=== PATIENT | male | born 1955 | race Caucasian/White ===

== ENCOUNTER 2017-12-04 19:18 | Inpatient (IN) | payer MEDICAID, SELFPAY ==
[2017-12-04 19:24] VITALS: BP 96/63; PULSE 114; RESP 16; TEMP 36.7; O2SAT 100; BMI 27.8
--- NOTE | 2017-12-04 20:03 | DI.RAD.S_ITS ---
PROCEDURE: XR CHEST 1V INDICATIONS: chest pain TECHNIQUE: One view of the chest was acquired. COMPARISON: [facility], , CHEST 2 VIEW, 04/27/2017, 15:45. FINDINGS: Surgical changes and devices: Sternal wires consistent with previous bypass procedure. Lungs and pleura: There is an overall appearance of increased pulmonary vascularity. Mediastinum: Mediastinal contours appear normal. Heart size is borderline prominent. Bones and chest wall: No suspicious bony lesions. Overlying soft tissues appear unremarkable. IMPRESSION: Increased vascularity suggestive of edema. Dictated by: Yudy Crow M.D. on 12/04/2017 at 19:58 Approved by: Yudy Crow M.D. on 12/04/2017 at 19:59
--- NOTE | 2017-12-04 20:11 | ED.ARRPALP ---
HPI - Arrhythmia/Palpitations General Chief Complaint: Arrhythmia/Palpitations Stated Complaint: STATED HIGH HEART RATE Time Seen by Provider: 12/04/17 20:00 Source: patient Mode of arrival: ambulatory Limitations: no limitations History of Present Illness HPI narrative: 62-year-old male with history of hepatitis C, cirrhosis, former alcohol abuser presents with very minimal complaints. He states that he was at the pharmacy picking up a prescription and he took his blood pressure at a machine and noted a high heart rate and low blood pressure. He states he feels a bit tired but has no specific complaints. He is not dizzy nor weak or lightheaded. He denies any nausea, vomiting or diarrhea. He denies any fever or chills. He denies chest pain or shortness of breath. He recently started therapy for hepatitis C. He states that the swelling which has become chronic in his legs is greatly improved. Eventually the patient mentions that he thinks he had recently been at another hospital but has very little specifics about his hospitalization. In the end we obtained records from [facility] which demonstrate a recent diagnosis for septic shock and acute respiratory failure with intubation and acute kidney injury. Patient was discharged on October 25 from [facility] complaint: rapid heart beat Onset (ago): unknown Duration: constant Severity: moderate Related Data Home Medications Medication Instructions Recorded Confirmed lisinopril 10 mg PO QDAY #0 12/03/16 12/04/17 magnesium oxide 400 mg PO QDAY #0 12/03/16 12/04/17 potassium chloride 20 meq PO BIDCC #0 12/03/16 12/04/17 furosemide 40 mg PO BID 12/04/17 12/04/17 sofosbuvir-velpatasvir [Epclusa] 1 tab PO DAILY 12/04/17 12/04/17 spironolactone 25 mg PO DAILY 12/04/17 12/04/17 Previous Rx's Medication Instructions Recorded ondansetron 4 mg SUBLINGUAL Q6HP PRN #14 odt 03/15/17 lactulose 30 ml PO TID #90 dose 04/30/17 Allergies Allergy/AdvReac Type Severity Reaction Status Date / Time No Known Allergies Allergy Uncoded 07/03/17 12:03 Review of Systems Review of Systems All systems reviewed & are unremarkable except as noted in HPI and below Constitutional Denies chills, Denies fever(s), Denies lethargy, Reports poor appetite and Denies weakness Eyes Denies change in vision, Denies eye discharge, Denies irritation and Denies loss of vision ENT Ears, Nose, Mouth, and Throat: Denies change in voice, Denies neck pain and Denies sore throat Cardiovascular Denies chest pain, Reports rapid heart rate, Denies irregular heart rhythm, Denies lightheadedness, Denies palpitations, Denies dyspnea, Denies dyspnea on exertion and Denies orthopnea Respiratory Denies cough, Denies dyspnea, Denies dyspnea on exertion and Denies wheezing Gastrointestinal Gastrointestinal: Denies abdominal pain, Denies change in bowel habits, Denies diarrhea, Denies nausea and Denies vomiting Genitourinary Denies hematuria, Denies flank pain, Denies urinary incontinence and Denies urinary urgency Musculoskeletal Denies neck pain Integumentary/Breasts Denies pruritus, Denies erythema, Denies rash and Denies wounds Neurologic Denies confusion, Denies loss of vision and Denies weakness Psychiatric Denies anxiety, Denies confusion, Denies depression, Denies homicidal ideation and Denies suicidal ideation Endocrine Denies palpitations Hematologic/Lymphatic Denies easy bruising Allergic/Immunologic Denies wheezing [facility] History Mitral valve replaced (Acute) Social History Smoking Status: Former smoker Exam Narrative Exam Narrative: 62-year-old male is alert and oriented, very stoic and not complaining of much Initial Vital Signs Initial Vital Signs: Vital Signs Temperature 98.1 F 12/04/17 19:24 Pulse Rate 114 H 12/04/17 19:24 Respiratory Rate 16 12/04/17 19:24 Blood Pressure 96/63 12/04/17 19:24 Pulse Oximetry 100 12/04/17 19:24 Const General: cooperative, disheveled, frail appearing and ill appearing Nutritional Appearance: well nourished Orientation: alert, awake, oriented x3 and not confused [facility] Head: normocephalic and atraumatic Ears: external ears normal and TM's normal bilaterally Nose: external nose normal and No nasal discharge Face and sinus: sinuses nontender, face symmetric, no sinus tenderness and No dry mucous membranes Mouth: oral mucosae normal and moist mucous membranes Teeth and gingiva: dentition normal Throat: tonsils normal and uvula midline Eyes General: appearance normal, both eyes and all related structures Eyelids: eyelids normal Conjunctivae: conjunctivae normal Sclera: sclerae normal Pupils: PERRL EOM: EOM intact bilaterally Neck Neck: normal visual inspection, trachea midline, No lymphadenopathy, No midline deformity and No JVD Lymphatic: No lymphedema Chest Chest: normal inspection of the chest Resp Effort & Inspection: normal respiratory effort, able to speak in complete sentences, no respiratory distress and no use of accessory muscles Auscultation: clear to auscultation bilaterally, no rales, no rhonchi and no wheezes Cardio Rate: tachycardic Rhythm: regular rhythm Heart Sounds: no click, no gallops, no murmurs and no rubs Pulses: normal peripheral pulses GI Inspection: normal to inspection Palpation: soft Auscultation: normal bowel sounds Back/Spine/Pelvis Back: No CVA tenderness Cervical Spine: cervical ROM normal and No pain with cervical ROM Thoracic/Lumbar Spine: thoracic and lumbar spine normal to inspection Skin Other: Jaundice Neuro General: alert, awake and oriented x3 Extrem General: normal to inspection Right upper extremity: normal to inspection Left upper extremity: normal to inspection Right lower extremity: normal to inspection Left lower extremity: normal to inspection Course Decision to Admit Date: 12/05/17 Decision to Admit time: 00:02 Orders Ordered: ED Orders 12/04/17 23:25 Lactate (Lactic Acid) Stat Troponin I Stat 12/05/17 CT angio chest PE protocol Stat EKG-12 Lead Stat 12/05/17 02:22 US abdomen complete Stat 12/05/17 02:35 Procalcitonin Stat 12/05/17 02:43 Ammonia (NH3) Stat Discontinued Medications Diltiazem HCl (Cardizem) 10 mg IV NOW ONE Stop: 12/05/17 03:30 Last Admin: 12/05/17 03:36 Dose: 10 mg Diphenhydramine HCl (Benadryl) 25 mg IV NOW ONE Stop: 12/05/17 00:05 Last Admin: 12/05/17 00:19 Dose: 25 mg Sodium Chloride (Normal Saline 0.9%) 1,000 mls @ 1,000 mls/hr IV BOLUS ONE Stop: 12/05/17 03:34 Last Infusion: 12/05/17 04:18 Dose: 1,000 mls/hr Admin: 12/05/17 03:04 Dose: 1,000 mls/hr Methylprednisolone (Solu-Medrol 125 Mg Vial) 125 mg IV NOW ONE Stop: 12/05/17 00:05 Last Admin: 12/05/17 00:19 Dose: 125 mg Metoprolol Tartrate (Lopressor) 50 mg PO NOW ONE Stop: 12/05/17 05:17 Last Admin: 12/05/17 05:22 Dose: 50 mg Reevaluation(s) Reevaluation #1: Patient's girlfriend finally arise and is at the bedside and is able to shed some light. She states that he has had a poor appetite for the past few days and has had less than normal oral intake. Reevaluation #2: Patient had little change after a L and half of fluid regarding tachycardia and hypotension. There was some question as to whether the sinus tachycardia was in fact a 1-1 Atrial flutter, as the result patient was given Cardizem 10mg IVP and EKGs note a decrease in HR to the low 100s and patient alternating between slow AFib and AFlutter. BP remains 100. Patient has no change in symptoms. Reevaluation #3: Patient heart rate beginning to creep back up into the 140s. Cardizem drip ordered Additional Reevaluation(s): Given lack of available beds at various other facilities I had a lengthy discussion with our hospitalist, Dr. Grimaldo whom feels comfortable keeping patient here to control rapid atrial tachycardia and monitor other labs. Her recommendation is, rather than an initiate Cardizem drip, to start metoprolol 50 mg p.o. and look for response. After 1 hr patient heart rate remained in the 70s with a systolic blood pressure 105, both improvement. Given this the patient will be admitted to general medical floor with telemetry and will receive metoprolol 50 mg Q [address] Grimaldo Consultations Consultation #1: Call to Dr. Michelle to discuss lab findings in the setting of the ultrasound noting gallstones. He sure the opinion that is unlikely to be surgical but that in the event of surgery his complicated medical history makes him much too complicated for this hospital. Called place to [facility], where there are no available beds as well as [facility] where there are no available beds. No beds at [facility]. Consultation #2: Call to Hepatology to discuss these symptoms after starting a new Hep C medication. He recommends stopping Epclusa, treating the atrial tachycardia and following labs. They will stay in close contact regarding patient's progress Call back to [facility], no beds still Vital Signs - 8 hr 12/04/17 22:44 12/04/17 23:09 12/05/17 00:15 Pulse Rate 149 H 150 H 136 H Respiratory Rate Blood Pressure [Left Arm] 98/66 98/62 102/65 Pulse Oximetry 98 99 98 12/05/17 01:01 12/05/17 02:05 12/05/17 03:18 Pulse Rate 136 H 138 H 136 H Respiratory Rate 16 18 20 Blood Pressure [Left Arm] 107/71 105/69 102/64 Pulse Oximetry 99 100 98 12/05/17 03:44 12/05/17 03:55 12/05/17 05:04 Pulse Rate 108 H 99 H 144 H Respiratory Rate Blood Pressure [Left Arm] 96/59 L 100/58 L 99/64 Pulse Oximetry 98 12/05/17 05:50 12/05/17 06:28 Pulse Rate 100 H 76 Respiratory Rate 18 Blood Pressure [Left Arm] 90/51 L 101/63 Pulse Oximetry 98 MDM - Arrhythmia/Palpitations Lab Data Result diagrams: 12/04/17 20:00 12/04/17 20:00 Lab Results 12/04/17 12/04/17 12/04/17 Range/Units 20:00 20:00 20:00 WBC 4.6 (4.5-11.0) X10^3/uL RBC 3.79 L (4.5-5.9) X10^6/uL Hgb 13.9 (13.5-17.5) g/dL Hct 39.0 L (41-53) % MCV 102.8 H (80-100) fL MCH 36.7 H (26-34) PG MCHC 35.7 (30-36) % RDW 15.8 H (11.6-14.8) % Plt Count 107 L (150-400) X10^3/uL Neut % (Auto) 68.4 (50-75) % Lymph % (Auto) 15.5 L (25-40) % [place] % (Auto) 11.2 (3-14) % Eos % (Auto) 3.7 (2-4) % Baso % (Auto) 1.2 (0-2) % Neut # (Auto) 3100 (0566-3789) /uL PT 15.7 H (10.1-12.7) SECONDS INR 1.4 H (0.9-1.3) APTT 35 (26.4-36.2) SECONDS Sodium 139 (137-145) mmol/L Potassium 4.6 (3.4-5.1) mmol/L Chloride 105 (98-107) mmol/L Carbon Dioxide 27 (22-32) mmol/L BUN 16 (9-20) mg/dL Creatinine 0.80 (0.66-1.25) mg/dL Estimated GFR > 60.0 (>60) mL/min BUN/Creatinine Ratio 20.0 (6-22) Glucose 100 (80-110) mg/dL Lactate (0.7-2.1) mmol/L Calcium 8.8 (8.4-10.2) mg/dL Total Bilirubin 8.0 H (0.2-1.3) mg/dL AST 135 H (17-59) IU/L ALT 84 H (21-72) IU/L Alkaline Phosphatase 125 (38-126) U/L Ammonia (9-30) umol/L Total Creatine Kinase 24 L (55-170) U/L Troponin I < 0.012 (0.01-0.034) ng/mL Total Protein 7.9 (6.3-8.2) g/dL Albumin 3.2 L (3.5-5.0) g/dL Globulin 4.7 H (1.7-4.1) g/dL Albumin/Globulin Ratio 0.7 L (1.0-2.8) Lipase 604 H (23-300) U/L Procalcitonin (<0.5) ng/mL 12/04/17 12/04/17 12/04/17 Range/Units 23:25 23:25 23:25 WBC (4.5-11.0) X10^3/uL RBC (4.5-5.9) X10^6/uL Hgb (13.5-17.5) g/dL Hct (41-53) % MCV (80-100) fL MCH (26-34) PG MCHC (30-36) % RDW (11.6-14.8) % Plt Count (150-400) X10^3/uL Neut % (Auto) (50-75) % Lymph % (Auto) (25-40) % [place] % (Auto) (3-14) % Eos % (Auto) (2-4) % Baso % (Auto) (0-2) % Neut # (Auto) (6638-7827) /uL PT (10.1-12.7) SECONDS INR (0.9-1.3) APTT (26.4-36.2) SECONDS Sodium (137-145) mmol/L Potassium (3.4-5.1) mmol/L Chloride (98-107) mmol/L Carbon Dioxide (22-32) mmol/L BUN (9-20) mg/dL Creatinine (0.66-1.25) mg/dL Estimated GFR (>60) mL/min BUN/Creatinine Ratio (6-22) Glucose (80-110) mg/dL Lactate 0.9 (0.7-2.1) mmol/L Calcium (8.4-10.2) mg/dL Total Bilirubin (0.2-1.3) mg/dL AST (17-59) IU/L ALT (21-72) IU/L Alkaline Phosphatase (38-126) U/L Ammonia (9-30) umol/L Total Creatine Kinase (55-170) U/L Troponin I < 0.012 (0.01-0.034) ng/mL Total Protein (6.3-8.2) g/dL Albumin (3.5-5.0) g/dL Globulin (1.7-4.1) g/dL Albumin/Globulin Ratio (1.0-2.8) Lipase (23-300) U/L Procalcitonin 0.07 (<0.5) ng/mL 12/05/17 Range/Units 02:43 WBC (4.5-11.0) X10^3/uL RBC (4.5-5.9) X10^6/uL Hgb (13.5-17.5) g/dL Hct (41-53) % MCV (80-100) fL MCH (26-34) PG MCHC (30-36) % RDW (11.6-14.8) % Plt Count (150-400) X10^3/uL Neut % (Auto) (50-75) % Lymph % (Auto) (25-40) % [place] % (Auto) (3-14) % Eos % (Auto) (2-4) % Baso % (Auto) (0-2) % Neut # (Auto) (4900-6825) /uL PT (10.1-12.7) SECONDS INR (0.9-1.3) APTT (26.4-36.2) SECONDS Sodium (137-145) mmol/L Potassium (3.4-5.1) mmol/L Chloride (98-107) mmol/L Carbon Dioxide (22-32) mmol/L BUN (9-20) mg/dL Creatinine (0.66-1.25) mg/dL Estimated GFR (>60) mL/min BUN/Creatinine Ratio (6-22) Glucose (80-110) mg/dL Lactate (0.7-2.1) mmol/L Calcium (8.4-10.2) mg/dL Total Bilirubin (0.2-1.3) mg/dL AST (17-59) IU/L ALT (21-72) IU/L Alkaline Phosphatase (38-126) U/L Ammonia 39.0 H (9-30) umol/L Total Creatine Kinase (55-170) U/L Troponin I (0.01-0.034) ng/mL Total Protein (6.3-8.2) g/dL Albumin (3.5-5.0) g/dL Globulin (1.7-4.1) g/dL Albumin/Globulin Ratio (1.0-2.8) Lipase (23-300) U/L Procalcitonin (<0.5) ng/mL Imaging Data CT scan - chest: Radiologist's impression: No CT evidence of pulmonary embolism. No acute intrathoracic pathology. Cholelithiasis without CT evidence of cholecystitis. Tiny amount of fluid adjacent to the spleen or tiny subcapsular fluid collection which may be result of an old subcapsular hematoma US - abdomen: Radiologist's impression: Multiple gallstones and minimally thickened gallbladder wall at 4 mm but otherwise normal ECG Data Attestation: I personally reviewed and interpreted this ECG as follows: Prior ECG tracings: not available for review Interpretation: Sinus tachycardia in the 150s without signs of ischemia or ectopy. EKG after Cardizem notes atrial flutter at 107 without signs of ischemia Discharge Plan Departure Patient Disposition: Admitted As Inpatient Clinical Impression: Atrial flutter with rapid ventricular response Admit Date/Time: 12/05/17 06:31 Admit Provider: Samantha Grimaldo
[2017-12-04 20:15] LABS: INR 1.4 (0.9-1.3); Prothrombin Time 15.7 SECONDS (10.1-12.7)
[2017-12-04 20:18] LABS: PTT Partial Thromboplastin Tim 35 SECONDS (26.4-36.2)
[2017-12-04 20:21] LABS: Add Manual Diff / Slide Review NO; Basophils Percent Auto 1.2 % (0-2); Eosinophils Percent Auto 3.7 % (2-4); Hemoglobin 13.9 g/dL (13.5-17.5); Lymphocytes Percent Auto 15.5 % (25-40); Mean Corpuscular HGB Conc 35.7 % (30-36); Mean Corpuscular Hemoglobin 36.7 PG (26-34); Mean Corpuscular Volume 102.8 fL (80-100); Monocytes Percent Auto 11.2 % (3-14); Neutrophils Absolute Auto 3100 /uL (3000-5900); Neutrophils Percent Auto 68.4 % (50-75); Platelet Count 107 X10^3/uL (150-400); Red Blood Cell Count 3.79 X10^6/uL (4.5-5.9); Red Cell Distribution Width 15.8 % (11.6-14.8); White Blood Cell Count 4.6 X10^3/uL (4.5-11.0)
[2017-12-04 20:23] LABS: Alanine Aminotransferase 84 IU/L (21-72); Albumin 3.2 g/dL (3.5-5.0); Albumin Globulin Ratio 0.7 (1.0-2.8); Alkaline Phosphatase 125 U/L (38-126); Aspartate Aminotransferase 135 IU/L (17-59); Blood Urea Nitrogen 16 mg/dL (9-20); Calcium 8.8 mg/dL (8.4-10.2); Carbon Dioxide 27 mmol/L (22-32); Chloride 105 mmol/L (98-107); Creatine Kinase 24 U/L (55-170); Estimated Glomerular Filt Rate > 60.0 mL/min (>60); Globulin 4.7 g/dL (1.7-4.1); Glucose 100 mg/dL (80-110); HEMOLYSIS < 15 (0-50); Lipase 604 U/L (23-300); Potassium 4.6 mmol/L (3.4-5.1); Sodium 139 mmol/L (137-145); Total Protein 7.9 g/dL (6.3-8.2)
[2017-12-04 20:38] LABS: Troponin I < 0.012 ng/mL (0.01-0.034)
[2017-12-04 20:54] VITALS: BP 106/52; PULSE 124; RESP 16; O2SAT 99
[2017-12-04 21:50] VITALS: BP 103/50; PULSE 119; RESP 16; O2SAT 99
[2017-12-04 22:44] VITALS: BP 98/66; PULSE 149; O2SAT 98
[2017-12-04 23:09] VITALS: BP 98/62; PULSE 150; O2SAT 99
[2017-12-04 23:44] LABS: Lactate (Lactic Acid) 0.9 mmol/L (0.7-2.1)
[2017-12-04 23:57] LABS: Troponin I < 0.012 ng/mL (0.01-0.034)
[2017-12-05] VITALS (17 sets, daily range): BP systolic 89–107; BP diastolic 46–71; PULSE 70–144; RESP 14–20; TEMP 36.3–36.7; O2SAT 95–100; BMI 27.8
--- NOTE | 2017-12-05 | DI.ECHO.S_ITS ---
[facility]---------+ [facility] +---------+ : : [address] [place] [place] : : : : [id number] : : : : Phone: [phone] Echocardiogram Report + + :Name: UTE PENDLETON Study Date: 12/05/2017 Height: 70 in : :[facility] Exam Location: [facility] Weight: 194 lb: : Gender: Male BSA: 2.1 m2 : :: 1955 Age: 62 yrs BP: 97/55 mmHg: :Reason For Study: Atrial flutter : : Performed By: Lacy Page : :Referring: FLAKO SORENSON : + + Interpretation Summary 1. Normal left ventricular size, wall thickiness and systolic function with an estimated EF of 65 to 70% 2. Mild to moderately dilated right ventricle with normal systolic function. The estimated RVSP is 33 mm Hg. 3. The prosthetic mitral valve is well seated. The mean gradient across the valve is 9.5 mm Hg (suggesting possible stenosis) - no old study with gradients across the valve is available. There is no old study available for comparison Procedure: A two-dimensional transthoracic echocardiogram with color flow and Doppler was performed. The study quality was technically adequate. Comparison is made with the echocardiogram of 02/19/2011. The patient was in atrial flutter with heart rates between 71-76 bpm during the exam. Left Ventricle: The left ventricle is normal in size. There is normal left ventricular wall thickness. The ejection fraction is estimated to be 65-70%. The left ventricle is mildly hyperdynamic. Septal motion is consistent with post-operative state. No obvious focal wall motion abnormalities appreciated. Diastolic function could not be accurately assessed due to confounding valvular disease. Right Ventricle: The right ventricle is mild to moderately dilated. The right ventricular systolic function is normal. Atria: Both atria are severely dilated. There is no Doppler evidence for an atrial septal defect. Mitral Valve: There is a bioprosthetic mitral valve. The prosthetic mitral valve is well-seated. Bioprosthesis leaflets are not well visualized. The mitral valve mean gradient is 9.5 mmHg. Aortic Valve: The aortic valve is trileaflet. The aortic valve opens well. There is trace aortic regurgitation. Tricuspid Valve: The tricuspid valve leaflets are thin and pliable. There is mild tricuspid regurgitation. The right ventricular systolic pressure is estimated at 33 mmHg assuming a right atrial pressure of 8 mm Hg. Pulmonic Valve: The pulmonic valve is not well seen, but is grossly normal. There is mild pulmonic regurgitation. Great Vessels: The aortic root is normal size. The ascending aorta is mildly enlarged. The IVC is dilated (diameter is greater than 2.1 cm) yet it collapses greater than 50% with a sniff. This suggests a right atrial pressure of 8 mm Hg. Pericardium/ Pleura There is no pericardial effusion. There is no pleural effusion. MMode/2D Measurements & Calculations LVIDd: 5.0 cm LVOT diam: 2.6 cm LVIDs: 3.3 cm Ao root diam: 4.2 cm FS: 34.4 % asc Aorta Diam: 3.6 cm IVSd: 0.94 cm LVPWd: 0.99 cm LV francisco. diameter/BSA (cm/m^2): 2.4 LV sys. diameter/BSA (cm/m^2): 1.6 LA A2 area: 38.6 cm2 RA long axis: 5.3 cm LA A4 area: 40.3 cm2 RA area: 25.9 cm2 LA length (vol): 7.1 cm RA vol: 107.4 ml LA vol: 186.0 ml RA : 52.1 ml/m2 LA vol index: 90.3 ml/m2 IVC diam: 2.9 cm RVD1 (basal): 6.3 cm Doppler Measurements & Calculations Ao V2 max: 123.8 cm/sec LVOT Max George: 82.7 cm/sec Ao V2 mean: 84.3 cm/sec LV V1 max P.7 mmHg Ao max P.1 mmHg LV V1 VTI: 17.5 cm Ao mean P.2 mmHg ANSELMO(I,D): 4.2 cm2 Ao V2 VTI: 22.0 cm ANSELMO(V,D): 3.6 cm2 sev ratio: 0.80 ANSELMO indexed to BSA (cm^2/m^2): 2.1 Med Peak E' George: 6.6 cm/sec TR max george: 251.3 cm/sec Lat Peak E' George: 11.6 cm/sec TR max P.3 mmHg MVA(VTI): 1.3 cm2 PA V2 max: 75.0 cm/sec PA V2 mean: 54.6 cm/sec PA mean P.3 mmHg PA Accel Time: 0.12 sec MV V2 mean: 140.1 cm/sec MV mean P.5 mmHg MV V2 VTI: 73.1 cm Reading Physician:MANNY
--- NOTE | 2017-12-05 | DI.CT.S_ITS ---
PROCEDURE: CT ANGIO CHEST PE PROTOCOL INDICATIONS: TACHYCARDIA, CHEST PAIN, PALPITATIONS TECHNIQUE: After the administration of intravenous contrast, 2 mm thick sections acquired from the pulmonary apices to the posterior costophrenic angles. 3-dimensional maximum intensity projection (MIP) coronal and sagittal reformats were then acquired through the thorax. For radiation dose reduction, the following was used: automated exposure control, adjustment of mA and/or kV according to patient size. COMPARISON: [facility], CT, THORAX WITHOUT CONTRAST, 02/18/2011, 19:17. FINDINGS: Image quality: Excellent. Pulmonary arteries: Pulmonary arteries are normal in size, and demonstrate no intraluminal filling defects to suggest central pulmonary embolism. Lungs and pleura: Lungs are clear. No pleural effusions or pneumothorax. Central and peripheral airways are patent. Mediastinum: Heart size is normal, without pericardial effusion. Patient is status post tricuspid valve replacement. No mediastinal or hilar adenopathy. Thoracic aorta is normal in caliber and enhancement. Esophagus is normal in caliber, without hiatal hernia. Bones and chest wall: Patient is status post median sternotomy. No suspicious bony lesions. Ribs and thoracic spine appear intact throughout. A lobulated partially calcified mass is present within the left thyroid lobe. This is increased in size when compared with the prior CT dated 02/18/11. The right thyroid lobe is unremarkable. No enlarged axillary or supraclavicular lymph nodes; however there are greater than expected subcentimeter left supraclavicular lymph nodes present. Abdomen: Multiple subcentimeter calcified stones are present within the gallbladder fundus. There is a small low density subcapsular splenic fluid collection which is partially visualized. The spleen is enlarged and only partially characterized. Visualized upper abdominal solid organs appear normal in the early arterial phase of enhancement. IMPRESSION: 1. No acute pulmonary embolus. 2. Cholelithiasis. 3. Splenomegaly and trace subcapsular splenic fluid collection. This may represent an old splenic hematoma. This is incompletely characterized on this limited view. Consider abdominal ultrasound if further characterization is warranted. Note: The preliminary [facility] interpretation and the final report are concordant. 4. Partially calcified hyperdense left thyroid mass. If further characterization is warranted, thyroid ultrasound is recommended. 5. Greater than expected number of shotty, subcentimeter left super clavicular lymph nodes. These findings were discussed with Dr. Navarrete at 9:06 AM on 12/05/17. Dictated by: Nicolasa Lucio M.D. on 12/05/2017 at 8:55 Approved by: Nicolasa Lucio M.D. on 12/05/2017 at 9:05
[2017-12-05] MEDS: methylPREDNISolone 125 MG/2 ML VIAL IV (00:19)
[2017-12-05] MEDS: diphenhydrAMINE 50 MG/ML VIAL 25 MG IV (00:19)
--- NOTE | 2017-12-05 02:22 | DI.US.S_ITS ---
PROCEDURE: US ABDOMEN COMPLETE INDICATIONS: abdominal pain, bilirubin 8, elevated LFTs TECHNIQUE: Real-time scanning was performed of the abdominal and retroperitoneal organs, with image documentation. COMPARISON: [facility] [place], HEPATOBILIARY IMAGING, 02/19/2011, 8:26. [facility], CT, CT-IVP, 06/25/2011, 12:59. [facility], CT, CT ANGIO CHEST PE PROTOCOL, 12/05/2017, 0:25. FINDINGS: Liver: Liver is normal in size and demonstrates nodular contour and heterogeneously increased echotexture. There is a 2.1 cm hypoechoic nodule in the right hepatic lobe. Recannulized umbilical vein is noted. Gallbladder: The gallbladder contains gallstones and sludge. There is mild gallbladder wall thickening measuring 4 mm. No pericholecystic fluid collection or sonographic Sarkar's sign. Biliary ducts: Intrahepatic bile ducts are non-dilated. Extrahepatic bile duct caliber measures 5 mm. Normal is 6-7 mm or less in diameter, or 10 mm or less post-cholecystectomy. Pancreas: There is a heterogeneous, slightly hypoechoic area in the pancreatic head measuring 3.9 cm in AP dimension. Spleen: Spleen is enlarged measuring 17 cm. Kidneys: Kidneys are normal in size and echotexture. Right kidney measures 13.1 cm long; left kidney measures 12.3 cm long. There is a 1.9 x 2.0 cm simple appearing cyst in the mid right kidney. No hydronephrosis or nephrolithiasis. No solid masses. Aorta: Visualized aorta is normal in caliber at less than 3 cm. Iliacs: Proximal common iliac arteries are obscured by overlying bowel gas. IVC: Intrahepatic inferior vena cava is patent. Miscellaneous: No free abdominal fluid. IMPRESSION: 1. Liver has a nodular contour and heterogeneous echotexture of liver consistent with cirrhosis. A 2.1 cm hypoechoic nodule is noted in the liver. In this patient with chronic liver disease, HCC is a concern. Liver protocol CT or MRI is recommended for followup. 2. Cholelithiasis. There is mild gallbladder wall thickening which may be secondary to chronic liver disease or early acute cholecystitis. No pericholecystic fluid collection or sonographic Sarkar sign. 3. Splenomegaly and recannulization of umbilical vein consistent with portal hypertension. 4. Enlarged pancreatic head with heterogeneous, slightly hypoechoic appearance measuring 3.9 cm in AP dimension, A pancreatic mass cannot be excluded. Pancreatic protocol CT is recommended for further evaluation. 5. Simple appearing right renal cyst. No significant discrepancy with the security shift supervisor radiology preliminary report. Dictated by: Aleisha Addison M.D. on 12/05/2017 at 10:22 Approved by: Aleisha Addison M.D. on 12/05/2017 at 10:35
--- NOTE | 2017-12-05 02:35 | ED_ITS ---
HPI - Arrhythmia/Palpitations General Chief Complaint: Arrhythmia/Palpitations Stated Complaint: STATED HIGH HEART RATE Time Seen by Provider: 12/04/17 20:00 Source: patient Mode of arrival: ambulatory Limitations: no limitations History of Present Illness HPI narrative: 62-year-old male with history of hepatitis C, cirrhosis, former alcohol abuser presents with very minimal complaints. He states that he was at the pharmacy picking up a prescription and he took his blood pressure at a machine and noted a high heart rate and low blood pressure. He states he feels a bit tired but has no specific complaints. He is not dizzy nor weak or lightheaded. He denies any nausea, vomiting or diarrhea. He denies any fever or chills. He denies chest pain or shortness of breath. He recently started therapy for hepatitis C. He states that the swelling which has become chronic in his legs is greatly improved. Eventually the patient mentions that he thinks he had recently been at another hospital but has very little specifics about his hospitalization. In the end we obtained records from [place] [facility] which demonstrate a recent diagnosis for septic shock and acute respiratory failure with intubation and acute kidney injury. Patient was discharged on October 25 from [facility] complaint: rapid heart beat Onset (ago): unknown Duration: constant Severity: moderate Related Data Home Medications Medication Instructions Recorded Confirmed lisinopril 10 mg PO QDAY #0 12/03/16 12/04/17 magnesium oxide 400 mg PO QDAY #0 12/03/16 12/04/17 potassium chloride 20 meq PO BIDCC #0 12/03/16 12/04/17 furosemide 40 mg PO BID 12/04/17 12/04/17 sofosbuvir-velpatasvir [Epclusa] 1 tab PO DAILY 12/04/17 12/04/17 spironolactone 25 mg PO DAILY 12/04/17 12/04/17 Previous Rx's Medication Instructions Recorded ondansetron 4 mg SUBLINGUAL Q6HP PRN #14 odt 03/15/17 lactulose 30 ml PO TID #90 dose 04/30/17 Allergies Allergy/AdvReac Type Severity Reaction Status Date / Time No Known Allergies Allergy Uncoded 07/03/17 12:03 Review of Systems Review of Systems All systems reviewed & are unremarkable except as noted in HPI and below Constitutional Denies chills, Denies fever(s), Denies lethargy, Reports poor appetite and Denies weakness Eyes Denies change in vision, Denies eye discharge, Denies irritation and Denies loss of vision ENT Ears, Nose, Mouth, and Throat: Denies change in voice, Denies neck pain and Denies sore throat Cardiovascular Denies chest pain, Reports rapid heart rate, Denies irregular heart rhythm, Denies lightheadedness, Denies palpitations, Denies dyspnea, Denies dyspnea on exertion and Denies orthopnea Respiratory Denies cough, Denies dyspnea, Denies dyspnea on exertion and Denies wheezing Gastrointestinal Gastrointestinal: Denies abdominal pain, Denies change in bowel habits, Denies diarrhea, Denies nausea and Denies vomiting Genitourinary Denies hematuria, Denies flank pain, Denies urinary incontinence and Denies urinary urgency Musculoskeletal Denies neck pain Integumentary/Breasts Denies pruritus, Denies erythema, Denies rash and Denies wounds Neurologic Denies confusion, Denies loss of vision and Denies weakness Psychiatric Denies anxiety, Denies confusion, Denies depression, Denies homicidal ideation and Denies suicidal ideation Endocrine Denies palpitations Hematologic/Lymphatic Denies easy bruising Allergic/Immunologic Denies wheezing [facility] Surgical History Mitral valve replaced (Acute) Social History Smoking Status: Former smoker Exam Narrative Exam Narrative: 62-year-old male is alert and oriented, very stoic and not complaining of much Initial Vital Signs Initial Vital Signs: Vital Signs Temperature 98.1 F 12/04/17 19:24 Pulse Rate 114 H 12/04/17 19:24 Respiratory Rate 16 12/04/17 19:24 Blood Pressure 96/63 12/04/17 19:24 Pulse Oximetry 100 12/04/17 19:24 Const General: cooperative, disheveled, frail appearing and ill appearing Nutritional Appearance: well nourished Orientation: alert, awake, oriented x3 and not confused [facility] Head: normocephalic and atraumatic Ears: external ears normal and TM's normal bilaterally Nose: external nose normal and No nasal discharge Face and sinus: sinuses nontender, face symmetric, no sinus tenderness and No dry mucous membranes Mouth: oral mucosae normal and moist mucous membranes Teeth and gingiva: dentition normal Throat: tonsils normal and uvula midline Eyes General: appearance normal, both eyes and all related structures Eyelids: eyelids normal Conjunctivae: conjunctivae normal Sclera: sclerae normal Pupils: PERRL EOM: EOM intact bilaterally Neck Neck: normal visual inspection, trachea midline, No lymphadenopathy, No midline deformity and No JVD Lymphatic: No lymphedema Chest Chest: normal inspection of the chest Resp Effort & Inspection: normal respiratory effort, able to speak in complete sentences, no respiratory distress and no use of accessory muscles Auscultation: clear to auscultation bilaterally, no rales, no rhonchi and no wheezes Cardio Rate: tachycardic Rhythm: regular rhythm Heart Sounds: no click, no gallops, no murmurs and no rubs Pulses: normal peripheral pulses GI Inspection: normal to inspection Palpation: soft Auscultation: normal bowel sounds Back/Spine/Pelvis Back: No CVA tenderness Cervical Spine: cervical ROM normal and No pain with cervical ROM Thoracic/Lumbar Spine: thoracic and lumbar spine normal to inspection Skin Other: Jaundice Neuro General: alert, awake and oriented x3 Extrem General: normal to inspection Right upper extremity: normal to inspection Left upper extremity: normal to inspection Right lower extremity: normal to inspection Left lower extremity: normal to inspection Course Decision to Admit Date: 12/05/17 Decision to Admit time: 00:02 Orders Ordered: ED Orders 12/04/17 23:25 Lactate (Lactic Acid) Stat Troponin I Stat 12/05/17 CT angio chest PE protocol Stat EKG-12 Lead Stat 12/05/17 02:22 US abdomen complete Stat 12/05/17 02:35 Procalcitonin Stat 12/05/17 02:43 Ammonia (NH3) Stat Discontinued Medications Diltiazem HCl (Cardizem) 10 mg IV NOW ONE Stop: 12/05/17 03:30 Last Admin: 12/05/17 03:36 Dose: 10 mg Diphenhydramine HCl (Benadryl) 25 mg IV NOW ONE Stop: 12/05/17 00:05 Last Admin: 12/05/17 00:19 Dose: 25 mg Sodium Chloride (Normal Saline 0.9%) 1,000 mls @ 1,000 mls/hr IV BOLUS ONE Stop: 12/05/17 03:34 Last Infusion: 12/05/17 04:18 Dose: 1,000 mls/hr Admin: 12/05/17 03:04 Dose: 1,000 mls/hr Methylprednisolone (Solu-Medrol 125 Mg Vial) 125 mg IV NOW ONE Stop: 12/05/17 00:05 Last Admin: 12/05/17 00:19 Dose: 125 mg Metoprolol Tartrate (Lopressor) 50 mg PO NOW ONE Stop: 12/05/17 05:17 Last Admin: 12/05/17 05:22 Dose: 50 mg Reevaluation(s) Reevaluation #1: Patient's girlfriend finally arise and is at the bedside and is able to shed some light. She states that he has had a poor appetite for the past few days and has had less than normal oral intake. Reevaluation #2: Patient had little change after a L and half of fluid regarding tachycardia and hypotension. There was some question as to whether the sinus tachycardia was in fact a 1-1 Atrial flutter, as the result patient was given Cardizem 10mg IVP and EKGs note a decrease in HR to the low 100s and patient alternating between slow AFib and AFlutter. BP remains 100. Patient has no change in symptoms. Reevaluation #3: Patient heart rate beginning to creep back up into the 140s. Cardizem drip ordered Additional Reevaluation(s): Given lack of available beds at various other facilities I had a lengthy discussion with our hospitalist, Dr. Grimaldo whom feels comfortable keeping patient here to control rapid atrial tachycardia and monitor other labs. Her recommendation is, rather than an initiate Cardizem drip, to start metoprolol 50 mg p.o. and look for response. After 1 hr patient heart rate remained in the 70s with a systolic blood pressure 105, both improvement. Given this the patient will be admitted to general medical floor with telemetry and will receive metoprolol 50 mg Q [address] Grimaldo Consultations Consultation #1: Call to Dr. Michelle to discuss lab findings in the setting of the ultrasound noting gallstones. He sure the opinion that is unlikely to be surgical but that in the event of surgery his complicated medical history makes him much too complicated for this hospital. Called place to [place], where there are no available beds as well as [facility] where there are no available beds. No beds at [facility]. Consultation #2: Call to Hepatology to discuss these symptoms after starting a new Hep C medication. He recommends stopping Epclusa, treating the atrial tachycardia and following labs. They will stay in close contact regarding patient's progress Call back to [place], no beds still Vital Signs - 8 hr 12/04/17 22:44 12/04/17 23:09 12/05/17 00:15 Pulse Rate 149 H 150 H 136 H Respiratory Rate Blood Pressure [Left Arm] 98/66 98/62 102/65 Pulse Oximetry 98 99 98 12/05/17 01:01 12/05/17 02:05 12/05/17 03:18 Pulse Rate 136 H 138 H 136 H Respiratory Rate 16 18 20 Blood Pressure [Left Arm] 107/71 105/69 102/64 Pulse Oximetry 99 100 98 12/05/17 03:44 12/05/17 03:55 12/05/17 05:04 Pulse Rate 108 H 99 H 144 H Respiratory Rate Blood Pressure [Left Arm] 96/59 L 100/58 L 99/64 Pulse Oximetry 98 12/05/17 05:50 12/05/17 06:28 Pulse Rate 100 H 76 Respiratory Rate 18 Blood Pressure [Left Arm] 90/51 L 101/63 Pulse Oximetry 98 MDM - Arrhythmia/Palpitations Lab Data Result diagrams: 12/04/17 20:00 12/04/17 20:00 Lab Results 12/04/17 12/04/17 12/04/17 Range/Units 20:00 20:00 20:00 WBC 4.6 (4.5-11.0) X10^3/uL RBC 3.79 L (4.5-5.9) X10^6/uL Hgb 13.9 (13.5-17.5) g/dL Hct 39.0 L (41-53) % MCV 102.8 H (80-100) fL MCH 36.7 H (26-34) PG MCHC 35.7 (30-36) % RDW 15.8 H (11.6-14.8) % Plt Count 107 L (150-400) X10^3/uL Neut % (Auto) 68.4 (50-75) % Lymph % (Auto) 15.5 L (25-40) % [place] % (Auto) 11.2 (3-14) % Eos % (Auto) 3.7 (2-4) % Baso % (Auto) 1.2 (0-2) % Neut # (Auto) 3100 (3670-6474) /uL PT 15.7 H (10.1-12.7) SECONDS INR 1.4 H (0.9-1.3) APTT 35 (26.4-36.2) SECONDS Sodium 139 (137-145) mmol/L Potassium 4.6 (3.4-5.1) mmol/L Chloride 105 (98-107) mmol/L Carbon Dioxide 27 (22-32) mmol/L BUN 16 (9-20) mg/dL Creatinine 0.80 (0.66-1.25) mg/dL Estimated GFR > 60.0 (>60) mL/min BUN/Creatinine Ratio 20.0 (6-22) Glucose 100 (80-110) mg/dL Lactate (0.7-2.1) mmol/L Calcium 8.8 (8.4-10.2) mg/dL Total Bilirubin 8.0 H (0.2-1.3) mg/dL AST 135 H (17-59) IU/L ALT 84 H (21-72) IU/L Alkaline Phosphatase 125 (38-126) U/L Ammonia (9-30) umol/L Total Creatine Kinase 24 L (55-170) U/L Troponin I < 0.012 (0.01-0.034) ng/mL Total Protein 7.9 (6.3-8.2) g/dL Albumin 3.2 L (3.5-5.0) g/dL Globulin 4.7 H (1.7-4.1) g/dL Albumin/Globulin Ratio 0.7 L (1.0-2.8) Lipase 604 H (23-300) U/L Procalcitonin (<0.5) ng/mL 12/04/17 12/04/17 12/04/17 Range/Units 23:25 23:25 23:25 WBC (4.5-11.0) X10^3/uL RBC (4.5-5.9) X10^6/uL Hgb (13.5-17.5) g/dL Hct (41-53) % MCV (80-100) fL MCH (26-34) PG MCHC (30-36) % RDW (11.6-14.8) % Plt Count (150-400) X10^3/uL Neut % (Auto) (50-75) % Lymph % (Auto) (25-40) % [place] % (Auto) (3-14) % Eos % (Auto) (2-4) % Baso % (Auto) (0-2) % Neut # (Auto) (0482-3094) /uL PT (10.1-12.7) SECONDS INR (0.9-1.3) APTT (26.4-36.2) SECONDS Sodium (137-145) mmol/L Potassium (3.4-5.1) mmol/L Chloride (98-107) mmol/L Carbon Dioxide (22-32) mmol/L BUN (9-20) mg/dL Creatinine (0.66-1.25) mg/dL Estimated GFR (>60) mL/min BUN/Creatinine Ratio (6-22) Glucose (80-110) mg/dL Lactate 0.9 (0.7-2.1) mmol/L Calcium (8.4-10.2) mg/dL Total Bilirubin (0.2-1.3) mg/dL AST (17-59) IU/L ALT (21-72) IU/L Alkaline Phosphatase (38-126) U/L Ammonia (9-30) umol/L Total Creatine Kinase (55-170) U/L Troponin I < 0.012 (0.01-0.034) ng/mL Total Protein (6.3-8.2) g/dL Albumin (3.5-5.0) g/dL Globulin (1.7-4.1) g/dL Albumin/Globulin Ratio (1.0-2.8) Lipase (23-300) U/L Procalcitonin 0.07 (<0.5) ng/mL 12/05/17 Range/Units 02:43 WBC (4.5-11.0) X10^3/uL RBC (4.5-5.9) X10^6/uL Hgb (13.5-17.5) g/dL Hct (41-53) % MCV (80-100) fL MCH (26-34) PG MCHC (30-36) % RDW (11.6-14.8) % Plt Count (150-400) X10^3/uL Neut % (Auto) (50-75) % Lymph % (Auto) (25-40) % [place] % (Auto) (3-14) % Eos % (Auto) (2-4) % Baso % (Auto) (0-2) % Neut # (Auto) (1917-8704) /uL PT (10.1-12.7) SECONDS INR (0.9-1.3) APTT (26.4-36.2) SECONDS Sodium (137-145) mmol/L Potassium (3.4-5.1) mmol/L Chloride (98-107) mmol/L Carbon Dioxide (22-32) mmol/L BUN (9-20) mg/dL Creatinine (0.66-1.25) mg/dL Estimated GFR (>60) mL/min BUN/Creatinine Ratio (6-22) Glucose (80-110) mg/dL Lactate (0.7-2.1) mmol/L Calcium (8.4-10.2) mg/dL Total Bilirubin (0.2-1.3) mg/dL AST (17-59) IU/L ALT (21-72) IU/L Alkaline Phosphatase (38-126) U/L Ammonia 39.0 H (9-30) umol/L Total Creatine Kinase (55-170) U/L Troponin I (0.01-0.034) ng/mL Total Protein (6.3-8.2) g/dL Albumin (3.5-5.0) g/dL Globulin (1.7-4.1) g/dL Albumin/Globulin Ratio (1.0-2.8) Lipase (23-300) U/L Procalcitonin (<0.5) ng/mL Imaging Data CT scan - chest: Radiologist's impression: No CT evidence of pulmonary embolism. No acute intrathoracic pathology. Cholelithiasis without CT evidence of cholecystitis. Tiny amount of fluid adjacent to the spleen or tiny subcapsular fluid collection which may be result of an old subcapsular hematoma US - abdomen: Radiologist's impression: Multiple gallstones and minimally thickened gallbladder wall at 4 mm but otherwise normal ECG Data Attestation: I personally reviewed and interpreted this ECG as follows: Prior ECG tracings: not available for review Interpretation: Sinus tachycardia in the 150s without signs of ischemia or ectopy. EKG after Cardizem notes atrial flutter at 107 without signs of ischemia Discharge Plan Departure Patient Disposition: Admitted As Inpatient Clinical Impression: Atrial flutter with rapid ventricular response Admit Date/Time: 12/05/17 06:31 Admit Provider: Samantha Grimaldo
[2017-12-05] MEDS: SODIUM CHLORIDE 0.9% 1,000 ML 1000 ML IV (03:04)
[2017-12-05 03:21] LABS: Procalcitonin 0.07 ng/mL (<0.5)
[2017-12-05] MEDS: dilTIAZem 5 MG/ML SDV 10 MG IV (03:36)
--- NOTE | 2017-12-05 03:45 | PC.NURSE ---
in room when cardizem 10 mg iv given,12 lead done after.
[2017-12-05] MEDS: METOPROLOL 50 MG TABLET PO (05:22)
[2017-12-05] MEDS: SODIUM CHLORIDE 0.9% 1,000 ML 125 ML IV (08:21)
--- NOTE | 2017-12-05 08:54 | PC.NURSE ---
Pt A/o x3, forgetful at times. Lorena Moran is at bedside this AM and able to assist with admission assessment. IVF running, tele in place, Lungs are CTA.
--- NOTE | 2017-12-05 10:33 | PM.HP.1 ---
History of Present Illness Date Patient Seen: 12/05/17 Time Patient Seen: 10:33 Chief complaint: STATED HIGH HEART RATE Narrative: Patient is a 62y/o male with a history of hepatitis C who started Epclusa for Hep C on Saturday. The patient states for the last week he has felt tired, short of breath, and lack of energy. He noted an elevated heart rate yesterday. He reported some dizziness as well. The patient was seen at the pharmacist where his heart rate was markedly elevated. He presented to the ED for evaluation. Patient has a history of Mitral Valve Replacement. He has no history of rapid heart rate. Patient underwent CT Angio in the ED which was negative for PE/ Pneumonia/ . There was some concern regarding cholelithiasis and Ultrasound confirmed this as well. The patient received IV hydration as he was noted to by hypotensive. His heart rate did not respond to one dose of cardizem ( 10 mg) and was then started on Metoprolol with good response. Patient spontaneously converted to sinus rhythm and currently has no complaints. He is admitted to observation for further evaluation. Patient History Medical History Cirrhosis of liver (Acute) Hepatitis C (Acute) Surgical History Mitral valve replaced (Acute) Family & Social History Family History: Reviewed 12/05/17 by Bentley Munoz DO Safety & Behavioral: Feels Safe in Current Yes Environment Been Physically Hurt or No Threatened By a Person Tobacco & Substance use: Smoking Status Former smoker Substance Use Type does not use Meds Home Medications Medication Instructions Recorded Confirmed Type lisinopril 10 mg PO QDAY #0 12/03/16 12/04/17 History magnesium oxide 400 mg PO QDAY #0 12/03/16 12/04/17 History potassium chloride 20 meq PO BIDCC #0 12/03/16 12/04/17 History ondansetron 4 mg SUBLINGUAL Q6HP PRN #14 odt 03/15/17 12/04/17 Rx lactulose 30 ml PO TID #90 dose 04/30/17 12/04/17 Rx furosemide 40 mg PO BID 12/04/17 12/04/17 History sofosbuvir-velpatasvir [Epclusa] 1 tab PO DAILY 12/04/17 12/04/17 History spironolactone 25 mg PO DAILY 12/04/17 12/04/17 History Allergies Allergy/AdvReac Type Severity Reaction Status Date / Time No Known Allergies Allergy Uncoded 07/03/17 12:03 Review of Systems Review of Systems All systems reviewed & are unremarkable except as noted in HPI and below Exam Vital Signs (past 8 hours): - 12/05/17 03:18 12/05/17 03:44 12/05/17 03:55 Temperature Pulse Rate 136 H 108 H 99 H Respiratory Rate 20 Blood Pressure Blood Pressure [Left Arm] 102/64 96/59 L 100/58 L Pulse Oximetry 98 98 12/05/17 05:04 12/05/17 05:50 12/05/17 06:28 Temperature Pulse Rate 144 H 100 H 76 Respiratory Rate 18 Blood Pressure Blood Pressure [Left Arm] 99/64 90/51 L 101/63 Pulse Oximetry 98 12/05/17 07:12 Temperature 97.5 F L Pulse Rate 71 Respiratory Rate 14 Blood Pressure 97/61 Blood Pressure [Left Arm] Pulse Oximetry 98 Oxygen Delivery Method Room Air Oxygen Flow Rate 0 Narrative Exam Narrative: [facility] Head: normal to inspection Ears: hearing grossly normal bilaterally and external ears normal Nose: external nose normal and nares normal Face and sinus: normal facial exam Mouth: oral mucosae normal Teeth and gingiva: dentition normal Throat: posterior oropharynx normal Eyes EOM: EOM intact bilaterally Neck Neck: normal visual inspection and JVD (no) Thyroid: thyroid normal Chest Chest: normal inspection of the chest Resp Effort & Inspection: normal respiratory effort and able to speak in complete sentences Auscultation: clear to auscultation bilaterally Cardio Palpation: normal PMI Rate: regular rate Rhythm: regular rhythm Heart Sounds: S1 normal, S2 normal and murmur (2/6) systolic Pulses: dorsalis pedis present GI Inspection: normal to inspection Palpation: no hepatosplenomegaly Auscultation: normal bowel sounds Skin Hair: normal Nails: normal Neuro Sensory Exam: no sensory deficits noted DTR's: Rt Triceps: 2+, Lt Triceps: 2+, Rt Biceps: 2+, Lt Biceps: 2+, Rt Brachioradialis: 2+, Lt Brachioradialis: 2+ and Rt Patellar: 2+ Objective Labs Result Diagrams: 12/04/17 20:00 12/04/17 20:00 Labs: Laboratory Results - last 24 hr 12/04/17 12/04/17 12/04/17 20:00 20:00 20:00 WBC 4.6 RBC 3.79 L Hgb 13.9 Hct 39.0 L MCV 102.8 H MCH 36.7 H MCHC 35.7 RDW 15.8 H Plt Count 107 L Neut % (Auto) 68.4 Lymph % (Auto) 15.5 L [place] % (Auto) 11.2 Eos % (Auto) 3.7 Baso % (Auto) 1.2 Neut # (Auto) 3100 PT 15.7 H INR 1.4 H APTT 35 Sodium 139 Potassium 4.6 Chloride 105 Carbon Dioxide 27 BUN 16 Creatinine 0.80 Estimated GFR > 60.0 BUN/Creatinine Ratio 20.0 Glucose 100 Lactate Calcium 8.8 Total Bilirubin 8.0 H AST 135 H ALT 84 H Alkaline Phosphatase 125 Ammonia Total Creatine Kinase 24 L Troponin I < 0.012 Total Protein 7.9 Albumin 3.2 L Globulin 4.7 H Albumin/Globulin Ratio 0.7 L Lipase 604 H Procalcitonin 12/04/17 12/04/17 12/04/17 23:25 23:25 23:25 WBC RBC Hgb Hct MCV MCH MCHC RDW Plt Count Neut % (Auto) Lymph % (Auto) [place] % (Auto) Eos % (Auto) Baso % (Auto) Neut # (Auto) PT INR APTT Sodium Potassium Chloride Carbon Dioxide BUN Creatinine Estimated GFR BUN/Creatinine Ratio Glucose Lactate 0.9 Calcium Total Bilirubin AST ALT Alkaline Phosphatase Ammonia Total Creatine Kinase Troponin I < 0.012 Total Protein Albumin Globulin Albumin/Globulin Ratio Lipase Procalcitonin 0.07 12/05/17 02:43 WBC RBC Hgb Hct MCV MCH MCHC RDW Plt Count Neut % (Auto) Lymph % (Auto) [place] % (Auto) Eos % (Auto) Baso % (Auto) Neut # (Auto) PT INR APTT Sodium Potassium Chloride Carbon Dioxide BUN Creatinine Estimated GFR BUN/Creatinine Ratio Glucose Lactate Calcium Total Bilirubin AST ALT Alkaline Phosphatase Ammonia 39.0 H Total Creatine Kinase Troponin I Total Protein Albumin Globulin Albumin/Globulin Ratio Lipase Procalcitonin Assessment & Plan (1) Cirrhosis of liver: Problem details: Will continue lactulose. Current visit: Yes Status: Acute (2) Hepatitis C: Problem details: discontinue epclusa Current visit: Yes Status: Acute (3) Mitral valve replaced: Problem details: continue Lisinopril, spironolactone Current visit: Yes Status: Acute (4) Atrial flutter: Problem details: Will continue metoprolol, Will check Echo today Lasix on hold Current visit: Yes Status: Acute
--- NOTE | 2017-12-05 11:35 | PC.NURSE ---
Addendum entered by Zarina Haider R.N. 12/05/17 14:11: Taking meals without difficulty. A/o x3, fiance at bedside. HR has remained SR rate 80s. @ 1405 reported R sided CP that was new, rating 8/10, radiates to back. This happens at home sometime, usually just takes a minute to go on Denies use of nitro ect at home. Spo2 98% and EKG ordered stat. CP resolved asEKG completed. Original Note: Pt a/o x2, forgetful at times. Vauge symptoms for presenting to ER, I haven't felt well Not sick, per se, just not well Denies nausea and requesting breakfast tray multiple times during assessment
[2017-12-05] MEDS: ENOXAPARIN 40 MG/0.4 ML SYRINGE SUBCUT (12:36)
[2017-12-05] MEDS: LACTULOSE 20 GM/30 ML SOLUTION PO ×3 (12:36→20:44)
[2017-12-05] MEDS: METOPROLOL 25 MG TABLET PO (12:36)
[2017-12-05] MEDS: SPIRONOLACTONE 25 MG TABLET PO (12:36)
[2017-12-05] MEDS: LISINOPRIL 10 MG TABLET PO (12:37)
[2017-12-05] MEDS: DEXTROSE 5%-0.45% NS 1,000 ML 100 ML IV ×2 (12:44→20:44)
--- NOTE | 2017-12-05 15:31 | CM.IDA ---
Addendum entered by MAY Bowen 12/06/17 14:00: Met w/pt today, SO Tory having a smoke outside. Pt explains he is eager to go home and spent some time reviewing the amount of time he has spent in hospitals this summer. Pt feeling somewhat overwhelmed by the amount of physical work he has not been capable of doing ie yard work, work on his cars and on the property he rents on. Pt expects no barriers to safe DC home today or tomorrow w/ SO to assist. He has gotten up to the BR several times and is steady on his feet. He appreciated the visit and said he would have his fiance Tory call if she had questions re: the DCP. IVY Original Note: DCP Assessment Note: Pt is a 62 yo male, resident of [place]. Pt under obs for Atrial flutter after recently starting epclusa for pt's Hep C. Pt's PCP is Moose Huff; Insurance is [employer]. Attempted to meet w/pt but pt not feeling well this morning and SO not at bedside. Will attempt tomorrow. MAY Bowen Discharge Planning/Care Management CM Discharge Assessment Start: 12/05/17 15:28 Freq: Status: Active Protocol: Document 12/05/17 15:28 IVY (Rec: 12/05/17 15:31 IVY [id number]) Discharge Planning Assessment Assigned Mold Chipper MAY Joaquin DPOA/Assigned Designee Name Jaida Mcgarry, SO Contact Information [phone] Advance Directives? No History Provided By Significant Other Medical Record Household Members significant other Independent with ADL's Yes Is patient alert and oriented? No: Waxing and waning recently , lactulose dependent Barriers to Discharge No Comment Hopefully pt will be cleared medically to DC home w/SO w/in 24 hours. Pt will be encouraged to remain compliant w/close outpt f/u and Rx adherance. Discharge Plan Home Transportation Arrangement SO/family Referrals Initiated None needed Additional Comment Likely none needed. Obs status . Following closely. Whiteboard Updated in Patient Room with Yes name and ext. # of Mold Chipper Review Status In Process
--- NOTE | 2017-12-05 17:52 | PC.NURSE ---
Addendum entered by Pretty Ba R.N. 12/05/17 23:26: 2130 - Pt continues to deny pain, denies lightheadedness. IV infusing. Hypotension continues. Reinforced safety and call light use. Call light in reach. Original Note: Pt resting in bed following meal. Denies chest pain, denies lightheadedness. BP 89/47 Hr SR with rate 74. Metoprolol held. Monitor. SBA to bathroom.
[2017-12-06] VITALS (10 sets, daily range): BP systolic 92–104; BP diastolic 40–61; PULSE 76–100; RESP 14–18; TEMP 36.8–37.2; O2SAT 93–100; BMI 27.8
--- NOTE | 2017-12-06 | DI.CT.S_ITS ---
PROCEDURE: CT ABDOMEN WO/W CON INDICATIONS: pancreatic mass TECHNIQUE: Noncontrast 3 mm thick sections acquired through the pancreas. After the administration of intravenous contrast, 3 mm thick pancreatic-phase images acquired from the diaphragm to the iliac crests. 3 mm thick coronal and sagittal reformats were performed. For radiation dose reduction, the following was used: automated exposure control, adjustment of mA and/or kV according to patient size. COMPARISON: None. FINDINGS: Image quality: Excellent. Lung bases: Atelectasis in posterior aspect of bilateral lung bases are seen. Cardiac size is enlarged, no pericardial effusion. Pancreas: Pancreas is normal in size. No peripancreatic fat stranding or fluid collection is seen. There is 8mm oval hypodense area involving anterior aspect of splenic body with no gross contrast enhancement and suggestive of a tiny pancreatic cyst. No definite discrete enhancing pancreatic mass is identified. Other solid organs: Nodular liver contour is seen. No discrete enhancing hepatic lesion is noted. Gallbladder contains numerous calcified stones there is no intrahepatic biliary ductal dilatation. There is suggestion of a 1 cm stone in distal common bile duct with mild proximal common bile duct dilatation measures up to 1 cm in diameter. Spleen is enlarged. Small amount of subcapsular fluid adjacent to lesser lateral aspect of spleen is seen and measures up to 1.3 cm in thickness. No adrenal nodules. Kidneys are normal in size and enhancement, without hydronephrosis. Peritoneum and bowel: There is small hiatal hernia. No evidence of bowel obstruction. No abnormal bowel wall thickening or mesenteric fat stranding. No free fluid or free air. Nodes and vessels: No retroperitoneal or mesenteric adenopathy by size criteria. Aorta and inferior vena cava are normal in size. Prominent varices adjacent to distal esophagus and gastroesophageal junction is seen. There is also patent and prominent umbilical vein. Collateral vessels also seen adjacent to splenic hilum. Bones: No suspicious bony lesions. No vertebral body compression fractures. Miscellaneous: No ventral hernias. IMPRESSION: 1. No definite enhancing pancreatic lesion is seen. No peripancreatic inflammatory changes. No pancreatic ductal dilatation. Possible tiny 8 mm cyst in body of pancreas. 2. Cholelithiasis with suggestion of a 1 cm distal common bile ducts stone and mild common bile duct dilatation up to 1 cm in diameter. 3. Finding is suggestive of cirrhosis and portal venous hypertension. No gross discrete enhancing hepatic lesion is seen. 4. Splenomegaly with small subcapsular fluid along aspect of spleen measures up to 1.3 cm in thickness. No discrete enhancing splenic lesion. 5. No free fluid or free air. No bowel obstruction. Dictated by: Dago Herzog M.D. on 12/06/2017 at 10:30 Approved by: Dago Herzog M.D. on 12/06/2017 at 11:15
[2017-12-06 05:46] LABS: Alanine Aminotransferase 64 IU/L (21-72); Albumin 2.6 g/dL (3.5-5.0); Albumin Globulin Ratio 0.7 (1.0-2.8); Alkaline Phosphatase 98 U/L (38-126); Aspartate Aminotransferase 79 IU/L (17-59); BUN Creatinine Ratio 33.3 (6-22); Bilirubin Total 4.2 mg/dL (0.2-1.3); Blood Urea Nitrogen 20 mg/dL (9-20); Calcium 8.1 mg/dL (8.4-10.2); Carbon Dioxide 25 mmol/L (22-32); Chloride 106 mmol/L (98-107); Estimated Glomerular Filt Rate > 60.0 mL/min (>60); Glucose 123 mg/dL (80-110); HEMOLYSIS < 15 (0-50); Potassium 4.7 mmol/L (3.4-5.1); Sodium 133 mmol/L (137-145); Total Protein 6.6 g/dL (6.3-8.2)
[2017-12-06] MEDS: DEXTROSE 5%-0.45% NS 1,000 ML 100 ML IV ×2 (07:20→17:16)
[2017-12-06] MEDS: LACTULOSE 20 GM/30 ML SOLUTION PO (08:44)
[2017-12-06] MEDS: SPIRONOLACTONE 25 MG TABLET PO (08:45)
[2017-12-06] MEDS: AMIODARONE 150 MG/100 ML PIGGYBACK 600 MG IV (10:28)
[2017-12-06] MEDS: AMIODARONE 360 MG/200 ML PIGGYBACK 33.3 MG IV (10:44)
--- NOTE | 2017-12-06 11:01 | PC.NURSE ---
HR increases to 130-150's afib, RVR. Dr. Grimaldo notified and Amiodarone gtt initiated. pt tolerated bolus dose. Education done on anticoagulant and amiodarone gtt; pt verbalized good understanding and has good questions. abd CT done.
--- NOTE | 2017-12-06 15:07 | PM.PN.1 ---
Subjective Date Patient Seen: 12/06/17 Interval history: Patient initially wanted to go home. After explaining the plan of care, patient is agreeable to staying in the hospital Exam Vital Signs (past 8 hours): - 12/06/17 08:06 12/06/17 08:44 12/06/17 09:07 Temperature 98.5 F Pulse Rate 90 Respiratory Rate 16 Blood Pressure 92/52 L 92/40 L Pulse Oximetry 97 95 12/06/17 12:00 12/06/17 13:01 Temperature 98.5 F Pulse Rate 76 Respiratory Rate 14 Blood Pressure 104/61 Pulse Oximetry 98 100 Oxygen Delivery Method Room Air Oxygen Flow Rate 0 Narrative Exam Narrative: Lungs: clear to auscultation CV: RRR nl Sl S2 2/6 MOO Abd: soft/ non tender/ non distended Ext: no edema Objective Labs Result Diagrams: 12/04/17 20:00 12/06/17 04:42 Labs: Laboratory Results - last 24 hr 12/06/17 04:42 Sodium 133 L Potassium 4.7 Chloride 106 Carbon Dioxide 25 BUN 20 Creatinine 0.60 L Estimated GFR > 60.0 BUN/Creatinine Ratio 33.3 H Glucose 123 H Calcium 8.1 L Total Bilirubin 4.2 H AST 79 H ALT 64 Alkaline Phosphatase 98 Total Protein 6.6 Albumin 2.6 L Globulin 4.0 Albumin/Globulin Ratio 0.7 L Assessment & Plan (1) Atrial flutter: Problem details: Patient converted to sinus rhythm. We initially tried Amiodarone, but given liver disease elected not to continue. Patient has been non compliant with Coumadin in the past and therefore will not start anticoagulant therapy. Lisinopril and spironolactone discontinued. Will try low dose metoprolol if he can tolerate this. Echo revealed recurring mitral stenosis. EF ok Current visit: Yes Status: Acute (2) Dehydration: Problem details: Improved with IV hydration Current visit: No Status: Acute (3) Gastroenteritis: Problem details: resolved Current visit: No Status: Acute Plan: Assessment/Plan Narrative: Patient is currently in sinus rhythm. If he can tolerate a low dose betablocker will discharge home on that. IF not, patient to be discharged on no cardiac medications and will need to follow up with his military pay clerk. Patient had what appeared to be a pancreatic mass on ultrasound, CT did not reveal a pancreatic mass but showed cholelithaisis with a1 cm CBD stone. Patient is asymptomatic and will follow up with his mold design engineer as an outpatient. Calcifications noted on CHEST CT of thyroid. Will check thyroid studies and ultrasound thyroid gland. Proable discharge home tomorrow if he tolerates BBlocker in terms of heart rate and blood pressure
--- NOTE | 2017-12-06 15:15 | P.PN_ITS ---
Subjective Date Patient Seen: 12/06/17 Interval history: Patient initially wanted to go home. After explaining the plan of care, patient is agreeable to staying in the hospital Exam Vital Signs (past 8 hours): - 12/06/17 08:06 12/06/17 08:44 12/06/17 09:07 Temperature 98.5 F Pulse Rate 90 Respiratory Rate 16 Blood Pressure 92/52 L 92/40 L Pulse Oximetry 97 95 12/06/17 12:00 12/06/17 13:01 Temperature 98.5 F Pulse Rate 76 Respiratory Rate 14 Blood Pressure 104/61 Pulse Oximetry 98 100 Oxygen Delivery Method Room Air Oxygen Flow Rate 0 Narrative Exam Narrative: Lungs: clear to auscultation CV: RRR nl Sl S2 2/6 MOO Abd: soft/ non tender/ non distended Ext: no edema Objective Labs Result Diagrams: 12/04/17 20:00 12/06/17 04:42 Labs: Laboratory Results - last 24 hr 12/06/17 04:42 Sodium 133 L Potassium 4.7 Chloride 106 Carbon Dioxide 25 BUN 20 Creatinine 0.60 L Estimated GFR > 60.0 BUN/Creatinine Ratio 33.3 H Glucose 123 H Calcium 8.1 L Total Bilirubin 4.2 H AST 79 H ALT 64 Alkaline Phosphatase 98 Total Protein 6.6 Albumin 2.6 L Globulin 4.0 Albumin/Globulin Ratio 0.7 L Assessment & Plan (1) Atrial flutter: Problem details: Patient converted to sinus rhythm. We initially tried Amiodarone, but given liver disease elected not to continue. Patient has been non compliant with Coumadin in the past and therefore will not start anticoagulant therapy. Lisinopril and spironolactone discontinued. Will try low dose metoprolol if he can tolerate this. Echo revealed recurring mitral stenosis. EF ok Current visit: Yes Status: Acute (2) Dehydration: Problem details: Improved with IV hydration Current visit: No Status: Acute (3) Gastroenteritis: Problem details: resolved Current visit: No Status: Acute Plan: Assessment/Plan Narrative: Patient is currently in sinus rhythm. If he can tolerate a low dose betablocker will discharge home on that. IF not, patient to be discharged on no cardiac medications and will need to follow up with his artificial breeding technician. Patient had what appeared to be a pancreatic mass on ultrasound, CT did not reveal a pancreatic mass but showed cholelithaisis with a1 cm CBD stone. Patient is asymptomatic and will follow up with his distribution transformer assembler as an outpatient. Calcifications noted on CHEST CT of thyroid. Will check thyroid studies and ultrasound thyroid gland. Proable discharge home tomorrow if he tolerates BBlocker in terms of heart rate and blood pressure
--- NOTE | 2017-12-06 15:46 | PC.NURSE ---
Addendum entered by Pretty Ba R.N. 12/06/17 22:51: 2100 - Pt awake, accidentally dislodged S.L. IV. 2nd IV remains patent. IVF infusing. SBP 103, HR in the low 100's. Metoprolol given. Monitor. Pt calm and cooperative. Call light in reach. Original Note: Addendum entered by Pretty Ba R.N. 12/06/17 19:09: 1900 - Pt with self-limiting SVT into the 140's. Pt check, resting soundly in bed. No s/s of distress. Monitor. Original Note: Pt agitated and expressing frustration with length of stay and medication changes. Pt using profanity and raising voice. Discussed treatment plan and plan of care. Pt S.O. attempting to reassure patient. Pt denies pain, denies lightheadedness. Void per urinal. Reinforced safety and call light use.
[2017-12-06 17:00] LABS: Free T3, Triiodothyronine Free 2.45 pg/mL (2.77-5.27); Free T4, Direct Thyroxine 0.95 ng/dL (0.78-2.19)
[2017-12-06 17:13] LABS: Thyroid Stimulating Hormone 1.29 uIU/mL (0.47-4.68)
--- NOTE | 2017-12-06 17:15 | P.CONS_ITS ---
History of Present Illness Date Patient Seen: 12/06/17 Chief complaint: STATED HIGH HEART RATE Reason for consult: hospitalist team asked me to see this patient regarding A. 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 Mcclure for his cardiology care, chronic hepatitis C, cirrhosis liver, substance abuse in the remote past, history of alcohol abuse in the remote past , who started Epclusa for Hep C recently came to the hospital at he was feeling weak, lack of energy and also found to have increased heart rate.He reported some dizziness as well. The patient was seen at the pharmacist where his heart rate was markedly elevated. He presented to the ED for evaluation. Patient underwent CT Angio in the ED which was negative for PE/ Pneumonia/ . There was some concern regarding cholelithiasis and Ultrasound confirmed this as well. The patient received IV hydration as he was noted to by hypotensive. His heart rate did not respond to one dose of cardizem ( 10 mg) and was then started on Metoprolol which was discontinued because of low blood pressure. Had 2-D echo in December 05, 2017 which revealed normal-size left ventricle with LV ejection fraction 65-70%, mild to moderately dilated right ventricle but normal right ventricular function, severe by atrium enlargement, bioprosthetic mitral valve with mean gradient across mitral valve about 9.5 mmHg without any significant mitral regurgitation, mild TR, pulmonary artery systolic pressure about 33 mmHg and right atrial pressure about 8 mmHg. Patient had ZEHRA at [facility] on October 18, 2017 and according to the report mean gradient across bioprosthetic mitral valve about an millimeters mercury with moderate mitral stenosis. That time LV ejection fraction 60-65%. Today cardiology consult was sought as patient has increased heart rate but low normal blood pressure 2 adjustment medications. For short-term he was given IV amiodarone today. At present he is in sinus rhythm. He feels good. He is not having any active chest pain or worsening shortness of breath or PND orthopnea or palpitation. Denies any active bleeding. He has hepatitis C and cirrhosis but denies any esophageal varices. Abdomen is not distended. [facility] Medical History Cirrhosis of liver (Acute) Hepatitis C (Acute) Surgical History Mitral valve replaced (Acute) Family History Father Stroke Myocardial infarction Social History household members: significant other Smoking Status: Former smoker Meds Home Medications Medication Instructions Recorded Confirmed Type lisinopril 10 mg PO QDAY #0 12/03/16 12/04/17 History magnesium oxide 400 mg PO QDAY #0 12/03/16 12/04/17 History potassium chloride 20 meq PO BIDCC #0 12/03/16 12/04/17 History ondansetron 4 mg SUBLINGUAL Q6HP PRN #14 odt 03/15/17 12/04/17 Rx lactulose 30 ml PO TID #90 dose 04/30/17 12/04/17 Rx furosemide 40 mg PO BID 12/04/17 12/04/17 History sofosbuvir-velpatasvir [Epclusa] 1 tab PO DAILY 12/04/17 12/04/17 History spironolactone 25 mg PO DAILY 12/04/17 12/04/17 History Allergies Allergy/AdvReac Type Severity Reaction Status Date / Time No Known Drug Allergies Allergy Verified 12/06/17 12:58 Review of Systems Review of Systems All systems reviewed & are unremarkable except as noted in HPI and below Exam Vital Signs (past 8 hours): - 12/06/17 12:00 12/06/17 13:01 12/06/17 16:00 Temperature 98.5 F 98.7 F Pulse Rate 76 81 Respiratory Rate 14 17 Blood Pressure 104/61 99/53 L Pulse Oximetry 98 100 98 12/06/17 16:55 Temperature Pulse Rate Respiratory Rate Blood Pressure Pulse Oximetry 97 Oxygen Delivery Method Room Air Oxygen Flow Rate 0 Const Other: not in any distress. HENMT Face and sinus: sinus tenderness Eyes Other: Jaundice present Neck Other: no JVD Chest Other: no chest wall tenderness. Resp Other: No obvious crepitation or rhonchi. Cardio Other: S1-S2 appears normal, no S3 no S4, with a soft ejection systolic murmur at left parasternal area GI Other: nontender, no obvious pulsatile mass, not distended Neuro Other: no obvious motor sensory loss Extrem Other: bilateral erythematous changes without any significant pedal edema Psych Other: alert oriented to time place and person, no obvious motor deficit Objective Labs Result Diagrams: 12/04/17 20:00 12/06/17 04:42 Labs: Laboratory Results - last 24 hr 12/06/17 12/06/17 04:42 Unknown Sodium 133 L Potassium 4.7 Chloride 106 Carbon Dioxide 25 BUN 20 Creatinine 0.60 L Estimated GFR > 60.0 BUN/Creatinine Ratio 33.3 H Glucose 123 H Calcium 8.1 L Total Bilirubin 4.2 H AST 79 H ALT 64 Alkaline Phosphatase 98 Total Protein 6.6 Albumin 2.6 L Globulin 4.0 Albumin/Globulin Ratio 0.7 L Free T4 0.95 Free T3 2.45 L Assessment & Plan (1) Atrial flutter with rapid ventricular response: Current visit: Yes Status: Acute (2) H/O mitral valve replacement: Current visit: Yes Status: Acute (3) Liver cirrhosis: Current visit: Yes Status: Acute (4) Thrombocytopenia: Current visit: Yes Status: Acute Plan: Assessment/Plan Narrative: Patient is in sinus rhythm. EKG on December 04, 2017 revealed likely atypical atrial flutter with ventricular rate about [address]-T changes. QTC 519 ms do not appears to be right. Clinically appears compensated. On recent echocardiogram which I reviewed by myself LV ejection fraction 65-70%. The mean gradient across bioprosthetic mitral valve appears to be 9.5 mmHg. He had recent ZEHRA at [facility] in September 2017 that time mean gradient was about 10 mmHg. There was about moderate mitral stenosis. Patient has history of atrial flutter in the past as well. Likely left-sided atrial flutter in view of mitral valve pathology and severe left atrium enlargement. In view of mitral valve disease, ideally he should be on anticoagulation however as per Dr. Mcclure note, he was noncompliant with his medications and not willing to be on anticoagulation. He has cirrhosis liver. He has chronic thrombocytopenia. In August 2011 his platelets were in the range of 48-75,000. Now it's better. Clinically his abdomen is not distended. No significant ascites. Patient denies any esophageal varices. His bilirubin is elevated. He has jaundice. At home patient was on Lasix, spironolactone as well as KAY inhibitor. His LV function has improved. He will need beta holly. At this point of time recommend discontinuation of Lasix, decreasing the dose of spironolactone as well as lisinopril so that he can tolerate beta holly. Decision regarding anticoagulation will leave up to his outpatient party supply specialist. Patient to see Dr. Mcclure once he gets discharged from the hospital. Discussed with the patient as well as hospitalist team Dr. Grimaldo. At this point of time cardio the service will sign off. Total time spent today for this consultation at least 70 minutes with more than 50% time [id number] counseling and coordination of care.
[2017-12-06] MEDS: METOPROLOL 12.5 MG TABLET PO (20:42)
[2017-12-07 01:00] VITALS: BP 101/55; PULSE 77; RESP 15; TEMP 36.6; O2SAT 96
[2017-12-07 01:52] VITALS: O2SAT 96
[2017-12-07] MEDS: DEXTROSE 5%-0.45% NS 1,000 ML 100 ML IV (03:15)
[2017-12-07 04:24] VITALS: BP 102/54; PULSE 84; RESP 22; TEMP 36.1; O2SAT 94
[2017-12-07 05:26] LABS: Add Manual Diff / Slide Review NO; Basophils Percent Auto 0.7 % (0-2); Eosinophils Percent Auto 3.5 % (2-4); Hemoglobin 12.4 g/dL (13.5-17.5); INR 1.4 (0.9-1.3); Lymphocytes Percent Auto 15.1 % (25-40); Mean Corpuscular HGB Conc 35.5 % (30-36); Mean Corpuscular Volume 104.1 fL (80-100); Monocytes Percent Auto 12.9 % (3-14); Neutrophils Absolute Auto 2700 /uL (3000-5900); Neutrophils Percent Auto 67.8 % (50-75); Platelet Count 76 X10^3/uL (150-400); Prothrombin Time 15.6 SECONDS (10.1-12.7); Red Blood Cell Count 3.36 X10^6/uL (4.5-5.9); Red Cell Distribution Width 16.1 % (11.6-14.8)
[2017-12-07 05:32] LABS: BUN Creatinine Ratio 22.9 (6-22); Blood Urea Nitrogen 16 mg/dL (9-20); Carbon Dioxide 27 mmol/L (22-32); Chloride 106 mmol/L (98-107); Estimated Glomerular Filt Rate > 60.0 mL/min (>60); Glucose 99 mg/dL (80-110); HEMOLYSIS < 15 (0-50); Potassium 4.1 mmol/L (3.4-5.1); Sodium 138 mmol/L (137-145)
[2017-12-07 07:56] VITALS: BP 93/57; PULSE 82; RESP 16; TEMP 36.7
[2017-12-07 08:00] VITALS: O2SAT 95
--- NOTE | 2017-12-07 08:09 | PM.DS.1 ---
History of Present Illness Chief complaint: STATED HIGH HEART RATE Narrative: Patient is a 62y/o male with a history of hepatitis C who started Epclusa for Hep C on Saturday. The patient states for the last week he has felt tired, short of breath, and lack of energy. He noted an elevated heart rate yesterday. He reported some dizziness as well. The patient was seen at the pharmacist where his heart rate was markedly elevated. He presented to the ED for evaluation. Patient has a history of Mitral Valve Replacement. He has no history of rapid heart rate. Patient underwent CT Angio in the ED which was negative for PE/ Pneumonia/ . There was some concern regarding cholelithiasis and Ultrasound confirmed this as well. The patient received IV hydration as he was noted to by hypotensive. His heart rate did not respond to one dose of cardizem ( 10 mg) and was then started on Metoprolol with good response. Patient spontaneously converted to sinus rhythm and currently has no complaints. He is admitted to observation for further evaluation. Discharge Providers Date of admission: 12/05/17 06:31 Primary care physician: Moose Huff MD Consults: 12/05/17 11:46 Consult to Dietitian, Adult Routine Comment: Reason For Exam: At risk on assessment score Discharge provider: Juan Herrmann MD Discharge Date: 12/07/17 Summary Discharge Diagnosis: 1. Paroxysmal atrial flutter with RVR 2. Congestive heart failure, systolic and diastolic 3. Cirrhosis of liver 4. Chronic hepatitis-C 5. 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 Calcified thyroid nodule 7. Cholelithiasis 8. Sub cm pancreatic cyst Hospital Course: Patient was admitted primarily with diagnosis of atrial flutter with RVR. As noted he converted with metoprolol. He had problems with low blood pressures in the 80s to 90s systolic which is probably typical for him. He was not in any acute heart failure. Dr. Solares was consulted for Cardiology and recommended to continue low-dose metoprolol at a dose of 12.5 mg twice daily. Also we did cut back on his lisinopril from 10 mg daily down to 5 mg daily to avoid excessive hypotension. He has remained in sinus rhythm with ventricular rate in the 90s at rest. He was advised of stroke risk with atrial flutter and declined oral anticoagulation as consistent with his previous wishes. On discharge day he is not having any dyspnea, palpitations or dizziness. His renal function and electrolytes were normal. He had multiple imaging studies as below. We did note incidental findings of a calcium thyroid nodule on chest CT. His TSH and free T4 were normal with a slightly low free T3, not likely significant. Also incidental calcified gallstones and a tiny subcentimeter pancreatic cyst also likely not significant. Patient does have chronic hepatitis C cirrhosis and currently getting curative oral therapy through [facility]. Transthoracic echo:Interpretation Summary 1. Normal left ventricular size, wall thickiness and systolic function with an estimated EF of 65 to 70% 2. Mild to moderately dilated right ventricle with normal systolic function. The estimated RVSP is 33 mm Hg. 3. The prosthetic mitral valve is well seated. The mean gradient across the valve is 9.5 mm Hg (suggesting possible stenosis) - no old study with gradients across the valve is available. There is no old study available for comparison Abdominal ultrasound:1. Liver has a nodular contour and heterogeneous echotexture of liver consistent with cirrhosis. A 2.1 cm hypoechoic nodule is noted in the liver. In this patient with chronic liver disease, HCC is a concern. Liver protocol CT or MRI is recommended for followup. 2. Cholelithiasis. There is mild gallbladder wall thickening which may be secondary to chronic liver disease or early acute cholecystitis. No pericholecystic fluid collection or sonographic Sarkar sign. 3. Splenomegaly and recannulization of umbilical vein consistent with portal hypertension. 4. Enlarged pancreatic head with heterogeneous, slightly hypoechoic appearance measuring 3.9 cm in AP dimension, A pancreatic mass cannot be excluded. Pancreatic protocol CT is recommended for further evaluation. 5. Simple appearing right renal cyst. No significant discrepancy with the restaurant shift leader radiology preliminary report. Abdomen CT:1. No definite enhancing pancreatic lesion is seen. No peripancreatic inflammatory changes. No pancreatic ductal dilatation. Possible tiny 8 mm cyst in body of pancreas. 2. Cholelithiasis with suggestion of a 1 cm distal common bile ducts stone and mild common bile duct dilatation up to 1 cm in diameter. 3. Finding is suggestive of cirrhosis and portal venous hypertension. No gross discrete enhancing hepatic lesion is seen. 4. Splenomegaly with small subcapsular fluid along aspect of spleen measures up to 1.3 cm in thickness. No discrete enhancing splenic lesion. 5. No free fluid or free air. No bowel obstruction. Chest CTA:1. No acute pulmonary embolus. 2. Cholelithiasis. 3. Splenomegaly and trace subcapsular splenic fluid collection. This may represent an old splenic hematoma. This is incompletely characterized on this limited view. Consider abdominal ultrasound if further characterization is warranted. Note: The preliminary [facility] interpretation and the final report are concordant. 4. Partially calcified hyperdense left thyroid mass. If further characterization is warranted, thyroid ultrasound is recommended. 5. Greater than expected number of shotty, subcentimeter left super clavicular lymph nodes. These findings were discussed with Dr. Navarrete at 9:06 AM on 12/05/17. Status at Discharge Functional status at discharge: independent ambulation Overall status at discharge: patient is back to baseline Time Spent with Patient Greater than 30 minutes Exam Vital Signs (past 8 hours): - 12/07/17 01:00 12/07/17 01:52 12/07/17 04:24 Temperature 97.8 F 97.0 F L Pulse Rate 77 84 Respiratory Rate 15 22 Blood Pressure 101/55 L 102/54 L Pulse Oximetry 96 96 94 12/07/17 07:56 Temperature 98.0 F Pulse Rate 82 Respiratory Rate 16 Blood Pressure 93/57 L Pulse Oximetry Oxygen Delivery Method Room Air Oxygen Flow Rate 0 Narrative Exam Narrative: General: Alert and pleasant, in no acute distress Lungs: Clear to auscultation Heart: Regular rhythm with premature atrial contractions Abdomen: Soft and nontender Extremities: Trace bilateral pretibial edema Skin: Jaundiced Objective Labs Result Diagrams: 12/07/17 04:45 12/07/17 04:45 Labs: Laboratory Results - last 24 hr 12/06/17 12/07/17 12/07/17 Unknown 04:45 04:45 WBC 4.0 L RBC 3.36 L Hgb 12.4 L Hct 35.0 L MCV 104.1 H MCH 37.0 H MCHC 35.5 RDW 16.1 H Plt Count 76 L Neut % (Auto) 67.8 Lymph % (Auto) 15.1 L [place] % (Auto) 12.9 Eos % (Auto) 3.5 Baso % (Auto) 0.7 Neut # (Auto) 2700 L PT 15.6 H INR 1.4 H Sodium Potassium Chloride Carbon Dioxide BUN Creatinine Estimated GFR BUN/Creatinine Ratio Glucose Calcium TSH 1.29 Free T4 0.95 Free T3 2.45 L 12/07/17 04:45 WBC RBC Hgb Hct MCV MCH MCHC RDW Plt Count Neut % (Auto) Lymph % (Auto) [place] % (Auto) Eos % (Auto) Baso % (Auto) Neut # (Auto) PT INR Sodium 138 Potassium 4.1 Chloride 106 Carbon Dioxide 27 BUN 16 Creatinine 0.70 Estimated GFR > 60.0 BUN/Creatinine Ratio 22.9 H Glucose 99 Calcium 8.0 L TSH Free T4 Free T3 Discharge Plan Discharge Plan Patient Disposition: Home Discharge Med Rec/Prescriptions Prescriptions: New lisinopril 5 mg tablet 5 mg PO DAILY Qty: 30 RF: 0 metoprolol tartrate 25 mg tablet 12.5 mg PO BID Qty: 30 RF: 0 Continue potassium chloride 20 MEQ tablet,ER particles/crystals 20 meq PO BIDCC Qty: 0 RF: 0 magnesium oxide 400 MG tablet 400 mg PO QDAY Qty: 0 RF: 0 ondansetron 4 MG tablet,disintegrating 4 mg Sublingual Q6HP PRNQty: 14 RF: 0 lactulose 20 GM/30 ML solution 30 ml PO TID Qty: 90 RF: 0 furosemide 40 mg tablet 40 mg PO BID RF: 0 spironolactone 25 mg Tablet 25 mg PO DAILY RF: 0 sofosbuvir-velpatasvir [Epclusa] 400-100 mg Tablet 1 tab PO DAILY RF: 0 Discontinued lisinopril 20 MG tablet 10 mg PO QDAY Qty: 0 RF: 0 Follow up/Referrals: Moose Huff MD [Primary Care Provider] - 1 Week Lorne Mcclure MD [Non-Staff] - 1 Week Provider Discharge Instructions Diet: Regular Discharge Data Primary Care Provider: Moose Huff Attending Provider: Samantha Grimaldo Admit Date/Time: 12/05/17 06:31
[2017-12-07] MEDS: PANTOPRAZOLE 40 MG TABLET PO (08:15)
[2017-12-07] MEDS: LACTULOSE 20 GM/30 ML SOLUTION PO (08:15)
[2017-12-07] MEDS: METOPROLOL 12.5 MG TABLET PO (08:16)
--- NOTE | 2017-12-07 10:09 | CM.DPC ---
DC NOte: DC order home today; pt gone from room at 1000. RN and MD agree- no needs from this [employer]. JW
[2017-12-10 15:44] LABS: Anti Thyroglobulin Antibody < 1 IU/mL (< 2); Thyroid Peroxidase Antibodies 6 IU/mL (< 9)
[2017-12-10 15:56] LABS: Triiodothyronine T3 Total 73 ng/dL (76-181)
== END 2017-12-07 09:30 | disposition home or self-care (01) | DRG 309 ==
LOC: ED 12-05 06:24 → ICU 12-05 07:42 → AC 12-06 13:11
PROVIDERS: Admitting Provider Internal Medicine; Emergency Provider Emergency Medicine; Family Provider Family Medicine; PCP Family Medicine; Visit Provider Internal Medicine
DX: I48.92 Unspecified atrial flutter (principal); I50.40 Unspecified combined systolic (congestive) and diastolic (congestive) heart failure; R17 Unspecified jaundice; B19.20 Unspecified viral hepatitis C without hepatic coma; K74.60 Unspecified cirrhosis of liver; B18.2 Chronic viral hepatitis C; D69.6 Thrombocytopenia, unspecified; Z95.2 Presence of prosthetic heart valve; Z87.891 Personal history of nicotine dependence; E86.0 Dehydration
CPT/HCPCS: 36415; 36591; 71045; 71275; 74170; 76700; 80048; 80053; 82140; 82550; 82553; 83605; 83690; 84145; 84439; 84443; 84480; 84481; 84484; 85025; 85610; 85730; 86376; 86800; 93005; 93306; 96361; 96374; 96375; 99285; J0282; J1200; J1650; J2930; Q9967

== ENCOUNTER 2018-04-10 16:46 | Emergency (ER) | payer OTHER, MEDICAID, SELFPAY ==
[2017-12-05 11:45] VITALS: BMI 27.8
[2018-04-10 16:49] VITALS: BP 111/62; PULSE 85; RESP 14; TEMP 36.4; O2SAT 98; BMI 32.8
--- NOTE | 2018-04-10 17:18 | DI.RAD.S_ITS ---
PROCEDURE: XR CHEST 1V INDICATIONS: chest pain TECHNIQUE: One view of the chest was acquired. COMPARISON: [facility], CR, XR CHEST 1V, 12/04/2017, 20:10. [facility], CT, CT ABDOMEN WO/W CON, 12/06/2017, 9:46. FINDINGS: Surgical changes and devices: Sternotomy wires Lungs and pleura: No pneumothorax. Retrocardiac consolidation is present, new since prior study. Possible small bilateral pleural effusions. There are widespread hazy opacities and suggestion of Otilia B-lines Mediastinum: Mediastinal contours appear normal. Heart size is mildly enlarged. Bones and chest wall: No suspicious bony lesions. Overlying soft tissues appear unremarkable. IMPRESSION: Findings suggest developing pulmonary edema with small bilateral pleural effusions. Please correlate clinically. Retrocardiac consolidation could reflect atelectasis/aspiration however cannot exclude pneumonia therefore please correlate clinically. Dictated by: Prasanth Lange M.D. on 04/10/2018 at 18:27 Approved by: Prasanth Lange M.D. on 04/10/2018 at 18:30
--- NOTE | 2018-04-10 17:36 | ED.ARRPALP ---
HPI - Arrhythmia/Palpitations General Chief Complaint: Arrhythmia/Palpitations Stated Complaint: AFIB Time Seen by Provider: 04/10/18 17:18 Source: patient and family Mode of arrival: ambulatory Limitations: no limitations History of Present Illness HPI narrative: 62-year-old male, former smoker presents with family in the chief complaint of episodes of palpitations and elevated heart rate. The patient has known atrial fibrillation and has had rates as high as the 150s. He is mildly short of breath but otherwise pretty much at his baseline. He has had no runny nose, sore throat or cough. He denies chest pain. He denies shortness of breath with exertion or lying flat. He denies any significant weight gain. He has had no abdominal pain or nausea, vomiting or diarrhea. He denies any dietary indiscretions and states he has been taking his medications as directed. MD complaint: rapid heart beat and heart racing Onset (ago): day(s) Duration: intermittent and now resolved Severity: moderate Context: occurred during rest Arrhythmia history: atrial fibrillation Associated symptoms: shortness of breath Related Data Home Medications Medication Instructions Recorded Confirmed potassium chloride 20 meq PO DAILY #0 12/03/16 04/10/18 furosemide 40 mg PO BID 12/04/17 04/10/18 lactulose [Constulose] 30 ml PO BID 04/10/18 04/10/18 magnesium oxide 500 mg PO DAILY 04/10/18 04/10/18 Previous Rx's Medication Instructions Recorded lisinopril 5 mg PO DAILY #30 tab 12/07/17 metoprolol tartrate 12.5 mg PO BID #30 tab 12/07/17 Allergies Allergy/AdvReac Type Severity Reaction Status Date / Time No Known Drug Allergies Allergy Verified 04/10/18 16:49 Review of Systems Constitutional Denies chills, Denies fever(s), Denies lethargy and Denies weakness Eyes Denies change in vision, Denies eye discharge, Denies irritation and Denies loss of vision ENT Ears, Nose, Mouth, and Throat: Denies change in voice, Denies neck pain and Denies sore throat Cardiovascular Denies chest pain, Denies irregular heart rhythm, Denies lightheadedness, Reports palpitations, Reports dyspnea, Denies dyspnea on exertion and Denies orthopnea Respiratory Denies cough, Reports dyspnea, Denies dyspnea on exertion and Denies wheezing Gastrointestinal Gastrointestinal: Denies abdominal pain, Denies change in bowel habits, Denies diarrhea, Denies nausea and Denies vomiting Genitourinary Denies hematuria, Denies flank pain, Denies urinary incontinence and Denies urinary urgency Musculoskeletal Denies neck pain Integumentary/Breasts Denies pruritus, Denies erythema, Denies rash and Denies wounds Neurologic Denies confusion, Denies loss of vision and Denies weakness Psychiatric Denies anxiety, Denies confusion, Denies depression, Denies homicidal ideation and Denies suicidal ideation Endocrine Reports palpitations Hematologic/Lymphatic Denies easy bruising Allergic/Immunologic Denies wheezing [facility] Medical History Cirrhosis of liver (Acute) Hepatitis C (Acute) Surgical History Mitral valve replaced (Acute) Family History Father Stroke Myocardial infarction Social History household members: significant other Smoking Status: Former smoker Exam Narrative Exam Narrative: GENERAL: 62-year-old male, chronically ill, in no obvious, significant distress. He is resting comfortably with very little complaints. HEAD: Atraumatic. Normocephalic. No temporal or scalp tenderness. EYES: Pupils equal round and reactive. Extraocular motions intact. No scleral icterus. No injection or drainage. ENT: Nose without bleeding, purulent drainage or septal hematoma. Throat without erythema, tonsillar hypertrophy or exudate. Uvula midline. Airway patent. NECK: Trachea midline. No JVD or lymphadenopathy. Supple, nontender, no meningeal signs. CARDIOVASCULAR: Normal rate, irregular rhythm rhythm without murmurs, gallops, or rubs. RESPIRATORY: Clear to auscultation. Breath sounds equal bilaterally. No wheezes, rales, or rhonchi. GASTROINTESTINAL: Abdomen soft, non-tender, protuberant but soft abdomen. No hepato-splenomegaly, or palpable masses. No guarding. EXTREMITIES: 1+ pitting edema bilateral lower extremities. No joint tenderness, effusion BACK: Nontender without deformity or crepitance. No flank tenderness. NEURO: AOx3. SKIN: No rash or erythema. Initial Vital Signs Initial Vital Signs: Vital Signs Temperature 97.6 F 04/10/18 16:49 Pulse Rate 85 04/10/18 16:49 Respiratory Rate 14 04/10/18 16:49 Blood Pressure 111/62 04/10/18 16:49 Pulse Oximetry 98 04/10/18 16:49 Scores CHADS-VASc Congestive heart failure: yes Hypertension: no Age 75 years or older: no Diabetes mellitus: no Stroke, TIA, or TE: no Vascular disease: no Age 65 to 74 years: no Sex category (female): Male CHADS-VASc Score: 1 Course Orders Ordered: ED Orders 04/10/18 16:53 EKG-12 Lead Stat 04/10/18 17:18 XR chest 1V Stat EKG-12 Lead Stat 04/10/18 17:55 Ammonia (NH3) Stat B Type Natriuretic Peptide Stat Basic Metabolic Panel Stat Complete Blood Count AUTO DIFF Stat Magnesium Stat Thyroid Stimulating Hormone Stat Troponin & CK Cardiac Panel Stat Discontinued Medications Furosemide (Lasix) 40 mg IV NOW ONE Stop: 04/10/18 18:32 Last Admin: 04/10/18 19:07 Dose: 40 mg Sodium Chloride (Normal Saline 0.9%) 1,000 mls @ 150 mls/hr IV CONT GEO Last Admin: 04/10/18 18:30 Dose: Vital Signs - 8 hr 04/10/18 16:49 04/10/18 17:48 04/10/18 18:00 Temperature 97.6 F Pulse Rate 85 100 H 100 H Respiratory Rate 14 14 17 Blood Pressure 111/62 Blood Pressure [Left Arm] 109/55 L 110/54 L Pulse Oximetry 98 96 97 04/10/18 18:30 04/10/18 19:00 Temperature Pulse Rate 91 H 108 H Respiratory Rate 13 16 Blood Pressure Blood Pressure [Left Arm] 114/65 113/59 L Pulse Oximetry 97 98 MDM - Arrhythmia/Palpitations Differential Diagnosis Differential diagnosis: Likely palpitations, artial fibrillation and artial flutter Medical Records Attestation: I reviewed the patient's medical records. Lab Data Attestation: I reviewed the patient's lab results. Result diagrams: 04/10/18 17:55 04/10/18 17:55 Lab Results 04/10/18 04/10/18 04/10/18 Range/Units 17:55 17:55 17:55 WBC 4.1 L (4.5-11.0) X10^3/uL RBC 3.51 L (4.5-5.9) X10^6/uL Hgb 12.8 L (13.5-17.5) g/dL Hct 36.5 L (41-53) % MCV 103.9 H (80-100) fL MCH 36.6 H (26-34) PG MCHC 35.2 (30-36) % RDW 16.9 H (11.6-14.8) % Plt Count 87 L (150-400) X10^3/uL Neut % (Auto) 58.4 (50-75) % Lymph % (Auto) 18.8 L (25-40) % [place] % (Auto) 17.2 H (3-14) % Eos % (Auto) 4.4 H (2-4) % Baso % (Auto) 1.2 (0-2) % Neut # (Auto) 2400 (4952-9515) /uL Lymph # (Auto) 800 L (5359-9281) /uL [place] # (Auto) 700 (0-900) /uL Eos # (Auto) 200 (0-450) /uL Baso # (Auto) 0 (0-100) /uL Sodium 137 (137-145) mmol/L Potassium 3.9 (3.4-5.1) mmol/L Chloride 105 (98-107) mmol/L Carbon Dioxide 29 (22-32) mmol/L BUN 10 (9-20) mg/dL Creatinine 0.70 (0.66-1.25) mg/dL Estimated GFR > 60.0 (>60) mL/min BUN/Creatinine Ratio 14.3 (6-22) Glucose 94 (80-110) mg/dL Calcium 7.8 L (8.4-10.2) mg/dL Magnesium 1.8 (1.6-2.3) mg/dL Ammonia (9-30) umol/L Total Creatine Kinase 36 L (55-170) U/L CK-MB (CK-2) TNP CK-MB (CK-2) Rel Index TNP Troponin I < 0.012 (0.01-0.034) ng/mL B-Natriuretic Peptide (<100) TSH 2.69 (0.47-4.68) uIU/mL 04/10/18 04/10/18 Range/Units 17:55 17:55 WBC (4.5-11.0) X10^3/uL RBC (4.5-5.9) X10^6/uL Hgb (13.5-17.5) g/dL Hct (41-53) % MCV (80-100) fL MCH (26-34) PG MCHC (30-36) % RDW (11.6-14.8) % Plt Count (150-400) X10^3/uL Neut % (Auto) (50-75) % Lymph % (Auto) (25-40) % [place] % (Auto) (3-14) % Eos % (Auto) (2-4) % Baso % (Auto) (0-2) % Neut # (Auto) (1290-5068) /uL Lymph # (Auto) (5278-5428) /uL [place] # (Auto) (0-900) /uL Eos # (Auto) (0-450) /uL Baso # (Auto) (0-100) /uL Sodium (137-145) mmol/L Potassium (3.4-5.1) mmol/L Chloride (98-107) mmol/L Carbon Dioxide (22-32) mmol/L BUN (9-20) mg/dL Creatinine (0.66-1.25) mg/dL Estimated GFR (>60) mL/min BUN/Creatinine Ratio (6-22) Glucose (80-110) mg/dL Calcium (8.4-10.2) mg/dL Magnesium (1.6-2.3) mg/dL Ammonia 33.0 H (9-30) umol/L Total Creatine Kinase (55-170) U/L CK-MB (CK-2) CK-MB (CK-2) Rel Index Troponin I (0.01-0.034) ng/mL B-Natriuretic Peptide 173 H (<100) TSH (0.47-4.68) uIU/mL Imaging Data Chest x-ray: Radiologist's impression: atient: Alex Kim MR#: [id number] : 1955 Acct:[id number] Age/Sex: 62 / M Date of Service: 04/10/18 Loc: ED Accession Number: [id number] Procedure: XR chest 1V Ordering Provider: Bentley Munoz D.O. PROCEDURE: XR CHEST 1V INDICATIONS: chest pain TECHNIQUE: One view of the chest was acquired. COMPARISON: [facility], CR, XR CHEST 1V, 12/04/2017, 20:10. [facility], CT, CT ABDOMEN WO/W CON, 12/06/2017, 9:46. FINDINGS: Surgical changes and devices: Sternotomy wires Lungs and pleura: No pneumothorax. Retrocardiac consolidation is present, new since prior study. Possible small bilateral pleural effusions. There are widespread hazy opacities and suggestion of Otilia B-lines Mediastinum: Mediastinal contours appear normal. Heart size is mildly enlarged. Bones and chest wall: No suspicious bony lesions. Overlying soft tissues appear unremarkable. IMPRESSION: Findings suggest developing pulmonary edema with small bilateral pleural effusions. Please correlate clinically. Retrocardiac consolidation could reflect atelectasis/aspiration however cannot exclude pneumonia therefore please correlate clinically. Dictated by: Prasanth Lange M.D. on 04/10/2018 at 18:27 Approved by: Prasanth Lange M.D. on 04/10/2018 at 18:30 ECG Data Attestation: I personally reviewed and interpreted this ECG as follows: Prior ECG tracings: available for review Interpretation: atrial fib in the 90s. No ischemic findings MDM Narrative Medical decision making narrative: Multiple etiologies for patient's symptoms considered including: [Rapid AFib but thought less likely given EKG. Acute exacerbation of CHF, definitely part of the clinical picture given some lower extremity edema, and chest x-ray findings. Pneumonia considered, but thought less likely given lack of cough, fever or exam findings. The chest x-ray interpretation is noted but clinically he does not have pneumonia. Patient takes aspirin daily, his chads Vasc score is 1 and currently he does not need anticoagulation] Patient's symptoms improved or duration of stay with above-stated therapies. Findings and discharge diagnosis discussed with patient/family followed by verbalization of understanding Return precautions discussed with patient/family whom verbalize understanding. Discharge Plan Departure Patient Disposition: Home Clinical Impression: Atrial fibrillation, Acute exacerbation of CHF (congestive heart failure) Discharge Date/Time: 04/10/18 19:15 Interventions: ED Discharge Assessment Last Done: 04/10/18 19:14 Instructions: DI for Atrial Fibrillation Activity Restrictions/Additional Instructions: *You have been diagnosed with [ atrial fibrillation, acute CHF ] *What to do: *Take medications as directed. Please take an extra Lasix midday for the next 3 days. *Follow up with your primary care provider in 2-3 days, call for an appointment. Let them know you were seen in the Emergency Department and that we ask that you be seen in follow up *Return to ER if you should have any new, worsening or concerning symptoms Prescriptions: No Action potassium chloride 20 MEQ tablet,ER particles/crystals 20 meq PO DAILY Qty: 0 RF: 0 lactulose [Constulose] 10 gram/15 mL solution 30 ml PO BID RF: 0 magnesium oxide 500 mg Tablet 500 mg PO DAILY RF: 0 furosemide 40 mg tablet 40 mg PO BID RF: 0 lisinopril 5 mg tablet 5 mg PO DAILY Qty: 30 RF: 0 metoprolol tartrate 25 mg tablet 12.5 mg PO BID Qty: 30 RF: 0 Referrals: Moose Huff MD [Primary Care Provider] -
[2018-04-10 17:48] VITALS: BP 109/55; PULSE 100; RESP 14; O2SAT 96
--- NOTE | 2018-04-10 17:57 | PC.NURSE ---
spouse reports, pt with hx of afib, acting funny, sleeping alot, shortness of breath, pt reports, dyspneic on exertion. hx of mitral valve replacement.cirrhosis with edema. pt waiting for hep c treatment.
[2018-04-10 18:00] VITALS: BP 110/54; PULSE 100; RESP 17; O2SAT 97
[2018-04-10 18:03] LABS: Add Manual Diff / Slide Review NO; Basophils Absolute Auto 0 /uL (0-100); Basophils Percent Auto 1.2 % (0-2); Eosinophils Absolute Auto 200 /uL (0-450); Eosinophils Percent Auto 4.4 % (2-4); Hematocrit 36.5 % (41-53); Hemoglobin 12.8 g/dL (13.5-17.5); Lymphocytes Absolute Auto 800 /uL (1100-4500); Lymphocytes Percent Auto 18.8 % (25-40); Mean Corpuscular HGB Conc 35.2 % (30-36); Mean Corpuscular Hemoglobin 36.6 PG (26-34); Mean Corpuscular Volume 103.9 fL (80-100); Monocytes Absolute Auto 700 /uL (0-900); Monocytes Percent Auto 17.2 % (3-14); Neutrophils Absolute Auto 2400 /uL (1500-7000); Neutrophils Percent Auto 58.4 % (50-75); Platelet Count 87 X10^3/uL (150-400); Red Blood Cell Count 3.51 X10^6/uL (4.5-5.9); Red Cell Distribution Width 16.9 % (11.6-14.8); White Blood Cell Count 4.1 X10^3/uL (4.5-11.0)
[2018-04-10 18:17] LABS: B Type Natriuretic Peptide 173 (<100); BUN Creatinine Ratio 14.3 (6-22); Blood Urea Nitrogen 10 mg/dL (9-20); Calcium 7.8 mg/dL (8.4-10.2); Carbon Dioxide 29 mmol/L (22-32); Chloride 105 mmol/L (98-107); Creatine Kinase 36 U/L (55-170); Estimated Glomerular Filt Rate > 60.0 mL/min (>60); Glucose 94 mg/dL (80-110); HEMOLYSIS < 15 (0-50); Magnesium 1.8 mg/dL (1.6-2.3); Potassium 3.9 mmol/L (3.4-5.1); Sodium 137 mmol/L (137-145)
[2018-04-10 18:29] LABS: Troponin I < 0.012 ng/mL (0.01-0.034)
[2018-04-10 18:30] VITALS: BP 114/65; PULSE 91; RESP 13; O2SAT 97
[2018-04-10 18:48] LABS: Thyroid Stimulating Hormone 2.69 uIU/mL (0.47-4.68)
--- NOTE | 2018-04-10 18:54 | ED_ITS ---
HPI - Arrhythmia/Palpitations General Chief Complaint: Arrhythmia/Palpitations Stated Complaint: AFIB Time Seen by Provider: 04/10/18 17:18 Source: patient and family Mode of arrival: ambulatory Limitations: no limitations History of Present Illness HPI narrative: 62-year-old male, former smoker presents with family in the chief complaint of episodes of palpitations and elevated heart rate. The patient has known atrial fibrillation and has had rates as high as the 150s. He is mildly short of breath but otherwise pretty much at his baseline. He has had no runny nose, sore throat or cough. He denies chest pain. He denies shortness of breath with exertion or lying flat. He denies any significant weight gain. He has had no abdominal pain or nausea, vomiting or diarrhea. He denies any dietary indiscretions and states he has been taking his medications as directed. MD complaint: rapid heart beat and heart racing Onset (ago): day(s) Duration: intermittent and now resolved Severity: moderate Context: occurred during rest Arrhythmia history: atrial fibrillation Associated symptoms: shortness of breath Related Data Home Medications Medication Instructions Recorded Confirmed potassium chloride 20 meq PO DAILY #0 12/03/16 04/10/18 furosemide 40 mg PO BID 12/04/17 04/10/18 lactulose [Constulose] 30 ml PO BID 04/10/18 04/10/18 magnesium oxide 500 mg PO DAILY 04/10/18 04/10/18 Previous Rx's Medication Instructions Recorded lisinopril 5 mg PO DAILY #30 tab 12/07/17 metoprolol tartrate 12.5 mg PO BID #30 tab 12/07/17 Allergies Allergy/AdvReac Type Severity Reaction Status Date / Time No Known Drug Allergies Allergy Verified 04/10/18 16:49 Review of Systems Constitutional Denies chills, Denies fever(s), Denies lethargy and Denies weakness Eyes Denies change in vision, Denies eye discharge, Denies irritation and Denies loss of vision ENT Ears, Nose, Mouth, and Throat: Denies change in voice, Denies neck pain and Denies sore throat Cardiovascular Denies chest pain, Denies irregular heart rhythm, Denies lightheadedness, Reports palpitations, Reports dyspnea, Denies dyspnea on exertion and Denies orthopnea Respiratory Denies cough, Reports dyspnea, Denies dyspnea on exertion and Denies wheezing Gastrointestinal Gastrointestinal: Denies abdominal pain, Denies change in bowel habits, Denies diarrhea, Denies nausea and Denies vomiting Genitourinary Denies hematuria, Denies flank pain, Denies urinary incontinence and Denies urinary urgency Musculoskeletal Denies neck pain Integumentary/Breasts Denies pruritus, Denies erythema, Denies rash and Denies wounds Neurologic Denies confusion, Denies loss of vision and Denies weakness Psychiatric Denies anxiety, Denies confusion, Denies depression, Denies homicidal ideation and Denies suicidal ideation Endocrine Reports palpitations Hematologic/Lymphatic Denies easy bruising Allergic/Immunologic Denies wheezing [facility] Medical History Cirrhosis of liver (Acute) Hepatitis C (Acute) Surgical History Mitral valve replaced (Acute) Family History Father Stroke Myocardial infarction Social History household members: significant other Smoking Status: Former smoker Exam Narrative Exam Narrative: GENERAL: 62-year-old male, chronically ill, in no obvious, significant distress. He is resting comfortably with very little complaints. HEAD: Atraumatic. Normocephalic. No temporal or scalp tenderness. EYES: Pupils equal round and reactive. Extraocular motions intact. No scleral icterus. No injection or drainage. ENT: Nose without bleeding, purulent drainage or septal hematoma. Throat without erythema, tonsillar hypertrophy or exudate. Uvula midline. Airway patent. NECK: Trachea midline. No JVD or lymphadenopathy. Supple, nontender, no meningeal signs. CARDIOVASCULAR: Normal rate, irregular rhythm rhythm without murmurs, gallops, or rubs. RESPIRATORY: Clear to auscultation. Breath sounds equal bilaterally. No wheezes , rales, or rhonchi. GASTROINTESTINAL: Abdomen soft, non-tender, protuberant but soft abdomen. No hepato-splenomegaly, or palpable masses. No guarding. EXTREMITIES: 1+ pitting edema bilateral lower extremities. No joint tenderness , effusion BACK: Nontender without deformity or crepitance. No flank tenderness. NEURO: AOx3. SKIN: No rash or erythema. Initial Vital Signs Initial Vital Signs: Vital Signs Temperature 97.6 F 04/10/18 16:49 Pulse Rate 85 04/10/18 16:49 Respiratory Rate 14 04/10/18 16:49 Blood Pressure 111/62 04/10/18 16:49 Pulse Oximetry 98 04/10/18 16:49 Scores CHADS-VASc Congestive heart failure: yes Hypertension: no Age 75 years or older: no Diabetes mellitus: no Stroke, TIA, or TE: no Vascular disease: no Age 65 to 74 years: no Sex category (female): Male CHADS-VASc Score: 1 Course Orders Ordered: ED Orders 04/10/18 16:53 EKG-12 Lead Stat 04/10/18 17:18 XR chest 1V Stat EKG-12 Lead Stat 04/10/18 17:55 Ammonia (NH3) Stat B Type Natriuretic Peptide Stat Basic Metabolic Panel Stat Complete Blood Count AUTO DIFF Stat Magnesium Stat Thyroid Stimulating Hormone Stat Troponin & CK Cardiac Panel Stat Discontinued Medications Furosemide (Lasix) 40 mg IV NOW ONE Stop: 04/10/18 18:32 Last Admin: 04/10/18 19:07 Dose: 40 mg Sodium Chloride (Normal Saline 0.9%) 1,000 mls @ 150 mls/hr IV CONT GEO Last Admin: 04/10/18 18:30 Dose: Vital Signs - 8 hr 04/10/18 16:49 04/10/18 17:48 04/10/18 18:00 Temperature 97.6 F Pulse Rate 85 100 H 100 H Respiratory Rate 14 14 17 Blood Pressure 111/62 Blood Pressure [Left Arm] 109/55 L 110/54 L Pulse Oximetry 98 96 97 04/10/18 18:30 04/10/18 19:00 Temperature Pulse Rate 91 H 108 H Respiratory Rate 13 16 Blood Pressure Blood Pressure [Left Arm] 114/65 113/59 L Pulse Oximetry 97 98 MDM - Arrhythmia/Palpitations Differential Diagnosis Differential diagnosis: Likely palpitations, artial fibrillation and artial flutter Medical Records Attestation: I reviewed the patient's medical records. Lab Data Attestation: I reviewed the patient's lab results. Result diagrams: 04/10/18 17:55 04/10/18 17:55 Lab Results 04/10/18 04/10/18 04/10/18 Range/Units 17:55 17:55 17:55 WBC 4.1 L (4.5-11.0) X10^3/uL RBC 3.51 L (4.5-5.9) X10^6/uL Hgb 12.8 L (13.5-17.5) g/dL Hct 36.5 L (41-53) % MCV 103.9 H (80-100) fL MCH 36.6 H (26-34) PG MCHC 35.2 (30-36) % RDW 16.9 H (11.6-14.8) % Plt Count 87 L (150-400) X10^3/uL Neut % (Auto) 58.4 (50-75) % Lymph % (Auto) 18.8 L (25-40) % Nuckolls % (Auto) 17.2 H (3-14) % Eos % (Auto) 4.4 H (2-4) % Baso % (Auto) 1.2 (0-2) % Neut # (Auto) 2400 (8458-7454) /uL Lymph # (Auto) 800 L (2050-1356) /uL Nuckolls # (Auto) 700 (0-900) /uL Eos # (Auto) 200 (0-450) /uL Baso # (Auto) 0 (0-100) /uL Sodium 137 (137-145) mmol/L Potassium 3.9 (3.4-5.1) mmol/L Chloride 105 (98-107) mmol/L Carbon Dioxide 29 (22-32) mmol/L BUN 10 (9-20) mg/dL Creatinine 0.70 (0.66-1.25) mg/dL Estimated GFR > 60.0 (>60) mL/min BUN/Creatinine Ratio 14.3 (6-22) Glucose 94 (80-110) mg/dL Calcium 7.8 L (8.4-10.2) mg/dL Magnesium 1.8 (1.6-2.3) mg/dL Ammonia (9-30) umol/L Total Creatine Kinase 36 L (55-170) U/L CK-MB (CK-2) TNP CK-MB (CK-2) Rel Index TNP Troponin I < 0.012 (0.01-0.034) ng/mL B-Natriuretic Peptide (<100) TSH 2.69 (0.47-4.68) uIU/mL 04/10/18 04/10/18 Range/Units 17:55 17:55 WBC (4.5-11.0) X10^3/uL RBC (4.5-5.9) X10^6/uL Hgb (13.5-17.5) g/dL Hct (41-53) % MCV (80-100) fL MCH (26-34) PG MCHC (30-36) % RDW (11.6-14.8) % Plt Count (150-400) X10^3/uL Neut % (Auto) (50-75) % Lymph % (Auto) (25-40) % Nuckolls % (Auto) (3-14) % Eos % (Auto) (2-4) % Baso % (Auto) (0-2) % Neut # (Auto) (8697-0659) /uL Lymph # (Auto) (8954-8586) /uL Nuckolls # (Auto) (0-900) /uL Eos # (Auto) (0-450) /uL Baso # (Auto) (0-100) /uL Sodium (137-145) mmol/L Potassium (3.4-5.1) mmol/L Chloride (98-107) mmol/L Carbon Dioxide (22-32) mmol/L BUN (9-20) mg/dL Creatinine (0.66-1.25) mg/dL Estimated GFR (>60) mL/min BUN/Creatinine Ratio (6-22) Glucose (80-110) mg/dL Calcium (8.4-10.2) mg/dL Magnesium (1.6-2.3) mg/dL Ammonia 33.0 H (9-30) umol/L Total Creatine Kinase (55-170) U/L CK-MB (CK-2) CK-MB (CK-2) Rel Index Troponin I (0.01-0.034) ng/mL B-Natriuretic Peptide 173 H (<100) TSH (0.47-4.68) uIU/mL Imaging Data Chest x-ray: Radiologist's impression: atient: Alex Kim MR#: [id number] : 1955 Acct:[id number] Age/Sex: 62 / M Date of Service: 04/10/18 Loc: ED Accession Number: [id number] Procedure: XR chest 1V Ordering Provider: Bentley Munoz D.O. PROCEDURE: XR CHEST 1V INDICATIONS: chest pain TECHNIQUE: One view of the chest was acquired. COMPARISON: [facility], CR, XR CHEST 1V, 12/04/2017, 20:10. [facility], CT, CT ABDOMEN WO/W CON, 12/06/2017, 9:46. FINDINGS: Surgical changes and devices: Sternotomy wires Lungs and pleura: No pneumothorax. Retrocardiac consolidation is present, new since prior study. Possible small bilateral pleural effusions. There are widespread hazy opacities and suggestion of Otilia B-lines Mediastinum: Mediastinal contours appear normal. Heart size is mildly enlarged. Bones and chest wall: No suspicious bony lesions. Overlying soft tissues appear unremarkable. IMPRESSION: Findings suggest developing pulmonary edema with small bilateral pleural effusions. Please correlate clinically. Retrocardiac consolidation could reflect atelectasis/aspiration however cannot exclude pneumonia therefore please correlate clinically. Dictated by: Prasanth Lange M.D. on 04/10/2018 at 18:27 Approved by: Prasanth Lange M.D. on 04/10/2018 at 18:30 ECG Data Attestation: I personally reviewed and interpreted this ECG as follows: Prior ECG tracings: available for review Interpretation: atrial fib in the 90s. No ischemic findings MDM Narrative Medical decision making narrative: Multiple etiologies for patient's symptoms considered including: [Rapid AFib but thought less likely given EKG. Acute exacerbation of CHF, definitely part of the clinical picture given some lower extremity edema, and chest x-ray findings. Pneumonia considered, but thought less likely given lack of cough, fever or exam findings. The chest x-ray interpretation is noted but clinically he does not have pneumonia. Patient takes aspirin daily, his chads Vasc score is 1 and currently he does not need anticoagulation] Patient's symptoms improved or duration of stay with above-stated therapies. Findings and discharge diagnosis discussed with patient/family followed by verbalization of understanding Return precautions discussed with patient/family whom verbalize understanding. Discharge Plan Departure Patient Disposition: Home Clinical Impression: Atrial fibrillation, Acute exacerbation of CHF (congestive heart failure) Discharge Date/Time: 04/10/18 19:15 Interventions: ED Discharge Assessment Last Done: 04/10/18 19:14 Instructions: DI for Atrial Fibrillation Activity Restrictions/Additional Instructions: *You have been diagnosed with [ atrial fibrillation, acute CHF ] *What to do: *Take medications as directed. Please take an extra Lasix midday for the next 3 days. *Follow up with your primary care provider in 2-3 days, call for an appointment. Let them know you were seen in the Emergency Department and that we ask that you be seen in follow up *Return to ER if you should have any new, worsening or concerning symptoms Prescriptions: No Action potassium chloride 20 MEQ tablet,ER particles/crystals 20 meq PO DAILY Qty: 0 RF: 0 lactulose [Constulose] 10 gram/15 mL solution 30 ml PO BID RF: 0 magnesium oxide 500 mg Tablet 500 mg PO DAILY RF: 0 furosemide 40 mg tablet 40 mg PO BID RF: 0 lisinopril 5 mg tablet 5 mg PO DAILY Qty: 30 RF: 0 metoprolol tartrate 25 mg tablet 12.5 mg PO BID Qty: 30 RF: 0 Referrals: Moose Huff MD [Primary Care Provider] -
[2018-04-10 19:00] VITALS: BP 113/59; PULSE 108; RESP 16; O2SAT 98
[2018-04-10] MEDS: FUROSEMIDE 40 MG/4 ML VIAL IV (19:07)
== END 2018-04-10 19:15 | disposition home or self-care (01) ==
PROVIDERS: Emergency Provider Emergency Medicine; Family Provider Family Medicine; PCP Family Medicine
DX: I48.91 Unspecified atrial fibrillation (principal); I50.9 Heart failure, unspecified
CPT/HCPCS: 71045; 80048; 82140; 82550; 83735; 83880; 84443; 84484; 85025; 93005; 93010; 96374; 99283; 99285; J1940

== ENCOUNTER 2018-07-12 15:19 | Inpatient (IN) | payer MEDICAID, SELFPAY ==
[2017-12-05 11:45] VITALS: BMI 27.8
[2018-07-12] VITALS (9 sets, daily range): BP systolic 86–106; BP diastolic 43–53; PULSE 72–86; RESP 16–20; TEMP 36.8–38.8; O2SAT 90–98; BMI 32.5
--- NOTE | 2018-07-12 16:21 | DI.RAD.S_ITS ---
PROCEDURE: XR CHEST 1V INDICATIONS: suspected sepsis TECHNIQUE: One view of the chest was acquired. COMPARISON: None. FINDINGS: Surgical changes and devices: Stable surgical changes in the chest. Lungs and pleura: Diffuse interstitial prominence with mild loss of vascular distinctness. Small bilateral pleural effusions. Streaky bibasilar opacities.. Mediastinum: Stable cardiomediastinal contours with mild prominence of the cardiac silhouette. Bones and chest wall: No suspicious bony lesions. Overlying soft tissues appear unremarkable. IMPRESSION: Diffuse interstitial prominence, bilateral pleural effusions, prominent cardiac silhouette, and mild loss of vascular distinctness are suggestive of pulmonary edema. Infectious process not excluded if clinically appropriate given reported history of possible sepsis. Dictated by: Danny Pack M.D. on 07/12/2018 at 17:58 Approved by: Danny Pack M.D. on 07/12/2018 at 18:00
--- NOTE | 2018-07-12 16:27 | ED.WEAKNESS ---
HPI - Weakness General Chief complaint: Weakness Stated complaint: Thinks he is septic Time Seen by Provider: 07/12/18 16:26 Source: patient and family Mode of arrival: wheelchair Limitations: no limitations History of Present Illness HPI Narrative: 62-year-old male comes in with complaint of fevers, chills and rigors. Patient states started in the last day. Patient states that he got septic once before, he states he got some per [facility] for about 8 days but they never found a source. He is denying any headaches, he denies any neck pain, he denies any chest pain, shortness of breath, he denies any cough cold or congestion or upper respiratory symptoms. patient denies abdominal pain. No nausea or vomiting. he has not had any major GI symptoms, no urinary symptoms. no rashes or skin changes, no recent wounds or injuries. No sick contacts that he is aware of. He did receive appetite is B immunization in the last several days. Has known hepatitis-C, he is currently on oral treatment for it. 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 Patient does take lactulose, he takes medication for blood pressure as well as a water pill. Him and his significant other state he has not had any ascites and are unfamiliar with what this is. Related Data Home Medications Medication Instructions Recorded Confirmed potassium chloride 20 meq PO DAILY #0 12/03/16 04/10/18 furosemide 40 mg PO BID 12/04/17 04/10/18 lactulose [Constulose] 30 ml PO BID 04/10/18 04/10/18 magnesium oxide 500 mg PO DAILY 04/10/18 04/10/18 Previous Rx's Medication Instructions Recorded lisinopril 5 mg PO DAILY #30 tab 12/07/17 metoprolol tartrate 12.5 mg PO BID #30 tab 12/07/17 Allergies Allergy/AdvReac Type Severity Reaction Status Date / Time No Known Drug Allergies Allergy Verified 07/12/18 15:44 Review of Systems Review of Systems ROS Unobtainable: All systems reviewed & are unremarkable except as noted in HPI and below Constitutional Reports chills, Reports fever(s), Denies headache(s), Denies lethargy and Reports weakness Eyes Denies change in vision ENT Ears, Nose, Mouth, and Throat: Denies headache(s) and Denies neck pain Cardiovascular Denies chest pain, Denies syncope, Denies edema, Denies irregular heart rhythm, Denies lightheadedness, Denies palpitations, Denies dyspnea, Denies dyspnea on exertion and Denies orthopnea Respiratory Denies change in phlegm color, Denies chest congestion, Denies cough, Denies excessive phlegm production, Denies dyspnea and Denies dyspnea on exertion Gastrointestinal Gastrointestinal: Denies abdominal pain, Denies change in bowel habits, Denies diarrhea, Denies nausea and Denies vomiting Genitourinary Denies hematuria, Denies dysuria, Denies flank pain, Denies urinary frequency, Denies urinary hesitancy and Denies urinary urgency Musculoskeletal Denies back pain, Denies arthralgias, Denies joint swelling, Denies limited range of motion, Denies neck pain and Denies numbness Integumentary/Breasts Denies erythema, Denies rash, Denies wounds and Denies jaundice Neurologic Denies syncope, Denies headache(s), Denies focal weakness, Denies numbness and Reports weakness Endocrine Denies palpitations FOR[facility]LY [facility] Medical History Cirrhosis of liver (Acute) Hepatitis C (Acute) Surgical History Mitral valve replaced (Acute) Family History Father Stroke Myocardial infarction Social History household members: significant other Smoking Status: Former smoker Social History household members: significant other Smoking Status: Former smoker Exam Narrative Exam Narrative: GEN: Well-nourished male, alert and oriented x 3, patient appears to be in mild distress. patient does warm to the touch. HEENT: Atraumatic, pupils are equal round reactive to light, extraocular movements are intact, nares are clear, TMs have slight opacity with no fluid, erythema, no bulge. There is no conjunctival pallor. Throat is clear without any exudates, erythema, tonsillar enlargement or uvular deviation, Chelsie for meningeal signs, patient has full range of motion with flexion extension and movement. Negative Kernig's Brudzinski's. Mild cervical lymphadenopathy appreciated bilaterally. HEART: Regular rate and rhythm without murmur, clicks, rubs. Pulses are equal in upper and lower extremities. patient does have swelling bilateral lower extremities with trace edema bilaterally. There is no redness. There appears to be some healed areas on the anterior shins but they appear healed with no open wounds, erythema drainage or other signs of infection. LUNGS:Lungs clear to auscultation, no wheezes, rales, crackles, chest moves symmetrically, no tachypnea or accessory muscle use. ABD:Bowel sounds decreased but present, soft, slightly distended, non-tender, no guarding, rebound, rigidity, no masses noted, no hepatosplenomegaly :No CVA tenderness MSCL: Non-tender, no muscle atrophy, muscles strength 5/5 upper and lower extremities, full range of motion NEURO:CN 2-12 intact, sensation normal. SKIN: Patient's back, just extremities do not show any signs of wound, erythema, rashes, petechia. l Initial Vital Signs Initial Vital Signs: Vital Signs Temperature 101.9 F H 07/12/18 15:44 Pulse Rate 82 07/12/18 15:44 Respiratory Rate 16 07/12/18 15:44 Blood Pressure 91/51 L 07/12/18 15:44 Pulse Oximetry 93 07/12/18 15:44 Scores qSOFA Altered Mental Status (GCS <15): No Respiratory rate greater than/equal to 22: No Systolic blood pressure less than or equal to 100: Yes qSOFA Total: 1 0-1 Not High Risk 1-3 High risk Course Orders Ordered: ED Orders 07/12/18 16:21 XR chest 1V Stat 07/12/18 16:40 Ammonia (NH3) Stat Complete Blood Count AUTO DIFF Stat Comprehensive Metabolic Panel Stat Influenza A and B by PCR Rapid Stat Lactate (Lactic Acid) Stat Lipase Stat Partial Thromboplastin Time Stat Procalcitonin Stat Prothrombin Time INR Stat 07/12/18 16:43 Urinalysis and Microscopic Stat 07/12/18 16:51 Blood Culture Stat 07/12/18 17:22 US abdomen complete Stat Sodium Chloride (Normal Saline 0.9%) 1,000 mls @ 1,000 mls/hr IV BOLUS ONE Stop: 07/12/18 19:50 Last Admin: 07/12/18 18:45 Dose: 1,000 mls/hr Discontinued Medications Sodium Chloride (Normal Saline 0.9%) 1,000 mls @ 1,000 mls/hr IV BOLUS ONE Stop: 07/12/18 17:20 Last Infusion: 07/12/18 18:45 Dose: 0 mls/hr Admin: 07/12/18 16:55 Dose: 1,000 mls/hr Piperacillin/Tazobactam/Dextrose (Zosyn) 3.375 gm in 50 mls @ 100 mls/hr IV NOW ONE Stop: 07/12/18 17:51 Last Infusion: 07/12/18 18:30 Dose: 0 mls/hr Admin: 07/12/18 17:48 Dose: 100 mls/hr Ibuprofen (Advil) 800 mg PO NOW ONE Stop: 07/12/18 17:48 Last Admin: 07/12/18 19:16 Dose: 800 mg Lactulose (Enulose) 20 gm PO NOW ONE Stop: 07/12/18 18:48 Last Admin: 07/12/18 19:16 Dose: 20 gm Vital Signs - 8 hr 07/12/18 15:44 07/12/18 17:03 07/12/18 18:51 Temperature 101.9 F H Pulse Rate 82 82 86 Respiratory Rate 16 18 18 Blood Pressure 91/51 L Blood Pressure [Right Arm] 104/53 L 86/46 L Pulse Oximetry 93 96 94 MDM - Weakness Lab Data Attestation: I reviewed the patient's lab results. Result diagrams: 07/12/18 16:40 07/12/18 16:40 Lab Results 07/12/18 07/12/18 07/12/18 Range/Units 16:40 16:40 16:40 WBC 8.4 (4.5-11.0) X10^3/uL RBC 3.03 L (4.5-5.9) X10^6/uL Hgb 11.4 L (13.5-17.5) g/dL Hct 32.5 L (41-53) % MCV 107.4 H (80-100) fL MCH 37.7 H (26-34) PG MCHC 35.1 (30-36) % RDW 16.3 H (11.6-14.8) % Plt Count 88 L (150-400) X10^3/uL Neut % (Auto) 88.6 H (50-75) % Lymph % (Auto) 2.1 L (25-40) % Perkins % (Auto) 8.6 (3-14) % Eos % (Auto) 0.4 L (2-4) % Baso % (Auto) 0.3 (0-2) % Neut # (Auto) 7400 H (6649-9452) /uL Lymph # (Auto) 200 L (6351-4017) /uL Perkins # (Auto) 700 (0-900) /uL Eos # (Auto) 0 (0-450) /uL Baso # (Auto) 0 (0-100) /uL PT 28.2 H (10.1-12.7) SECONDS INR 2.4 H (0.9-1.3) APTT 42 H D (26.4-36.2) SECONDS Sodium (137-145) mmol/L Potassium (3.4-5.1) mmol/L Chloride (98-107) mmol/L Carbon Dioxide (22-32) mmol/L BUN (9-20) mg/dL Creatinine (0.66-1.25) mg/dL Estimated GFR (>60) mL/min BUN/Creatinine Ratio (6-22) Glucose (80-110) mg/dL Lactate (0.7-2.1) mmol/L Calcium (8.4-10.2) mg/dL Total Bilirubin (0.2-1.3) mg/dL AST (17-59) IU/L ALT (21-72) IU/L Alkaline Phosphatase (38-126) U/L Ammonia (9-30) umol/L Total Protein (6.3-8.2) g/dL Albumin (3.5-5.0) g/dL Globulin (1.7-4.1) g/dL Albumin/Globulin Ratio (1.0-2.8) Lipase (23-300) U/L Procalcitonin 3.07 H (<0.5) ng/mL Influenza A & B (PCR) (Negative) 07/12/18 07/12/18 07/12/18 Range/Units 16:40 16:40 16:40 WBC (4.5-11.0) X10^3/uL RBC (4.5-5.9) X10^6/uL Hgb (13.5-17.5) g/dL Hct (41-53) % MCV (80-100) fL MCH (26-34) PG MCHC (30-36) % RDW (11.6-14.8) % Plt Count (150-400) X10^3/uL Neut % (Auto) (50-75) % Lymph % (Auto) (25-40) % Perkins % (Auto) (3-14) % Eos % (Auto) (2-4) % Baso % (Auto) (0-2) % Neut # (Auto) (2227-4182) /uL Lymph # (Auto) (0408-5558) /uL Perkins # (Auto) (0-900) /uL Eos # (Auto) (0-450) /uL Baso # (Auto) (0-100) /uL PT (10.1-12.7) SECONDS INR (0.9-1.3) APTT (26.4-36.2) SECONDS Sodium 138 (137-145) mmol/L Potassium 3.5 (3.4-5.1) mmol/L Chloride 102 (98-107) mmol/L Carbon Dioxide 29 (22-32) mmol/L BUN 14 (9-20) mg/dL Creatinine 0.90 (0.66-1.25) mg/dL Estimated GFR > 60.0 (>60) mL/min BUN/Creatinine Ratio 15.6 (6-22) Glucose 136 H (80-110) mg/dL Lactate 1.7 (0.7-2.1) mmol/L Calcium 8.3 L (8.4-10.2) mg/dL Total Bilirubin 3.8 H (0.2-1.3) mg/dL AST 44 (17-59) IU/L ALT 22 (21-72) IU/L Alkaline Phosphatase 85 (38-126) U/L Ammonia 73.0 H (9-30) umol/L Total Protein 7.0 (6.3-8.2) g/dL Albumin 3.0 L (3.5-5.0) g/dL Globulin 4.0 (1.7-4.1) g/dL Albumin/Globulin Ratio 0.8 L (1.0-2.8) Lipase 426 H (23-300) U/L Procalcitonin (<0.5) ng/mL Influenza A & B (PCR) (Negative) 07/12/18 Range/Units 16:40 WBC (4.5-11.0) X10^3/uL RBC (4.5-5.9) X10^6/uL Hgb (13.5-17.5) g/dL Hct (41-53) % MCV (80-100) fL MCH (26-34) PG MCHC (30-36) % RDW (11.6-14.8) % Plt Count (150-400) X10^3/uL Neut % (Auto) (50-75) % Lymph % (Auto) (25-40) % Perkins % (Auto) (3-14) % Eos % (Auto) (2-4) % Baso % (Auto) (0-2) % Neut # (Auto) (7367-1241) /uL Lymph # (Auto) (3225-6096) /uL Perkins # (Auto) (0-900) /uL Eos # (Auto) (0-450) /uL Baso # (Auto) (0-100) /uL PT (10.1-12.7) SECONDS INR (0.9-1.3) APTT (26.4-36.2) SECONDS Sodium (137-145) mmol/L Potassium (3.4-5.1) mmol/L Chloride (98-107) mmol/L Carbon Dioxide (22-32) mmol/L BUN (9-20) mg/dL Creatinine (0.66-1.25) mg/dL Estimated GFR (>60) mL/min BUN/Creatinine Ratio (6-22) Glucose (80-110) mg/dL Lactate (0.7-2.1) mmol/L Calcium (8.4-10.2) mg/dL Total Bilirubin (0.2-1.3) mg/dL AST (17-59) IU/L ALT (21-72) IU/L Alkaline Phosphatase (38-126) U/L Ammonia (9-30) umol/L Total Protein (6.3-8.2) g/dL Albumin (3.5-5.0) g/dL Globulin (1.7-4.1) g/dL Albumin/Globulin Ratio (1.0-2.8) Lipase (23-300) U/L Procalcitonin (<0.5) ng/mL Influenza A & B (PCR) Negative (Negative) Imaging Data Chest x-ray: Radiologist's impression: Alex Kim [address] [address] XRay Report Signed Patient: Mary Kim#: [id number] : 8Acct:[id number] Age/Sex: 62 / MDate of Service: 07/12/18 Loc: ED Accession Number: [id number] Procedure: XR chest 1V Ordering Provider: Johnna Palafox D.O. PROCEDURE: XR CHEST 1V INDICATIONS: suspected sepsis TECHNIQUE: One view of the chest was acquired. COMPARISON: None. FINDINGS: Surgical changes and devices: Stable surgical changes in the chest. Lungs and pleura: Diffuse interstitial prominence with mild loss of vascular distinctness. Small bilateral pleural effusions. Streaky bibasilar opacities.. Mediastinum: Stable cardiomediastinal contours with mild prominence of the cardiac silhouette. Bones and chest wall: No suspicious bony lesions. Overlying soft tissues appear unremarkable. IMPRESSION: Diffuse interstitial prominence, bilateral pleural effusions, prominent cardiac silhouette, and mild loss of vascular distinctness are suggestive of pulmonary edema. Infectious process not excluded if clinically appropriate given reported history of possible sepsis. Dictated by: Danny Pack M.D. on 07/12/2018 at 17:58 Approved by: Danny Pack M.D. on 07/12/2018 at 18:00 US - abdomen: My impression: prelim read is cholelithiasis, no thickening of wall, no Sarkar's, tumor in liver, cirrhosis, accessory spleen, no ascites. no other acute changes. Radiologist's impression: Alex Kim [address] [address] Ultrasound Report Signed Patient: Mary Kim#: [id number] : 8Acct:[id number] Age/Sex: 62 / MDate of Service: 07/12/18 Loc: ED Accession Number: [id number] Procedure: US abdomen complete Ordering Provider: Johnna Palafox D.O. PROCEDURE: US ABDOMEN COMPLETE INDICATIONS: fevers, cirrhosis, liver mass, lab abnormalities TECHNIQUE: Real-time scanning was performed of the abdominal and retroperitoneal organs, with image documentation. COMPARISON: 06/05/18. FINDINGS: Liver: Liver echotexture is coarse and heterogeneous compatible with known history of cirrhosis. Persistent lobulated liver contour. There is a stable 2.6 x 2.4 x 2.4 cm heterogeneously hyperechoic right hepatic lobe mass. Redemonstration of recanalized umbilical vein. Gallbladder: Gallbladder is contracted and contains numerous gallstones and debris as before. Mild thickening of the gallbladder wall likely related to cirrhosis. No sonographic evidence for acute cholecystitis. Biliary ducts: Intrahepatic bile ducts are non-dilated. Extrahepatic bile duct caliber measures 4 mm. Normal is 6-7 mm or less in diameter, or 10 mm or less post-cholecystectomy. Pancreas: Visualized portions of the pancreas are sonographically normal. Spleen: Redemonstration of splenomegaly. 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 Solid avascular structure adjacent to the splenic hilum measuring 3.3 cm. Kidneys: Kidneys are normal in size and echotexture. Right kidney measures 11.2 cm long; left kidney measures 14.4 cm long. No hydronephrosis or nephrolithiasis. No solid masses. Right renal cyst is again noted measuring 2.4 cm today versus 1.9 cm previously. Aorta: Visualized aorta is normal in caliber at less than 3 cm. The iliac arteries and IVC are not well visualized do to overlying bowel gas. Miscellaneous: No free abdominal fluid. IMPRESSION: 1. Stable sonographic evaluation of the abdomen without acute sonographic abnormalities. 2. Multiple stigmata of cirrhosis and portal hypertension remain stable and detailed above. 3. Stable 2.6 cm heterogeneously hyperechoic mass in the right hepatic lobe. 4. Cholelithiasis without sonographic evidence of acute cholecystitis. Dictated by: Danny Pack M.D. on 07/12/2018 at 18:43 Approved by: Danny Pack M.D. on 07/12/2018 at 18:53 MDM Narrative Medical decision making narrative: The patient had recent sepsis and was hospitalized at [place]. He appears he had a ZEHRA evaluation for endocarditis amongst other causes and no specific cause was found. He was noted to have sepsis with unspecified organism, acute respiratory failure with hypoxia. Acute kidney failure, diastolic congestive heart failure amongst other diagnoses. Patient has fever here, does not have elevated white count but does have anemia 11.4 which appears fairly close to prior baseline. He has a macrocytosis and platelets are 88 which also appears within his normal parameters. Collection show INR of 2.4, electrolytes are normal except for a slightly elevated glucose of 136, patient's bilirubin is 3.8 although this is improved from his prior in November, LFTs are otherwise normal, ammonia is 73, lipase is slightly elevated at 426 and a procalcitonin is positive at 3.07. Chest x-ray shows possible pneumonia. Ultrasound shows many gallstones but patient is nontender with no other clear findings of infection on prelim. Patient was started on Zofran. I did not start a 30 cc/kilos bolus with the patient's history some and needing occasional Lasix. Patient received a L he had some improvement in his blood pressure and a 2nd was started. Spoke with Dr. Medina, patient does appear to have some pneumonia on his chest x-ray. Which I viewed and per report possible. Based on patient's symptoms with fever started Zosyn and he accepts. We did discuss findings including preliminary ultrasound finding., [facility] records which did arrive and her with the patient's chart. Discharge Plan Departure Patient Disposition: Admitted as Observation Clinical Impression: Pneumonia Sepsis Qualifiers: Sepsis type: sepsis due to unspecified organism Qualified Code(s): A41.9 - Sepsis, unspecified organism Admit Date/Time: 07/12/18 19:21 Admit Provider: Regina Medina
[2018-07-12] MEDS: SODIUM CHLORIDE 0.9% 1,000 ML 1000 ML IV ×2 (16:55→18:45)
[2018-07-12 17:02] LABS: Add Manual Diff / Slide Review NO; Basophils Absolute Auto 0 /uL (0-100); Basophils Percent Auto 0.3 % (0-2); Eosinophils Absolute Auto 0 /uL (0-450); Eosinophils Percent Auto 0.4 % (2-4); Hematocrit 32.5 % (41-53); Hemoglobin 11.4 g/dL (13.5-17.5); Lymphocytes Absolute Auto 200 /uL (1100-4500); Lymphocytes Percent Auto 2.1 % (25-40); Mean Corpuscular HGB Conc 35.1 % (30-36); Mean Corpuscular Hemoglobin 37.7 PG (26-34); Mean Corpuscular Volume 107.4 fL (80-100); Monocytes Absolute Auto 700 /uL (0-900); Monocytes Percent Auto 8.6 % (3-14); Neutrophils Absolute Auto 7400 /uL (1500-7000); Neutrophils Percent Auto 88.6 % (50-75); Platelet Count 88 X10^3/uL (150-400); Red Blood Cell Count 3.03 X10^6/uL (4.5-5.9); Red Cell Distribution Width 16.3 % (11.6-14.8); White Blood Cell Count 8.4 X10^3/uL (4.5-11.0)
[2018-07-12 17:11] LABS: Lactate (Lactic Acid) 1.7 mmol/L (0.7-2.1)
[2018-07-12 17:12] LABS: Alanine Aminotransferase 22 IU/L (21-72); Albumin Globulin Ratio 0.8 (1.0-2.8); Alkaline Phosphatase 85 U/L (38-126); Aspartate Aminotransferase 44 IU/L (17-59); BUN Creatinine Ratio 15.6 (6-22); Bilirubin Total 3.8 mg/dL (0.2-1.3); Blood Urea Nitrogen 14 mg/dL (9-20); Calcium 8.3 mg/dL (8.4-10.2); Carbon Dioxide 29 mmol/L (22-32); Chloride 102 mmol/L (98-107); Estimated Glomerular Filt Rate > 60.0 mL/min (>60); Glucose 136 mg/dL (80-110); HEMOLYSIS < 15 (0-50); Lipase 426 U/L (23-300); Potassium 3.5 mmol/L (3.4-5.1); Sodium 138 mmol/L (137-145)
[2018-07-12 17:14] LABS: Influenza A and B by PCR Rapid Negative (Negative)
[2018-07-12 17:20] LABS: INR 2.4 (0.9-1.3); Prothrombin Time 28.2 SECONDS (10.1-12.7)
--- NOTE | 2018-07-12 17:22 | DI.US.S_ITS ---
PROCEDURE: US ABDOMEN COMPLETE INDICATIONS: fevers, cirrhosis, liver mass, lab abnormalities TECHNIQUE: Real-time scanning was performed of the abdominal and retroperitoneal organs, with image documentation. COMPARISON: 06/05/18. FINDINGS: Liver: Liver echotexture is coarse and heterogeneous compatible with known history of cirrhosis. Persistent lobulated liver contour. There is a stable 2.6 x 2.4 x 2.4 cm heterogeneously hyperechoic right hepatic lobe mass. Redemonstration of recanalized umbilical vein. Gallbladder: Gallbladder is contracted and contains numerous gallstones and debris as before. Mild thickening of the gallbladder wall likely related to cirrhosis. No sonographic evidence for acute cholecystitis. Biliary ducts: Intrahepatic bile ducts are non-dilated. Extrahepatic bile duct caliber measures 4 mm. Normal is 6-7 mm or less in diameter, or 10 mm or less post-cholecystectomy. Pancreas: Visualized portions of the pancreas are sonographically normal. Spleen: Redemonstration of splenomegaly. 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 Solid avascular structure adjacent to the splenic hilum measuring 3.3 cm. Kidneys: Kidneys are normal in size and echotexture. Right kidney measures 11.2 cm long; left kidney measures 14.4 cm long. No hydronephrosis or nephrolithiasis. No solid masses. Right renal cyst is again noted measuring 2.4 cm today versus 1.9 cm previously. Aorta: Visualized aorta is normal in caliber at less than 3 cm. The iliac arteries and IVC are not well visualized do to overlying bowel gas. Miscellaneous: No free abdominal fluid. IMPRESSION: 1. Stable sonographic evaluation of the abdomen without acute sonographic abnormalities. 2. Multiple stigmata of cirrhosis and portal hypertension remain stable and detailed above. 3. Stable 2.6 cm heterogeneously hyperechoic mass in the right hepatic lobe. 4. Cholelithiasis without sonographic evidence of acute cholecystitis. Dictated by: Danny Pack M.D. on 07/12/2018 at 18:43 Approved by: Danny Pack M.D. on 07/12/2018 at 18:53
[2018-07-12 17:23] LABS: PTT Partial Thromboplastin Tim 42 SECONDS (26.4-36.2)
[2018-07-12 17:30] LABS: Procalcitonin 3.07 ng/mL (<0.5)
--- NOTE | 2018-07-12 17:38 | PC.NURSE ---
Waiting for IV anbx medication Zosyn and two sets of blood cultures have been completed.
[2018-07-12] MEDS: PIPERACILLIN-TAZO 3.375 GM/50 ML FROZ.PIGGY IV (17:48)
[2018-07-12] MEDS: LACTULOSE 20 GM/30 ML SOLUTION PO (19:16)
[2018-07-12] MEDS: IBUPROFEN 400 MG TABLET 800 MG PO (19:16)
--- NOTE | 2018-07-12 19:39 | PC.NURSE ---
Phone report provided to DORY Batista for continuation of care and all questions answered at this time.
--- NOTE | 2018-07-12 20:08 | PC.NURSE ---
Late entry at 1945 Pt being evaluated by hospitalist provider at the bedside. Pt will be transfer to [facility] when he'd done.
--- NOTE | 2018-07-12 20:59 | PM.HP.1 ---
History of Present Illness Date Patient Seen: 07/12/18 Time Patient Seen: 19:34 Chief complaint: Thinks he is septic Narrative: Alex Kim is a 62-year-old male with a medical history significant for liver cirrhosis, right lobe liver mass, hepatitis C mitral valve replacement post endocarditis and gallstones who presents to the emergency department with fevers chills and rigors. The patient is drowsy and additional information is obtained from his significant other Maryse who is at bedside and been with the patient for 15 years. The patient apparently did not sleep last night and had no prodromal symptoms, travel or ill contacts. He does endorse a history of prior sepsis treated at [facility] for 8 days approximately 10 months ago. He did receive a hepatitis-B vaccination within the last several days, and is currently on sofosuvir-velpastasivr for his hepatitis-C. He also had cellulitis the right leg 3 weeks ago treated with clindamycin. Patient denies complaints of headaches or dizziness reports no nasal congestion or sore throat. He denies chest pain or palpitations, reports no cough however Maryse states he was wheezing this morning and at baseline has dyspnea on exertion. He reports no abdominal pain, nausea vomiting. He feels his abdomen is somewhat more distended than usual. He has diarrhea related to daily lactulose. He has bilateral edema that is reported as the right usually greater than the left. His prior cellulitis is healed well with outpatient treatment with no other rashes, redness or lesions. The patient is to have a consult at [facility] [place], [place] in in regard to his right lobe liver mass which on ultrasound is defined as stable measuring 2.6 x 2.4 by 2.4. Ultrasound also identifies nonocclusive cholelithiasis without biliary dilatation. On laboratory studies he has a normal white count 8.4, hemoglobin of 11.4 and hematocrit of 32.5 and platelets 88. He has had no complaints of untoward bleeding or bruising. He is currently on warfarin and has an INR of 2.4. On chemistries he has a borderline potassium of 3.5 with good renal function with a BUN of 14 and creatinine is 0.9. Does have mildly elevated lipase. His ammonia level is 73. On 12 lead EKG he has atrial flutter 2-1 with ventricular rate of 100 and left bundle branch block. On chest x-ray he was found to have bilateral pulmonary effusions, prominent cardiac silhouette and diffuse interstitial prominence. In the ER the patient received an initial dose of Zosyn an extra dose of 20 g of lactulose and 1 L bolus of normal saline. The patient admitted to the hospital for further evaluation and treatment. Patient History Medical History Arrhythmia, atrial (Acute) Cholelithiasis (Acute) Liver mass, right lobe (Acute) Cirrhosis of liver (Acute) Hepatitis C (Acute) Surgical History Mitral valve replaced (Acute) Family History Father Stroke Myocardial infarction Mother Amyotrophic lateral sclerosis (ALS) Social History household members: significant other Smoking Status: Former smoker alcohol intake: former Family & Social History Family History Father Stroke Myocardial infarction Mother Amyotrophic lateral sclerosis (ALS) Social History: household members significant other Prior Living Arrangements Mobile home Safety & Behavioral: Feels Safe in Current Yes Environment Been Physically Hurt or No Threatened By a Person Tobacco & Substance use: Smoking Status Former smoker alcohol intake former alcohol intake frequency 0-2 drinks per day Substance Use Type does not use Comment: The patient is currently living with his significant other, Maryse, in a single family home. The patient has been living with her for 6 months and typically lives in his RV during the summer. His parents have both his father from a stroke and has mother from ALS. He has a sister who has hepatitis C but he has not had contact with her for over 10 years and has no further knowledge of her health history. He has no children. Smoking: Patient smoked 1 pack per day for 5 years and quit over 20 years ago Alcohol: Patient was previously heavy drinker and quit 2-3 years ago Substance use: Patient smokes occasional cannabis and has used cannabis at doubles 3 times in last 6 months Advanced directives: The patient has no advanced directive but wishes to be FULL CODE. He designates his significant other Maryse to be his surrogate decision maker. Meds Home Medications Medication Instructions Recorded Confirmed Type potassium chloride 20 meq PO DAILY #0 12/03/16 07/12/18 History furosemide 40 mg PO BID 12/04/17 07/12/18 History lactulose [Constulose] 30 ml PO BID 04/10/18 07/12/18 History magnesium oxide 500 mg PO DAILY 04/10/18 07/12/18 History metoprolol tartrate 75 mg PO BID 07/12/18 07/12/18 History sofosbuvir-velpatasvir 400 mg PO DAILY 07/12/18 07/12/18 History warfarin 2.5 mg PO Q OTHER DAY 07/12/18 07/12/18 History Allergies Allergy/AdvReac Type Severity Reaction Status Date / Time No Known Drug Allergies Allergy Verified 07/12/18 15:44 Review of Systems Review of Systems All systems reviewed & are unremarkable except as noted in HPI and below Exam Vital Signs (past 8 hours): - 07/12/18 15:44 07/12/18 17:03 07/12/18 18:51 Temperature 101.9 F H Pulse Rate 82 82 86 Respiratory Rate 16 18 18 Blood Pressure 91/51 L Blood Pressure [Right Arm] 104/53 L 86/46 L Pulse Oximetry 93 96 94 07/12/18 19:30 07/12/18 19:43 07/12/18 20:25 Temperature 99.1 F 101.1 F H Pulse Rate 83 80 Respiratory Rate 18 16 16 Blood Pressure 87/47 L Blood Pressure [Right Arm] 106/50 L Pulse Oximetry 90 L 97 95 Oxygen Delivery Method Room Air Oxygen Flow Rate 0 Narrative Exam Narrative: GENERAL APPEARANCE: well developed, overweight unkempt male is drowsy and in no acute distress. HEAD: Normocephalic, atraumatic, no scalp lesions. EYES: pupils equal, round, reactive to light and accommodation, sclera non-icteric, extraocular movement intact without nystagmus . EARS: normal external structures, no ear pain NOSE: sinuses non tender to percussion, no rhinorrhea ORAL CAVITY: mucosa moist without lesions or exudate, palate normal, tongue in midline. THROAT: normal, no erythema, no exudate, pharynx normal, uvula midline. NECK/THYROID: neck supple, no jugular venous distention, no carotid bruit, no thyromegaly, trachea midline. LYMPH NODES: no cervical or supraclavicular lymphadenopathy. SKIN: warm and dry, healing cellulitic scarring right anterior tibia without redness warmth or pain, no rashes. HEART: regular rate and rhythm, S1-S2, 1/6 systolic murmur, no rubs or gallops, 4+ bilateral pedal edema to the knee, brisk capillary refill LUNGS: Scattered crackles bilaterally, diminished bilateral bases, no coarseness or wheezing, no cough CHEST: Well-healed median sternotomy surgical scar, symmetrical movement, no accessory muscle use, no pain to AP and lateral compression. ABDOMEN: Firm, round, no fluid wave, no epigastric or abdominal tenderness on palpation, no guarding or peritoneal signs, no organomegaly, no flank or suprapubic tenderness BACK: Normal curvature, nontender to palpation, no CVA tenderness on percussion EXTREMITIES: moves all extremities, strength is 5/5 and symmetrical NEUROLOGIC: Somnolent, responsive to verbal stimulus, AAO to person place and time, no focal neurologic deficits, motor strength normal upper and lower extremities, sensory exam intact to light touch PSYCH: Somnolent, cognitive function intact, poor eye contact, stable mood with congruent affect Objective Labs Result Diagrams: 07/12/18 16:40 07/12/18 16:40 Labs: Laboratory Results - last 24 hr 07/12/18 07/12/18 07/12/18 16:40 16:40 16:40 WBC 8.4 RBC 3.03 L Hgb 11.4 L Hct 32.5 L MCV 107.4 H MCH 37.7 H MCHC 35.1 RDW 16.3 H Plt Count 88 L Neut % (Auto) 88.6 H Lymph % (Auto) 2.1 L [place] % (Auto) 8.6 Eos % (Auto) 0.4 L Baso % (Auto) 0.3 Neut # (Auto) 7400 H Lymph # (Auto) 200 L [place] # (Auto) 700 Eos # (Auto) 0 Baso # (Auto) 0 PT 28.2 H INR 2.4 H APTT 42 H D Sodium Potassium Chloride Carbon Dioxide BUN Creatinine Estimated GFR BUN/Creatinine Ratio Glucose Lactate Calcium Total Bilirubin AST ALT Alkaline Phosphatase Ammonia Total Protein Albumin Globulin Albumin/Globulin Ratio Lipase Procalcitonin 3.07 H Influenza A & B (PCR) 07/12/18 07/12/18 07/12/18 16:40 16:40 16:40 WBC RBC Hgb Hct MCV MCH MCHC RDW Plt Count Neut % (Auto) Lymph % (Auto) [place] % (Auto) Eos % (Auto) Baso % (Auto) Neut # (Auto) Lymph # (Auto) [place] # (Auto) Eos # (Auto) Baso # (Auto) PT INR APTT Sodium 138 Potassium 3.5 Chloride 102 Carbon Dioxide 29 BUN 14 Creatinine 0.90 Estimated GFR > 60.0 BUN/Creatinine Ratio 15.6 Glucose 136 H Lactate 1.7 Calcium 8.3 L Total Bilirubin 3.8 H AST 44 ALT 22 Alkaline Phosphatase 85 Ammonia 73.0 H Total Protein 7.0 Albumin 3.0 L Globulin 4.0 Albumin/Globulin Ratio 0.8 L Lipase 426 H Procalcitonin Influenza A & B (PCR) 07/12/18 16:40 WBC RBC Hgb Hct MCV MCH MCHC RDW Plt Count Neut % (Auto) Lymph % (Auto) [place] % (Auto) Eos % (Auto) Baso % (Auto) Neut # (Auto) Lymph # (Auto) [place] # (Auto) Eos # (Auto) Baso # (Auto) PT INR APTT Sodium Potassium Chloride Carbon Dioxide BUN Creatinine Estimated GFR BUN/Creatinine Ratio Glucose Lactate Calcium Total Bilirubin AST ALT Alkaline Phosphatase Ammonia Total Protein Albumin Globulin Albumin/Globulin Ratio Lipase Procalcitonin Influenza A & B (PCR) Negative Assessment & Plan Assessment & Plan narrative: Mr. Kim is a 62-year-old male who is admitted with symptoms consistent with sepsis including fevers chills rigors and history prior sepsis of unknown origin. 1. Sepsis, present on admission, acute -symptoms for approximately 24 hours with fevers chills and rigors. Temperature admitted to the ER was 101.9. -positive procalcitonin at 3.07, lactate 1.7, normal white count 8.4. -SOFA score is 7 based on an imputed PaO2/FiO2 based on SpO2/FiO2, scoring is also qualified by cirrhosis and an elevated total bili of 3.8. -differential diagnosis: Pneumonia, chest x-ray without obvious infiltrates, pulmonary vascular congestion and prominent cardiac silhouette, no cough, SpO2 93-96% Bacteremia, history of prior endocarditis resulting in mitral valve replacement, blood cultures are pending. Colitis, recent course of treatment with clindamycin, at risk for C difficile no mucoid stools possibly masked by lactulose use Spontaneous bacterial peritonitis, history of hepatitis C with liver cirrhosis and increased abdominal distention without tenderness Urinary tract infection, UA ordered but not yet collected. -will continue Zosyn 3.375 g IV every 6 hours started in the ER. -will obtain GI and respiratory PCR panels -will send urine for Legionella antigen 2. Pneumonia, present on admission, acute -report of wheezing by patient's significant other, not present at time examination -scattered crackles with breath sounds diminished in the bases right greater than left, no cough -will add azithromycin 500 mg daily for 3 days for atypical coverage -will obtain respiratory PCR panel. 3. Liver cirrhosis, present on admission, chronic -patient without complaints of abdominal pain on palpation, unable to palpate liver margin, no fluid wave, no nausea or vomiting -total bilirubin is 3.8, AST is 44, ALT 22 and alkaline phosphatase 85. Albumin is low at 3.0 and platelets are 88 -abdominal ultrasound reading identify stable cirrhosis without acute changes or biliary dilatation, presence of nonobstructing gallstones. -patient taking lactulose twice daily with associated loose stool, ammonia on admission is 73 patient received an extra dose lactulose in the ER will continue routine dosing. -will continue Zosyn as in #1 above. 4. Atrial flutter, present on admission, chronic -EKG obtained in the ER demonstrates atrial flutter 2-1 conduction with a ventricular rate of 100. -Patient is typically on metoprolol 75 mg twice daily, patient's blood pressure has been borderline, will hold metoprolol tonight. -echocardiogram completed 12/05/2017 demonstrates an EF 65-70% with well-seated mitral valve. Also acknowledges right-sided filling pressures upper and normal. -will correct electrolyte deficiencies, potassium is 3.5 and will receive potassium chloride 40 mEq IV. Will continue potassium supplementation but increase dosing to 20 mEq twice daily and re-evaluate -magnesium is 1.7, will order Mag sulfate 2 g IV x1 5. Peripheral edema, present on admission, chronic -patient with 4+ bilateral pedal edema consistent with fluid overload currently on Lasix 40 mg twice daily with potassium supplementation 20 mEq once daily -per patient's significant other patient lost 20 lb on a prior admission following diuresis -chest x-ray shows prominent cardiac silhouette pulmonary congestion -Lasix 40 mg IV x1 now -bilateral lower extremity compression hose or if unable to appropriately size bilateral lower extremity Mir wraps 6. Long-term anticoagulation, present on admission, chronic -patient is taking warfarin 2.5 mg every other day for his atrial arrhythmias -will continue current dosing and monitor INR. The patient is admitted to the hospital due to severity symptoms and high risk for complications. The patient is admitted as an inpatient with expected length of stay to be greater than 2 midnights. Time Spent With Patient Time with patient: Greater than 35 minutes Scores GCS [place] coma scale eye opening: To sound Sarah coma scale verbal response: Orientated Sarah coma scale motor response: Obey commands [place] coma scale total score: 14 SOFA PaO2/FIO2: < 400 mmHg (Imputed PaO2/ FiO2 based on SpO2/FiO2) Platelets: < 100 Bilirubin: 2.0-5.9 mg/dL Hypotension: MAP < 70 mmHg [place] Coma Scale: 13-14 Renal: < 1.2 mg/dL SOFA Score: 7
[2018-07-12 21:10] LABS: Magnesium 1.7 mg/dL (1.6-2.3)
--- NOTE | 2018-07-12 22:20 | PC.NURSE ---
2219- Patient arrived to floor at 2019. Patient wakes but is delayed and sleepy. Ammonia level is high, lactulose given in Emergency. Patient is febrile. Room air saturation is 93%. Patient is on telemetry NSR per ICU reading. is at bedside. Patient has profound edema generalized. Will monitor
[2018-07-13] VITALS (15 sets, daily range): BP systolic 87–129; BP diastolic 44–69; PULSE 70–74; RESP 18–84; TEMP 36.6–38.8; O2SAT 93–99
[2018-07-13] MEDS: AZITHROMYCIN 500 MG in DEXTROSE 5% IN WATER 250 ML IV (00:41)
[2018-07-13] MEDS: MAGNESIUM SULFATE 2 GM/50 ML PIGGYBACK IV (00:42)
[2018-07-13] MEDS: POTASSIUM CHLORIDE 40 MEQ in SODIUM CHLORIDE 0.9% 500 ML 130 ML IV (00:42)
[2018-07-13] MEDS: LACTULOSE 20 GM/30 ML SOLUTION PO ×3 (00:43→20:30)
[2018-07-13] MEDS: WARFARIN 2.5 MG TABLET PO (00:43)
[2018-07-13] MEDS: METOPROLOL IR 25 MG TABLET 12.5 MG PO ×3 (00:43→20:30)
[2018-07-13] MEDS: FUROSEMIDE 40 MG TABLET PO ×3 (00:44→20:30)
[2018-07-13] MEDS: POTASSIUM CHLORIDE 20 MEQ/15 ML UDC PO ×2 (00:56→09:44)
[2018-07-13] MEDS: PIPERACILLIN-TAZO 3.375 GM/50 ML FROZ.PIGGY IV (04:34)
[2018-07-13 04:48] LABS: Adenovirus Not Detected (Not Detect); Bordetella pertussis Not Detected (Not Detect); Chlamydophila pneumoniae Not Detected (Not Detect); Coronavirus 229E Not Detected (Not Detect); Coronavirus HKU1 Not Detected (Not Detect); Coronavirus NL 63 Not Detected (Not Detect); Coronavirus OC43 Not Detected (Not Detect); Human Metapneumovirus Not Detected (Not Detect); Human Rhinovirus/Enterovirus Not Detected (Not Detect); Influenza A Not Detected (Not Detect); Influenza B Not Detected (Not Detect); Mycoplasma pneumoniae Not Detected (Not Detect); Parainfluenza Virus 1 Not Detected (Not Detect); Parainfluenza Virus 2 Not Detected (Not Detect); Parainfluenza Virus 3 Not Detected (Not Detect); Parainfluenza Virus 4 Not Detected (Not Detect); Respiratory Syncytial Virus Not Detected (Not Detect)
[2018-07-13 05:54] LABS: Add Manual Diff / Slide Review NO; Basophils Absolute Auto 0 /uL (0-100); Basophils Percent Auto 0.2 % (0-2); Eosinophils Absolute Auto 0 /uL (0-450); Eosinophils Percent Auto 0.6 % (2-4); Hematocrit 29.7 % (41-53); Hemoglobin 10.5 g/dL (13.5-17.5); Lymphocytes Absolute Auto 200 /uL (1100-4500); Mean Corpuscular HGB Conc 35.2 % (30-36); Mean Corpuscular Hemoglobin 38.5 PG (26-34); Mean Corpuscular Volume 109.3 fL (80-100); Monocytes Absolute Auto 200 /uL (0-900); Neutrophils Absolute Auto 5600 /uL (1500-7000); Neutrophils Percent Auto 91.2 % (50-75); Platelet Count 70 X10^3/uL (150-400); Red Blood Cell Count 2.72 X10^6/uL (4.5-5.9); Red Cell Distribution Width 16.2 % (11.6-14.8); White Blood Cell Count 6.1 X10^3/uL (4.5-11.0)
[2018-07-13 05:57] LABS: INR 2.5 (0.9-1.3); Prothrombin Time 29.8 SECONDS (10.1-12.7)
[2018-07-13 05:59] LABS: Lactate (Lactic Acid) 2.1 mmol/L (0.7-2.1)
[2018-07-13 06:01] LABS: Lipase 467 U/L (23-300)
[2018-07-13 06:02] LABS: BUN Creatinine Ratio 17.5 (6-22); Blood Urea Nitrogen 21 mg/dL (9-20); Calcium 7.9 mg/dL (8.4-10.2); Carbon Dioxide 29 mmol/L (22-32); Chloride 106 mmol/L (98-107); Estimated Glomerular Filt Rate > 60.0 mL/min (>60); Glucose 113 mg/dL (80-110); HEMOLYSIS < 15 (0-50); Potassium 3.9 mmol/L (3.4-5.1); Sodium 140 mmol/L (137-145)
[2018-07-13 06:12] LABS: Troponin I < 0.012 ng/mL (0.01-0.034)
[2018-07-13 06:18] LABS: Procalcitonin 20.88 ng/mL (<0.5)
--- NOTE | 2018-07-13 06:46 | PC.NURSE ---
Pt is AxOx3, fatigued, answers appropriately. Vitals stable. SBP in the 90s, FISH BAIT PICKER Jose Luis aware. 3 loose stools from Lactulose. Stool sample sent. Urine legionella sent. Resp panel sent. No complaints of pain. +4 edema, b/l lower ext. Compression stockings placed. Able to ambulate with 1person SBA to bathroom. Tele is 1st AVB, BBB, NSR. Jaundiced.
[2018-07-13] MEDS: CEFTRIAXONE 2 GM/50 ML FROZ.PIGGY IV (09:31)
[2018-07-13] MEDS: SODIUM CHLORIDE 0.9% FLUSH 10 ML IV ×3 (09:32→20:30)
[2018-07-13 10:07] LABS: RBC Urine None Seen (0-5/HPF)
[2018-07-13 10:11] LABS: Appearance Urine UA CLEAR; Bilirubin Urine UA NEGATIVE (NEGATIVE); Color Urine UA YELLOW; Glucose Urine UA NEGATIVE (Negative); Ketones Urine UA NEGATIVE (NEGATIVE); Leukocyte Esterase Urine UA NEGATIVE (NEGATIVE); Nitrite Urine UA NEGATIVE (Negative); Occult Blood Urine UA NEGATIVE (Negative); Protein Urine UA NEGATIVE (Negative); Urobilinogen Urine UA 0.2 E.U./dL (0.2)
[2018-07-13 10:41] LABS: Bacteria Urine Occasional (0-1); Culture Indicated Urine Specimen Cultured; WBC Urine 0-1/HPF (0-5/HPF)
--- NOTE | 2018-07-13 11:00 | CM.DANOTE ---
Addendum entered by MAY Justice 07/13/18 14:14: ADD: Per Initial PT eval, recommending safe d/c home with life partner assist when medically stable per mobility standpoint. Pt has DME needed already and Independent with most ADL's and does not drive due to suspended license and therefore LP drives when needed. BF Original Note: Patient is a 62 year old male who was admitted on 07/12/18 for Sepsis. Pt has [facility] and [facility] for insurance and his PCP is Dr. Moose Huff. EMR was reviewed. Per MD, pt with hx of liver cirrhosis, liver mass consult at , Septic, and Pneumonia. Not stable for d/c yet today. SW met bedside with pt and explained role and updated white board and pt confirms that he still lives in [place] mostly with his long time life Partner Maryse (Jaida) although pt states he still has a couple RV's that he will spend time in during the summer months but he spends a majority of his time at Maryse's home. Pt is mostly independent with ADL's at baseline although he is slow to complete tasks. Pt states that he has a hx of HH but when they opened him to service it was hard to qualify him as homebound and pt is mostly Independent with ADL's. Pt states he thinks he has completed DPOA pwk but cannot remember and states if he did then he would have assigned his life Partner Maryse as his DPOA. Pt states he does not have any other local family and he is estranged from his sister. Pt has supportive friend/neighbor across the street from Maryse's house who can assist if needed. Pt is hopeful for d/c home with LP Maryse and states Maryse is mostly healthy and able although in final stages of recovery from G.I. surgery a few weeks ago. PT has been ordered but pending. Plan: SW to follow closely after PT eval and recommendations to determine if pt will be safe for d/c home with life partner when stable or if further needs identified. MAY Justice Discharge Planning/Care Management Advanced directive, confirm from FAMILY Start: 07/12/18 20:29 Freq: Q24H Status: Active Protocol: Document 07/12/18 20:29 EM (Rec: 07/12/18 20:30 EM [id number]) Advance Directive, confirm on record Time 20:29 Person contacted Luisa Orozco Copy received No CM Discharge Assessment Start: 07/13/18 10:56 Freq: Status: Active Protocol: Document 07/13/18 10:56 BF (Rec: 07/13/18 11:00 BF [id number]) Discharge Planning Assessment Assigned [employer] MAY Stark DPOA/Assigned Designee Name informally Life Partner Maryse Contact Information [phone] Advance Directives? No History Provided By Patient Medical Record Has Patient been admitted in last 30 No days? Prior Living Arrangements Mobile home Household Members significant other Type of transporation used prior to Relies on Others admit Comment Patient mostly resides with his life partner Maryse but has a couple RV's that he will sometimes reside in during the summer months but his time at [facility] has increased over the years. Independent with ADL's Yes Is patient alert and oriented? Yes Needs Assistance With Home Chores / Shopping Caregiver for Another No Comment Waiting for PT eval and recommendations Barriers to Discharge No Discharge Plan Home Transportation Arrangement SO/family Additional Comment Waiting for PT eval and recommendations to determine if safe for home with partner. Whiteboard Updated in Patient Room with Yes name and ext. # of [employer] Review Status In Process Please Provide Date Initial DC 07/13/18 Assessment Was Performed Next Review Type Continued Stay Review
--- NOTE | 2018-07-13 12:01 | PC.NURSE ---
Addendum entered by Jen Alfred R.N. 07/13/18 14:20: Lab called to report that stool tested positive for Campylobacter. This senior grant writer let Dr Herrmann know and he is in talking with patient and sig other Tory at this time. Original Note: Guaiac: Stool was guaiac negative. Sample sent to lab to fulfill order for stool panel. Lab confirmed that they did get the urine sent earlier, so both urine tests are in progress per orders.
--- NOTE | 2018-07-13 12:05 | PT.IIE ---
Surgical History (Last Reviewed 07/12/18 @ 21:05 by MJ Hill) Mitral valve replaced (Acute) Medical History (Last Reviewed 07/12/18 @ 21:05 by MJ Hill) Arrhythmia, atrial (Acute) Cholelithiasis (Acute) Liver mass, right lobe (Acute) Cirrhosis of liver (Acute) Hepatitis C (Acute) Physical Therapy Inpatient Evaluation/Re-Eval M1 PT/OT-IP Prior Functional Status Start: 07/13/18 11:38 Freq: NEEDED Status: Active Protocol: Document 07/13/18 11:38 NFW (Rec: 07/13/18 12:05 [facility] [id number]) Medical Review Prior Functional Status Medical History Reviewed Yes Mobility and Gait Patient uses a cane in his right hand when he goes outside of the home. Activities of Daily Living and IADL's Patient states independence with dressing but has difficulty with putting shoes and socks on when he has notable swelling in his LEs. State independence with bathing and all hygiene. Prior Functional Level (Other details) Patient reports that he is able to do light housekeeping and is able to cook for himself. He is able to drive but had his carry all driver's license suspended due to DUI's. Girlfriend does all the driving. Social History Household Members significant other Living Arrangements Mobile home Number of Floors (Floors) One Floor Number of Stairs To Enter/Railing? 3-4 steps into mobile home, has one vertical grab bar. Home Environment Standard Height Toilet Tub/Shower Doors Home Equipment Straight Cane Grab Bars Near Toilet Grab Bars In Shower Additional Social History Comment Patient living with significant other in mobile home and also has an RV where he has a cat and a dog. M2 PT-IP Current Condition Start: 07/13/18 11:38 Freq: NEEDED Status: Active Protocol: Document 07/13/18 11:38 NFW (Rec: 07/13/18 12:05 [facility] [id number]) Physical Therapy Current Condition Current Condition Evaluation Date 07/13/18 Treatment Diagnosis Sepsis with significant edema BLE R>L Weight Bearing Status Weight Bearing Status Full Weight Bearing M3 PT-IP Subjective Start: 07/13/18 11:38 Freq: NEEDED Status: Active Protocol: Document 07/13/18 11:38 NFW (Rec: 07/13/18 12:05 [facility] [id number]) Subjective Physical Therapy Visit Type Type Initial Evaluation Visit Start Time 11:06 Visit Stop Time 11:39 Total Visit Minutes 33 Number of OVERLAY PLASTICIAN Visits 0 Physical Therapy Visit Comments Patient Comments Patient not complaining about pain but concerns of the LE swelling. Patient Goals Return to his home with significant other. Therapy Pain Assessment Pain When Pain Assessed At Rest Pain Present Pain Present Denied Pain M4 PT-IP Mobility and Gait Start: 07/13/18 11:38 Freq: NEEDED Status: Active Protocol: Document 07/13/18 11:38 NFW (Rec: 07/13/18 12:05 [facility] [id number]) PT-Bed Mobility Assessment Rolling Level of Assist Independent Supine to Sit Supine to Sit Independent Sit to Supine Sit to Supine Independent Scooting Scooting to Edge of Bed Independent Scooting Up and Down in Bed Independent PT-Transfer Assessment Sit to and From Stand Sit to and from Stand Independent Equipment Transfer Assistive Device Gait Belt Orthotic/Prosthetic Devices or Brace: No Transfers Transfer Destination Bed Chair Toilet Transfer Ability Level of Assist Standby Assistance Comments Mobility Comments Patient independent with bed mobilities. SBA recommended for safety. Gait Assessment Gait Gait Assistance Required: Standby Assistance Distance (Feet) 200 Able to Maintain Weight Bearing Status Yes During Gait Assistive Devices Assistive Device Gait Belt Orthotic/Prosthetic Devices or Brace: No Gait Deviations General Gait Pattern Flexed Trunk Wide Based Gait Factors Limiting Gait Function Factors Limiting Gait Function Abnormal Tonal Influences Decreased Activity Tolerance Comments Gait Comments Patient able to ambulate safely around nurses station. He appears to habitually walk with a wide base and with right LE in ER during stance. PT-Balance Assessment Sitting Balance and Reactions Static Sitting Balance Ability Normal Dynamic Sitting Balance Ability Normal Standing Balance and Reactions Static Standing Balance Ability Normal Dynamic Standing Balance Ability Good Device Used none Balance Tests Single Limb Standing 2 seconds on right/4 seconds on left Comments Other Balance Tests/Deviations/Treatment Forward, sideways and : backwards walking - maintained balance throughout. Standing and completing full nez perce each direction with good balance. Difficulty with toe walking possible from noted edema. M5 PT-IP Objective Assessments Start: 07/13/18 11:38 Freq: NEEDED Status: Active Protocol: Document 07/13/18 11:38 NFW (Rec: 07/13/18 12:05 [facility] [id number]) Orientation Orientation/Cognition Level of Alertness Alert Orientation Name Month Date Year Place Language Function Ability No Deficits Noted Safety Awareness Understands Safety Issues Memory Description No Deficits Noted Comments Pleasant, answered all questions appropriately. Gross Range of Motion Upper Extremity ROM Assessment Within Functional Limits Lower Extremity ROM Assessment Within Functional Limits Strength Upper Extremity Strength Assessment Within Functional Limits Lower Extremity Strength Assessment Within Functional Limits Muscle Tone Muscle Tone WNL Yes M6 PT-IP Treatment Start: 07/13/18 11:38 Freq: NEEDED Status: Active Protocol: Document 07/13/18 11:38 NFW (Rec: 07/13/18 12:05 [facility] [id number]) Physical Therapy Treatment Exercises Exercises Ankle Pumps Other Treatments Other Treatment Performed Patient instructed to elevate LE above heart level and to perform 20 ankle pumps every hour. M7 PT-IP Assessment and Plan Start: 07/13/18 11:38 Freq: NEEDED Status: Active Protocol: Document 07/13/18 11:38 NFW (Rec: 07/13/18 12:05 [facility] [id number]) PT Summary Assessment and Plan Potential Rehabilitation Potential Excellent Status of Condition at Evaluation Evolving Summary Progress Towards Goals Safe For Discharge Assessment Summary Patient admitted due to sepsis and multiple medical conditions. Functionally he is independent and is safe physically to be discharged home. Further PT treatment not necessary. Frequency of Treatment Frequency Of Treatment Discharge Recommendations To Nursing Amount of Assist Needed Standby Assistance Discharge Recommendations PT Discharge Recommendations Home with Assistance
--- NOTE | 2018-07-13 12:45 | PC.NURSE ---
Home med: Home med Ebclusa (for treatment of Hep C) was brought in from home and sent to pharmacy for ID and dispensation. Please make sure he gets at time of discharge.
[2018-07-13] MEDS: SOFOSBUVIR VELPATASVIR PO (13:04)
[2018-07-13 14:08] LABS: Adenovirus F 40/41 Not Detected (Not Detect); Astrovirus Not Detected (Not Detect); Clostridium difficile toxin AB Not Detected (Not Detect); Cryptosporidium Not Detected (Not Detect); Cyclospora cayetanensis Not Detected (Not Detect); Entamoeba histolytica Not Detected (Not Detect); Enteroaggregative E.coli Not Detected (Not Detect); Enteropathogenic E.coli Not Detected (Not Detect); Enterotoxigenic E.coli It/st Not Detected (Not Detect); Giardia lamblia Not Detected (Not Detect); Norovirus GI/GII Not Detected (Not Detect); Plesiomonsa shigelloides Not Detected (Not Detect); Rotavirus A Not Detected (Not Detect); Salmonella Not Detected (Not Detect); Sapovirus Not Detected (Not Detect); Shiga-like toxin-prod E.coli Not Detected (Not Detect); Shigella/Enteroinvasive E.coli Not Detected (Not Detect); Vibrio Not Detected (Not Detect); Vibrio cholerae Not Detected (Not Detect); Yersinia enterocolitica Not Detected (Not Detect)
--- NOTE | 2018-07-13 14:33 | PM.PN.1 ---
Subjective Date Patient Seen: 07/13/18 Interval history: Patient is 62-year-old male with liver cirrhosis, right lobe liver mass, hepatitis-C, mitral valve replacement post endocarditis presented with fevers and rigors. His fever appears to be resolved and patient is feeling better. Stool PCR came back positive for Campylobacter. Blood and urine cultures negative to date. Exam Vital Signs (past 8 hours): - 07/13/18 07:50 07/13/18 08:18 07/13/18 09:40 Temperature 98.0 F Pulse Rate 73 74 Respiratory Rate 18 Blood Pressure 98/55 L 94/45 L Pulse Oximetry 99 97 07/13/18 10:07 07/13/18 11:45 Temperature 98.0 F Pulse Rate 70 Respiratory Rate 18 Blood Pressure 92/47 L Pulse Oximetry 96 95 Oxygen Delivery Method Room Air Oxygen Flow Rate 0 Narrative Exam Narrative: GENERAL: Patient is in no acute distress HEENT: Head normocephalic, atraumatic. Mucous membranes moist. CHEST: Clear to auscultation bilaterally. CARDIAC: Regular rate and rhythm. ABDOMEN: Nondistended, soft, nontender EXTREMITIES: Chronic bilateral pretibial edema NEUROLOGICAL: Alert, pleasant, no focal findings SKIN: Warm, dry, no petechiae, no rash Objective Labs Result Diagrams: 07/13/18 05:36 07/13/18 05:36 Labs: Laboratory Results - last 24 hr 07/12/18 07/12/18 07/12/18 16:40 16:40 16:40 WBC 8.4 RBC 3.03 L Hgb 11.4 L Hct 32.5 L MCV 107.4 H MCH 37.7 H MCHC 35.1 RDW 16.3 H Plt Count 88 L Neut % (Auto) 88.6 H Lymph % (Auto) 2.1 L Roberts % (Auto) 8.6 Eos % (Auto) 0.4 L Baso % (Auto) 0.3 Neut # (Auto) 7400 H Lymph # (Auto) 200 L Roberts # (Auto) 700 Eos # (Auto) 0 Baso # (Auto) 0 PT 28.2 H INR 2.4 H APTT 42 H D Sodium Potassium Chloride Carbon Dioxide BUN Creatinine Estimated GFR BUN/Creatinine Ratio Glucose Lactate Calcium Magnesium Total Bilirubin AST ALT Alkaline Phosphatase Ammonia Troponin I Total Protein Albumin Globulin Albumin/Globulin Ratio Lipase Procalcitonin 3.07 H Urine Color Urine Appearance Urine pH Ur Specific Hudson Urine Protein Urine Glucose (UA) Urine Ketones Urine Occult Blood Urine Nitrate Urine Bilirubin Urine Urobilinogen Ur Leukocyte Esterase Urine RBC Urine WBC Urine Bacteria Ur Culture Indicated? Stl C. cayetanensis PCR Stool Rotavirus (PCR) Stool Adenovirus (PCR) Stool Astrovirus (PCR) Stool Cryptosporidium PCR Stl E.coli Shiga Tox PCR St Sh/Enteroin Ecoli PCR Stool E coli O157 PCR Stl Enterotoxigenic E PCR Stool EPEC (PCR) Stl E. histolytica PCR Stool Giardia Lamblia PCR Stool Sapovirus (PCR) Stl P. shigelloides PCR St Y.enterocolitica PCR Stool Vibrio (PCR) Stl Vibrio cholerae PCR Stl Enteroaggr Ecoli PCR Stl Norovirus GI/GII PCR Chlamy pneumoniae PCR Adenovirus (PCR) B.parapertussis DNA PCR Campylobacter (PCR) C. difficile Tox (PCR) Coronavirus OC43 (PCR) Coronavirus HKU1 (PCR) Coronavirus 229E (PCR) Coronavirus NL63 (PCR) Human Metapneumovir PCR Influenza Type A (PCR) Influenza Type B (PCR) Influenza A & B (PCR) M. pneumoniae (PCR) Parainfluenza 1 (PCR) Parainfluenza 2 (PCR) Parainfluenza 3 (PCR) Parainfluenza 4 (PCR) RSV (PCR) Entero/Rhino (PCR) Salmonella (PCR) 07/12/18 07/12/18 07/12/18 16:40 16:40 16:40 WBC RBC Hgb Hct MCV MCH MCHC RDW Plt Count Neut % (Auto) Lymph % (Auto) Roberts % (Auto) Eos % (Auto) Baso % (Auto) Neut # (Auto) Lymph # (Auto) Roberts # (Auto) Eos # (Auto) Baso # (Auto) PT INR APTT Sodium 138 Potassium 3.5 Chloride 102 Carbon Dioxide 29 BUN 14 Creatinine 0.90 Estimated GFR > 60.0 BUN/Creatinine Ratio 15.6 Glucose 136 H Lactate 1.7 Calcium 8.3 L Magnesium Total Bilirubin 3.8 H AST 44 ALT 22 Alkaline Phosphatase 85 Ammonia 73.0 H Troponin I Total Protein 7.0 Albumin 3.0 L Globulin 4.0 Albumin/Globulin Ratio 0.8 L Lipase 426 H Procalcitonin Urine Color Urine Appearance Urine pH Ur Specific Hudson Urine Protein Urine Glucose (UA) Urine Ketones Urine Occult Blood Urine Nitrate Urine Bilirubin Urine Urobilinogen Ur Leukocyte Esterase Urine RBC Urine WBC Urine Bacteria Ur Culture Indicated? Stl C. cayetanensis PCR Stool Rotavirus (PCR) Stool Adenovirus (PCR) Stool Astrovirus (PCR) Stool Cryptosporidium PCR Stl E.coli Shiga Tox PCR St Sh/Enteroin Ecoli PCR Stool E coli O157 PCR Stl Enterotoxigenic E PCR Stool EPEC (PCR) Stl E. histolytica PCR Stool Giardia Lamblia PCR Stool Sapovirus (PCR) Stl P. shigelloides PCR St Y.enterocolitica PCR Stool Vibrio (PCR) Stl Vibrio cholerae PCR Stl Enteroaggr Ecoli PCR Stl Norovirus GI/GII PCR Chlamy pneumoniae PCR Adenovirus (PCR) B.parapertussis DNA PCR Campylobacter (PCR) C. difficile Tox (PCR) Coronavirus OC43 (PCR) Coronavirus HKU1 (PCR) Coronavirus 229E (PCR) Coronavirus NL63 (PCR) Human Metapneumovir PCR Influenza Type A (PCR) Influenza Type B (PCR) Influenza A & B (PCR) M. pneumoniae (PCR) Parainfluenza 1 (PCR) Parainfluenza 2 (PCR) Parainfluenza 3 (PCR) Parainfluenza 4 (PCR) RSV (PCR) Entero/Rhino (PCR) Salmonella (PCR) 07/12/18 07/12/18 07/13/18 16:40 16:40 02:40 WBC RBC Hgb Hct MCV MCH MCHC RDW Plt Count Neut % (Auto) Lymph % (Auto) Roberts % (Auto) Eos % (Auto) Baso % (Auto) Neut # (Auto) Lymph # (Auto) Roberts # (Auto) Eos # (Auto) Baso # (Auto) PT INR APTT Sodium Potassium Chloride Carbon Dioxide BUN Creatinine Estimated GFR BUN/Creatinine Ratio Glucose Lactate Calcium Magnesium 1.7 Total Bilirubin AST ALT Alkaline Phosphatase Ammonia Troponin I Total Protein Albumin Globulin Albumin/Globulin Ratio Lipase Procalcitonin Urine Color Urine Appearance Urine pH Ur Specific Hudson Urine Protein Urine Glucose (UA) Urine Ketones Urine Occult Blood Urine Nitrate Urine Bilirubin Urine Urobilinogen Ur Leukocyte Esterase Urine RBC Urine WBC Urine Bacteria Ur Culture Indicated? Stl C. cayetanensis PCR Stool Rotavirus (PCR) Stool Adenovirus (PCR) Stool Astrovirus (PCR) Stool Cryptosporidium PCR Stl E.coli Shiga Tox PCR St Sh/Enteroin Ecoli PCR Stool E coli O157 PCR Stl Enterotoxigenic E PCR Stool EPEC (PCR) Stl E. histolytica PCR Stool Giardia Lamblia PCR Stool Sapovirus (PCR) Stl P. shigelloides PCR St Y.enterocolitica PCR Stool Vibrio (PCR) Stl Vibrio cholerae PCR Stl Enteroaggr Ecoli PCR Stl Norovirus GI/GII PCR Chlamy pneumoniae PCR Not detected Adenovirus (PCR) Not detected B.parapertussis DNA PCR Not detected Campylobacter (PCR) C. difficile Tox (PCR) Coronavirus OC43 (PCR) Not detected Coronavirus HKU1 (PCR) Not detected Coronavirus 229E (PCR) Not detected Coronavirus NL63 (PCR) Not detected Human Metapneumovir PCR Not detected Influenza Type A (PCR) Not detected Influenza Type B (PCR) Not detected Influenza A & B (PCR) Negative M. pneumoniae (PCR) Not detected Parainfluenza 1 (PCR) Not detected Parainfluenza 2 (PCR) Not detected Parainfluenza 3 (PCR) Not detected Parainfluenza 4 (PCR) Not detected RSV (PCR) Not detected Entero/Rhino (PCR) Not detected Salmonella (PCR) 07/13/18 07/13/18 07/13/18 05:36 05:36 05:36 WBC 6.1 RBC 2.72 L Hgb 10.5 L Hct 29.7 L MCV 109.3 H MCH 38.5 H MCHC 35.2 RDW 16.2 H Plt Count 70 L Neut % (Auto) 91.2 H Lymph % (Auto) 4.0 L Roberts % (Auto) 4.0 Eos % (Auto) 0.6 L Baso % (Auto) 0.2 Neut # (Auto) 5600 Lymph # (Auto) 200 L Roberts # (Auto) 200 Eos # (Auto) 0 Baso # (Auto) 0 PT INR APTT Sodium 140 Potassium 3.9 Chloride 106 Carbon Dioxide 29 BUN 21 H Creatinine 1.20 Estimated GFR > 60.0 BUN/Creatinine Ratio 17.5 Glucose 113 H Lactate Calcium 7.9 L Magnesium Total Bilirubin AST ALT Alkaline Phosphatase Ammonia Troponin I < 0.012 Total Protein Albumin Globulin Albumin/Globulin Ratio Lipase Procalcitonin Urine Color Urine Appearance Urine pH Ur Specific Hudson Urine Protein Urine Glucose (UA) Urine Ketones Urine Occult Blood Urine Nitrate Urine Bilirubin Urine Urobilinogen Ur Leukocyte Esterase Urine RBC Urine WBC Urine Bacteria Ur Culture Indicated? Stl C. cayetanensis PCR Stool Rotavirus (PCR) Stool Adenovirus (PCR) Stool Astrovirus (PCR) Stool Cryptosporidium PCR Stl E.coli Shiga Tox PCR St Sh/Enteroin Ecoli PCR Stool E coli O157 PCR Stl Enterotoxigenic E PCR Stool EPEC (PCR) Stl E. histolytica PCR Stool Giardia Lamblia PCR Stool Sapovirus (PCR) Stl P. shigelloides PCR St Y.enterocolitica PCR Stool Vibrio (PCR) Stl Vibrio cholerae PCR Stl Enteroaggr Ecoli PCR Stl Norovirus GI/GII PCR Chlamy pneumoniae PCR Adenovirus (PCR) B.parapertussis DNA PCR Campylobacter (PCR) C. difficile Tox (PCR) Coronavirus OC43 (PCR) Coronavirus HKU1 (PCR) Coronavirus 229E (PCR) Coronavirus NL63 (PCR) Human Metapneumovir PCR Influenza Type A (PCR) Influenza Type B (PCR) Influenza A & B (PCR) M. pneumoniae (PCR) Parainfluenza 1 (PCR) Parainfluenza 2 (PCR) Parainfluenza 3 (PCR) Parainfluenza 4 (PCR) RSV (PCR) Entero/Rhino (PCR) Salmonella (PCR) 07/13/18 07/13/18 07/13/18 05:36 05:36 05:36 WBC RBC Hgb Hct MCV MCH MCHC RDW Plt Count Neut % (Auto) Lymph % (Auto) Roberts % (Auto) Eos % (Auto) Baso % (Auto) Neut # (Auto) Lymph # (Auto) Roberts # (Auto) Eos # (Auto) Baso # (Auto) PT INR APTT Sodium Potassium Chloride Carbon Dioxide BUN Creatinine Estimated GFR BUN/Creatinine Ratio Glucose Lactate Calcium Magnesium Total Bilirubin AST ALT Alkaline Phosphatase Ammonia 27.0 Troponin I Total Protein Albumin Globulin Albumin/Globulin Ratio Lipase 467 H Procalcitonin 20.88 H Urine Color Urine Appearance Urine pH Ur Specific [place] Urine Protein Urine Glucose (UA) Urine Ketones Urine Occult Blood Urine Nitrate Urine Bilirubin Urine Urobilinogen Ur Leukocyte Esterase Urine RBC Urine WBC Urine Bacteria Ur Culture Indicated? Stl C. cayetanensis PCR Stool Rotavirus (PCR) Stool Adenovirus (PCR) Stool Astrovirus (PCR) Stool Cryptosporidium PCR Stl E.coli Shiga Tox PCR St Sh/Enteroin Ecoli PCR Stool E coli O157 PCR Stl Enterotoxigenic E PCR Stool EPEC (PCR) Stl E. histolytica PCR Stool Giardia Lamblia PCR Stool Sapovirus (PCR) Stl P. shigelloides PCR St Y.enterocolitica PCR Stool Vibrio (PCR) Stl Vibrio cholerae PCR Stl Enteroaggr Ecoli PCR Stl Norovirus GI/GII PCR Chlamy pneumoniae PCR Adenovirus (PCR) B.parapertussis DNA PCR Campylobacter (PCR) C. difficile Tox (PCR) Coronavirus OC43 (PCR) Coronavirus HKU1 (PCR) Coronavirus 229E (PCR) Coronavirus NL63 (PCR) Human Metapneumovir PCR Influenza Type A (PCR) Influenza Type B (PCR) Influenza A & B (PCR) M. pneumoniae (PCR) Parainfluenza 1 (PCR) Parainfluenza 2 (PCR) Parainfluenza 3 (PCR) Parainfluenza 4 (PCR) RSV (PCR) Entero/Rhino (PCR) Salmonella (PCR) 07/13/18 07/13/18 07/13/18 05:36 05:36 09:55 WBC RBC Hgb Hct MCV MCH MCHC RDW Plt Count Neut % (Auto) Lymph % (Auto) Roberts % (Auto) Eos % (Auto) Baso % (Auto) Neut # (Auto) Lymph # (Auto) Roberts # (Auto) Eos # (Auto) Baso # (Auto) PT 29.8 H INR 2.5 H APTT Sodium Potassium Chloride Carbon Dioxide BUN Creatinine Estimated GFR BUN/Creatinine Ratio Glucose Lactate 2.1 Calcium Magnesium Total Bilirubin AST ALT Alkaline Phosphatase Ammonia Troponin I Total Protein Albumin Globulin Albumin/Globulin Ratio Lipase Procalcitonin Urine Color Yellow Urine Appearance Clear Urine pH 5.0 Ur Specific Hudson 1.020 Urine Protein Negative Urine Glucose (UA) Negative Urine Ketones Negative Urine Occult Blood Negative Urine Nitrate Negative Urine Bilirubin Negative Urine Urobilinogen 0.2 Ur Leukocyte Esterase Negative Urine RBC None seen Urine WBC 0-1/hpf Urine Bacteria Occasional (0-1) Ur Culture Indicated? Specimen cultured Stl C. cayetanensis PCR Stool Rotavirus (PCR) Stool Adenovirus (PCR) Stool Astrovirus (PCR) Stool Cryptosporidium PCR Stl E.coli Shiga Tox PCR St Sh/Enteroin Ecoli PCR Stool E coli O157 PCR Stl Enterotoxigenic E PCR Stool EPEC (PCR) Stl E. histolytica PCR Stool Giardia Lamblia PCR Stool Sapovirus (PCR) Stl P. shigelloides PCR St Y.enterocolitica PCR Stool Vibrio (PCR) Stl Vibrio cholerae PCR Stl Enteroaggr Ecoli PCR Stl Norovirus GI/GII PCR Chlamy pneumoniae PCR Adenovirus (PCR) B.parapertussis DNA PCR Campylobacter (PCR) C. difficile Tox (PCR) Coronavirus OC43 (PCR) Coronavirus HKU1 (PCR) Coronavirus 229E (PCR) Coronavirus NL63 (PCR) Human Metapneumovir PCR Influenza Type A (PCR) Influenza Type B (PCR) Influenza A & B (PCR) M. pneumoniae (PCR) Parainfluenza 1 (PCR) Parainfluenza 2 (PCR) Parainfluenza 3 (PCR) Parainfluenza 4 (PCR) RSV (PCR) Entero/Rhino (PCR) Salmonella (PCR) 07/13/18 12:00 WBC RBC Hgb Hct MCV MCH MCHC RDW Plt Count Neut % (Auto) Lymph % (Auto) Roberts % (Auto) Eos % (Auto) Baso % (Auto) Neut # (Auto) Lymph # (Auto) Roberts # (Auto) Eos # (Auto) Baso # (Auto) PT INR APTT Sodium Potassium Chloride Carbon Dioxide BUN Creatinine Estimated GFR BUN/Creatinine Ratio Glucose Lactate Calcium Magnesium Total Bilirubin AST ALT Alkaline Phosphatase Ammonia Troponin I Total Protein Albumin Globulin Albumin/Globulin Ratio Lipase Procalcitonin Urine Color Urine Appearance Urine pH Ur Specific [place] Urine Protein Urine Glucose (UA) Urine Ketones Urine Occult Blood Urine Nitrate Urine Bilirubin Urine Urobilinogen Ur Leukocyte Esterase Urine RBC Urine WBC Urine Bacteria Ur Culture Indicated? Stl C. cayetanensis PCR Not detected Stool Rotavirus (PCR) Not detected Stool Adenovirus (PCR) Not detected Stool Astrovirus (PCR) Not detected Stool Cryptosporidium PCR Not detected Stl E.coli Shiga Tox PCR Not detected St Sh/Enteroin Ecoli PCR Not detected Stool E coli O157 PCR Not detected Stl Enterotoxigenic E PCR Not detected Stool EPEC (PCR) Not detected Stl E. histolytica PCR Not detected Stool Giardia Lamblia PCR Not detected Stool Sapovirus (PCR) Not detected Stl P. shigelloides PCR Not detected St Y.enterocolitica PCR Not detected Stool Vibrio (PCR) Not detected Stl Vibrio cholerae PCR Not detected Stl Enteroaggr Ecoli PCR Not detected Stl Norovirus GI/GII PCR Not detected Chlamy pneumoniae PCR Adenovirus (PCR) B.parapertussis DNA PCR Campylobacter (PCR) Detected H C. difficile Tox (PCR) Not detected Coronavirus OC43 (PCR) Coronavirus HKU1 (PCR) Coronavirus 229E (PCR) Coronavirus NL63 (PCR) Human Metapneumovir PCR Influenza Type A (PCR) Influenza Type B (PCR) Influenza A & B (PCR) M. pneumoniae (PCR) Parainfluenza 1 (PCR) Parainfluenza 2 (PCR) Parainfluenza 3 (PCR) Parainfluenza 4 (PCR) RSV (PCR) Entero/Rhino (PCR) Salmonella (PCR) Not detected Assessment & Plan Assessment & Plan narrative: Patient is 62-year-old male with liver cirrhosis, right lobe liver mass, hepatitis-C, mitral valve replacement post endocarditis presented with fevers and rigors. Stool PCR came back positive for Campylobacter. Blood and urine cultures negative to date. 1. Sepsis, present on admission -likely source is Campylobacter gastroenteritis with positive testing on stool PCR -improving on antibiotics with resolution of fever, diarrhea also improving -continue on azithromycin 500 mg daily x3 days, last dose on a.m. of 07/14/2018 -respiratory PCR negative -blood, urine culture and urine Legionella antigen pending -pneumonia ruled out based on lack of symptoms and chest x-ray more consistent with interstitial edema with his cirrhosis 2. Liver cirrhosis, present on admission, chronic -stable liver mass suspicious for HCC, workup pending at -patient without abdominal complaints -total bilirubin is 3.8, AST is 44, ALT 22 and alkaline phosphatase 85. Albumin is low at 3.0 and platelets are 88 -abdominal ultrasound reading identify stable liver mass, cirrhosis without acute changes or biliary dilatation, presence of nonobstructing gallstones. -patient taking lactulose twice daily with associated loose stool, ammonia on admission is 73 patient received an extra dose lactulose in the ER will continue routine dosing. 3. Atrial flutter, present on admission, chronic -EKG obtained in the ER demonstrates atrial flutter 2-1 conduction with a ventricular rate of 100. -Patient is typically on metoprolol 75 mg twice daily, continued for rate control -echocardiogram completed 12/05/2017 demonstrates an EF 65-70% with well-seated mitral valve. Also acknowledges right-sided filling pressures upper and normal. -received dose of IV magnesium and IV potassium for low normal values 4. Peripheral edema, present on admission, chronic -patient with 4+ bilateral pedal edema consistent with fluid overload currently on Lasix 40 mg twice daily with potassium supplementation 20 mEq once daily -per patient's significant other patient lost 20 lb on a prior admission following diuresis -chest x-ray shows prominent cardiac silhouette pulmonary congestion -Lasix 40 mg IV x1 given on admission -bilateral lower extremity compression hose 6. Long-term anticoagulation, present on admission, chronic -patient is taking warfarin 2.5 mg every other day for his atrial arrhythmias -therapeutic INR -will continue current dosing and monitor INR. 7. Chronic low blood pressure - patient typically run systolic blood pressures in the 80s to 90s at baseline, likely due to cirrhosis, and can be continued on current dose of metoprolol and furosemide Patient with improving hospital course and likely can discharge tomorrow, Saturday if no recurrent fever
[2018-07-13] MEDS: POTASSIUM CHLORIDE 20 MEQ TAB PO (17:42)
[2018-07-13] MEDS: ACETAMINOPHEN 325 MG TABLET 650 MG PO (19:12)
[2018-07-13] MEDS: IBUPROFEN 400 MG TABLET PO (22:12)
[2018-07-14] VITALS (9 sets, daily range): BP systolic 98–118; BP diastolic 47–60; PULSE 75–89; RESP 16–24; TEMP 36.3–37; O2SAT 94–98
[2018-07-14] MEDS: POTASSIUM CHLORIDE 20 MEQ TAB PO ×2 (08:55→18:04)
[2018-07-14] MEDS: LACTULOSE 20 GM/30 ML SOLUTION PO ×2 (08:56→21:17)
[2018-07-14] MEDS: AZITHROMYCIN 250 MG TABLET 500 MG PO (08:56)
[2018-07-14] MEDS: FUROSEMIDE 40 MG TABLET PO ×2 (08:56→21:17)
[2018-07-14] MEDS: METOPROLOL IR 25 MG TABLET 12.5 MG PO ×2 (08:57→21:17)
[2018-07-14] MEDS: SODIUM CHLORIDE 0.9% FLUSH 10 ML IV ×2 (09:00→21:18)
[2018-07-14] MEDS: SOFOSBUVIR VELPATASVIR PO (10:39)
--- NOTE | 2018-07-14 12:57 | PC.NURSE ---
Addendum entered by Zarina Haider R.N. 07/14/18 14:44: Pharmacy clarified Warfarin order needs to be clarified. Original Note: Am shift Pt is a/o x4, drowsy at times, nodding off during assessment this AM. S.O at bedside and monitoring meds. Concerned about missed warfarin from 07/13. Updated on POC and lab results.
[2018-07-14 14:25] LABS: Campylobacter Detected (Not Detect)
--- NOTE | 2018-07-14 17:29 | P.PN_ITS ---
Subjective Date Patient Seen: 07/14/18 Interval history: The patient is a 62-year-old male with end-stage liver dis ease, Campylobacter diarrhea, hep C who reports his diarrhea has improved significantly. He did have fevers overnight. He is not short of breath and has no pain today. Exam Vital Signs (past 8 hours): - 07/14/18 12:00 07/14/18 15:55 Temperature 98.6 F 97.6 F Pulse Rate 80 79 Respiratory Rate 20 18 Blood Pressure 118/60 106/47 L Pulse Oximetry 97 96 Oxygen Delivery Method Room Air Oxygen Flow Rate 0 Narrative Exam Narrative: Ill appearing male Lungs: Clear to auscultation Cardiac exam: Regular rate and rhythm normal S1 and S2 with a 2/6 systolic ejection murmur Abdomen: Soft mildly distended nontender Extremities: 2+ edema Objective Labs Result Diagrams: 07/13/18 05:36 07/13/18 05:36 Labs: Laboratory Results - last 24 hr 07/13/18 07/14/18 12:00 05:14 Procalcitonin 13.10 H Campylobacter (PCR) Detected H Assessment & Plan (1) Diarrhea: Problem details: Patient presented with sepsis secondary to Campylobacter diarrhea. He is on a 3 day course of azithromycin. This will complete today. His diarrhea has resolved. Current visit: Yes Status: Acute (2) Sepsis: Problem details: Sepsis, present on admission secondary to Campylobacter diarrhea. Improved Qualifiers: Sepsis type: sepsis due to unspecified organism Qualified Code(s): A41.9 - Sepsis, unspecified organism Current visit: Yes Status: Acute (3) Liver cirrhosis: Problem details: Liver cirrhosis, chronic Current visit: No Status: Acute (4) Dehydration: Problem details: Improved with IV hydration Current visit: No Status: Acute (5) Atrial flutter: Problem details: Patient converted to sinus rhythm. We initially tried Amiodarone, but given liver disease elected not to continue. Patient has been non compliant with Coumadin in the past and therefore will not start anticoagulant therapy. Lisinopril and spironolactone discontinued. Will try low dose metoprolol if he can tolerate this. Echo revealed recurring mitral stenosis. EF ok Current visit: No Status: Acute (6) Hypotension: Problem details: Improved, chronic Current visit: Yes Status: Acute Assessment & Plan narrative: Anticipate discharge home tomorrow if no longer febrile.
[2018-07-14] MEDS: WARFARIN 2.5 MG TABLET PO (18:37)
--- NOTE | 2018-07-14 23:08 | PC.NURSE ---
Pt's friend, Luisa, brought in medications list, Dr made changes to eMAR, Warfarin is now current. a/O x3, 96%RA, LS clear, denies SOB. BT+ denies nausea, dABD distended, takes lactulose HS. Denies pain. tele in place with NSR 1 degree ABD and NSR BBB PVC's. R andL wrist both SL. SBA FWW to BRP. drowsy most of shift. Call light in reach and bed alarm on for safety.
[2018-07-15 00:26] VITALS: BP 125/61; PULSE 82; RESP 18; TEMP 37.3; O2SAT 98
[2018-07-15 00:40] VITALS: O2SAT 98
[2018-07-15 05:07] VITALS: BP 128/65; PULSE 89; RESP 18; TEMP 37.2; O2SAT 96
[2018-07-15 05:33] LABS: INR 2.6 (0.9-1.3); Prothrombin Time 30.7 SECONDS (10.1-12.7)
[2018-07-15 05:38] LABS: Blood Urea Nitrogen 14 mg/dL (9-20); Calcium 7.6 mg/dL (8.4-10.2); Carbon Dioxide 29 mmol/L (22-32); Chloride 104 mmol/L (98-107); Estimated Glomerular Filt Rate > 60.0 mL/min (>60); Glucose 108 mg/dL (80-110); HEMOLYSIS < 15 (0-50); Potassium 3.7 mmol/L (3.4-5.1); Sodium 137 mmol/L (137-145)
--- NOTE | 2018-07-15 07:48 | PM.DS.1 ---
History of Present Illness Date Patient Seen: 07/15/18 Chief complaint: Thinks he is septic Narrative: Alex Kim is a 62-year-old male with a medical history significant for liver cirrhosis, right lobe liver mass, hepatitis C mitral valve replacement post endocarditis and gallstones who presents to the emergency department with fevers chills and rigors. The patient is drowsy and additional information is obtained from his significant other Maryse who is at bedside and been with the patient for 15 years. The patient apparently did not sleep last night and had no prodromal symptoms, travel or ill contacts. He does endorse a history of prior sepsis treated at [facility] for 8 days approximately 10 months ago. He did receive a hepatitis-B vaccination within the last several days, and is currently on sofosuvir-velpastasivr for his hepatitis-C. He also had cellulitis the right leg 3 weeks ago treated with clindamycin. Patient denies complaints of headaches or dizziness reports no nasal congestion or sore throat. He denies chest pain or palpitations, reports no cough however Maryse states he was wheezing this morning and at baseline has dyspnea on exertion. He reports no abdominal pain, nausea vomiting. He feels his abdomen is somewhat more distended than usual. He has diarrhea related to daily lactulose. He has bilateral edema that is reported as the right usually greater than the left. His prior cellulitis is healed well with outpatient treatment with no other rashes, redness or lesions. The patient is to have a consult at [facility] in in regard to his right lobe liver mass which on ultrasound is defined as stable measuring 2.6 x 2.4 by 2.4. Ultrasound also identifies nonocclusive cholelithiasis without biliary dilatation. On laboratory studies he has a normal white count 8.4, hemoglobin of 11.4 and hematocrit of 32.5 and platelets 88. He has had no complaints of untoward bleeding or bruising. He is currently on warfarin and has an INR of 2.4. On chemistries he has a borderline potassium of 3.5 with good renal function with a BUN of 14 and creatinine is 0.9. Does have mildly elevated lipase. His ammonia level is 73. On 12 lead EKG he has atrial flutter 2-1 with ventricular rate of 100 and left bundle branch block. On chest x-ray he was found to have bilateral pulmonary effusions, prominent cardiac silhouette and diffuse interstitial prominence. In the ER the patient received an initial dose of Zosyn an extra dose of 20 g of lactulose and 1 L bolus of normal saline. The patient admitted to the hospital for further evaluation and treatment. Discharge Providers Date of admission: 07/12/18 19:21 Discharge Date: 07/15/18 Primary care physician: Moose Huff MD Consults: 07/12/18 20:54 Consult to Dietitian, Adult Routine Comment: Reason For Exam: Edema, cirrhosis Consult to Discharge Planning Routine Comment: Consult to Physical Therapy Evaluate & Treat Comment: weakness, 4+ pedal edema Physician Instructions: Evaluate and Treat Discharge provider: Samantha Grimaldo MD Summary Discharge Diagnosis: 1. Sepsis secondary to Campylobacter diarrhea, present on admission 2. Campylobacter diarrhea, present on admission 3. Hepatitis-C 4. End-stage liver disease, complicated by recurrent ascites, and portosystemic encephalopathy 5. Peripheral edema 6. Liver mass right lobe of the liver, undergoing workup to rule out hepatoma 7. Mitral valve replacement, on anticoagulation, secondary to endocarditis, previously 8. Anemia of chronic disease 6. Hospital Course: The patient is a 62-year-old male with a history of a mitral valve repair, on chronic anticoagulation, end-stage liver disease complicated by cirrhosis, recurrent ascites, portosystemic encephalopathy who presented with fever and rigors. The patient had a workup which was negative except for PCR positive for Campylobacter diarrhea. The patient was treated with 3 days of azithromycin. His diarrhea resolved. His fever improved. He had no further evidence to suggest encephalopathy. He does have lower extremity edema which is chronic. Patient denied any shortness of breath or chest pain. he has improved significantly and feels ready for discharge home. The patient has a follow-up appointment July 23 at the [facility] for evaluation of his hepatoma. He will follow up with his PCP as well. Exam Vital Signs (past 8 hours): - 07/15/18 00:26 07/15/18 00:40 07/15/18 05:07 Temperature 99.2 F 98.9 F Pulse Rate 82 89 Respiratory Rate 18 18 Blood Pressure 125/61 128/65 Pulse Oximetry 98 98 96 Oxygen Delivery Method Room Air Oxygen Flow Rate 0 Narrative Exam Narrative: Pleasant male in no obvious distress sleeping but arousable Lungs: Clear to auscultation Cardiac exam: Regular rate and rhythm normal S1 and S2 with a 2/6 systolic ejection murmur Abdomen: Soft nontender nondistended, no board-like rigidity Extremities: 2+ edema bilaterally Objective Labs Result Diagrams: 07/13/18 05:36 07/15/18 05:00 Labs: Laboratory Results - last 24 hr 07/13/18 07/15/18 07/15/18 12:00 05:00 05:00 PT 30.7 H INR 2.6 H Sodium 137 Potassium 3.7 Chloride 104 Carbon Dioxide 29 BUN 14 Creatinine 0.70 Estimated GFR > 60.0 BUN/Creatinine Ratio 20.0 Glucose 108 Calcium 7.6 L Campylobacter (PCR) Detected H Discharge Plan Discharge Plan Discharge Problem: Sepsis, Pneumonia Patient Disposition: Home Discharge comment: F/U with hepatology clinic as scheduled July 23, 2018 Discharge Med Rec/Prescriptions Prescriptions: Continued potassium chloride 20 MEQ tablet,ER particles/crystals 20 meq PO DAILY Qty: 0 RF: 0 lactulose [Constulose] 10 gram/15 mL solution 30 ml PO BID RF: 0 magnesium oxide 500 mg Tablet 500 mg PO DAILY RF: 0 warfarin 2.5 mg Tablet 2.5 mg PO Q OTHER DAY RF: 0 metoprolol tartrate 75 mg Tablet 75 mg PO BID RF: 0 sofosbuvir-velpatasvir 400-100 mg Tablet 400 mg PO DAILY RF: 0 furosemide 40 mg tablet 40 mg PO BID RF: 0 Follow up/Referrals: Moose Huff MD [Primary Care Provider] - Provider Discharge Instructions Diet: Low-sodium and Low-cholesterol Discharge Data Primary Care Provider: Moose Huff Attending Provider: Regina Medina Admit Date/Time: 07/12/18 19:21
[2018-07-15 08:00] VITALS: BP 112/63; PULSE 87; RESP 18; TEMP 37.7; O2SAT 94
[2018-07-15] MEDS: SOFOSBUVIR VELPATASVIR PO (09:49)
[2018-07-15] MEDS: METOPROLOL IR 25 MG TABLET 12.5 MG PO (09:49)
[2018-07-15] MEDS: POTASSIUM CHLORIDE 20 MEQ TAB PO (09:49)
--- NOTE | 2018-07-15 10:23 | PC.NURSE ---
DISCHARGE: MD NOTIFIED PATIENT HAD LOW GRADE TEMP 100.0; OKAY TO DISCHARGE PATIENT ORDERED. PATIENT'S OWN MED RETURNED TO HIM. REVIEWED [facility] AND [facility] WARRANTING CALL TO MD OR 911 FOR EMERGENCY. SIGNIFICANT OTHER PRESENT FOR ALL DC TEACHING. THEY WILL KEEP THEIR APPT SCHEDULED. SCRIPTS WERE ELECTRONICALLY SENT. THEY WERE NOTIFIED TO PICK THEM UP ON THE WAY HOME. PATIENT DECLINED DIURETICS AND LASIX, STATES WILL TAKE SOON HE GETS HOME.
== END 2018-07-15 10:26 | disposition home or self-care (01) | DRG 872 ==
LOC: ED 18:55 → AC 07-13 08:21
PROVIDERS: Internal Medicine; Nurse Practitioner Adult Health; Admitting Provider Family Medicine; Emergency Provider Emergency Medicine; Family Provider Family Medicine; PCP Family Medicine; Visit Provider Family Medicine
DX: A41.9 Sepsis, unspecified organism (principal); I48.92 Unspecified atrial flutter; A04.5 Campylobacter enteritis; K74.60 Unspecified cirrhosis of liver; B19.20 Unspecified viral hepatitis C without hepatic coma; R65.20 Severe sepsis without septic shock; I95.9 Hypotension, unspecified; Z79.01 Long term (current) use of anticoagulants; R60.0 Localized edema; Z87.891 Personal history of nicotine dependence; R16.0 Hepatomegaly, not elsewhere classified; Z95.1 Presence of aortocoronary bypass graft; D63.8 Anemia in other chronic diseases classified elsewhere; K72.90 Hepatic failure, unspecified without coma
CPT/HCPCS: 36415; 36591; 71045; 76700; 80048; 80053; 81001; 82140; 83605; 83690; 83735; 84145; 84484; 85025; 85610; 85730; 87040; 87077; 87086; 87147; 87400; 87449; 87507; 87633; 94762; 96361; 96365; 97162; 97530; 99283; 99284; J0696; J2543; J3480

== ENCOUNTER 2019-07-01 19:04 | Inpatient (IN) | payer OTHER, SELFPAY ==
[2018-07-12 20:24] VITALS: BMI 32.5
[2019-07-01 19:10] VITALS: BP 127/61; PULSE 125; RESP 16; TEMP 39.5; O2SAT 95
--- NOTE | 2019-07-01 19:15 | DI.RAD.S_ITS ---
PROCEDURE: XR CHEST 1V INDICATIONS: suspected sepsis TECHNIQUE: One view of the chest was acquired. COMPARISON: [facility], CR, XR CHEST 1V, 07/12/2018, 17:03. FINDINGS: Surgical changes and devices: None. Lungs and pleura: Moderate diffuse bilateral pulmonary opacification. Moderate airspace opacity within the right lung base. No pleural effusions or pneumothorax. Mediastinum: Mediastinal contours appear normal. Heart size is normal. Bones and chest wall: No suspicious bony lesions. Overlying soft tissues appear unremarkable. IMPRESSION: Moderate bilateral pneumonia. Dictated by: Fernandez Choi M.D. on 07/01/2019 at 20:16 Approved by: Fernandez Choi M.D. on 07/01/2019 at 20:16
[2019-07-01] MEDS: SODIUM CHLORIDE 0.9% 1,000 ML 1000 ML IV ×2 (19:24→22:00)
--- NOTE | 2019-07-01 19:47 | ED_ITS ---
HPI - Fever General Chief Complaint: Fever Stated Complaint: Back & Hip Pain. Time Seen by Provider: 07/01/19 19:08 Source: EMS and other (His girlfriend at home) Mode of arrival: EMS Limitations: no limitations History of Present Illness HPI Narrative: The patient has hepatitis C and liver failure. February 2019 he underwent mitral valve replacement. He also has chronic back and hip and is due for hip surgery. Hip surgery has been postponed due to COVID-19 crisis. The patient was out walking around yesterday, and developed back and hip pain. He complained to his girlfriend about back and hip pain yesterday. Later yesterday evening he started acting odd. She questioned him about taking his lactulose because he has not taken the medication previously because of not liking the medication. He has a clinical issue suggesting hepatic encephalopathy in the clinical situation. She called ambulance today because he is having back and hip pain, still ongoing. She had he been isolated at home. He arrives with fever. He has significant altered mental status. She was speaking earlier, he is not speaking to me now. He has had no trauma. He has a prior history of sepsis. He is seen here previously with pneumonia and sepsis. Related Data Home Medications Medication Instructions Recorded Confirmed potassium chloride 20 meq PO DAILY #0 12/03/16 07/12/18 furosemide 40 mg PO BID 12/04/17 07/12/18 lactulose 30 ml PO BID 04/10/18 07/12/18 magnesium oxide 500 mg PO DAILY 04/10/18 07/12/18 sofosbuvir-velpatasvir 400 mg PO DAILY 07/12/18 07/12/18 warfarin 2.5 mg PO Q OTHER DAY 07/12/18 07/12/18 Previous Rx's Medication Instructions Recorded metoprolol tartrate 12.5 mg PO BID #60 tab 07/15/18 spironolactone 25 mg PO DAILY #30 tab 07/15/18 Allergies Allergy/AdvReac Type Severity Reaction Status Date / Time No Known Drug Allergies Allergy Verified 07/01/19 19:16 Review of Systems Review of Systems ROS Unobtainable: Unobtainable due to medical condition 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) Surgical History Mitral valve replaced (Acute) Family History Father Stroke Myocardial infarction Mother Amyotrophic lateral sclerosis (ALS) Social History household members: significant other Smoking Status: Former smoker alcohol intake: former Smoking Status: Former smoker alcohol intake frequency: 0-2 drinks per day Substance Use Type: does not use Exam Initial Vital Signs Initial Vital Signs: Vital Signs Temperature 103.1 F H 07/01/19 19:10 Pulse Rate 125 H 07/01/19 19:10 Respiratory Rate 16 07/01/19 19:10 Blood Pressure 127/61 07/01/19 19:10 Pulse Oximetry 95 07/01/19 19:10 Const General: acute distress Other: Minimal verbal responsiveness. HENMT Head: normal to inspection, normocephalic and atraumatic Mouth: other (Dry oral mucosa) Eyes General: appearance normal, both eyes and all related structures Eyelids: eyelids normal Conjunctivae: conjunctivae normal Sclera: sclerae normal Pupils: PERRL EOM: EOM intact bilaterally Neck Neck: JVD Resp Effort & Inspection: normal respiratory effort and able to speak in complete sentences Auscultation: clear to auscultation bilaterally, no rales, no rhonchi and no whe ezes Cardio Rate: regular rate Rhythm: regular rhythm Heart Sounds: S1 normal, S2 normal, no click, no gallops, no murmurs and no rubs Pulses: normal peripheral pulses GI Inspection: non-distended Palpation: soft, no hepatosplenomegaly, No guarding, No pulsatile mass and tender (Generalized) Auscultation: normal bowel sounds Back/Spine/Pelvis Back: normal to inspection Skin General: jaundice Neuro Other: Motor tone is intact. Extrem Other: 4+ lower extremity edema bilaterally. Course Course Course Narrative: The patient has acute mental status changes, with hepatic encephalopathy being a prime concern. However he is also septic. Sepsis may be the source of his encephalopathy. Liver cancer was discovered on scans tonight, no brain Mets were identified. There are no acute findings on the head CT. Sepsis was managed by normal saline bolus and IV Zosyn. Bilateral pneumonia is found during workup. He is found to have an elevated bilirubin, but reviewing records his bilirubin levels have been variable. The bilirubin level has been elevated to the current level previously. Transaminases were normal. Ammonia level was normal. He has clinical CHF, his BNP is also elevated. There is no evidence of GA. A Dimas was placed to monitor fluids. With the care given his lactic acid level was improved. His vitals are stable, there is no hypotension. CT shows a new hepatic lesion, with adenopathy noted. A known gallstone is present, the ducts are not obviously dilated. There is calcification in his hepatic ducts previously noted. I discussed the situation with Gastroenterology, Dr. Burger, at [facility]. Priority is to manage the sepsis, and cephalopathy. Despite a normal ammonia level, lactulose was given. He is not a candidate for immediate ERCP. An MRI can be obtained in the morning. Additional decisions could be made based upon the findings on the MRI. An alpha fetoprotein would also be useful in further analysis of the hepatic lesion. The situation was discussed with the hospitalist, MJ Amaya. The patient will be admitted for ongoing care for sepsis, pneumonia, CHF and cephalopathy. We discussed the need for an MRCP. The patient continues to have no verbal responses at the time of admission. Orders Ordered: ED Orders 07/01/19 19:12 Complete Blood Count AUTO DIFF Stat Comprehensive Metabolic Panel Stat Hepatic (Liver) Panel Stat Lactate (Lactic Acid) Stat Lipase Stat NT-proBNP (BNP-Adult 18+) Stat Partial Thromboplastin Time Stat Procalcitonin Stat Prothrombin Time INR Stat Troponin & CK Cardiac Panel Stat 07/01/19 19:15 XR chest 1V Stat EKG-12 Lead Stat RT Consult Eval and Treat Now 07/01/19 19:49 Ammonia (NH3) Stat Blood Culture Stat 07/01/19 20:03 Influenza A & B (PCR) Stat 07/01/19 20:04 CT chest abd pel w con Stat 07/01/19 21:34 CT head/brain wo con Stat 07/01/19 22:27 UA Complete [Urinalysis and Microscopic] Stat Albuterol (Ventolin Hfa) 2 puff INH RTQ4HR PRN PRN Reason: Shortness Of Breath Enoxaparin Sodium (Lovenox) 40 mg SUBCUT DAILY [facility] Furosemide (Lasix) 20 mg IV NOW ONE Stop: 07/02/19 00:32 Furosemide (Lasix) 40 mg IV BID GEO Hydromorphone HCl (Dilaudid) 0.5 mg IV Q6HR PRN PRN Reason: Pain, Moderate (4-6) Hydromorphone HCl (Dilaudid) 1 mg IV Q6HR PRN PRN Reason: Pain, Severe (7-10) Sodium Chloride (Normal Saline 0.9%) 1,000 mls @ 1,000 mls/hr IV BOLUS ONE Stop: 07/02/19 01:13 Sodium Chloride (Normal Saline 0.9%) 1,000 mls @ 75 mls/hr IV CONT GEO Azithromycin 500 mg/ Dextrose 250 mls @ 250 mls/hr IV Q24H GEO Stop: 07/05/19 00:44 Piperacillin/Tazobactam/Dextrose (Zosyn) 4.5 gm in 100 mls @ 200 mls/hr IV Q6H GEO Lactulose (Enulose) 30 gm PO BID GEO Metoprolol Tartrate (Lopressor) 25 mg PO BID GEO Naloxone HCl (Narcan) 0.2 mg IV Q2MIN PRN PRN Reason: Opiate Reversal Ondansetron HCl (Zofran) 4 mg IV Q8HR PRN PRN Reason: Nausea And Vomiting Warfarin Sodium (Coumadin) 2.5 mg PO 1700 GEO Discontinued Medications Furosemide (Lasix) 40 mg IV NOW ONE Stop: 07/01/19 20:28 Last Admin: 07/01/19 21:00 Dose: 40 mg Documented by: NILESH Hydromorphone HCl (Dilaudid) 1 mg IV NOW ONE Stop: 07/01/19 20:50 Last Admin: 07/01/19 21:00 Dose: 1 mg Documented by: NILESH Sodium Chloride (Normal Saline 0.9%) 1,000 mls @ 1,000 mls/hr IV BOLUS ONE Stop: 07/01/19 20:14 Last Infusion: 07/01/19 21:21 Dose: 0 mls/hr Documented by: Admin: 07/01/19 19:24 Dose: 1,000 mls/hr Documented by: VINH Sodium Chloride (Normal Saline 0.9%) 1,000 mls @ 1,000 mls/hr IV BOLUS ONE Stop: 07/01/19 21:10 Last Infusion: 07/01/19 23:27 Dose: 0 mls/hr Documented by: Admin: 07/01/19 22:00 Dose: 1,000 mls/hr Documented by: NILESH Piperacillin/Tazobactam/Dextrose (Zosyn) 4.5 gm in 100 mls @ 200 mls/hr IV NOW ONE Stop: 07/01/19 20:41 Last Infusion: 07/01/19 21:39 Dose: 0 mls/hr Documented by: Admin: 07/01/19 20:35 Dose: 200 mls/hr Documented by: NILESH Lactulose (Enulose) 20 gm PO NOW ONE Stop: 07/01/19 23:50 Lidocaine HCl (Urojet) 5 ml TOP NOW ONE Stop: 07/01/19 21:17 Last Admin: 07/01/19 21:20 Dose: 5 ml Documented by: NILESH Vital Signs Vital signs: Vital Signs - 8 hr 07/01/19 19:10 07/01/19 20:48 07/01/19 22:26 Temperature 103.1 F H Pulse Rate 125 H 120 H 117 H Respiratory Rate 16 21 17 Blood Pressure 127/61 Blood Pressure [Left Arm] 135/63 118/58 L Pulse Oximetry 95 93 95 07/01/19 23:27 Temperature 98.8 F Pulse Rate 115 H Respiratory Rate 21 Blood Pressure Blood Pressure [Left Arm] 116/54 L Pulse Oximetry 95 MDM - Fever Medical Records Attestation: I reviewed the patient's medical records. Lab Data Attestation: I reviewed the patient's lab results. Result diagrams: 07/01/19 19:12 07/01/19 19:12 Labs: Lab Results 07/01/19 07/01/19 07/01/19 Range/Units 19:12 19:12 19:12 WBC 11.6 H (4.5-11.0) X10^3/uL RBC 3.30 L (4.5-5.9) X10^6/uL Hgb 12.1 L (13.5-17.5) g/dL Hct 34.8 L (41-53) % MCV 103.8 H (80-100) fL MCH 36.2 H (26-34) PG MCHC 34.9 (30-36) % RDW 18.0 H (11.6-14.8) % Plt Count 64 L (150-400) X10^3/uL Neut % (Auto) Not Reportable Lymph % (Auto) Not Reportable [place] % (Auto) Not Reportable Eos % (Auto) Not Reportable Baso % (Auto) Not Reportable Lymph # (Auto) Not Reportable [place] # (Auto) Not Reportable Baso # (Auto) Not Reportable Total Counted 100 Seg Neutrophils % 49.0 (38-70) % Band Neutrophils % 41.0 H (3-7) % Lymphocytes % (Manual) 4.0 L (25-45) % Monocytes % (Manual) 5.0 (2-11) % Metamyelocytes % 1.0 H (-0) % Neutrophils # (Manual) 87368 H (7673-8646) /uL RBC Morphology See below Anisocytosis 2+ H PT 20.1 H (10.1-12.7) SECONDS INR 1.7 H (0.9-1.3) APTT 33 D (26.4-36.2) SECONDS Sodium (137-145) mmol/L Potassium (3.4-5.1) mmol/L Chloride (98-107) mmol/L Carbon Dioxide (22-32) mmol/L BUN (9-20) mg/dL Creatinine (0.66-1.25) mg/dL Estimated GFR (>60) mL/min BUN/Creatinine Ratio (6-22) Glucose (80-110) mg/dL Lactate (0.7-2.1) mmol/L Calcium (8.4-10.2) mg/dL Magnesium (1.6-2.3) mg/dL Total Bilirubin (0.2-1.3) mg/dL Conjugated Bilirubin (0.0-0.3) md/dL Unconjugated Bilirubin (0.0-1.1) mg/dL AST (17-59) IU/L ALT (<50) IU/L Alkaline Phosphatase (38-126) U/L Ammonia (9-30) umol/L Total Creatine Kinase (55-170) U/L CK-MB (CK-2) CK-MB (CK-2) Rel Index Troponin I (0.01-0.034) ng/mL NT-Pro-B Natriuret Pep (<125) pg/mL Total Protein (6.3-8.2) g/dL Albumin (3.5-5.0) g/dL Globulin (1.7-4.1) g/dL Albumin/Globulin Ratio (1.0-2.8) Lipase (23-300) U/L Procalcitonin 1.74 H (<0.5) ng/mL Urine Color Urine Appearance Urine pH (4.5-8.0) Ur Specific [place] (1.000-1.035) Urine Protein (Negative) Urine Glucose (UA) (Negative) g/dL Urine Ketones (NEGATIVE) Urine Occult Blood (Negative) Urine Nitrate (Negative) Urine Bilirubin (NEGATIVE) Urine Urobilinogen (0.2) E.U./dL Ur Leukocyte Esterase (NEGATIVE) Urine RBC (0-5/HPF) Urine WBC (0-5/HPF) Urine Bacteria (None) Ur Culture Indicated? Influenza A (RT-PCR) (NEGATIVE) Influenza B (RT-PCR) (NEGATIVE) 07/01/19 07/01/19 07/01/19 Range/Units 19:12 19:12 19:12 WBC (4.5-11.0) X10^3/uL RBC (4.5-5.9) X10^6/uL Hgb (13.5-17.5) g/dL Hct (41-53) % MCV (80-100) fL MCH (26-34) PG MCHC (30-36) % RDW (11.6-14.8) % Plt Count (150-400) X10^3/uL Neut % (Auto) Lymph % (Auto) [place] % (Auto) Eos % (Auto) Baso % (Auto) Lymph # (Auto) [place] # (Auto) Baso # (Auto) Total Counted Seg Neutrophils % (38-70) % Band Neutrophils % (3-7) % Lymphocytes % (Manual) (25-45) % Monocytes % (Manual) (2-11) % Metamyelocytes % (-0) % Neutrophils # (Manual) (5328-9009) /uL RBC Morphology Anisocytosis PT (10.1-12.7) SECONDS INR (0.9-1.3) APTT (26.4-36.2) SECONDS Sodium 139 (137-145) mmol/L Potassium 3.6 (3.4-5.1) mmol/L Chloride 103 (98-107) mmol/L Carbon Dioxide 26 (22-32) mmol/L BUN 20 (9-20) mg/dL Creatinine 1.22 (0.66-1.25) mg/dL Estimated GFR > 60.0 (>60) mL/min BUN/Creatinine Ratio 16.4 (6-22) Glucose 137 H (80-110) mg/dL Lactate 5.2 H* (0.7-2.1) mmol/L Calcium 9.2 (8.4-10.2) mg/dL Magnesium (1.6-2.3) mg/dL Total Bilirubin 7.2 H (0.2-1.3) mg/dL Conjugated Bilirubin (0.0-0.3) md/dL Unconjugated Bilirubin (0.0-1.1) mg/dL AST 48 (17-59) IU/L ALT 22 (<50) IU/L Alkaline Phosphatase 82 (38-126) U/L Ammonia (9-30) umol/L Total Creatine Kinase 91 (55-170) U/L CK-MB (CK-2) TNP CK-MB (CK-2) Rel Index TNP Troponin I 0.021 (0.01-0.034) ng/mL NT-Pro-B Natriuret Pep 3140 H (<125) pg/mL Total Protein 7.8 (6.3-8.2) g/dL Albumin 3.6 (3.5-5.0) g/dL Globulin 4.2 H (1.7-4.1) g/dL Albumin/Globulin Ratio 0.9 L (1.0-2.8) Lipase 209 (23-300) U/L Procalcitonin (<0.5) ng/mL Urine Color Urine Appearance Urine pH (4.5-8.0) Ur Specific [place] (1.000-1.035) Urine Protein (Negative) Urine Glucose (UA) (Negative) g/dL Urine Ketones (NEGATIVE) Urine Occult Blood (Negative) Urine Nitrate (Negative) Urine Bilirubin (NEGATIVE) Urine Urobilinogen (0.2) E.U./dL Ur Leukocyte Esterase (NEGATIVE) Urine RBC (0-5/HPF) Urine WBC (0-5/HPF) Urine Bacteria (None) Ur Culture Indicated? Influenza A (RT-PCR) (NEGATIVE) Influenza B (RT-PCR) (NEGATIVE) 07/01/19 07/01/19 07/01/19 Range/Units 19:12 19:49 20:03 WBC (4.5-11.0) X10^3/uL RBC (4.5-5.9) X10^6/uL Hgb (13.5-17.5) g/dL Hct (41-53) % MCV (80-100) fL MCH (26-34) PG MCHC (30-36) % RDW (11.6-14.8) % Plt Count (150-400) X10^3/uL Neut % (Auto) Lymph % (Auto) [place] % (Auto) Eos % (Auto) Baso % (Auto) Lymph # (Auto) [place] # (Auto) Baso # (Auto) Total Counted Seg Neutrophils % (38-70) % Band Neutrophils % (3-7) % Lymphocytes % (Manual) (25-45) % Monocytes % (Manual) (2-11) % Metamyelocytes % (-0) % Neutrophils # (Manual) (4273-5486) /uL RBC Morphology Anisocytosis PT (10.1-12.7) SECONDS INR (0.9-1.3) APTT (26.4-36.2) SECONDS Sodium (137-145) mmol/L Potassium (3.4-5.1) mmol/L Chloride (98-107) mmol/L Carbon Dioxide (22-32) mmol/L BUN (9-20) mg/dL Creatinine (0.66-1.25) mg/dL Estimated GFR (>60) mL/min BUN/Creatinine Ratio (6-22) Glucose (80-110) mg/dL Lactate (0.7-2.1) mmol/L Calcium (8.4-10.2) mg/dL Magnesium (1.6-2.3) mg/dL Total Bilirubin 7.0 H (0.2-1.3) mg/dL Conjugated Bilirubin 0.3 (0.0-0.3) md/dL Unconjugated Bilirubin 5.6 H (0.0-1.1) mg/dL AST 48 (17-59) IU/L ALT 22 (<50) IU/L Alkaline Phosphatase 82 (38-126) U/L Ammonia < 9 L (9-30) umol/L Total Creatine Kinase (55-170) U/L CK-MB (CK-2) CK-MB (CK-2) Rel Index Troponin I (0.01-0.034) ng/mL NT-Pro-B Natriuret Pep (<125) pg/mL Total Protein 7.8 (6.3-8.2) g/dL Albumin 3.5 (3.5-5.0) g/dL Globulin 4.3 H (1.7-4.1) g/dL Albumin/Globulin Ratio 0.8 L (1.0-2.8) Lipase (23-300) U/L Procalcitonin (<0.5) ng/mL Urine Color Urine Appearance Urine pH (4.5-8.0) Ur Specific [place] (1.000-1.035) Urine Protein (Negative) Urine Glucose (UA) (Negative) g/dL Urine Ketones (NEGATIVE) Urine Occult Blood (Negative) Urine Nitrate (Negative) Urine Bilirubin (NEGATIVE) Urine Urobilinogen (0.2) E.U./dL Ur Leukocyte Esterase (NEGATIVE) Urine RBC (0-5/HPF) Urine WBC (0-5/HPF) Urine Bacteria (None) Ur Culture Indicated? Influenza A (RT-PCR) Flu a negative (NEGATIVE) Influenza B (RT-PCR) Flu b negative (NEGATIVE) 07/01/19 07/01/19 07/01/19 Range/Units 21:59 21:59 22:27 WBC (4.5-11.0) X10^3/uL RBC (4.5-5.9) X10^6/uL Hgb (13.5-17.5) g/dL Hct (41-53) % MCV (80-100) fL MCH (26-34) PG MCHC (30-36) % RDW (11.6-14.8) % Plt Count (150-400) X10^3/uL Neut % (Auto) Lymph % (Auto) [place] % (Auto) Eos % (Auto) Baso % (Auto) Lymph # (Auto) [place] # (Auto) Baso # (Auto) Total Counted Seg Neutrophils % (38-70) % Band Neutrophils % (3-7) % Lymphocytes % (Manual) (25-45) % Monocytes % (Manual) (2-11) % Metamyelocytes % (-0) % Neutrophils # (Manual) (6519-8148) /uL RBC Morphology Anisocytosis PT (10.1-12.7) SECONDS INR (0.9-1.3) APTT (26.4-36.2) SECONDS Sodium (137-145) mmol/L Potassium (3.4-5.1) mmol/L Chloride (98-107) mmol/L Carbon Dioxide (22-32) mmol/L BUN (9-20) mg/dL Creatinine (0.66-1.25) mg/dL Estimated GFR (>60) mL/min BUN/Creatinine Ratio (6-22) Glucose (80-110) mg/dL Lactate 2.8 H (0.7-2.1) mmol/L Calcium (8.4-10.2) mg/dL Magnesium 1.6 (1.6-2.3) mg/dL Total Bilirubin (0.2-1.3) mg/dL Conjugated Bilirubin (0.0-0.3) md/dL Unconjugated Bilirubin (0.0-1.1) mg/dL AST (17-59) IU/L ALT (<50) IU/L Alkaline Phosphatase (38-126) U/L Ammonia (9-30) umol/L Total Creatine Kinase (55-170) U/L CK-MB (CK-2) CK-MB (CK-2) Rel Index Troponin I (0.01-0.034) ng/mL NT-Pro-B Natriuret Pep (<125) pg/mL Total Protein (6.3-8.2) g/dL Albumin (3.5-5.0) g/dL Globulin (1.7-4.1) g/dL Albumin/Globulin Ratio (1.0-2.8) Lipase (23-300) U/L Procalcitonin (<0.5) ng/mL Urine Color Yellow Urine Appearance Clear Urine pH 6.5 (4.5-8.0) Ur Specific [place] 1.010 (1.000-1.035) Urine Protein Negative (Negative) Urine Glucose (UA) Negative (Negative) g/dL Urine Ketones Negative (NEGATIVE) Urine Occult Blood 3+ H (Negative) Urine Nitrate Negative (Negative) Urine Bilirubin Negative (NEGATIVE) Urine Urobilinogen 0.2 (0.2) E.U./dL Ur Leukocyte Esterase Negative (NEGATIVE) Urine RBC 1-5/hpf (0-5/HPF) Urine WBC None seen (0-5/HPF) Urine Bacteria Occasional (0-1) (None) Ur Culture Indicated? Cult not indicated Influenza A (RT-PCR) (NEGATIVE) Influenza B (RT-PCR) (NEGATIVE) Imaging Data Chest/abdomen/pelvis CT:: Radiologist's Impression: 48 Harshil Ortega MD Find Patient Imaging - Alex Kim 63 M 1955 ACTIVITY DATE EXAM STATUS AUTHOR 07/01/19 21:34 Signed Fernandez Choi 07/01/19 20:04 Signed Alcides Choieetashia 07/01/19 19:15 Signed Fernandez Choi ORDER STATUS ORDER START ORDER DETAIL CT abdomen pelvis w con Cancelled 07/01/19 20:01 [place] [address] CT Scan Report Signed Patient: Alex KimMR#: [id number] : 8Acct:[id number] Age/Sex: 63 / MDate of Service: 07/01/19 Loc: ED Accession Number: [id number] Procedure: CT chest abd pel w con Ordering Provider: Harshil Ortega MD PROCEDURE: CT CHEST ABD PEL W CON INDICATIONS: Suspect COVID-19. Abdominal pain. Fever. TECHNIQUE: After the administration of oral and intravenous contrast, 5 mm thick sections acquired from the lung apices to the symphysis. 5 mm coronal and sagittal reformats were performed, with additional 7 mm coronal MIP reformats through the lungs. For radiation dose reduction, the following was used: automated exposure control, adjustment of mA and/or kV according to patient size. COMPARISON: [facility], CT, CT-IVP, 06/25/2011, 12:59. [facility], CT, CT ANGIO CHEST PE PROTOCOL, 12/05/2017, 0:25. [facility], CT, CT ABDOMEN WO/W CON, 12/06/2017, 9:46. FINDINGS: Image quality: Degraded by motion artifact. CHEST: Lungs and pleura: Small right greater than left pleural effusions are present. There is moderate right and mild left bibasilar atelectasis versus pneumonia. Central and peripheral airways appear patent and normal in caliber. Mediastinum: Heart size is enlarged. There is calcification of the coronary vasculature. No pericardial effusion. 24 prevascular adenopathy is present, as before. pretracheal adenopathy is present, as before. Thoracic aorta and central pulmonary arteries are normal in size. Esophagus is normal in caliber. No hiatal hernia. Chest wall: There are multiple enlarged supraclavicular lymph nodes. Thyroid gland demonstrates a calcified mass within the left lobe measuring 20 mm.. ABDOMEN: Solid organs: Liver is shrunken and demonstrates a nodular contour. There is a new low-density mass within the right hepatic lobe posteriorly measuring 28 mm. Gallbladder demonstrates multiple calculi within its lumen. Biliary system is mildly distended. Multiple calculi within the common bile duct are present, as before. Pancreas enhances normally. Spleen is enlarged. No adrenal nodules. Kidneys demonstrate normal size and enhancement, without hydronephrosis. Peritoneum and bowel: Bowel loops demonstrate normal wall thickness and caliber. No free fluid or air. Nodes and vessels: Multiple enlarged retroperitoneal lymph nodes are present, as before, largest of which is in the aortocaval location measuring 18 mm short axis, which is increased.. Aorta and inferior vena cava are normal in size. Recanalized umbilical vein. Portosystemic collaterals. Miscellaneous: No ventral hernias. PELVIS: Genitourinary: Bladder wall thickness is normal. Miscellaneous: 15 mm short axis right inguinal adenopathy is present, new since the prior examination. Bones: No suspicious bony lesions. No vertebral body compression fractures. IMPRESSION: 1. No change in mediastinal adenopathy. Increased retroperitoneal adenopathy. New right inguinal adenopathy. Differential considerations include reactive lymphadenopathy versus lymphoma versus metastatic disease. 2. Cholelithiasis and choledocholithiasis, as before. Mild associated biliary ductal dilatation. 3. New right hepatic lobe mass, possibly indicating hepatoma. 4. Cirrhosis and portal hypertension. Splenomegaly. 5. Small right greater than left pleural effusions. 6. Cardiomegaly. Coronary artery disease. 7. Left thyroid mass, which could be further assessed with nonemergent outpatient followup ultrasound, if clinically indicated. Dictated by: Fernandez Choi M.D. on 07/01/2019 at 20:49 Approved by: Fernandez Choi M.D. on 07/01/2019 at 20:57 Chest x-ray: Radiologist's Impression: [address] [address] XRay Report Signed Patient: Alex Kim#: [id number] : 1955cct:[id number] Age/Sex: 63 / MDate of Service: 07/01/19 Loc: ED Accession Number: [id number] Procedure: XR chest 1V Ordering Provider: Esthela Gaffney PROCEDURE: XR CHEST 1V INDICATIONS: suspected sepsis TECHNIQUE: One view of the chest was acquired. COMPARISON: [facility] , XR CHEST 1V, 07/12/2018, 17:03. FINDINGS: Surgical changes and devices: None. Lungs and pleura: Moderate diffuse bilateral pulmonary opacification. Moderate airspace opacity within the right lung base. No pleural effusions or pneumothorax. Mediastinum: Mediastinal contours appear normal. Heart size is normal. Bones and chest wall: No suspicious bony lesions. Overlying soft tissues appear unremarkable. IMPRESSION: Moderate bilateral pneumonia. Dictated by: Fernandez Choi M.D. on 07/01/2019 at 20:16 Approved by: Fernandez Choi M.D. on 07/01/2019 at 20:16 CT scan - head: Radiologist's Impression: [address] [address] [address] Scan Report Signed Patient: Mary Kim#: [id number] : 8Acct:[id number] Age/Sex: 63 / MDate of Service: 07/01/19 Loc: ED Accession Number: [id number] Procedure: CT head/brain wo con Ordering Provider: Harshil Ortega MD PROCEDURE: CT HEAD/BRAIN WO CON INDICATIONS: CONFUSION. SEPSIS. TECHNIQUE: Noncontrast 4.5 mm thick angled axial sections acquired from the foramen magnum to the vertex, with coronal and sagittal reformats. For radiation dose reduction, the following was used: automated exposure control, adjustment of mA and/or kV according to patient size. COMPARISON: None. FINDINGS: Image quality: Excellent. CSF spaces: Basal cisterns are patent. No extra-axial fluid collections. The ventricles are symmetric in size and shape. Brain: No intracranial bleeds or masses. There is cerebral volume loss for age, with resultant ventricular and sulcal prominence. There are periventricular and deep white matter chronic small vessel ischemic changes. There is intracranial internal carotid artery atherosclerosis. Skull and face: Calvarium and visualized facial bones appear intact, without suspicious lesions. Sinuses: Visualized sinuses and mastoids are clear. IMPRESSION: No acute intracranial abnormality. Dictated by: Fernandez Choi M.D. on 07/01/2019 at 21:55 Approved by: Fernandez Choi M.D. on 07/01/2019 at 21:55 ECG Data Attestation: I personally reviewed and interpreted this ECG as follows: (Sinus tachycardia rate 122 beats per minute. PVCs. RVH. Non sick ST T wave changes. No acute ST elevation.) Critical Care Time Critical Care Time Critical Care Time: Yes Total Critical Care Time: 70 Attestation: Care included initial assessment patient, a call to his girlfriend for additional information about his status prior to arrival here, evaluation of EKG, radiology and lab data and multiple clinical decisions. Evaluation also included consultation with Gastroenterology, and 2 separate conversations with the admitting hospitalist, MJ Amaya. Discharge Plan Departure Patient Disposition: Admitted As Inpatient Clinical Impression: Sepsis, Congestive heart failure, Cirrhosis, Pneumonia, Encephalopathy, Hepatic cancer, Anticoagulation adequate, Hepatitis C, Cholelithiasis, Elevated bilirubin Referrals: Moose Huff MD [Primary Care Provider] - Admit Date/Time: 07/02/19 00:15 Admit Provider: Nathaniel Amaya
[2019-07-01 20:01] LABS: Hematocrit 34.8 % (41-53); Hemoglobin 12.1 g/dL (13.5-17.5); INR 1.7 (0.9-1.3); Mean Corpuscular HGB Conc 34.9 % (30-36); Mean Corpuscular Hemoglobin 36.2 PG (26-34); Mean Corpuscular Volume 103.8 fL (80-100); PTT Partial Thromboplastin Tim 33 SECONDS (26.4-36.2); Platelet Count 64 X10^3/uL (150-400); Prothrombin Time 20.1 SECONDS (10.1-12.7); White Blood Cell Count 11.6 X10^3/uL (4.5-11.0)
[2019-07-01 20:02] LABS: Add Manual Diff / Slide Review YES
--- NOTE | 2019-07-01 20:04 | DI.CT.S_ITS ---
PROCEDURE: CT CHEST ABD PEL W CON INDICATIONS: Suspect COVID-19. Abdominal pain. Fever. TECHNIQUE: After the administration of oral and intravenous contrast, 5 mm thick sections acquired from the lung apices to the symphysis. 5 mm coronal and sagittal reformats were performed, with additional 7 mm coronal MIP reformats through the lungs. For radiation dose reduction, the following was used: automated exposure control, adjustment of mA and/or kV according to patient size. COMPARISON: [facility], CT, CT-IVP, 06/25/2011, 12:59. [facility], CT, CT ANGIO CHEST PE PROTOCOL, 12/05/2017, 0:25. [facility], CT, CT ABDOMEN WO/W CON, 12/06/2017, 9:46. FINDINGS: Image quality: Degraded by motion artifact. CHEST: Lungs and pleura: Small right greater than left pleural effusions are present. There is moderate right and mild left bibasilar atelectasis versus pneumonia. Central and peripheral airways appear patent and normal in caliber. Mediastinum: Heart size is enlarged. There is calcification of the coronary vasculature. No pericardial effusion. 24 prevascular adenopathy is present, as before. pretracheal adenopathy is present, as before. Thoracic aorta and central pulmonary arteries are normal in size. Esophagus is normal in caliber. No hiatal hernia. Chest wall: There are multiple enlarged supraclavicular lymph nodes. Thyroid gland demonstrates a calcified mass within the left lobe measuring 20 mm.. ABDOMEN: Solid organs: Liver is shrunken and demonstrates a nodular contour. There is a new low-density mass within the right hepatic lobe posteriorly measuring 28 mm. Gallbladder demonstrates multiple calculi within its lumen. Biliary system is mildly distended. Multiple calculi within the common bile duct are present, as before. Pancreas enhances normally. Spleen is enlarged. No adrenal nodules. Kidneys demonstrate normal size and enhancement, without hydronephrosis. Peritoneum and bowel: Bowel loops demonstrate normal wall thickness and caliber. No free fluid or air. Nodes and vessels: Multiple enlarged retroperitoneal lymph nodes are present, as before, largest of which is in the aortocaval location measuring 18 mm short axis, which is increased.. Aorta and inferior vena cava are normal in size. Recanalized umbilical vein. Portosystemic collaterals. Miscellaneous: No ventral hernias. PELVIS: Genitourinary: Bladder wall thickness is normal. Miscellaneous: 15 mm short axis right inguinal adenopathy is present, new since the prior examination. Bones: No suspicious bony lesions. No vertebral body compression fractures. IMPRESSION: 1. No change in mediastinal adenopathy. Increased retroperitoneal adenopathy. New right inguinal adenopathy. Differential considerations include reactive lymphadenopathy versus lymphoma versus metastatic disease. 2. Cholelithiasis and choledocholithiasis, as before. Mild associated biliary ductal dilatation. 3. New right hepatic lobe mass, possibly indicating hepatoma. 4. Cirrhosis and portal hypertension. Splenomegaly. 5. Small right greater than left pleural effusions. 6. Cardiomegaly. Coronary artery disease. 7. Left thyroid mass, which could be further assessed with nonemergent outpatient followup ultrasound, if clinically indicated. Dictated by: Fernandez Choi M.D. on 07/01/2019 at 20:49 Approved by: Fernandez Choi M.D. on 07/01/2019 at 20:57
[2019-07-01 20:10] LABS: Alanine Aminotransferase 22 IU/L (<50); Albumin 3.6 g/dL (3.5-5.0); Albumin Globulin Ratio 0.9 (1.0-2.8); Alkaline Phosphatase 82 U/L (38-126); Aspartate Aminotransferase 48 IU/L (17-59); BUN Creatinine Ratio 16.4 (6-22); Bilirubin Total 7.2 mg/dL (0.2-1.3); Blood Urea Nitrogen 20 mg/dL (9-20); Calcium 9.2 mg/dL (8.4-10.2); Carbon Dioxide 26 mmol/L (22-32); Chloride 103 mmol/L (98-107); Creatine Kinase 91 U/L (55-170); Estimated Glomerular Filt Rate > 60.0 mL/min (>60); Globulin 4.2 g/dL (1.7-4.1); Glucose 137 mg/dL (80-110); HEMOLYSIS < 15 (0-50); Lipase 209 U/L (23-300); NT-proBNP (BNP-Adult 18+) 3140 pg/mL (<125); Potassium 3.6 mmol/L (3.4-5.1); Sodium 139 mmol/L (137-145); Total Protein 7.8 g/dL (6.3-8.2); Troponin I 0.021 ng/mL (0.01-0.034)
[2019-07-01 20:12] LABS: Procalcitonin 1.74 ng/mL (<0.5)
[2019-07-01 20:12] LABS: Ammonia (NH3) < 9 umol/L (9-30)
[2019-07-01 20:23] LABS: Neutrophils Absolute Manual 10440 /uL (3000-5900); Total Cells Counted 100
[2019-07-01 20:24] LABS: Anisocytosis 2+
[2019-07-01 20:27] LABS: Lactate (Lactic Acid) 5.2 mmol/L (0.7-2.1)
[2019-07-01] MEDS: PIPERACILLIN-TAZO 4.5 GM/100 ML FROZ.PIGGY IV (20:35)
[2019-07-01 20:48] VITALS: BP 135/63; PULSE 120; RESP 21; O2SAT 93
[2019-07-01 20:48] LABS: Influenza A - CEPHEID Flu A NEGATIVE (NEGATIVE); Influenza B - CEPHEID Flu B NEGATIVE (NEGATIVE)
[2019-07-01] MEDS: HYDROMORPHONE 1 MG INJ IV (21:00)
[2019-07-01] MEDS: FUROSEMIDE 40 MG/4 ML VIAL IV (21:00)
[2019-07-01] MEDS: LIDOCAINE 2% (UROJET) 5 ML GEL TOP (21:20)
--- NOTE | 2019-07-01 21:33 | PC.NURSE ---
2044 Patient moaning and thrashing around, tachypnic.. Does not answer questions. Pt swears at me whenever I touch him or ask him questions. Pt says yes when asked if he is in pain. Dilaudid order received and medicated pt. Pt calmed down and began normal respirations. Pt right legs with 4+ pitting edema. Left 3+ edema. Attempt to place urinary catheter. Pt is so swollen and this RN unable to place. Obtaining assistance from another RN.
[2019-07-01 21:34] LABS: Reflexed Lactate in 2 Hours Y
--- NOTE | 2019-07-01 21:34 | DI.CT.S_ITS ---
PROCEDURE: CT HEAD/BRAIN WO CON INDICATIONS: CONFUSION. SEPSIS. TECHNIQUE: Noncontrast 4.5 mm thick angled axial sections acquired from the foramen magnum to the vertex, with coronal and sagittal reformats. For radiation dose reduction, the following was used: automated exposure control, adjustment of mA and/or kV according to patient size. COMPARISON: None. FINDINGS: Image quality: Excellent. CSF spaces: Basal cisterns are patent. No extra-axial fluid collections. The ventricles are symmetric in size and shape. Brain: No intracranial bleeds or masses. There is cerebral volume loss for age, with resultant ventricular and sulcal prominence. There are periventricular and deep white matter chronic small vessel ischemic changes. There is intracranial internal carotid artery atherosclerosis. Skull and face: Calvarium and visualized facial bones appear intact, without suspicious lesions. Sinuses: Visualized sinuses and mastoids are clear. IMPRESSION: No acute intracranial abnormality. Dictated by: Fernandez Choi M.D. on 07/01/2019 at 21:55 Approved by: Fernandez Choi M.D. on 07/01/2019 at 21:55
[2019-07-01 21:37] LABS: Albumin 3.5 g/dL (3.5-5.0); Albumin Globulin Ratio 0.8 (1.0-2.8); Alkaline Phosphatase 82 U/L (38-126); Aspartate Aminotransferase 48 IU/L (17-59); Bilirubin Conjugated 0.3 md/dL (0.0-0.3); Bilirubin Unconjugated 5.6 mg/dL (0.0-1.1); Globulin 4.3 g/dL (1.7-4.1); HEMOLYSIS < 15 (0-50); Total Protein 7.8 g/dL (6.3-8.2)
[2019-07-01 21:43] LABS: Alanine Aminotransferase 22 IU/L (<50)
[2019-07-01 22:21] LABS: Lactate 2HR (Lactic Acid Rflx) 2.8 mmol/L (0.7-2.1)
[2019-07-01 22:26] VITALS: BP 118/58; PULSE 117; RESP 17; O2SAT 95
[2019-07-01 23:27] VITALS: BP 116/54; PULSE 115; RESP 21; TEMP 37.1; O2SAT 95
[2019-07-01 23:28] LABS: WBC Urine None Seen (0-5/HPF)
[2019-07-01 23:29] LABS: Appearance Urine UA CLEAR; Bilirubin Urine UA NEGATIVE (NEGATIVE); Color Urine UA YELLOW; Glucose Urine UA NEGATIVE (Negative); Ketones Urine UA NEGATIVE (NEGATIVE); Leukocyte Esterase Urine UA NEGATIVE (NEGATIVE); Nitrite Urine UA NEGATIVE (Negative); Occult Blood Urine UA 3+ (Negative); Protein Urine UA NEGATIVE (Negative); Urobilinogen Urine UA 0.2 E.U./dL (0.2); pH Urine UA 6.5 (4.5-8.0)
[2019-07-01 23:39] LABS: Bacteria Urine Occasional (0-1); Culture Indicated Urine Cult Not Indicated; RBC Urine 1-5/HPF (0-5/HPF)
[2019-07-02] VITALS (9 sets, daily range): BP systolic 96–115; BP diastolic 55–59; PULSE 75–113; RESP 16–26; TEMP 37.5–37.9; O2SAT 92–98; BMI 33.6
--- NOTE | 2019-07-02 00:39 | PM.HP.1 ---
History of Present Illness History of Present Illness Date Patient Seen: 07/02/19 Chief complaint: Back & Hip Pain. Narrative: Mr. Alex Kim is a 62-year-old male with a medical history significant for liver cirrhosis, right lobe liver mass, hepatitis C, mitral valve replacement post endocarditis, congestive heart failure with preserved EF, history of atrial flutter and gallstones who presents to the emergency department via EMS who was called the patient with back and hip pain. Upon arrival to the ER the patient is febrile and essentially nonverbal. Patient was evaluated in the emergency department with the patient's significant other, Maryse, who provides patient history. The patient complained of back and hip pain on yesterday with a history of osteoarthritis and had a planned surgery however was a canceled related to current pandemic. She further adds that later that night Maryse ports the patient was not acting himself and she questioned him whether he was taking his lactulose which she has failed to 2 previously. At the time the patient states he has been taking his med occasions routinely. He has a history of prior sepsis treated at [facility] for 3 days and [place] for 8 days approximately 2 years ago. He has a history of advanced liver cirrhosis and has received hepatitis-B vaccination last year and has completed treatment of hepatitis C with sofosuvir-velpastasivr. He has a history of congestive heart failure with his last documented echocardiogram of 12/05/2017 demonstrating an EF of 65-75% with normal LV function and moderate dilation of the right ventricle with normal structure and function. He has bilateral edema that is reported as the right usually greater than the left. The patient himself is stuporous and unable to provide subjective analysis but has had no reports of recent fevers or chills, cold or flu symptoms, shortness of breath or cough. The patient has been self isolating. He has reported no chest pain or palpitations, no abdominal pain. He has diarrhea related to lactulose and on last admission to [facility] was positive for Campylobacter. He has reported no urinary symptoms. Upon arrival to the ER the patient's temperature 103.1?, is tachycardic at 125, blood pressure 127/61, respirations are 16 saturating 95% on room air. Face and minimally responsive and head CT is obtained which finds no acute intracranial processes. Chest x-ray feels moderate diffuse bilateral opacities and moderate opacity the right lower lobe. A CT of the chest abdomen and pelvis is obtained with CT findings of moderate right and mild left bibasilar atelectasis versus pneumonia enlarged heart with perivascular adenopathy and paratracheal adenopathy previously noticed on prior exams; there are multiple enlarged subclavicular lymph nodes and thyroid demonstrates a calcified mass in the left lobe measuring 20 mm; liver sunken with nodular contour there is a new low-density mass in the right hepatic lobe measuring 28 mm; gallbladder with multiple calculi and biliary system mildly distended with multiple calculi within the common duct; spleen is enlarged; increased retroperitoneal adenopathy knee right inguinal adenopathy differential includes reactive lymphadenopathy versus lymphoma versus metastatic disease. On laboratory analysis the patient has white count of 11.6 with 41% bands, hemoglobin of 12.1, hematocrit of 34.8 and platelets 64. PTT is 20.1, INR is 1.7 and PTT is 33. Electrolytes are within normal limits with BUN of 20 and creatinine 1.2 to. He has elevated bilirubin is 7.0, AST of 48, ALT of 22 and alkaline phosphatase of 82. He has an ammonia level of less than 9 and albumin of 3.5. He has lipase of 209. He has a total CK of 91, troponin at 0.021 and proBNP of 3140. On arrival he had a lactic acid of 5.2 with fluids is down to 2.8. He has a procalcitonin of 1.74. Urine for urinalysis is obtained following a difficult catheterization with urine positive for blood but negative for infection markers. ER provider consulted GI service regarding the patient who did not feel transfer was medially indicated in the current setting of sepsis and COVID-19, obtain MRCP which will inform treatment plan. The patient is admitted to the medicine service for sepsis, bilateral pneumonia, toxic encephalopathy secondary to liver cirrhosis from hepatitis C and new liver lesion. 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) Surgical History Mitral valve replaced (Acute) Family & Social History Family History (Updated 07/02/19 @ 02:04 by MJ Hill) Father Stroke Myocardial infarction Mother Amyotrophic lateral sclerosis (ALS) Sister Hepatitis C Social History: household members significant other Safety & Behavioral: Feels Safe in Current Unwilling to Answer Environment Been Physically Hurt or Unwilling to Answer Threatened By a Person Tobacco & Substance use: Smoking Status Former smoker alcohol intake former alcohol intake frequency 0-2 drinks per day Substance Use Type does not use Comment: The patient is currently living with his significant other, Maryse, in a single family home. His parents have both his father from a stroke and has mother from ALS. He has a sister who has hepatitis C but he has not had contact with her for over 10 years and has no further knowledge of her health history. He has no children. Smoking: Patient smoked 1 pack per day for 5 years and quit over 20 years ago Alcohol: Patient was previously heavy drinker and quit 3-4 years ago Substance use: Patient smokes occasional cannabis. Advanced directives: He has previously designates his significant other Maryse to be his surrogate decision maker and she relates the patient's wish to be FULL CODE. Meds Home Medications and Allergies Home Medications Medication Instructions Recorded Confirmed Type potassium chloride 20 meq PO DAILY #0 12/03/16 07/12/18 History furosemide 40 mg PO BID 12/04/17 07/12/18 History lactulose 30 ml PO BID 04/10/18 07/12/18 History magnesium oxide 500 mg PO DAILY 04/10/18 07/12/18 History sofosbuvir-velpatasvir 400 mg PO DAILY 07/12/18 07/12/18 History warfarin 2.5 mg PO Q OTHER DAY 07/12/18 07/12/18 History metoprolol tartrate 12.5 mg PO BID #60 tab 07/15/18 Rx spironolactone 25 mg PO DAILY #30 tab 07/15/18 Rx Allergies Allergy/AdvReac Type Severity Reaction Status Date / Time No Known Drug Allergies Allergy Verified 07/01/19 19:16 Review of Systems Review of Systems ROS: Yes All systems reviewed with the patient and are negative except as otherwise documented Exam Vital Signs (past 8 hours): - 07/01/19 19:10 07/01/19 20:48 07/01/19 22:26 Temperature 103.1 F H Pulse Rate 125 H 120 H 117 H Respiratory Rate 16 21 17 Blood Pressure 127/61 Blood Pressure [Left Arm] 135/63 118/58 L Pulse Oximetry 95 93 95 07/01/19 23:27 Temperature 98.8 F Pulse Rate 115 H Respiratory Rate 21 Blood Pressure Blood Pressure [Left Arm] 116/54 L Pulse Oximetry 95 Oxygen Delivery Method Room Air Oxygen Flow Rate 2 Narrative Exam Narrative: GENERAL APPEARANCE: well developed, unkempt and ill-appearing male laying semi recumbent and stuporous on a stretcher in no acute distress. HEENT: Normocephalic, PERRLA, sclera mild late jaundice, eyes track bilaterally, no rhinorrhea, mucous membranes are moist. NECK/THYROID: neck supple, no JVD, trachea midline. LYMPH NODES: no cervical or supraclavicular lymphadenopathy. SKIN: Jaundice, warm and dry, scarring and scaling anterior right lower lobe extremity HEART: regular rate and rhythm, S1-S2, 1/6 systolic murmur, no rubs or gallops, brisk capillary refill, 4+ BLE edema to the hip right greater than left. LUNGS: Diminished breath sounds with bibasilar crackles, no coarseness or wheezing, no cough present CHEST: Symmetrical movement, no accessory muscle use, shallow tidal volume. ABDOMEN: Soft, distended, dull to percussion, no abdominal tenderness on palpation, no organomegaly, active bowel tones. EXTREMITIES: moves all extremities, grimace with range of motion, strength is 3/5 and symmetrical. NEUROLOGIC: GCS -11 (E-3, V-3, M-5), with repeated stimulation the patient could states the month and year, no lateralizing symptoms. PSYCH: Patient is minimally responsive and nonverbal. Objective Labs Result Diagrams: 07/01/19 19:12 07/01/19 19:12 Labs: Laboratory Results - last 24 hr 07/01/19 07/01/19 07/01/19 19:12 19:12 19:12 WBC 11.6 H RBC 3.30 L Hgb 12.1 L Hct 34.8 L MCV 103.8 H MCH 36.2 H MCHC 34.9 RDW 18.0 H Plt Count 64 L Neut % (Auto) Not Reportable Lymph % (Auto) Not Reportable [place] % (Auto) Not Reportable Eos % (Auto) Not Reportable Baso % (Auto) Not Reportable Lymph # (Auto) Not Reportable [place] # (Auto) Not Reportable Baso # (Auto) Not Reportable Total Counted 100 Seg Neutrophils % 49.0 Band Neutrophils % 41.0 H Lymphocytes % (Manual) 4.0 L Monocytes % (Manual) 5.0 Metamyelocytes % 1.0 H Neutrophils # (Manual) 61356 H RBC Morphology See below Anisocytosis 2+ H PT 20.1 H INR 1.7 H APTT 33 D Sodium Potassium Chloride Carbon Dioxide BUN Creatinine Estimated GFR BUN/Creatinine Ratio Glucose Lactate Calcium Total Bilirubin Conjugated Bilirubin Unconjugated Bilirubin AST ALT Alkaline Phosphatase Ammonia Total Creatine Kinase CK-MB (CK-2) CK-MB (CK-2) Rel Index Troponin I NT-Pro-B Natriuret Pep Total Protein Albumin Globulin Albumin/Globulin Ratio Lipase Procalcitonin 1.74 H Urine Color Urine Appearance Urine pH Ur Specific [place] Urine Protein Urine Glucose (UA) Urine Ketones Urine Occult Blood Urine Nitrate Urine Bilirubin Urine Urobilinogen Ur Leukocyte Esterase Urine RBC Urine WBC Urine Bacteria Ur Culture Indicated? Influenza A (RT-PCR) Influenza B (RT-PCR) 07/01/19 07/01/19 07/01/19 19:12 19:12 19:12 WBC RBC Hgb Hct MCV MCH MCHC RDW Plt Count Neut % (Auto) Lymph % (Auto) [place] % (Auto) Eos % (Auto) Baso % (Auto) Lymph # (Auto) [place] # (Auto) Baso # (Auto) Total Counted Seg Neutrophils % Band Neutrophils % Lymphocytes % (Manual) Monocytes % (Manual) Metamyelocytes % Neutrophils # (Manual) RBC Morphology Anisocytosis PT INR APTT Sodium 139 Potassium 3.6 Chloride 103 Carbon Dioxide 26 BUN 20 Creatinine 1.22 Estimated GFR > 60.0 BUN/Creatinine Ratio 16.4 Glucose 137 H Lactate 5.2 H* Calcium 9.2 Total Bilirubin 7.2 H Conjugated Bilirubin Unconjugated Bilirubin AST 48 ALT 22 Alkaline Phosphatase 82 Ammonia Total Creatine Kinase 91 CK-MB (CK-2) TNP CK-MB (CK-2) Rel Index TNP Troponin I 0.021 NT-Pro-B Natriuret Pep 3140 H Total Protein 7.8 Albumin 3.6 Globulin 4.2 H Albumin/Globulin Ratio 0.9 L Lipase 209 Procalcitonin Urine Color Urine Appearance Urine pH Ur Specific [place] Urine Protein Urine Glucose (UA) Urine Ketones Urine Occult Blood Urine Nitrate Urine Bilirubin Urine Urobilinogen Ur Leukocyte Esterase Urine RBC Urine WBC Urine Bacteria Ur Culture Indicated? Influenza A (RT-PCR) Influenza B (RT-PCR) 07/01/19 07/01/19 07/01/19 19:12 19:49 20:03 WBC RBC Hgb Hct MCV MCH MCHC RDW Plt Count Neut % (Auto) Lymph % (Auto) [place] % (Auto) Eos % (Auto) Baso % (Auto) Lymph # (Auto) [place] # (Auto) Baso # (Auto) Total Counted Seg Neutrophils % Band Neutrophils % Lymphocytes % (Manual) Monocytes % (Manual) Metamyelocytes % Neutrophils # (Manual) RBC Morphology Anisocytosis PT INR APTT Sodium Potassium Chloride Carbon Dioxide BUN Creatinine Estimated GFR BUN/Creatinine Ratio Glucose Lactate Calcium Total Bilirubin 7.0 H Conjugated Bilirubin 0.3 Unconjugated Bilirubin 5.6 H AST 48 ALT 22 Alkaline Phosphatase 82 Ammonia < 9 L Total Creatine Kinase CK-MB (CK-2) CK-MB (CK-2) Rel Index Troponin I NT-Pro-B Natriuret Pep Total Protein 7.8 Albumin 3.5 Globulin 4.3 H Albumin/Globulin Ratio 0.8 L Lipase Procalcitonin Urine Color Urine Appearance Urine pH Ur Specific [place] Urine Protein Urine Glucose (UA) Urine Ketones Urine Occult Blood Urine Nitrate Urine Bilirubin Urine Urobilinogen Ur Leukocyte Esterase Urine RBC Urine WBC Urine Bacteria Ur Culture Indicated? Influenza A (RT-PCR) Flu a negative Influenza B (RT-PCR) Flu b negative 07/01/19 07/01/19 21:59 22:27 WBC RBC Hgb Hct MCV MCH MCHC RDW Plt Count Neut % (Auto) Lymph % (Auto) [place] % (Auto) Eos % (Auto) Baso % (Auto) Lymph # (Auto) [place] # (Auto) Baso # (Auto) Total Counted Seg Neutrophils % Band Neutrophils % Lymphocytes % (Manual) Monocytes % (Manual) Metamyelocytes % Neutrophils # (Manual) RBC Morphology Anisocytosis PT INR APTT Sodium Potassium Chloride Carbon Dioxide BUN Creatinine Estimated GFR BUN/Creatinine Ratio Glucose Lactate 2.8 H Calcium Total Bilirubin Conjugated Bilirubin Unconjugated Bilirubin AST ALT Alkaline Phosphatase Ammonia Total Creatine Kinase CK-MB (CK-2) CK-MB (CK-2) Rel Index Troponin I NT-Pro-B Natriuret Pep Total Protein Albumin Globulin Albumin/Globulin Ratio Lipase Procalcitonin Urine Color Yellow Urine Appearance Clear Urine pH 6.5 Ur Specific [place] 1.010 Urine Protein Negative Urine Glucose (UA) Negative Urine Ketones Negative Urine Occult Blood 3+ H Urine Nitrate Negative Urine Bilirubin Negative Urine Urobilinogen 0.2 Ur Leukocyte Esterase Negative Urine RBC 1-5/hpf Urine WBC None seen Urine Bacteria Occasional (0-1) Ur Culture Indicated? Cult not indicated Influenza A (RT-PCR) Influenza B (RT-PCR) Assessment & Plan Assessment & Plan narrative: This is a 63-year-old male patient who presents to the ER [facility] and is found to be septic with elevated temperature of 103?, tachycardic at 125 with acute encephalopathy, congestive heart failure with worsening liver function. 1. Sepsis, with organ dysfunction, without shock, present on admission, acute -the patient patient began complaining of back pain and hip pain yesterday progressing today. Presents with a temperature of 103.1? and altered mentation -positive procalcitonin at 1.74 and a normal white count at 11.6 however 41% bandemia -SOFA score is 8 based on a PF ratio of 376, lactic acid on presentation of 5.2 scoring is also qualified by cirrhosis and an elevated total bili of 7.0 -differential diagnosis: Pneumonia, chest x-ray demonstrates diffuse bilateral opacities with moderate opacity right lower lobe on chest x-ray and redemonstrated on CT and read as atelectasis versus pneumonia, prominent cardiac silhouette, no cough. Possible bacteremia, history of prior endocarditis resulting in mitral valve replacement, blood cultures are pending. Colitis-No reported recent antibiotic exposures however patient was found to have Campylobacter on previous admission Spontaneous bacterial peritonitis, history of hepatitis C with liver cirrhosis. -ordered Zosyn 3.375 g IV every 6 hours 1st dose started in the ER. -obtain GI and respiratory PCR panels, patient screened for COVID-19 in the ER 2. Pneumonia, right lower lobe, present on admission, acute -no reports of shortness of breath though the patient has complained of back pain. -scattered crackles with breath sounds diminished in the bases right greater than left, no cough. -chest x-ray reveals moderate diffuse bilateral opacities, moderate opacity right lower lobe, CT similar finds atelectasis versus pneumonia right lower lobe. -ordered azithromycin 500 mg daily for 3 days for atypical coverage -obtain respiratory PCR panel. 3. Liver cirrhosis, present on admission, chronic, active. -history of hepatitis C and has completed sofosbuvir/velpatasvir therapy, has had hepatitis B vaccination. -patient jaundiced without complaints of abdominal pain on palpation, unable to palpate liver margin, no fluid wave, no reports of nausea or vomiting -total bilirubin is 7.0, AST is 48, ALT is 22 and alkaline phosphatase is 82, albumin is 3.5, platelets are 64.. -CT of the chest abdomen and pelvis reveals shrunken liver with nodular contour, new 28 mm low-density mass in the right hepatic lobe, also cholelithiasis with stones in the common duct which with mild ductal dilatation may be in part responsible for elevated bilirubin. -patient taking lactulose twice daily with associated loose stool, ammonia on admission is less than 9. -continue home regimen of 30 g of lactulose twice daily. -once screening completed for COVID-19, and sepsis stabilized will obtain an MRCP. 4. Toxic metabolic encephalopathy, acute, present on admission, active. -patient with altered mental status upon arrival minimally improved with IV hydration. -possible etiologies: Hepatic encephalopathy-ammonia is less than 9 however bilirubin is 7.0 and patient is jaundice. Acute infection-patient with pneumonia and positive infection markers with a lactic acid of 5.2 and procalcitonin of 1.74. New hepatic lesion-possible cancerous lesion. -the above etiologies will be evaluated and treated as indicated. 5. Liver mass right hepatic lobe, new finding probable acute, present on admission, active. -patient with history of hepatitis C and liver cirrhosis. -CT scan finds a new 28 mm low-density mass in the right hepatic lobe posteriorly. -ordered alpha-fetoprotein. 6. Paroxysmal Atrial flutter, not present on admission, chronic. -patient has not complained of chest pain or shortness of breath. -12 lead EKG demonstrates sinus tachycardia rate 122 with PVC, no ST changes but inferior lateral inverted T-waves. Troponin 0.021, BNP is 3140. -continue home regimen of metoprolol tartrate 25 mg twice daily. 7. Congestive heart failure diastolic with peripheral edema, present on admission, chronic. -echocardiogram completed 12/05/2017 demonstrates an EF 65-70% with well-seated mitral valve. Also acknowledges elevated right-sided filling pressures. -patient with 4+ bilateral pedal edema currently on Lasix 40 mg twice daily with potassium supplementation 20 mEq once daily -chest x-ray shows [place] mainly without pulmonary congestion. -Lasix 40 mg given in the ER, patient with continued crackles ordered Lasix 20 mg IV x1 now, will continue Lasix 40 mg twice daily. -will closely monitor her electrolytes and renal function. -bilateral lower extremity Mir wraps -following screening for COVID-19 will obtain echocardiogram. 8. Long-term anticoagulation, present on admission, chronic -subtherapeutic INR at 1.7. Unclear last dose of warfarin. -patient is taking warfarin 2.5 mg every other day. -will continue every other day dosing starting tomorrow and follow INR. VTE prophylaxis: Bilateral leg wraps, anticoagulated on warfarin. IV fluid: Normal saline 75 cc/hour Diet: NPO related to altered mental status. Code status: FULL CODE. The patient is admitted to the hospital for further evaluation of multiple complex interlacing medical problems requiring ongoing monitoring, treatment and further evaluation. The patient is admitted as an inpatient with expected length of stay to be greater than 2 midnights. Scores GCS [place] coma scale eye opening: To sound Sarah coma scale verbal response: Words Sarah coma scale motor response: Localising Sarah coma scale total score: 11 SOFA PaO2/FIO2: < 400 mmHg Platelets: < 100 Bilirubin: 6.0-11.9 mg/dL Hypotension: MAP >= 70 mmHg Sarah Coma Scale: 13-14 Renal: Creatinine 1.2-1.9 mg/dL SOFA Score: 8
[2019-07-02 00:57] LABS: Magnesium 1.6 mg/dL (1.6-2.3)
[2019-07-02] MEDS: LACTULOSE 20 GM/30 ML SOLUTION PO (01:10)
[2019-07-02] MEDS: SODIUM CHLORIDE 0.9% 1,000 ML 1000 ML IV (01:15)
[2019-07-02] MEDS: AZITHROMYCIN 500 MG in DEXTROSE 5% IN WATER 250 ML IV (02:46)
[2019-07-02] MEDS: FUROSEMIDE 20 MG/2 ML VIAL IV (02:47)
[2019-07-02] MEDS: SODIUM CHLORIDE 0.9% 1,000 ML 75 ML IV (02:47)
[2019-07-02] MEDS: PIPERACILLIN-TAZO 4.5 GM/100 ML FROZ.PIGGY IV ×4 (04:34→23:37)
--- NOTE | 2019-07-02 05:03 | PC.NURSE ---
Kerlex drsg. applied to right leg then wrap both legs with KAY wrap.
--- NOTE | 2019-07-02 05:04 | PC.NURSE ---
02 off since pt's Sats has been 100% on 2L, now 98 on RA and pt. has no shortness of breath resting in bed.
--- NOTE | 2019-07-02 05:33 | PC.NURSE ---
Pt. arrive to the unit via stretcher. Pt. is confused, and lethargic, was able to tell me his name and his birthday and when asked where he is at, his answer was [place]. Other questions, pt. does not answer even his height, only answer is about that much. Pt. denies pain, however when I touched his feet, noted him to be in discomfort and when asked if how bad his pain was, his answer was enough to slap you. Pictures taken on both legs which are both edematous, right leg/foot worse than the left with 4 tiny open lesions on the right leg. Both legs wrap with KAY wrap. Cont to monitor and treat.
[2019-07-02 06:55] LABS: Hematocrit 31.1 % (41-53); Hemoglobin 10.9 g/dL (13.5-17.5); Mean Corpuscular Hemoglobin 36.5 PG (26-34); Mean Corpuscular Volume 104.3 fL (80-100); Platelet Count 59 X10^3/uL (150-400); Red Blood Cell Count 2.98 X10^6/uL (4.5-5.9); Red Cell Distribution Width 18.3 % (11.6-14.8); White Blood Cell Count 8.2 X10^3/uL (4.5-11.0)
[2019-07-02 06:57] LABS: INR 1.9 (0.9-1.3); Prothrombin Time 21.5 SECONDS (10.1-12.7)
[2019-07-02 07:01] LABS: Alanine Aminotransferase 15 IU/L (<50); Albumin Globulin Ratio 0.8 (1.0-2.8); Alkaline Phosphatase 64 U/L (38-126); Aspartate Aminotransferase 43 IU/L (17-59); BUN Creatinine Ratio 16.7 (6-22); Bilirubin Conjugated 0.2 md/dL (0.0-0.3); Bilirubin Total 5.9 mg/dL (0.2-1.3); Bilirubin Unconjugated 4.8 mg/dL (0.0-1.1); Blood Urea Nitrogen 21 mg/dL (9-20); Calcium 8.1 mg/dL (8.4-10.2); Carbon Dioxide 26 mmol/L (22-32); Chloride 106 mmol/L (98-107); Estimated Glomerular Filt Rate 58.2 mL/min (>60); Globulin 3.8 g/dL (1.7-4.1); Glucose 131 mg/dL (80-110); HEMOLYSIS < 15 (0-50); Phosphorous 2.4 mg/dL (2.3-3.7); Potassium 3.5 mmol/L (3.4-5.1); Sodium 140 mmol/L (137-145); Total Protein 6.8 g/dL (6.3-8.2)
[2019-07-02 07:02] LABS: Add Manual Diff / Slide Review YES
[2019-07-02 07:10] LABS: NT-proBNP (BNP-Adult 18+) 4500 pg/mL (<125)
[2019-07-02 07:42] LABS: Dohle Bodies 2+; Neutrophils Absolute Manual 7298 /uL (3000-5900); Platelet Estimate Decreased on smear; Total Cells Counted 100; Toxic Vacuolation Present
[2019-07-02] MEDS: FUROSEMIDE 20 MG/2 ML VIAL 40 MG IV ×2 (08:20→20:16)
[2019-07-02] MEDS: LACTULOSE 20 GM/30 ML SOLUTION 30 GM PO ×2 (08:20→20:12)
[2019-07-02] MEDS: METOPROLOL IR 25 MG TABLET PO ×2 (08:20→20:11)
--- NOTE | 2019-07-02 10:12 | PT-IP ANOTE ---
Received orders and reviewed chart. Discussed pt in team rounds where hospitalist requested therapy hold evaluation today due to mental status. Will check on pt for appropriateness morning of 07/03/19.
--- NOTE | 2019-07-02 10:42 | OT.IPNOTE ---
Addendum entered by Concepción Mcadams LPN 07/02/19 14:13: Original Note: Per Pt hospitalist request hold from seeing pt today, to check on pt tomorrow.
[2019-07-02 14:56] LABS: Acinetobacter baumannii Not Detected (Not Detect); Enterococcus species Not Detected (Not Detect); Listeria monocytogenes Not Detected (Not Detect); Methicillin-resistant gene Not Detected (Not Detect); Staphylococcus species Detected (Not Detect); Streptococcus agalactiae (Gr B Not Detected (Not Detect); Streptococcus pneumonia Not Detected (Not Detect); Streptococcus pyogenes (Gr A) Not Detected (Not Detect); Streptococcus species Not Detected (Not Detect)
[2019-07-02 14:57] LABS: Candida albicans Not Detected (Not Detect); Candida glabrata Not Detected (Not Detect); Candida krusei Not Detected (Not Detect); Candida parapsilosis Not Detected (Not Detect); Candida tropicalis Not Detected (Not Detect); E. coli Not Detected (Not Detect); Enterobacter cloacae complex Not Detected (Not Detect); Haemophilus influenzae Not Detected (Not Detect); Neisseria meningitidis Not Detected (Not Detect); Pseudomonas aeruginosa Not Detected (Not Detect); Serratia marcescens Not Detected (Not Detect)
--- NOTE | 2019-07-02 15:00 | P.PN_ITS ---
Subjective Subjective Date Patient Seen: 07/02/19 Time Patient Seen: 15:00 Interval history: I have seen and evaluated the patient today and agree with the assessment and plan findings as documented in the admission H&P with the following additions. Patient's blood cultures returned positive for Staph aureus. He will remain on zosyn and will start vancomycin and will order a TTE as well. Exam Vital Signs (past 8 hours): - 07/02/19 07:42 07/02/19 08:15 07/02/19 11:00 Temperature 99.8 F H 100.1 F H Pulse Rate 97 H 109 H 75 Respiratory Rate 24 22 Blood Pressure 111/58 L 96/55 L Pulse Oximetry 96 95 94 Oxygen Delivery Method Room Air Oxygen Flow Rate 0 Objective Labs Result Diagrams: 07/02/19 06:35 07/02/19 06:35 Labs: Laboratory Results - last 24 hr 07/01/19 07/01/19 07/01/19 19:12 19:12 19:12 WBC 11.6 H RBC 3.30 L Hgb 12.1 L Hct 34.8 L MCV 103.8 H MCH 36.2 H MCHC 34.9 RDW 18.0 H Plt Count 64 L Neut % (Auto) Not Reportable Lymph % (Auto) Not Reportable [place] % (Auto) Not Reportable Eos % (Auto) Not Reportable Baso % (Auto) Not Reportable Lymph # (Auto) Not Reportable [place] # (Auto) Not Reportable Baso # (Auto) Not Reportable Total Counted 100 Seg Neutrophils % 49.0 Band Neutrophils % 41.0 H Lymphocytes % (Manual) 4.0 L Monocytes % (Manual) 5.0 Metamyelocytes % 1.0 H Myelocytes % Neutrophils # (Manual) 66654 H Toxic Vacuolation Dohle Bodies Platelet Estimate RBC Morphology See below Anisocytosis 2+ H PT 20.1 H INR 1.7 H APTT 33 D Sodium Potassium Chloride Carbon Dioxide BUN Creatinine Estimated GFR BUN/Creatinine Ratio Glucose Lactate Calcium Phosphorus Magnesium Total Bilirubin Conjugated Bilirubin Unconjugated Bilirubin AST ALT Alkaline Phosphatase Ammonia Total Creatine Kinase CK-MB (CK-2) CK-MB (CK-2) Rel Index Troponin I NT-Pro-B Natriuret Pep Total Protein Albumin Globulin Albumin/Globulin Ratio Lipase Procalcitonin 1.74 H Urine Color Urine Appearance Urine pH Ur Specific [place] Urine Protein Urine Glucose (UA) Urine Ketones Urine Occult Blood Urine Nitrate Urine Bilirubin Urine Urobilinogen Ur Leukocyte Esterase Urine RBC Urine WBC Urine Bacteria Ur Culture Indicated? Nasal Screen MRSA (PCR) A. baumannii (PCR) Jill albicans (PCR) C. glabrata (PCR) C. krusei (PCR) C. parapsilosis (PCR) C. tropicalis (PCR) Enterobacteriac sp PCR E. cloacae complex PCR Enterococcus sp PCR E. coli (PCR) H. influenzae (PCR) Influenza A (RT-PCR) Influenza B (RT-PCR) Klebsiella oxytoca PCR Klebsiella pneumoniae List. monocytogenes PCR N. meningitidis (PCR) Proteus species (PCR) Serratia marcescens PCR Staphylococcus sp PCR Staph aureus (PCR) mecA-Methicil Res Gene Streptococcus sp PCR Group A Strep (PCR) Strep agalactiae (PCR) Strep pneumoniae (PCR) P. aeruginosa (PCR) Shira/B-Vanco Res Genes KPC-Carbap Res Gene PCR 07/01/19 07/01/19 07/01/19 19:12 19:12 19:12 WBC RBC Hgb Hct MCV MCH MCHC RDW Plt Count Neut % (Auto) Lymph % (Auto) [place] % (Auto) Eos % (Auto) Baso % (Auto) Lymph # (Auto) [place] # (Auto) Baso # (Auto) Total Counted Seg Neutrophils % Band Neutrophils % Lymphocytes % (Manual) Monocytes % (Manual) Metamyelocytes % Myelocytes % Neutrophils # (Manual) Toxic Vacuolation Dohle Bodies Platelet Estimate RBC Morphology Anisocytosis PT INR APTT Sodium 139 Potassium 3.6 Chloride 103 Carbon Dioxide 26 BUN 20 Creatinine 1.22 Estimated GFR > 60.0 BUN/Creatinine Ratio 16.4 Glucose 137 H Lactate 5.2 H* Calcium 9.2 Phosphorus Magnesium Total Bilirubin 7.2 H Conjugated Bilirubin Unconjugated Bilirubin AST 48 ALT 22 Alkaline Phosphatase 82 Ammonia Total Creatine Kinase 91 CK-MB (CK-2) TNP CK-MB (CK-2) Rel Index TNP Troponin I 0.021 NT-Pro-B Natriuret Pep 3140 H Total Protein 7.8 Albumin 3.6 Globulin 4.2 H Albumin/Globulin Ratio 0.9 L Lipase 209 Procalcitonin Urine Color Urine Appearance Urine pH Ur Specific [place] Urine Protein Urine Glucose (UA) Urine Ketones Urine Occult Blood Urine Nitrate Urine Bilirubin Urine Urobilinogen Ur Leukocyte Esterase Urine RBC Urine WBC Urine Bacteria Ur Culture Indicated? Nasal Screen MRSA (PCR) A. baumannii (PCR) Jill albicans (PCR) C. glabrata (PCR) C. krusei (PCR) C. parapsilosis (PCR) C. tropicalis (PCR) Enterobacteriac sp PCR E. cloacae complex PCR Enterococcus sp PCR E. coli (PCR) H. influenzae (PCR) Influenza A (RT-PCR) Influenza B (RT-PCR) Klebsiella oxytoca PCR Klebsiella pneumoniae List. monocytogenes PCR N. meningitidis (PCR) Proteus species (PCR) Serratia marcescens PCR Staphylococcus sp PCR Staph aureus (PCR) mecA-Methicil Res Gene Streptococcus sp PCR Group A Strep (PCR) Strep agalactiae (PCR) Strep pneumoniae (PCR) P. aeruginosa (PCR) Shira/B-Vanco Res Genes KPC-Carbap Res Gene PCR 07/01/19 07/01/19 07/01/19 19:12 19:45 19:49 WBC RBC Hgb Hct MCV MCH MCHC RDW Plt Count Neut % (Auto) Lymph % (Auto) [place] % (Auto) Eos % (Auto) Baso % (Auto) Lymph # (Auto) [place] # (Auto) Baso # (Auto) Total Counted Seg Neutrophils % Band Neutrophils % Lymphocytes % (Manual) Monocytes % (Manual) Metamyelocytes % Myelocytes % Neutrophils # (Manual) Toxic Vacuolation Dohle Bodies Platelet Estimate RBC Morphology Anisocytosis PT INR APTT Sodium Potassium Chloride Carbon Dioxide BUN Creatinine Estimated GFR BUN/Creatinine Ratio Glucose Lactate Calcium Phosphorus Magnesium Total Bilirubin 7.0 H Conjugated Bilirubin 0.3 Unconjugated Bilirubin 5.6 H AST 48 ALT 22 Alkaline Phosphatase 82 Ammonia < 9 L Total Creatine Kinase CK-MB (CK-2) CK-MB (CK-2) Rel Index Troponin I NT-Pro-B Natriuret Pep Total Protein 7.8 Albumin 3.5 Globulin 4.3 H Albumin/Globulin Ratio 0.8 L Lipase Procalcitonin Urine Color Urine Appearance Urine pH Ur Specific [place] Urine Protein Urine Glucose (UA) Urine Ketones Urine Occult Blood Urine Nitrate Urine Bilirubin Urine Urobilinogen Ur Leukocyte Esterase Urine RBC Urine WBC Urine Bacteria Ur Culture Indicated? Nasal Screen MRSA (PCR) A. baumannii (PCR) Not detected Jill albicans (PCR) Not detected C. glabrata (PCR) Not detected C. krusei (PCR) Not detected C. parapsilosis (PCR) Not detected C. tropicalis (PCR) Not detected Enterobacteriac sp PCR Not Reportable E. cloacae complex PCR Not detected Enterococcus sp PCR Not detected E. coli (PCR) Not detected H. influenzae (PCR) Not detected Influenza A (RT-PCR) Influenza B (RT-PCR) Klebsiella oxytoca PCR Not detected Klebsiella pneumoniae Not detected List. monocytogenes PCR Not detected N. meningitidis (PCR) Not detected Proteus species (PCR) Not Reportable Serratia marcescens PCR Not detected Staphylococcus sp PCR Detected H Staph aureus (PCR) Detected H mecA-Methicil Res Gene Not detected Streptococcus sp PCR Not detected Group A Strep (PCR) Not detected Strep agalactiae (PCR) Not detected Strep pneumoniae (PCR) Not detected P. aeruginosa (PCR) Not detected Shira/B-Vanco Res Genes Not Reportable KPC-Carbap Res Gene PCR Not Reportable 07/01/19 07/01/19 07/01/19 20:03 21:59 21:59 WBC RBC Hgb Hct MCV MCH MCHC RDW Plt Count Neut % (Auto) Lymph % (Auto) [place] % (Auto) Eos % (Auto) Baso % (Auto) Lymph # (Auto) [place] # (Auto) Baso # (Auto) Total Counted Seg Neutrophils % Band Neutrophils % Lymphocytes % (Manual) Monocytes % (Manual) Metamyelocytes % Myelocytes % Neutrophils # (Manual) Toxic Vacuolation Dohle Bodies Platelet Estimate RBC Morphology Anisocytosis PT INR APTT Sodium Potassium Chloride Carbon Dioxide BUN Creatinine Estimated GFR BUN/Creatinine Ratio Glucose Lactate 2.8 H Calcium Phosphorus Magnesium 1.6 Total Bilirubin Conjugated Bilirubin Unconjugated Bilirubin AST ALT Alkaline Phosphatase Ammonia Total Creatine Kinase CK-MB (CK-2) CK-MB (CK-2) Rel Index Troponin I NT-Pro-B Natriuret Pep Total Protein Albumin Globulin Albumin/Globulin Ratio Lipase Procalcitonin Urine Color Urine Appearance Urine pH Ur Specific [place] Urine Protein Urine Glucose (UA) Urine Ketones Urine Occult Blood Urine Nitrate Urine Bilirubin Urine Urobilinogen Ur Leukocyte Esterase Urine RBC Urine WBC Urine Bacteria Ur Culture Indicated? Nasal Screen MRSA (PCR) A. baumannii (PCR) Jill albicans (PCR) C. glabrata (PCR) C. krusei (PCR) C. parapsilosis (PCR) C. tropicalis (PCR) Enterobacteriac sp PCR E. cloacae complex PCR Enterococcus sp PCR E. coli (PCR) H. influenzae (PCR) Influenza A (RT-PCR) Flu a negative Influenza B (RT-PCR) Flu b negative Klebsiella oxytoca PCR Klebsiella pneumoniae List. monocytogenes PCR N. meningitidis (PCR) Proteus species (PCR) Serratia marcescens PCR Staphylococcus sp PCR Staph aureus (PCR) mecA-Methicil Res Gene Streptococcus sp PCR Group A Strep (PCR) Strep agalactiae (PCR) Strep pneumoniae (PCR) P. aeruginosa (PCR) Shira/B-Vanco Res Genes KPC-Carbap Res Gene PCR 07/01/19 07/02/19 07/02/19 22:27 02:50 06:35 WBC 8.2 RBC 2.98 L Hgb 10.9 L Hct 31.1 L MCV 104.3 H MCH 36.5 H MCHC 35.0 RDW 18.3 H Plt Count 59 L Neut % (Auto) Not Reportable Lymph % (Auto) Not Reportable [place] % (Auto) Not Reportable Eos % (Auto) Not Reportable Baso % (Auto) Not Reportable Lymph # (Auto) Not Reportable [place] # (Auto) Not Reportable Baso # (Auto) Not Reportable Total Counted 100 Seg Neutrophils % 71.0 H Band Neutrophils % 18.0 H Lymphocytes % (Manual) 2.0 L Monocytes % (Manual) 7.0 Metamyelocytes % 1.0 H Myelocytes % 1.0 H Neutrophils # (Manual) 7298 H Toxic Vacuolation Present H Dohle Bodies 2+ H Platelet Estimate Decreased on smear RBC Morphology See below Anisocytosis PT INR APTT Sodium Potassium Chloride Carbon Dioxide BUN Creatinine Estimated GFR BUN/Creatinine Ratio Glucose Lactate Calcium Phosphorus Magnesium Total Bilirubin Conjugated Bilirubin Unconjugated Bilirubin AST ALT Alkaline Phosphatase Ammonia Total Creatine Kinase CK-MB (CK-2) CK-MB (CK-2) Rel Index Troponin I NT-Pro-B Natriuret Pep Total Protein Albumin Globulin Albumin/Globulin Ratio Lipase Procalcitonin Urine Color Yellow Urine Appearance Clear Urine pH 6.5 Ur Specific [place] 1.010 Urine Protein Negative Urine Glucose (UA) Negative Urine Ketones Negative Urine Occult Blood 3+ H Urine Nitrate Negative Urine Bilirubin Negative Urine Urobilinogen 0.2 Ur Leukocyte Esterase Negative Urine RBC 1-5/hpf Urine WBC None seen Urine Bacteria Occasional (0-1) Ur Culture Indicated? Cult not indicated Nasal Screen MRSA (PCR) Negative for mrsa A. baumannii (PCR) Jill albicans (PCR) C. glabrata (PCR) C. krusei (PCR) C. parapsilosis (PCR) C. tropicalis (PCR) Enterobacteriac sp PCR E. cloacae complex PCR Enterococcus sp PCR E. coli (PCR) H. influenzae (PCR) Influenza A (RT-PCR) Influenza B (RT-PCR) Klebsiella oxytoca PCR Klebsiella pneumoniae List. monocytogenes PCR N. meningitidis (PCR) Proteus species (PCR) Serratia marcescens PCR Staphylococcus sp PCR Staph aureus (PCR) mecA-Methicil Res Gene Streptococcus sp PCR Group A Strep (PCR) Strep agalactiae (PCR) Strep pneumoniae (PCR) P. aeruginosa (PCR) Shira/B-Vanco Res Genes KPC-Carbap Res Gene PCR 07/02/19 07/02/19 06:35 06:35 WBC RBC Hgb Hct MCV MCH MCHC RDW Plt Count Neut % (Auto) Lymph % (Auto) [place] % (Auto) Eos % (Auto) Baso % (Auto) Lymph # (Auto) [place] # (Auto) Baso # (Auto) Total Counted Seg Neutrophils % Band Neutrophils % Lymphocytes % (Manual) Monocytes % (Manual) Metamyelocytes % Myelocytes % Neutrophils # (Manual) Toxic Vacuolation Dohle Bodies Platelet Estimate RBC Morphology Anisocytosis PT 21.5 H INR 1.9 H APTT Sodium 140 Potassium 3.5 Chloride 106 Carbon Dioxide 26 BUN 21 H Creatinine 1.26 H Estimated GFR 58.2 L BUN/Creatinine Ratio 16.7 Glucose 131 H Lactate Calcium 8.1 L Phosphorus 2.4 Magnesium Total Bilirubin 5.9 H Conjugated Bilirubin 0.2 Unconjugated Bilirubin 4.8 H AST 43 ALT 15 Alkaline Phosphatase 64 Ammonia Total Creatine Kinase CK-MB (CK-2) CK-MB (CK-2) Rel Index Troponin I NT-Pro-B Natriuret Pep 4500 H Total Protein 6.8 Albumin 3.0 L Globulin 3.8 Albumin/Globulin Ratio 0.8 L Lipase Procalcitonin Urine Color Urine Appearance Urine pH Ur Specific [place] Urine Protein Urine Glucose (UA) Urine Ketones Urine Occult Blood Urine Nitrate Urine Bilirubin Urine Urobilinogen Ur Leukocyte Esterase Urine RBC Urine WBC Urine Bacteria Ur Culture Indicated? Nasal Screen MRSA (PCR) A. baumannii (PCR) Jill albicans (PCR) C. glabrata (PCR) C. krusei (PCR) C. parapsilosis (PCR) C. tropicalis (PCR) Enterobacteriac sp PCR E. cloacae complex PCR Enterococcus sp PCR E. coli (PCR) H. influenzae (PCR) Influenza A (RT-PCR) Influenza B (RT-PCR) Klebsiella oxytoca PCR Klebsiella pneumoniae List. monocytogenes PCR N. meningitidis (PCR) Proteus species (PCR) Serratia marcescens PCR Staphylococcus sp PCR Staph aureus (PCR) mecA-Methicil Res Gene Streptococcus sp PCR Group A Strep (PCR) Strep agalactiae (PCR) Strep pneumoniae (PCR) P. aeruginosa (PCR) Shira/B-Vanco Res Genes KPC-Carbap Res Gene PCR Assessment & Plan Assessment & Plan narrative: This is a 63-year-old male patient who presents to the ER [facility] and is found to be septic with elevated temperature of 103?, tachycardic at 125 with acute encephalopathy, congestive heart failure with wor sening liver function, source has been found to be staph bacteremia today and vancomycin will be added to regimen while azithromycin discontinued. 1. Sepsis, with organ dysfunction, without shock, present on admission, acute -the patient patient began complaining of back pain and hip pain yesterday progressing today. Presents with a temperature of 103.1? and altered mentation -positive procalcitonin at 1.74 and a normal white count at 11.6 however 41% bandemia -SOFA score is 8 based on a PF ratio of 376, lactic acid on presentation of 5.2 scoring is also qualified by cirrhosis and an elevated total bili of 7.0 -differential diagnosis: -Pneumonia, chest x-ray demonstrates diffuse bilateral opacities with moderate opacity right lower lobe on chest x-ray and redemonstrated on CT and read as atelectasis versus pneumonia, prominent cardiac silhouette, no cough. 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 -Spontaneous bacterial peritonitis, history of hepatitis C with liver cirrhosis. No ascites is noted on abdominal imaging to be able to perform para centesis. -ordered Zosyn 3.375 g IV every 6 hours 1st dose started in the ER. Added vancomycin given bacteremia. -GI panel negative, respiratory panel negative. COVID 19 pending. 2. Pneumonia, right lower lobe, present on admission, acute -no reports of shortness of breath though the patient has complained of back pain. -scattered crackles with breath sounds diminished in the bases right greater than left, no cough. It is possible radiographic findings are more consistent with volume overload from cirrhosis. -chest x-ray reveals moderate diffuse bilateral opacities, moderate opacity right lower lobe, CT similar finds atelectasis versus pneumonia right lower lobe. -continue zosyn and vancomycin as noted above. -PCR panel negative. 3. Liver cirrhosis, present on admission, chronic, active. -history of hepatitis C and has completed sofosbuvir/velpatasvir therapy, has had hepatitis B vaccination. -patient jaundiced without complaints of abdominal pain on palpation, unable to palpate liver margin, no fluid wave, no reports of nausea or vomiting -total bilirubin is 7.0, AST is 48, ALT is 22 and alkaline phosphatase is 82, albumin is 3.5, platelets are 64 on admission, slightly improving now. -CT of the chest abdomen and pelvis reveals shrunken liver with nodular contour, new 28 mm low-density mass in the right hepatic lobe, also cholelithiasis with stones in the common duct which with mild ductal dilatation may be in part responsible for elevated bilirubin. -patient taking lactulose twice daily with associated loose stool, ammonia on admission is less than 9. -continue home regimen of 30 g of lactulose twice daily. -once screening completed for COVID-19, and sepsis stabilized consider MRCP however given staph bacteremia this is less likely the source. 4. Toxic metabolic encephalopathy, acute, present on admission, active. -patient with altered mental status upon arrival minimally improved with IV hydration. -possible etiologies: Hepatic encephalopathy-ammonia is less than 9 however bilirubin is 7.0 and patient is jaundice. Acute infection-patient with pneumonia and positive infection markers with a lactic acid of 5.2 and procalcitonin of 1.74. New hepatic lesion-possible cancerous lesion. -the above etiologies will be evaluated and treated as indicated. 5. Liver mass right hepatic lobe, new finding probable acute, present on admission, active. -patient with history of hepatitis C and liver cirrhosis. -CT scan finds a new 28 mm low-density mass in the right hepatic lobe posteriorly. -ordered alpha-fetoprotein. 6. Paroxysmal Atrial flutter, not present on admission, chronic. -patient has not complained of chest pain or shortness of breath. -12 lead EKG demonstrates sinus tachycardia rate 122 with PVC, no ST changes but inferior lateral inverted T-waves. Troponin 0.021, BNP is 3140. -continue home regimen of metoprolol tartrate 25 mg twice daily. 7. Congestive heart failure diastolic with peripheral edema, present on admission, chronic. -echocardiogram completed 12/05/2017 demonstrates an EF 65-70% with well-seated mitral valve. Also acknowledges elevated right-sided filling pressures. -patient with 4+ bilateral pedal edema currently on Lasix 40 mg twice daily with potassium supplementation 20 mEq once daily -chest x-ray shows cardiomegaly and bilateral patchy infiltrates which may be due to volume overload from cirrhosis or diastolic heart failure. -Lasix 40 mg given in the ER, patient with continued crackles ordered Lasix 20 mg IV x1 now, will continue Lasix 40 mg twice daily. -will closely monitor her electrolytes and renal function. -bilateral lower extremity Mir wraps -echocardiogram has ebeen ordered as noted above. 8. Long-term anticoagulation, present on admission, chronic -subtherapeutic INR at 1.7. Unclear last dose of warfarin. -patient is taking warfarin 2.5 mg every other day. -will continue every other day dosing starting tomorrow and follow INR. VTE prophylaxis: Bilateral leg wraps, anticoagulated on warfarin. IV fluid: D/c Given possible congestion and appears overloaded. Started IV lasix. Diet: Started clears, advance if mental status improves. Code status: FULL CODE. Quality VTE Deep Vein Thrombosis/Pulmonary Embolism Present on Admission: Yes
--- NOTE | 2019-07-02 15:03 | DI.ECHO.S_ITS ---
[facility] +---------+ : : [id number] : : : : [id number] : : : : Phone: [phone] Echocardiogram Report + + :Name: UTE PENDLETON Study Date: 07/03/2019 Height: 69 in : :[facility] Weight: 227 lb : : Gender: Male BSA: 2.2 m2 : :: 1955 Age: 63 yrs BP: 112/67 mmHg: :Reason For Study: STAPH : : Performed By: Greyson Gunderson : :Referring: DONTA EUCEDA : + + Interpretation Summary NSR with HR 90-95 bpm. Normal LV size and wall thickness; normal wall motion and LV systolic function. LV is hyperdynamic with EF 70-75%. Severe biatrial enlargement and severe RV enlargement with mild-moderately reduced RV function. There is D shaped LV in systole and diastole c/w RV pressure overload. Estimated PA systolic pressure is 65 mm Hg assuming RA pressure of 10 mm Hg. There is atrial septal defect with left to right shunting. Mitral valve is replaced by history with a stented bioprosthesis. There is severe mitral stenosis with mean gradient of 12 mm Hg and peak velocity of 2.9 m/sec. There is severe TR. Compared to prior study 12/05/2017 mitral stenosis has progressed. mean gradient across mitral valve ja from 9 to 12 mm Hg. PA systolic pressure ja from 33 to 65 mm Hg. Atrial septal defect is new. Procedure: A two-dimensional transthoracic echocardiogram with color flow and Doppler was performed. The study quality was technically adequate. Comparison is made with the echocardiogram of 12/05/17. The patient was in normal sinus rhythm during the exam. Left Ventricle: The left ventricle is normal in size. There is normal left ventricular wall thickness. The ejection fraction is estimated to be 70-75%. There are no focal wall motion abnormalities. The interventricular septum is flattened, consistent with a right ventricular volume overload condition. Right Ventricle: The right ventricle is moderate to severely dilated. Right ventricular systolic function is mild to moderately reduced. Atria: Both atria are severely dilated. There is a moderate to large secundum ASD is present with predominantly [id number] flow except on inspiration when the ASD flow is reversed right to left. The QP/QS is 1.61. Mitral Valve: There is a bioprosthetic mitral valve. The prosthetic mitral valve is well-seated. The flow thru the mitral valve is estimated to be 2.86 m/s. The mean pressure gradient is 12.12 mmHg. There is no mitral regurgitation noted. Aortic Valve: The aortic valve is trileaflet. The aortic valve opens well. There is trace aortic regurgitation. Tricuspid Valve: The tricuspid valve leaflets are thin and pliable. There is severe tricuspid regurgitation. The right ventricular systolic pressure is estimated to be at least 65 mmHg based on an estimated right atrial pressure of 8 mm Hg. Pulmonic Valve: The pulmonic valve is normal in structure and function. There is trace pulmonic regurgitation. Great Vessels: The aortic root is normal size. The ascending aorta is at the upper limits of normal in size. The pulmonary artery is normal size. The IVC is dilated (diameter is greater than 2.1 cm) yet it collapses greater than 50% with a sniff. This suggests a right atrial pressure of 8 mm Hg. Pericardium/ Pleura There is no pericardial effusion. There is no pleural effusion. MMode/2D Measurements & Calculations LVIDd: 4.2 cm LVOT diam: 2.7 cm LVIDs: 2.0 cm asc Aorta Diam: 3.5 cm FS: 51.8 % Ao Arch Diam (Prox Trans): 2.6 cm IVSd: 0.98 cm LVPWd: 0.99 cm LV francisco. diameter/BSA (cm/m^2): 1.9 LV sys. diameter/BSA (cm/m^2): 0.93 LA dimension: 5.8 cm RA long axis: 6.2 cm LA A2 area: 40.2 cm2 RA area: 32.5 cm2 LA A4 area: 40.7 cm2 RA vol: 145.7 ml LA length (vol): 7.5 cm RA : 66.8 ml/m2 LA vol: 186.1 ml IVC diam: 3.1 cm LA vol index: 85.4 ml/m2 RVD1 (basal): 5.9 cm RVD2 (mid): 5.8 cm TAPSE: 1.1 cm Doppler Measurements & Calculations Ao V2 max: 131.4 cm/sec LVOT Max George: 93.4 cm/sec Ao V2 mean: 107.4 cm/sec LV V1 max P.5 mmHg Ao max P.9 mmHg LV V1 VTI: 15.6 cm Ao mean P.9 mmHg ANSELMO(I,D): 3.9 cm2 Ao V2 VTI: 22.5 cm ANSELMO(V,D): 4.0 cm2 sev ratio: 0.69 ANSELMO indexed to BSA (cm^2/m^2): 1.8 MV E max george: 240.5 cm/sec TR max george: 378.6 cm/sec MV A max george: 179.6 cm/sec TR max P.3 mmHg MV E/A: 1.3 PA V2 max: 90.4 cm/sec Med Peak E' George: 6.4 cm/sec PA V2 mean: 72.4 cm/sec E/E' med: 37.4 PA mean P.2 mmHg Lat Peak E' George: 6.1 cm/sec PA pr(Accel): 34.1 mmHg E/E' lat: 39.4 E/e' average: 38.4 MV dec time: 0.76 sec MVA(VTI): 1.5 cm2 MV V2 mean: 172.2 cm/sec SV(LVOT): 88.3 ml MV mean P.1 mmHg MV V2 VTI: 59.0 cm Electronically signed by: Shagufta Campbell M.D. on Reading Physician:07/03/2019 02:10 PM
--- NOTE | 2019-07-02 15:03 | PC.NURSE ---
+ blood culture for staph, Dr Chacko made aware.
[2019-07-02] MEDS: VANCOMYCIN 1,000 MG/200 ML PIGGYBACK 200 MG IV (15:49)
[2019-07-02] MEDS: WARFARIN 2.5 MG TABLET PO (17:20)
[2019-07-02] MEDS: MAGNESIUM SULFATE 2 GM/50 ML PIGGYBACK IV (20:13)
[2019-07-02] MEDS: POTASSIUM CHLORIDE 20 MEQ TAB 40 MEQ PO (20:13)
--- NOTE | 2019-07-02 22:04 | PC.NURSE ---
End of shift note for ELVI Carcamo positive x2 for Staph Aureus, Vanco added to antibiotics as ordered. More alert this evening asking questions about diagnosis. Mag and K replaced, HR 76. Remains on room air, sats 96% Both lower extremities elevated and heels offloaded, denies pain in either extremity.
[2019-07-03] VITALS (7 sets, daily range): BP systolic 100–112; BP diastolic 56–67; PULSE 68–92; RESP 18–21; TEMP 36.8–37.8; O2SAT 92–99
[2019-07-03] MEDS: PIPERACILLIN-TAZO 4.5 GM/100 ML FROZ.PIGGY IV ×4 (04:25→22:36)
[2019-07-03] MEDS: VANCOMYCIN 1,000 MG/200 ML PIGGYBACK 200 MG IV ×2 (05:04→16:31)
[2019-07-03 05:10] LABS: Hemoglobin 10.9 g/dL (13.5-17.5); Mean Corpuscular HGB Conc 35.2 % (30-36); Mean Corpuscular Hemoglobin 36.7 PG (26-34); Mean Corpuscular Volume 104.3 fL (80-100); Platelet Count 68 X10^3/uL (150-400); Red Blood Cell Count 2.97 X10^6/uL (4.5-5.9); Red Cell Distribution Width 18.4 % (11.6-14.8); White Blood Cell Count 7.6 X10^3/uL (4.5-11.0)
[2019-07-03 05:12] LABS: INR 1.8 (0.9-1.3); Prothrombin Time 20.7 SECONDS (10.1-12.7)
[2019-07-03 05:17] LABS: Alanine Aminotransferase 15 IU/L (<50); Albumin 2.7 g/dL (3.5-5.0); Albumin Globulin Ratio 0.7 (1.0-2.8); Alkaline Phosphatase 62 U/L (38-126); Aspartate Aminotransferase 45 IU/L (17-59); BUN Creatinine Ratio 19.6 (6-22); Bilirubin Conjugated 0.6 md/dL (0.0-0.3); Bilirubin Total 5.7 mg/dL (0.2-1.3); Bilirubin Unconjugated 4.1 mg/dL (0.0-1.1); Blood Urea Nitrogen 22 mg/dL (9-20); Carbon Dioxide 29 mmol/L (22-32); Chloride 104 mmol/L (98-107); Estimated Glomerular Filt Rate > 60.0 mL/min (>60); Glucose 112 mg/dL (80-110); HEMOLYSIS 22 (0-50); Potassium 3.5 mmol/L (3.4-5.1); Sodium 136 mmol/L (137-145); Total Protein 6.7 g/dL (6.3-8.2)
[2019-07-03 05:23] LABS: Add Manual Diff / Slide Review YES
[2019-07-03 06:03] LABS: Neutrophils Absolute Manual 6308 /uL (3000-5900); Total Cells Counted 100
[2019-07-03 06:04] LABS: Anisocytosis 2+; Macrocytosis 1+; Platelet Estimate Decreased on smear
[2019-07-03 06:47] LABS: Alpha Fetoprotein 2.1 ng/mL (0.0-8.3)
--- NOTE | 2019-07-03 08:36 | CM.DANOTE ---
Addendum entered by Concepción Mcadams LPN 07/03/19 10:30: Case discussed in Team Rounds. Dr. Chacko states ECHO is needed and pending those results pt MAY need to transfer for a ZEHRA. DCP team will be following. Original Note: Discharge Planning/Care Management DCP: assessment: Case received yesterday and discussed in Team Rounds. COVID-[address]....A check on this today shows that test did come back -. Pt is now on Contact Precautions and this morning is markedly more alert. Met with him just now and introduced self and role. Pt was found sitting up in bed, says he is eager to hear from the doctor about his diagnosis and treatment plan. Pt is a 63 year old male who admitted yesterday morning to care of hospitalist team. PCP: he has just been assigned to a new provider at the [facility] on [facility]. He has seen this provider once and does not recall the name. He notes he has several specialists that he sees. Payer: [place]/Medicaid Admission Status: INPT: per [facility] DORY Astudillo Pt lives with his long time self described partner: Jaida LandersMaryse) Enmn: [phone]. He expects to return to her home once he is stable for a d/c to that setting. Full dx and plan are in process. Pt is + for staph aureus and Dr. Chacko has adjusted his IV antibiotics. Pt has a history of advanced liver disease and endocarditis. PT will be ordered when pt medically stable for same. P: discussed today in Team Rounds....DCP team will be following POC unfolds to help with d/c issues and options. CM Discharge Assessment Start: 07/03/19 08:33 Freq: Status: Active Protocol: Document 07/03/19 08:34 ITV (Rec: 07/03/19 08:36 ITV [id number]) Discharge Planning Assessment History Provided By Patient,Medical Record Household Members significant other Independent with ADL's Yes Is patient alert and oriented? Yes Review Status In Process
[2019-07-03 08:42] LABS: COVID19 Sendout Not Detected
[2019-07-03] MEDS: LACTULOSE 20 GM/30 ML SOLUTION 30 GM PO ×2 (08:58→21:00)
[2019-07-03] MEDS: FUROSEMIDE 20 MG/2 ML VIAL 40 MG IV ×2 (08:58→20:59)
[2019-07-03] MEDS: METOPROLOL IR 25 MG TABLET PO (08:58)
--- NOTE | 2019-07-03 09:49 | DI.US.S_ITS ---
PROCEDURE: US EXTREMITY NONVASC LOWER RT INDICATIONS: EVAL FOR FLUID COLLECTION. ABSCESS RIGHT FOOT TECHNIQUE: Real-time scanning was performed of the anteromedial right lower leg, with image documentation. COMPARISON: None. FINDINGS: Extensive soft tissue edema and swelling in anterior medial right lower leg extending to dorsum of right foot is seen with ill-defined and small pockets of fluid suggestive of severe cellulitis and edema with small pockets of abscess collections. No discrete drainable abscess collection is identified. IMPRESSION: Extensive cellulitis and edema in right lower leg extending to dorsum of right foot with underlying small pockets of fluid collections concerning for small abscess collections. No discrete drainable collection is seen. Dictated by: Dago Herzog M.D. on 07/03/2019 at 11:37 Approved by: Dago Herzog M.D. on 07/03/2019 at 11:42
--- NOTE | 2019-07-03 10:10 | PM.PN.1 ---
Subjective Subjective Date Patient Seen: 07/03/19 Time Patient Seen: 11:11 Interval history: This is a 63-year-old male patient with past medical history of end-stage liver disease, paroxysmal atrial flutter on anticoagulation, diastolic heart failure, and previous endocarditis with valve replacement who presented with toxic metabolic encephalopathy and is admitted with sepsis secondary to Staph bacteremia. He is seen for follow-up today. He is much more alert today and was asking appropriate questions. He did complain of right foot pain and after stopping fluids it was more evident that his right foot was more swollen than his left this morning and slightly erythematous. An ultrasound has been ordered to evaluate for possible abscess given Staph bacteremia to evaluate this is a possible source. His COVID-19 testing was negative. Echocardiogram is also pending. His bilirubin is steadily improving as are his lab values. He had a bowel movement this morning and will work with physical therapy today. Exam Vital Signs (past 8 hours): - 07/03/19 04:31 Temperature 98.9 F Pulse Rate 77 Respiratory Rate 18 Blood Pressure 108/63 Pulse Oximetry 93 Oxygen Delivery Method Room Air Oxygen Flow Rate 0 Narrative Exam Narrative: GENERAL APPEARANCE: Well developed, well nourished, appears ill and lethargic but in no acute distress. SKIN: Inspection of the skin reveals no rashes, ulcerations or petechiae. He is slightly jaundiced. HEENT: Normocephalic atraumatic, extraocular muscles are intact, oropharynx is clear and mucous membranes are moist, neck is supple without adenopathy NECK: Supple and symmetric. There was no thyroid enlargement, and no tenderness, or masses were felt. CHEST: Normal AP diameter and normal contour without any kyphoscoliosis. LUNGS: Auscultation of the lungs revealed diminished breath sounds at bilateral lung bases, no wheezes or rhonchi were appreciated. CARDIOVASCULAR: There was a regular rate and rhythm without any murmurs, gallops, rubs. Peripheral pulses were 2+ and symmetric. ABDOMEN: Soft and nontender with normal bowel sounds. No ascites was noted. MUSCULOSKELETAL: Tenderness of his right foot noted below. Muscle strength and tone are normal. EXTREMITIES: No cyanosis or clubbing. There is bilateral lower extremity edema with right greater than left. There is also a large area of mild erythema and increased swelling in his right foot that is also tender. NEUROLOGIC: Alert and oriented x 3. Slightly lethargic. Objective Labs Result Diagrams: 07/03/19 04:50 07/03/19 04:50 Labs: Laboratory Results - last 24 hr 07/01/19 07/01/19 07/02/19 19:45 20:03 06:35 WBC RBC Hgb Hct MCV MCH MCHC RDW Plt Count Neut % (Auto) Lymph % (Auto) [place] % (Auto) Eos % (Auto) Baso % (Auto) Lymph # (Auto) [place] # (Auto) Baso # (Auto) Total Counted Seg Neutrophils % Band Neutrophils % Lymphocytes % (Manual) Monocytes % (Manual) Eosinophils % (Manual) Neutrophils # (Manual) Platelet Estimate RBC Morphology Anisocytosis Macrocytosis PT INR Sodium Potassium Chloride Carbon Dioxide BUN Creatinine Estimated GFR BUN/Creatinine Ratio Glucose Calcium Total Bilirubin Conjugated Bilirubin Unconjugated Bilirubin AST ALT Alkaline Phosphatase Total Protein Albumin Globulin Albumin/Globulin Ratio Alpha Fetoprotein 2.1 A. baumannii (PCR) Not detected Jill albicans (PCR) Not detected C. glabrata (PCR) Not detected C. krusei (PCR) Not detected C. parapsilosis (PCR) Not detected C. tropicalis (PCR) Not detected COVID-19 PCR Not detected Enterobacteriac sp PCR Not Reportable E. cloacae complex PCR Not detected Enterococcus sp PCR Not detected E. coli (PCR) Not detected H. influenzae (PCR) Not detected Klebsiella oxytoca PCR Not detected Klebsiella pneumoniae Not detected List. monocytogenes PCR Not detected N. meningitidis (PCR) Not detected Proteus species (PCR) Not Reportable Serratia marcescens PCR Not detected Staphylococcus sp PCR Detected H Staph aureus (PCR) Detected H mecA-Methicil Res Gene Not detected Streptococcus sp PCR Not detected Group A Strep (PCR) Not detected Strep agalactiae (PCR) Not detected Strep pneumoniae (PCR) Not detected P. aeruginosa (PCR) Not detected Shira/B-Vanco Res Genes Not Reportable KPC-Carbap Res Gene PCR Not Reportable 07/03/19 07/03/19 07/03/19 04:50 04:50 04:50 WBC 7.6 RBC 2.97 L Hgb 10.9 L Hct 31.0 L MCV 104.3 H MCH 36.7 H MCHC 35.2 RDW 18.4 H Plt Count 68 L Neut % (Auto) Not Reportable Lymph % (Auto) Not Reportable [place] % (Auto) Not Reportable Eos % (Auto) Not Reportable Baso % (Auto) Not Reportable Lymph # (Auto) Not Reportable [place] # (Auto) Not Reportable Baso # (Auto) Not Reportable Total Counted 100 Seg Neutrophils % 76.0 H Band Neutrophils % 7.0 Lymphocytes % (Manual) 4.0 L Monocytes % (Manual) 7.0 Eosinophils % (Manual) 6.0 H Neutrophils # (Manual) 6308 H Platelet Estimate Decreased on smear RBC Morphology See below Anisocytosis 2+ H Macrocytosis 1+ H PT 20.7 H INR 1.8 H Sodium 136 L Potassium 3.5 Chloride 104 Carbon Dioxide 29 BUN 22 H Creatinine 1.12 Estimated GFR > 60.0 BUN/Creatinine Ratio 19.6 Glucose 112 H Calcium 8.0 L Total Bilirubin 5.7 H Conjugated Bilirubin 0.6 H Unconjugated Bilirubin 4.1 H AST 45 ALT 15 Alkaline Phosphatase 62 Total Protein 6.7 Albumin 2.7 L Globulin 4.0 Albumin/Globulin Ratio 0.7 L Alpha Fetoprotein A. baumannii (PCR) Jill albicans (PCR) C. glabrata (PCR) C. krusei (PCR) C. parapsilosis (PCR) C. tropicalis (PCR) COVID-19 PCR Enterobacteriac sp PCR E. cloacae complex PCR Enterococcus sp PCR E. coli (PCR) H. influenzae (PCR) Klebsiella oxytoca PCR Klebsiella pneumoniae List. monocytogenes PCR N. meningitidis (PCR) Proteus species (PCR) Serratia marcescens PCR Staphylococcus sp PCR Staph aureus (PCR) mecA-Methicil Res Gene Streptococcus sp PCR Group A Strep (PCR) Strep agalactiae (PCR) Strep pneumoniae (PCR) P. aeruginosa (PCR) Shira/B-Vanco Res Genes KPC-Carbap Res Gene PCR Assessment & Plan Assessment & Plan narrative: This is a 63-year-old male patient with past medical history of end-stage liver disease, paroxysmal atrial flutter on anticoagulation, diastolic heart failure, and previous endocarditis with valve replacement who presented with toxic metabolic encephalopathy and is admitted with sepsis secondary to Staph bacteremia. 1. Sepsis, with organ dysfunction, without shock, present on admission, acute -the patient patient began complaining of back pain and hip pain. Presented with a temperature of 103.1? and altered mentation -positive procalcitonin at 1.74 and a normal white count at 11.6 however 41% bandemia on admission. WBC count improving on antibiotics. Blood cultures pending sensitivities but currently with staph aureus. -SOFA score is 8 based on a PF ratio of 376, lactic acid on presentation of 5.2 scoring is also qualified by cirrhosis and an elevated total bili of 7.0 -differential diagnosis: -Pneumonia, chest x-ray demonstrates diffuse bilateral opacities with moderate opacity right lower lobe on chest x-ray and redemonstrated on CT and read as atelectasis versus pneumonia, prominent cardiac silhouette, no cough. -RLE abscess is also a possibility, pending ultrasound today. 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 -Spontaneous bacterial peritonitis, history of hepatitis C with liver cirrhosis. No ascites is noted on abdominal imaging to be able to perform paracentesis. -Continue Zosyn 3.375 g IV every 6 hours 1st dose started in the ER and vancomycin per pharmacy. -GI panel negative, respiratory panel negative. COVID 19 negative. 2. Pneumonia, right lower lobe, present on admission, acute -no reports of shortness of breath though the patient has complained of back pain. -scattered crackles with breath sounds diminished in the bases right greater than left, no cough. It is possible radiographic findings are more consistent with volume overload from cirrhosis. -chest x-ray reveals moderate diffuse bilateral opacities, moderate opacity right lower lobe, CT similar finds atelectasis versus pneumonia right lower lobe. -continue zosyn and vancomycin as noted above. -PCR panel negative. 3. Liver cirrhosis, present on admission, chronic, active. -history of hepatitis C and has completed sofosbuvir/velpatasvir therapy, has had hepatitis B vaccination. -patient jaundiced without complaints of abdominal pain -total bilirubin is 7.0, AST is 48, ALT is 22 and alkaline phosphatase is 82, albumin is 3.5, platelets are 64 on admission, slightly improving now. -CT of the chest abdomen and pelvis reveals shrunken liver with nodular contour, new 28 mm low-density mass in the right hepatic lobe, also cholelithiasis with stones in the common duct which with mild ductal dilatation may be in part responsible for elevated bilirubin. -patient taking lactulose twice daily with associated loose stool, ammonia on admission is less than 9. -continue home regimen of 30 g of lactulose twice daily. -consider MRCP however this is felt less likely to be the source of infection. 4. Toxic metabolic encephalopathy, acute, present on admission, improving. -patient with altered mental status upon arrival minimally improved with IV hydration this has improved with treatment of underlying sepsis. He remains slightly lethargic today. 5. Liver mass right hepatic lobe, new finding probable acute, present on admission, active. -patient with history of hepatitis C and liver cirrhosis. -CT scan finds a new 28 mm low-density mass in the right hepatic lobe posteriorly. -ordered alpha-fetoprotein. 6. Paroxysmal Atrial flutter, not present on admission, chronic. -patient has not complained of chest pain or shortness of breath. -12 lead EKG demonstrates sinus tachycardia rate 122 with PVC, no ST changes but inferior lateral inverted T-waves. Troponin 0.021, BNP is 3140. -continue home regimen of metoprolol tartrate 25 mg twice daily. -continue lasix IV BID 7. Congestive heart failure diastolic with peripheral edema, present on admission, chronic. -echocardiogram completed 12/05/2017 demonstrates an EF 65-70% with well-seated mitral valve. Also acknowledges elevated right-sided filling pressures. -patient with 4+ bilateral pedal edema currently on Lasix 40 mg twice daily with potassium supplementation 20 mEq once daily -chest x-ray shows cardiomegaly and bilateral patchy infiltrates which may be due to volume overload from cirrhosis or diastolic heart failure. -Lasix 40 mg given in the ER, will continue Lasix 40 mg twice daily. -will closely monitor her electrolytes and renal function. -pending TTE as noted above 8. Long-term anticoagulation, present on admission, chronic -subtherapeutic INR at 1.7 on admission, now at 1.8. -patient is taking warfarin 2.5 mg every other day. -will continue every other day dosing starting today and follow INR. VTE prophylaxis: Bilateral leg wraps, anticoagulated on warfarin. IV fluid: D/c Given possible congestion and appears overloaded. Started IV lasix as noted above. Diet: Continue clear liquids Code status: FULL CODE. Quality VTE Deep Vein Thrombosis/Pulmonary Embolism Present on Admission: Yes
--- NOTE | 2019-07-03 13:19 | OT.IP.EVAL ---
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 Mobility and Gait Pt states that he uses a SPC most of the time and used the 4WW for longer distances or outside mobility. Activities of Daily Living and IADL's Pt states that he was IND with bathing and dressing with DME but that his GF helps him when needed. Social History Household Members significant other Living Arrangements Mobile home Number of Floors (Floors) One Floor Number of Stairs To Enter/Railing? 4 with B rails Home Environment Standard Height Toilet,Tub/ Shower Home Equipment Four Wheel Walker,Quad Cane, Straight Cane,Shower Seat with Backrest,Hand Held Shower, Sandblast Operator,Sock Aid,Grab Bars Near Toilet,Grab Bars In Shower Employment Status Retired Additional Social History Comment Pt uses a sock aide and shoe horn for LB dressing. M2 OT-IP Current Condition Start: 07/03/19 12:56 Freq: Status: Active Protocol: Document 07/03/19 12:57 CGR (Rec: 07/03/19 13:19 CGR [email or web address]) Occupational Therapy Current Condition Current Condition Evaluation Date 07/03/19 Treatment Diagnosis Sepsis Diagnosis Onset Date 07/02/19 M3 OT- IP Subjective and Pain Start: 07/03/19 12:56 Freq: Status: Active Protocol: Document 07/03/19 12:57 CGR (Rec: 07/03/19 13:19 CGR [email or web address]) OT- Subjective Occupational Therapy Visit Type Type Initial Evaluation Visit Start Time 12:15 Visit Stop Time 12:53 Total Visit Minutes 38 Notes co-treat with P.T. Occupational Therapy Visit Comments Patient Comments I need to be cleaned up OT Pain Assessment Pain When Pain Assessed At Rest Pain Present Pain Present Denied Pain M4 OT- IP ADL's Start: 07/03/19 12:56 Freq: Status: Active Protocol: Document 07/03/19 12:57 CGR (Rec: 07/03/19 13:19 CGR [email or web address]) OT [id number] Comments OT Self-Feeding Comments Not meal time OT ADL-Grooming Comments OT Grooming Comments Not performed OT ADL-Oral Care Comments Oral Care Comments Not performed OT ADL-Dressing General Eval Upper Body Dressing Ability Minimal Assistance Lower Body Dressing Ability Maximum Assistance Areas Needing Assistance Retrieving/Set-up of Clothing, Underpants/Brief,Socks Comments OT Dressing Comments Hospital gown and socks and briefs. Pt able to pull briefs up in standing but unable to thread feet. OT ADL-Toileting General Evaluation Toileting Ability Total Assistance Areas Needing Assistance Perform Perineal Hygiene Comments OT Toileting Comments Pt with diarrhea in bed when OT entered. OT ADL-Bathing Comments OT Bathing Comments Not performed M5 OT- IP IADL's Start: 07/03/19 12:56 Freq: Status: Active Protocol: Document 07/03/19 12:57 CGR (Rec: 07/03/19 13:19 CGR [email or web address]) OT-Instrumental Activities of Daily Living Deficits IADL Deficits Identified Deficits Home Safety Awareness Awareness of Need for Assistance at Home Decreased Awareness Ability to Problem Solve Emergency Unable to Problem Solve Situations Medication Management Medication Management Caregiver Administers Money Management Money Management Comments Pt states he performed money management. Meal Preparation Meal Preparation Caregiver Provides Assist Dermatologist And Dermatopathologist Dermatologist And Dermatopathologist Caregiver Provides Assist Driving Driving Caregiver Provides Assist M6 OT- IP Functional Cognition Start: 07/03/19 12:56 Freq: Status: Active Protocol: Document 07/03/19 12:57 CGR (Rec: 07/03/19 13:19 CGR [email or web address]) Cognitive Factors Limiting Selfcare Function Cognitive Ability Level of Alertness Alert Patient Orientation Name,Age,Birthday,Month,Year, Day of Week,Place,Situation Attention Span Ability Capable of Focused Attention, Capable of Sustained Attention Ability to Follow Commands Able to Follow One Step Commands Memory Description Immediate Intact,Short Term Impaired,Explosive Ordnance Disposal Specialist Intact, Working Intact Cognitive Comments Cognitive Assessment Comments Pt may benefit from cog assessment for baseline. OT- Vision and Hearing OT- Hearing Assessment OT- Hearing Assessment WFL OT- Vision Assessment Visual Acuity WFL Visual Attentiveness WFL Occular Pursuits WFL Visual Convergence WFL Visual Hugo WFL M7 OT- IP Mobility and Balance Start: 07/03/19 12:56 Freq: Status: Active Protocol: Document 07/03/19 12:57 CGR (Rec: 07/03/19 13:19 CGR [email or web address]) OT- Bed Mobility Assessment Rolling Type of Rolling Roll to Right,Roll to Left Level of Assistance Standby Assistance Supine to Sit Supine to Sit Assist Standby Assistance Sit to Supine Sit to Supine Assist Standby Assistance OT-Transfer Assessment Sit to and From Stand Sit to and from Stand Contact Guard Assistance Transfers Transfer Ability Contact Guard Assistance Technique Transfer Destination Bed,Chair Transfer Technique Stand Step Pivot Devices Transfer Assistive Devices Gait Belt,Front Wheeled Walker OT- Gait Assessment Gait Gait Assistance Required: Contact Guard Assist,Minimum Assistance Assistive Devices Assistive Device Gait Belt,Front Wheeled Walker Comments Gait Ability Comments Pt was CGA with use of walker but needed VC for proper use and min a for balance without walker. OT- Balance Assessment Sitting Balance and Reactions Static Sitting Balance Ability Good Dynamic Sitting Balance Ability Fair M8 OT- IP Objective Assessments Start: 07/03/19 12:56 Freq: Status: Active Protocol: Document 07/03/19 12:57 CGR (Rec: 07/03/19 13:19 CGR [email or web address]) OT Gross Range of Motion Upper Extremity Range of Motion Assessment Within Functional Limits OT Strength Upper Extremity Strength Assessment Within Functional Limits Comments Strength Comments grossly 4/5 OT- Coordination Assessment Upper Extremity Finger to Nose Test Within Functional Limits Finger Tapping Test Within Functional Limits OT-Muscle Tone Assessment Muscle Tone WNL Yes OT Sensation Assessment Edema Edema Present Edema Comments Pt with BLE swelling. R worse than L. M9 OT- IP Assessment and Plan Start: 07/03/19 12:56 Freq: Status: Active Protocol: Document 07/03/19 12:57 CGR (Rec: 07/03/19 13:19 CGR [email or web address]) OT Summary Assessment and Plan Potential Rehabilitation Potential Good Analytic Complexity at Evaluation Low Summary OT Impairments Balance,Functional Cognition, Functional Mobility,Grooming, Dressing,Toileting,Bathing, Toilet Transfers,Shower Transfers,Activity Tolerance Progress Towards Goals Slow Progress due to Medical Issues,Slow Progress due to Cognition Assessment Summary Pt presents as a low complexity evaluation. Pt currently needed more assist for mobility and ADLs than at his baseline. Cognition also appears impaired although better than earlier reports. Pt will benefit from OT services to address declines. Recommend plan for d/c home with assist. Goals Grooming Goal Independent Dressing Goal Independent,Sandblast Operator,Sock Aid Toileting Goal Independent Bathing Goal Independent Toilet Transfer Goal Independent Shower Transfer Goal Independent Days to Meet Goals 10 Frequency of Treatment Frequency Of Treatment Once a Day Treatment Plan OT Treatment Plan ADL Training,Functional Cognition Training,Functional Mobility,Patient/Family Education,Discharge Planning Discharge Recommendations OT Discharge Recommendations Home with Assistance Transportation Needs at Discharge Private Vehicle
--- NOTE | 2019-07-03 13:38 | PT.IIE ---
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 Mobility and Gait Pt states that he uses a SPC most of the time and used the 4WW for longer distances or outside mobility. Activities of Daily Living and IADL's Pt states that he was IND with bathing and dressing with DME but that his GF helps him when needed. Social History Household Members significant other Living Arrangements Mobile home Number of Floors (Floors) One Floor Number of Stairs To Enter/Railing? 4 with B rails Home Environment Standard Height Toilet,Tub/ Shower Home Equipment Four Wheel Walker,Quad Cane, Straight Cane,Shower Seat with Backrest,Hand Held Shower, Security Compliance Specialist,Sock Aid,Grab Bars Near Toilet,Grab Bars In Shower Employment Status Retired Additional Social History Comment Pt uses a sock aide and shoe horn for LB dressing. M1 PT/OT-IP Prior Functional Status Start: 07/03/19 12:56 Freq: NEEDED Status: Active Protocol: Document 07/03/19 12:57 AW (Rec: 07/03/19 13:38 AW [id number]) Medical Review Prior Functional Status Medical History Reviewed Yes Diet/Fluid Consistency Clear Liquids Communication Pt is an effective verbal communicator Mobility and Gait Pt uses a SPC or quad cane at all times for household mobility and a 4WW for community mobility, longer distances, and uneven terrain. Activities of Daily Living and IADL's Pt reports modified independence with dressing, using a sock aid and assistance from his significant other for lower body dressing. Prior Functional Level (Other details) Pt lives with his significant other, Luisa, who does all the driving, most of the shopping and meal prep. Pt states he manages the finances. Social History Household Members significant other Living Arrangements Mobile home Number of Floors (Floors) One Floor Number of Stairs To Enter/Railing? 4 [place] with bilateral rails Home Environment Standard Height Toilet,Tub/ Shower Home Equipment Four Wheel Walker,Quad Cane, Straight Cane,Shower Seat with Backrest,Hand Held Shower, Grab Bars Near Toilet,Grab Bars In Shower Employment Status Retired Additional Social History Comment Pt lives with his significant other, Luisa. M2 PT-IP Current Condition Start: 07/03/19 09:27 Freq: NEEDED Status: Active Protocol: Document 07/03/19 12:57 AW (Rec: 07/03/19 13:38 AW [id number]) Physical Therapy Current Condition Current Condition Evaluation Date 07/03/19 Treatment Diagnosis sepsis, BLE edema (R>L), difficulty in walking, impaired balance Onset Date 07/01/19 Weight Bearing Status Weight Bearing Status Full Weight Bearing M3 PT-IP Subjective Start: 07/03/19 09:27 Freq: NEEDED Status: Active Protocol: Document 07/03/19 12:57 AW (Rec: 07/03/19 13:38 AW [id number]) Subjective Physical Therapy Visit Type Type Initial Evaluation Visit Start Time 12:15 Visit Stop Time 12:53 Total Visit Minutes 38 Notes Co-treat with OT CJ Number of FOUNDRY MANAGER Visits 0 Physical Therapy Visit Comments Patient Comments Pt willing to participate with PT Patient Goals Pt hopes to discharge to home Therapy Pain Assessment Pain When Pain Assessed During Mobility Pain Present Pain Present Denied Pain M4 PT-IP Mobility and Gait Start: 07/03/19 09:27 Freq: NEEDED Status: Active Protocol: Document 07/03/19 12:57 AW (Rec: 07/03/19 13:38 AW [id number]) PT-Bed Mobility Assessment Rolling Type of Rolling Bilateral Level of Assist Standby Assistance Supine to Sit Supine to Sit Standby Assistance Scooting Scooting to Edge of Bed Standby Assistance PT-Transfer Assessment Sit to and From Stand Sit to and from Stand Contact Guard Assistance,1 Person Assistance,Use of Upper Extremities Equipment Transfer Assistive Device Gait Belt,Front Wheeled Walker Transfers Transfer Destination Chair Transfer Technique pt ambulated with fww Transfer Ability Level of Assist Contact Guard Assistance Comments Mobility Comments Pt sitting up in bed upon therapy arrival. He had had a bowel movement requiring cleaning and was able to roll side to side SBA with cues and use of bedrails to roll further for pericare. He completed supine to sit SBA but required CGA for sit to stand due to initial unsteadiness. Using FWW, he ambulated around the bed and transferred to the chair. He exhibited impulsivity and required cues to maintain contact with the walker at all time. Prior to sitting, pt released the walker and turned to the chair at which point he had a lateral loss of balance requiring min assist to recover. Pt was instructed to keep the walker close until ready to sit with shoulders over hands for optimal support. He sat CGA and with poor eccentric control in spite of BUE support on the chair arms. Pt was positioned in the chair with legs elevated, call light and all needs within reach. Gait Assessment Gait Gait Assistance Required: Contact Guard Assist,Minimum Assistance Distance (Feet) 15 Able to Maintain Weight Bearing Status Yes During Gait Assistive Devices Assistive Device Gait Belt,Front Wheeled Walker Orthotic/Prosthetic Devices or Brace: No Gait Deviations General Gait Pattern Antalgic,Decreased Stride Length,Decreased Feet Clearance,Wide Based Gait Factors Limiting Gait Function Factors Limiting Gait Function Decreased Activity Tolerance, Decreased Strength,Poor Balance,Poor Safety Awareness Comments Gait Comments See mobility comments. Pt had poor activity tolerance, reporting fatigue after ambulation 15 feet. Gait was notable for wide stance ( likely habitual) and RLE external rotation in stance phase. Stair Climbing Assessment Comments Stair Climbing Comments Not assessed due to safety concerns. PT-Balance Assessment Sitting Balance and Reactions Static Sitting Balance Ability Good Dynamic Sitting Balance Ability Good Standing Balance and Reactions Static Standing Balance Ability Good Dynamic Standing Balance Ability Fair Device Used FWW M5 PT-IP Objective Assessments Start: 07/03/19 09:27 Freq: NEEDED Status: Active Protocol: Document 07/03/19 12:57 AW (Rec: 07/03/19 13:38 AW [id number]) Orientation Orientation/Cognition Level of Alertness Alert Orientation Name,Month,Year,Place Language Function Ability No Deficits Noted Safety Awareness Decreased Safety Awareness Memory Description Short Term Impaired Comments Pt had difficulty relating how he arrived at the hospital and was oriented to month/year , but stated today was the . Gross Range of Motion Upper Extremity ROM Assessment Within Functional Limits Lower Extremity ROM Assessment Within Functional Limits Strength Upper Extremity Strength Assessment Bilaterally Impaired Lower Extremity Strength Assessment Bilaterally Impaired Comments Strength Comments BUE and BLE grossly 4/5 except right ankle 3+/5 Coordination Assessment Gross Coordination Gross Coordination WNL Muscle Tone Muscle Tone WNL Yes M6 PT-IP Treatment Start: 07/03/19 09:27 Freq: NEEDED Status: Active Protocol: Document 07/03/19 12:57 AW (Rec: 07/03/19 13:38 AW [id number]) Physical Therapy Treatment Exercises Exercises Ankle Pumps Education Education Provided Precautions,Safety Other Treatments Other Treatment Performed Provided education on role of PT, plan of care, rationale for selection of assistive device, and need to keep LE's elevated. M7 PT-IP Assessment and Plan Start: 07/03/19 09:27 Freq: NEEDED Status: Active Protocol: Document 07/03/19 12:57 AW (Rec: 07/03/19 13:38 AW [id number]) PT Summary Assessment and Plan Potential Rehabilitation Potential Good Status of Condition at Evaluation Evolving Summary Impairments ROM,Strength,Balance,Cognition ,Transfers,Gait,Activity Tolerance Assessment Summary Alex is a 63 yo man with history of hepatitis C, CHF. He is admitted currently with sepsis and bacteremia. COVID- 19 testing was negative. At baseline, pt states he is modified indpendent with use of SPC or quad cane at home and 4WW in the community. He lives with his sigificant other who provides assistance as needed. On evaluation, he required CGA to min assist for transfers and short bout ambulation with positive loss of balance. He exhibited poor activity tolerance and required cues for safety with FWW. He would benefit from continued acute PT in order to further assess for proper assistive device, to progress ambulation distance, and to assess safety on stairs. PT recommends discharge to home with his girlfriend's assist once medically cleared. Goals Bed Mobility Goal Independent Transfer Goal Independent,Cane,Front Wheeled Walker Gait Goal Independent,Cane,Front Wheel Walker Gait Distance 200 Other Goals - up/down 4 steps with bilateral rails SBA Days to Meet Goals 2 Frequency of Treatment Frequency Of Treatment Once a Day Treatment Plan Physical Therapy Treatment Plan Bed Mobility Training,Transfer Training,Gait Training, Therapeutic Exercise,Balance Retraining,Discharge Planning, Neuromuscular Re-ed Other Recommendations and Next Treatment assess gait for current AD Focus needs and dispense FWW if needed; assess safety on stairs; dynamic balance activities Recommendations To Nursing Amount of Assist Needed Standby Assistance,1 Person Assist Discharge Recommendations PT Discharge Recommendations Home with Assistance Equipment Needed for Home Before FWW if unsafe with SPC or 4WW Discharge Transportation Needs at Discharge Private Vehicle
--- NOTE | 2019-07-03 15:47 | DI.RAD.S_ITS ---
PROCEDURE: XR FOOT RT 2V INDICATIONS: further evaluation R foot TECHNIQUE: 2 views of the foot were acquired. COMPARISON: None. FINDINGS: Bones: No fractures or dislocations. No suspicious bony lesions. Soft tissues: No tibiotalar joint effusion. Suspected soft tissue edema. Achilles tendon appears normal. No radiopaque foreign body. IMPRESSION: Suspected soft tissue edema. No fracture identified. Dictated by: Fernando Arevalo M.D. on 07/03/2019 at 16:24 Approved by: Fernando Arevalo M.D. on 07/03/2019 at 16:28
--- NOTE | 2019-07-03 15:49 | DI.CT.S_ITS ---
PROCEDURE: CT LE RT W CON INDICATIONS: Evaluation of fluid collections in RLE possible abscesses TECHNIQUE: After the administration of intravenous contrast, 3 mm axial sections acquired of the right lower extremity from the distal fine region through the foot, with coronal and sagittal reformats. COMPARISON: [facility], CR, XR FOOT RT 2V, 07/03/2019, 15:50. FINDINGS: Image quality: Excellent. Bones: No trauma or osteomyelitis found. No foreign body seen. Soft tissues: Extensive edema is present along the visualized right distal thigh and through the foot region, with note made of no rim-enhancing fluid collection that would suggest abscess formation. Gas in the soft tissues is not found. Deep venous thrombosis or atherosclerotic calcification or embolic occlusion of the arterial vasculature is not seen. Note is made of what appears to be likely a small intramuscular lipoma centered on series 4 image 280 medial and dorsal musculature measuring only approximately 1.5 cm in maximal dimension. IMPRESSION: Extensive soft tissue edema circumferentially involving the right lower extremity over the region included on this examination, from the distal thigh area through the ankle and into the right foot. As noted, no abscess is seen and no foreign body or gas in the soft tissues is found. The appearance is suggestive of severe cellulitis given absence of reported history of trauma. Incidental note made of a small intramuscular lipoma midcalf level. Dictated by: Jose Luis Ceja M.D. on 07/03/2019 at 16:42 Approved by: Jose Luis Ceja M.D. on 07/03/2019 at 16:49
--- NOTE | 2019-07-03 19:02 | PM.CN ---
History of Present Illness Consult details Date Patient Seen: 07/03/19 Time Patient Seen: 19:06 Chief complaint: Back & Hip Pain. Reason for consult: Right foot swelling Requesting provider: Nathaniel Chacko Narrative: 63-year-old male history of valve replacement hepatitis a in stage level or failure and admitted with staph bacteremia now with increasing right lower extremity edema with some redness concerning for cellulitis. Ultrasound was obtained by primary team findings as stated multiple small areas concerning for abscess without drainable collection. Orthopedic consult was called. CT scan and plain x-rays were ordered to further characterize ultrasound findings and rule out drainable abscess. Meds Home Medications and Allergies Home Medications Medication Instructions Recorded Confirmed Type potassium chloride 20 meq PO DAILY #0 12/03/16 07/02/19 History furosemide 40 mg PO BID 12/04/17 07/02/19 History lactulose 30 ml PO BID 04/10/18 07/12/18 History magnesium oxide 500 mg PO DAILY 04/10/18 07/02/19 History sofosbuvir-velpatasvir 400 mg PO DAILY 07/12/18 07/12/18 History warfarin 2.5 mg PO Q OTHER DAY 07/12/18 07/12/18 History spironolactone 25 mg PO DAILY #30 tab 07/15/18 Rx metoprolol tartrate 25 mg PO BID 07/02/19 07/02/19 History Allergies Allergy/AdvReac Type Severity Reaction Status Date / Time No Known Drug Allergies Allergy Verified 07/01/19 19:16 Review of Systems Review of Systems Narrative: History of heart valve replacements liver disease endorses chronic right lower extremity edema. Exam Vital Signs (past 8 hours): - 07/03/19 11:05 07/03/19 15:54 Temperature 100.1 F H 98.4 F Pulse Rate 92 H 73 Respiratory Rate 21 18 Blood Pressure 112/67 106/63 Pulse Oximetry 98 97 Oxygen Delivery Method Room Air Oxygen Flow Rate 0 Narrative Exam Narrative: Alert oriented male lying in bed no acute distress HEENT exam normocephalic atraumatic Respiratory unlabored on room air Heart regular rate Musculoskeletal exam: Tear right lower extremity is larger than left. Skin stigmata of venous stasis disease additionally the Global size of the right compared the left extremity has a lymphedema appearance. There is extensive swelling of the foot particularly over the dorsum of the foot there is a slight erythema to this this is faint. There is no significant demarcation. No blisters. Skin is soft and not tense. No shiny appearance. No crepitus. Demonstrates active dorsiflexion plantar flexion of the ankle. Calf is soft. Objective Imaging u/s foot right: Radiologist's impression: IMPRESSION: Extensive cellulitis and edema in right lower leg extending to dorsum of right foot with underlying small pockets of fluid collections concerning for small abscess collections. No discrete drainable collection is seen. Dictated by: Dago Herzog M.D. on 07/03/2019 at 11:37 Approved by: Dago Herzog M.D. on 07/03/2019 at 11:42 Ct R LE: My impression: Extensive soft tissue swelling foot and right lower extremity Radiologist's impression: IMPRESSION: Extensive soft tissue edema circumferentially involving the right lower extremity over the region included on this examination, from the distal thigh area through the ankle and into the right foot. As noted, no abscess is seen and no foreign body or gas in the soft tissues is found. The appearance is suggestive of severe cellulitis given absence of reported history of trauma. Incidental note made of a small intramuscular lipoma midcalf level. Dictated by: Jose Luis Ceja M.D. on 07/03/2019 at 16:42 Approved by: Jose Luis Ceja M.D. on 07/03/2019 at 16:49 R foot XR: My impression: Two views right foot no acute fracture is demonstrated diffuse degenerative changes. Extensive soft tissue swelling Radiologist's impression: IMPRESSION: Suspected soft tissue edema. No fracture identified. Dictated by: Fernando Arevalo M.D. on 07/03/2019 at 16:24 Approved by: Fernando Arevalo M.D. on 07/03/2019 at 16:28 Labs Result Diagrams: 07/03/19 04:50 07/03/19 04:50 Labs: Laboratory Results - last 24 hr 07/01/19 07/02/19 07/03/19 20:03 06:35 04:50 WBC 7.6 RBC 2.97 L Hgb 10.9 L Hct 31.0 L MCV 104.3 H MCH 36.7 H MCHC 35.2 RDW 18.4 H Plt Count 68 L Neut % (Auto) Not Reportable Lymph % (Auto) Not Reportable [place] % (Auto) Not Reportable Eos % (Auto) Not Reportable Baso % (Auto) Not Reportable Lymph # (Auto) Not Reportable [place] # (Auto) Not Reportable Baso # (Auto) Not Reportable Total Counted 100 Seg Neutrophils % 76.0 H Band Neutrophils % 7.0 Lymphocytes % (Manual) 4.0 L Monocytes % (Manual) 7.0 Eosinophils % (Manual) 6.0 H Neutrophils # (Manual) 6308 H Platelet Estimate Decreased on smear RBC Morphology See below Anisocytosis 2+ H Macrocytosis 1+ H PT INR Sodium Potassium Chloride Carbon Dioxide BUN Creatinine Estimated GFR BUN/Creatinine Ratio Glucose Calcium Total Bilirubin Conjugated Bilirubin Unconjugated Bilirubin AST ALT Alkaline Phosphatase Total Protein Albumin Globulin Albumin/Globulin Ratio Alpha Fetoprotein 2.1 COVID-19 PCR Not detected 07/03/19 07/03/19 04:50 04:50 WBC RBC Hgb Hct MCV MCH MCHC RDW Plt Count Neut % (Auto) Lymph % (Auto) [place] % (Auto) Eos % (Auto) Baso % (Auto) Lymph # (Auto) [place] # (Auto) Baso # (Auto) Total Counted Seg Neutrophils % Band Neutrophils % Lymphocytes % (Manual) Monocytes % (Manual) Eosinophils % (Manual) Neutrophils # (Manual) Platelet Estimate RBC Morphology Anisocytosis Macrocytosis PT 20.7 H INR 1.8 H Sodium 136 L Potassium 3.5 Chloride 104 Carbon Dioxide 29 BUN 22 H Creatinine 1.12 Estimated GFR > 60.0 BUN/Creatinine Ratio 19.6 Glucose 112 H Calcium 8.0 L Total Bilirubin 5.7 H Conjugated Bilirubin 0.6 H Unconjugated Bilirubin 4.1 H AST 45 ALT 15 Alkaline Phosphatase 62 Total Protein 6.7 Albumin 2.7 L Globulin 4.0 Albumin/Globulin Ratio 0.7 L Alpha Fetoprotein COVID-19 PCR Assessment & Plan Assessment & Plan narrative: 1. Lower extremity edema, lymphedema: Patient has right lower extremity lymphedema. Faint erythema could be concerning for cellulitis however back of demarcation is not is convincing additionally the patient has been on antibiotics for Staph bacteremia. There are no wounds over the foot where the edema is most significant. Patient endorses history of swelling in that leg more than the other 1 and says it has been this swollen before generally goes down was some elevation. He mentioned several times that he thought his heart valve surgery was to fix his edema. Multiple imaging studies are reviewed. No abscess or found. No indications for surgery. Recommend elevation. Compression or lymphedema wraps---lymphedema nurse care as indicated. Did prop the patient's leg up in the bed should elevate it more overnight. No surgical indications at this time. Time Spent With Patient Time with patient: less than 15 minutes
[2019-07-03] MEDS: METOPROLOL IR 25 MG TABLET 50 MG PO (21:00)
[2019-07-03 23:54] LABS: Adenovirus F 40/41 Not Detected (Not Detect); Astrovirus Not Detected (Not Detect); Campylobacter Not Detected (Not Detect); Clostridium difficile toxin AB Not Detected (Not Detect); Cryptosporidium Not Detected (Not Detect); Cyclospora cayetanensis Not Detected (Not Detect); Entamoeba histolytica Not Detected (Not Detect); Enteroaggregative E.coli Not Detected (Not Detect); Enteropathogenic E.coli Not Detected (Not Detect); Enterotoxigenic E.coli It/st Not Detected (Not Detect); Giardia lamblia Not Detected (Not Detect); Norovirus GI/GII Not Detected (Not Detect); Plesiomonsa shigelloides Not Detected (Not Detect); Rotavirus A Not Detected (Not Detect); Salmonella Not Detected (Not Detect); Sapovirus Not Detected (Not Detect); Shiga-like toxin-prod E.coli Not Detected (Not Detect); Shigella/Enteroinvasive E.coli Not Detected (Not Detect); Vibrio Not Detected (Not Detect); Vibrio cholerae Not Detected (Not Detect); Yersinia enterocolitica Not Detected (Not Detect)
[2019-07-04 03:48] LABS: Add Manual Diff / Slide Review NO; Basophils Absolute Auto 100 /uL (0-100); Basophils Percent Auto 1.2 % (0-2); Eosinophils Absolute Auto 300 /uL (0-450); Eosinophils Percent Auto 4.7 % (2-4); Hematocrit 31.4 % (41-53); Hemoglobin 11.1 g/dL (13.5-17.5); Lymphocytes Absolute Auto 600 /uL (1100-4500); Mean Corpuscular HGB Conc 35.4 % (30-36); Mean Corpuscular Hemoglobin 36.6 PG (26-34); Mean Corpuscular Volume 103.6 fL (80-100); Monocytes Absolute Auto 800 /uL (0-900); Monocytes Percent Auto 12.3 % (3-14); Neutrophils Absolute Auto 4500 /uL (1500-7000); Neutrophils Percent Auto 72.8 % (50-75); Platelet Count 74 X10^3/uL (150-400); Red Blood Cell Count 3.03 X10^6/uL (4.5-5.9); White Blood Cell Count 6.1 X10^3/uL (4.5-11.0)
[2019-07-04 03:49] LABS: INR 1.6 (0.9-1.3); Prothrombin Time 18.8 SECONDS (10.1-12.7)
[2019-07-04 03:53] LABS: Alanine Aminotransferase 14 IU/L (<50); Albumin 2.8 g/dL (3.5-5.0); Albumin Globulin Ratio 0.7 (1.0-2.8); Alkaline Phosphatase 63 U/L (38-126); Aspartate Aminotransferase 42 IU/L (17-59); BUN Creatinine Ratio 16.2 (6-22); Bilirubin Conjugated 0.1 md/dL (0.0-0.3); Blood Urea Nitrogen 16 mg/dL (9-20); Calcium 7.7 mg/dL (8.4-10.2); Carbon Dioxide 31 mmol/L (22-32); Chloride 103 mmol/L (98-107); Estimated Glomerular Filt Rate > 60.0 mL/min (>60); Globulin 3.9 g/dL (1.7-4.1); Glucose 121 mg/dL (80-110); HEMOLYSIS < 15 (0-50); Potassium 2.8 mmol/L (3.4-5.1); Sodium 138 mmol/L (137-145); Total Protein 6.7 g/dL (6.3-8.2)
[2019-07-04 04:11] LABS: Vancomycin Trough 8.7 ug/mL (10-20)
[2019-07-04] MEDS: VANCOMYCIN TROUGH 1 REQUEST MISC (04:16)
[2019-07-04] MEDS: VANCOMYCIN 1,000 MG/200 ML PIGGYBACK 200 MG IV (04:16)
[2019-07-04] MEDS: POTASSIUM CHLORIDE 20 MEQ TAB 40 MEQ PO (04:16)
[2019-07-04 04:25] VITALS: BP 100/58; PULSE 72; RESP 18; TEMP 36.8; O2SAT 98
[2019-07-04] MEDS: POTASSIUM CHLORIDE 40 MEQ in SODIUM CHLORIDE 0.9% 500 ML 130 ML IV (04:56)
[2019-07-04] MEDS: PIPERACILLIN-TAZO 4.5 GM/100 ML FROZ.PIGGY IV ×4 (05:45→23:41)
[2019-07-04 08:00] VITALS: BP 108/60; PULSE 68; RESP 18; TEMP 37.1; O2SAT 97
[2019-07-04] MEDS: SODIUM CHLORIDE 0.9% FLUSH 10 ML IV (08:54)
[2019-07-04] MEDS: FUROSEMIDE 20 MG/2 ML VIAL 40 MG IV (08:54)
[2019-07-04] MEDS: METOPROLOL IR 25 MG TABLET 50 MG PO ×2 (08:55→20:29)
--- NOTE | 2019-07-04 09:22 | PT.IPTN ---
Current Diagnoses Sepsis, unspecified organism (07/02/19) Physical Therapy Treatment Note M2 PT-IP Current Condition Start: 07/03/19 09:27 Freq: NEEDED Status: Active Protocol: Document 07/04/19 08:30 MB (Rec: 07/04/19 09:14 MB [id number]) Physical Therapy Current Condition Precautions Other Precautions Contact precautions, multiple lines, pt with loose stool M3 PT-IP Subjective Start: 07/03/19 09:27 Freq: NEEDED Status: Active Protocol: Document 07/04/19 08:30 MB (Rec: 07/04/19 09:14 MB [id number]) Subjective Physical Therapy Visit Type Type Treatment Note Visit Start Time 08:00 Visit Stop Time 09:02 Total Visit Minutes 32 Number of NUTRITIONAL HEALTH COACH Visits 0 Physical Therapy Visit Comments Patient Comments PT checks on pt at 0815 and he states he wants 30 more minutes for his breakfast. PT checks back in 15 minutes and he is agreeable to PT. He denies pain at rest and with PT. He denies SOB and light- headedness throughout treatment. Patient Goals Pt states that he is ready to d/c home. A&O to person, place and month . Therapy Pain Assessment Pain When Pain Assessed During Mobility Pain Present Pain Present Denied Pain M4 PT-IP Mobility and Gait Start: 07/03/19 09:27 Freq: NEEDED Status: Active Protocol: Document 07/04/19 08:30 MB (Rec: 07/04/19 09:20 MB [id number]) PT-Bed Mobility Assessment Rolling Type of Rolling Roll to Left Level of Assist Standby Assistance Supine to Sit Supine to Sit Standby Assistance,Head of Bed Elevated,Bedrails Scooting Scooting to Edge of Bed Standby Assistance PT-Transfer Assessment Sit to and From Stand Sit to and from Stand Contact Guard Assistance Equipment Transfer Assistive Device Gait Belt,Front Wheeled Walker Transfers Transfer Destination Bed,Chair,Toilet Transfer Ability Level of Assist Contact Guard Assistance,1 Person Assistance,Use of Upper Extremities Comments Mobility Comments Bed mobility with SBA, HOB increased and pt using rails. Increased time to move right greater than left edematous legs. Sit to stand with cues to push up from the bed with one hand but pt refuses and states he will use the RW. Pt requires SBA for transfers from the bed to walker, walker to BR commode and commode to walker. He uses grab bar on wall in BR. Pt with bowel incontinence, left LE scab bleeding and nsg asst. Pt requires PATIENT SERVICES CLERK asst for all self -care tasks including doffing and donning socks, underpants, hygiene after BM. He presents with some impulsivity and left up in chair with nsg nearby to address chair alarm and LE elevation. Gait training with PT managing many lines, cueing pt for how to turn in room with gait. 20'x1, 10'x2. Pt tends to keep right foot outside walker, drag his right foot and presents with wide RYAN, decreased foot clearance and forward, flexed posture. SBA for all gait. Pt can perform retropulsion to chair without LOB. Gait Assessment Gait Gait Assistance Required: Standby Assistance Assistive Devices Assistive Device Gait Belt,Front Wheeled Walker Gait Deviations General Gait Pattern Decreased Stride Length, Decreased Feet Clearance, Flexed Trunk,Wide Based Gait Comments Gait Comments See comments under mobility PT-Balance Assessment Sitting Balance and Reactions Static Sitting Balance Ability Fair Dynamic Sitting Balance Ability Fair Standing Balance and Reactions Static Standing Balance Ability Fair Dynamic Standing Balance Ability Fair Comments Other Balance Tests/Deviations/Treatment UE support from bed for : sitting and walker with standing M5 PT-IP Objective Assessments Start: 07/03/19 09:27 Freq: NEEDED Status: Active Protocol: Document 07/03/19 12:57 AW (Rec: 07/03/19 13:38 AW [id number]) Orientation Orientation/Cognition Level of Alertness Alert Orientation Name,Month,Year,Place Language Function Ability No Deficits Noted Safety Awareness Decreased Safety Awareness Memory Description Short Term Impaired Comments Pt had difficulty relating how he arrived at the hospital and was oriented to month/year , but stated today was the . Gross Range of Motion Upper Extremity ROM Assessment Within Functional Limits Lower Extremity ROM Assessment Within Functional Limits Strength Upper Extremity Strength Assessment Bilaterally Impaired Lower Extremity Strength Assessment Bilaterally Impaired Comments Strength Comments BUE and BLE grossly 4/5 except right ankle 3+/5 Coordination Assessment Gross Coordination Gross Coordination WNL Muscle Tone Muscle Tone WNL Yes M6 PT-IP Treatment Start: 07/03/19 09:27 Freq: NEEDED Status: Active Protocol: Document 07/04/19 08:30 MB (Rec: 07/04/19 09:14 MB [id number]) Physical Therapy Treatment Education Education Provided Safety Other Treatments Other Treatment Performed Ed in APs, LE elevation, deep breathing to move lungs and not to get up without nsg asst . Ed pt to ask if his significant other can bring in his rollator. M7 PT-IP Assessment and Plan Start: 07/03/19 09:27 Freq: NEEDED Status: Active Protocol: Document 07/04/19 08:30 MB (Rec: 07/04/19 09:14 MB [id number]) PT Summary Assessment and Plan Potential Rehabilitation Potential Fair Status of Condition at Evaluation Evolving Summary Impairments ROM,Strength,Balance,Cognition ,Transfers,Gait,Activity Tolerance Assessment Summary Pt is agreeable to PT, though somewhat disgruntled and impulsive. He does present with confusion. He performs gait training, transfer training today. PT asks frequently about need for BM and pt does not realize his his incontinent. His Lactulose is reduced this morning. Goals Bed Mobility Goal Independent Transfer Goal Independent,Cane,Front Wheeled Walker Gait Goal Independent,Cane,Front Wheel Walker Gait Distance 200 Other Goals - up/down 4 steps with bilateral rails SBA Days to Meet Goals 5 Frequency of Treatment Frequency Of Treatment Once a Day Treatment Plan Physical Therapy Treatment Plan Bed Mobility Training,Transfer Training,Gait Training, Therapeutic Exercise,Balance Retraining,Discharge Planning, Neuromuscular Re-ed Other Recommendations and Next Treatment Rollator not availale. Con't Focus gait training as tolerates, pt with incontinence that is a barrier to leaving room. Recommendations To Nursing Amount of Assist Needed Standby Assistance,1 Person Assist Discharge Recommendations PT Discharge Recommendations Home with Assistance Equipment Needed for Home Before FWW if unsafe with SPC or 4WW Discharge Transportation Needs at Discharge Private Vehicle
[2019-07-04] MEDS: LACTULOSE 20 GM/30 ML SOLUTION 30 GM PO ×2 (09:29→20:29)
--- NOTE | 2019-07-04 10:07 | CM.DPC ---
DCP Cont: Discussed patient at team rounds. Tia Thomas, was also at rounds. She is working with patient, and stated that he has had some bouts of incontinence, secondary to being on lactulose. He does reside with partner, Jaida. Dr. Chacko mentioned that patient would not want to go to skilled. Nancy, nurse, also in agreement. confirmed that he does not yet have a PICC line. Went ahead and faxed information over to [facility], so they can review. It is unclear at this time which antibiotic that patient would go home with. Faxed face sheet, med list, H&P, and recent note from surgeon over to [facility]. P: DCP to continue to follow. Anticipate that patient will be here through the week-end, but can set up home infusions. Will also set up home health for patient, and will have face to face signed. Fiordaliza Tee RN/Rock Dust Sprayer
--- NOTE | 2019-07-04 11:44 | P.PN_ITS ---
Subjective Subjective Date Patient Seen: 07/04/19 Time Patient Seen: 11:44 Interval history: This is a 63-year-old male patient with past medical history of end-stage liver disease, paroxysmal atrial flutter on anticoagulation, diastolic heart failure, and previous endocarditis with valve replacement who presented with toxic metabolic encephalopathy and is admitted with sepsis secondary to Staph bacteremia. He is seen for follow-up today. He is much more alert today even compared to yesterday. His swelling is slightly improved and his pain is less. Yesterday, the patient underwent an ultrasound of his right foot which showed possible small abscesses, but follow-up imaging radiographs and a CT of his right lower extremity showed primarily edema with cellulitis. Received a call from the pound keeper who was reading his echo, noted that the patient now has a kgto-hy-ourgu shunt through the iatrogenic ASD that appears to have been for his replacement bioprosthetic mitral valve in 02/2019 at [facility]. Centrifugal Casting Machine Operator was able to review his records from [facility] via her EMR. His rate was in the 90s during this study, and she recommended increasing his beta-holly and continued diuresis to help as the pressure gradient was increased compared to when he underwent his procedure. Discussed with contract programmer Cardiology at [facility] given patient's outpatient pound keeper is there. 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 He did recommend following up with his pound keeper at [facility] however given that is where the valve was placed. Cultures ultimately grew MSSA today. His COVID-19 testing was negative. His bilirubin is steadily improving as are his lab values. He had a bowel movement this morning and will work with [employer] sical therapy today. Exam Vital Signs (past 8 hours): - 07/04/19 04:25 07/04/19 08:00 Temperature 98.2 F 98.8 F Pulse Rate 72 68 Respiratory Rate 18 18 Blood Pressure 100/58 L 108/60 Pulse Oximetry 98 97 Oxygen Delivery Method Room Air Oxygen Flow Rate 0 Narrative Exam Narrative: GENERAL APPEARANCE: Well developed, well nourished, appears ill and lethargic but in no acute distress. SKIN: Inspection of the skin reveals no rashes, ulcerations or petechiae. He is slightly jaundiced but improved compared to prior exams. HEENT: Normocephalic atraumatic, extraocular muscles are intact, oropharynx is clear and mucous membranes are moist, neck is supple without adenopathy NECK: Supple and symmetric. There was no thyroid enlargement, and no tenderness, or masses were felt. CHEST: Normal AP diameter and normal contour without any kyphoscoliosis. LUNGS: Auscultation of the lungs revealed diminished breath sounds at bilateral lung bases, no wheezes or rhonchi were appreciated. CARDIOVASCULAR: There was a regular rate and rhythm with a soft systolic murmur 2/6 noted. Peripheral pulses were 2+ and symmetric. ABDOMEN: Soft and nontender with normal bowel sounds. No ascites was noted. MUSCULOSKELETAL: No tenderness. Muscle strength and tone are normal. EXTREMITIES: No cyanosis or clubbing. There is bilateral lower extremity edema with right greater than left. Erythema and tenderness resolved today. Chronic venous stasis skin changes. NEUROLOGIC: Alert and oriented x 3. Improved lethargy, weaker in bilateral lower extremities secondary to edema and positioning. Objective Labs Result Diagrams: 07/04/19 03:30 07/04/19 03:30 Labs: Laboratory Results - last 24 hr 07/03/19 07/04/19 07/04/19 11:37 03:30 03:30 WBC 6.1 RBC 3.03 L Hgb 11.1 L Hct 31.4 L MCV 103.6 H MCH 36.6 H MCHC 35.4 RDW 18.0 H Plt Count 74 L Neut % (Auto) 72.8 Lymph % (Auto) 9.0 L Caldwell % (Auto) 12.3 Eos % (Auto) 4.7 H Baso % (Auto) 1.2 Neut # (Auto) 4500 Lymph # (Auto) 600 L Caldwell # (Auto) 800 Eos # (Auto) 300 Baso # (Auto) 100 PT INR Sodium Potassium Chloride Carbon Dioxide BUN Creatinine Estimated GFR BUN/Creatinine Ratio Glucose Calcium Total Bilirubin Conjugated Bilirubin Unconjugated Bilirubin AST ALT Alkaline Phosphatase Total Protein Albumin Globulin Albumin/Globulin Ratio Stl C. cayetanensis PCR Not detected Stool Rotavirus (PCR) Not detected Stool Adenovirus (PCR) Not detected Stool Astrovirus (PCR) Not detected Stool Cryptosporidium PCR Not detected Stl E.coli Shiga Tox PCR Not detected St Sh/Enteroin Ecoli PCR Not detected Stool E coli O157 PCR Not Reportable Stl Enterotoxigenic E PCR Not detected Stool EPEC (PCR) Not detected Stl E. histolytica PCR Not detected Stool Giardia Lamblia PCR Not detected Stool Sapovirus (PCR) Not detected Stl P. shigelloides PCR Not detected St Y.enterocolitica PCR Not detected Stool Vibrio (PCR) Not detected Stl Vibrio cholerae PCR Not detected Stl Enteroaggr Ecoli PCR Not detected Stl Norovirus GI/GII PCR Not detected Vancomycin Trough 8.7 L Campylobacter (PCR) Not detected C. difficile Tox (PCR) Not detected Salmonella (PCR) Not detected 07/04/19 07/04/19 03:30 03:30 WBC RBC Hgb Hct MCV MCH MCHC RDW Plt Count Neut % (Auto) Lymph % (Auto) Caldwell % (Auto) Eos % (Auto) Baso % (Auto) Neut # (Auto) Lymph # (Auto) Caldwell # (Auto) Eos # (Auto) Baso # (Auto) PT 18.8 H INR 1.6 H Sodium 138 Potassium 2.8 L Chloride 103 Carbon Dioxide 31 BUN 16 Creatinine 0.99 Estimated GFR > 60.0 BUN/Creatinine Ratio 16.2 Glucose 121 H Calcium 7.7 L Total Bilirubin 4.0 H Conjugated Bilirubin 0.1 Unconjugated Bilirubin 3.0 H AST 42 ALT 14 Alkaline Phosphatase 63 Total Protein 6.7 Albumin 2.8 L Globulin 3.9 Albumin/Globulin Ratio 0.7 L Stl C. cayetanensis PCR Stool Rotavirus (PCR) Stool Adenovirus (PCR) Stool Astrovirus (PCR) Stool Cryptosporidium PCR Stl E.coli Shiga Tox PCR St Sh/Enteroin Ecoli PCR Stool E coli O157 PCR Stl Enterotoxigenic E PCR Stool EPEC (PCR) Stl E. histolytica PCR Stool Giardia Lamblia PCR Stool Sapovirus (PCR) Stl P. shigelloides PCR St Y.enterocolitica PCR Stool Vibrio (PCR) Stl Vibrio cholerae PCR Stl Enteroaggr Ecoli PCR Stl Norovirus GI/GII PCR Vancomycin Trough Campylobacter (PCR) C. difficile Tox (PCR) Salmonella (PCR) Assessment & Plan Assessment & Plan narrative: This is a 63-year-old male patient with past medical history of end-stage liver disease, paroxysmal atrial flutter on anticoagulation, diastolic heart failure, and previous endocarditis with valve replacement who presented with toxic metabolic encephalopathy and is admitted with sepsis secondary to Staph bacteremia. 1. Sepsis, with organ dysfunction, without shock, present on admission, acute -the patient patient began complaining of back pain and hip pain. Presented with a temperature of 103.1? and altered mentation -positive procalcitonin at 1.74 and a normal white count at 11.6 however 41% bandemia on admission. WBC count improving on antibiotics. Blood cultures pending sensitivities but currently with staph aureus. -SOFA score is 8 based on a PF ratio of 376, lactic acid on presentation of 5.2 scoring is also qualified by cirrhosis and an elevated total bili of 7.0 -differential diagnosis: -Pneumonia, chest x-ray demonstrates diffuse bilateral opacities with moderate opacity right lower lobe on chest x-ray and redemonstrated on CT and read as atelectasis versus pneumonia, prominent cardiac silhouette, no cough. 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 Will attempt to contact them for further recommendations given need for follow up as an outpatient. -Blood cultures growing MSSA. Repeat cultures NGTD. 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 Will discontinue zosyn and vanc. -GI panel negative, respiratory panel negative. COVID 19 negative. 2. Pneumonia, right lower lobe, present on admission, acute -no reports of shortness of breath though the patient has complained of back pain. -scattered crackles with breath sounds diminished in the bases right greater than left, no cough. It is possible radiographic findings are more consistent with volume overload from cirrhosis. -chest x-ray reveals moderate diffuse bilateral opacities, moderate opacity right lower lobe, CT similar finds atelectasis versus pneumonia right lower lobe. -continue zosyn and vancomycin as noted above. -PCR panel negative. 3. Liver cirrhosis, present on admission, chronic, active. -history of hepatitis C and has completed sofosbuvir/velpatasvir therapy, has had hepatitis B vaccination. -patient jaundiced without complaints of abdominal pain -total bilirubin is 7.0, AST is 48, ALT is 22 and alkaline phosphatase is 82, albumin is 3.5, platelets are 64 on admission, slightly improving now. -CT of the chest abdomen and pelvis reveals shrunken liver with nodular contour, new 28 mm low-density mass in the right hepatic lobe, also cholelithiasis with stones in the common duct which with mild ductal dilatation may be in part responsible for elevated bilirubin. -patient taking lactulose twice daily with associated loose stool, ammonia on admission is less than 9. -continue home regimen of 30 g of lactulose twice daily. -consider MRCP however this is felt less likely to be the source of infection. 4. Toxic metabolic encephalopathy, acute, present on admission, improving. -patient with altered mental status upon arrival minimally improved with IV hydration this has improved with treatment of underlying sepsis. He remains slightly lethargic today. 5. Liver mass right hepatic lobe, new finding probable acute, present on admission, active. -patient with history of hepatitis C and liver cirrhosis. -CT scan finds a new 28 mm low-density mass in the right hepatic lobe posteriorly. -ordered alpha-fetoprotein. 6. Paroxysmal Atrial flutter, not present on admission, chronic. -patient has not complained of chest pain or shortness of breath. -12 lead EKG demonstrates sinus tachycardia rate 122 with PVC, no ST changes but inferior lateral inverted T-waves on admission. Troponin 0.021, BNP is 3140 on admission. -increased home regimen of metoprolol tartrate 25 mg twice daily to 50 mg today given cardiology recommendatiosn below. -continue lasix IV BID 7. Chronic Congestive heart failure diastolic with peripheral edema, present on admission, chronic. -echocardiogram completed 12/05/2017 demonstrates an EF 65-70% with well-seated mitral valve. Also acknowledges elevated right-sided filling pressures. -patient with 4+ bilateral pedal edema currently on Lasix 40 mg twice daily with potassium supplementation 20 mEq once daily -chest x-ray shows cardiomegaly and bilateral patchy infiltrates which may be due to volume overload from cirrhosis or diastolic heart failure. -Lasix 40 mg given in the ER, will increase to 60 mg IV BID. -will closely monitor her electrolytes and renal function. -TTE as noted below. 8. Long-term anticoagulation, present on admission, chronic -subtherapeutic INR at 1.7 on admission, today dropped to 1.6. -patient is taking warfarin 2.5 mg every other day. Will give 3.75 mg today. -will continue every other day dosing starting today and follow INR. 9. History of mitral valve replacement- - complex history of two mitral valve replacements last in 02/2019 at [facility], - TTE showing EF 70-75% with now mitral stenosis with a peak gradient of 12 mm Hg and and iatrogenic ASD with L to R shunting. See below: NSR with HR 90-95 bpm. Normal LV size and wall thickness; normal wall motion and LV systolic function. LV is hyperdynamic with EF 70-75%. Severe biatrial enlargement and severe RV enlargement with mild-moderately reduced RV function. There is D shaped LV in systole and diastole c/w RV pressure overload. Estimated PA systolic pressure is 65 mm Hg assuming RA pressure of 10 mm Hg. There is atrial septal defect with left to right shunting. Mitral valve is replaced by history with a stented bioprosthesis. There is severe mitral stenosis with mean gradient of 12 mm Hg and peak velocity of 2.9 m/sec. There is severe TR. Compared to prior study 12/05/2017 mitral stenosis has progressed. mean gradient across mitral valve ja from 9 to 12 mm Hg. PA systolic pressure ja from 33 to 65 mm Hg. Atrial septal defect is new. -increased beta holly from 25 mg BID to 50 mg BID based on cardiology recommendations -goal net negative 1-2 L daily for diuresis given above TTE. Will increase from 40 mg to 60 mg IV BID given net negative 500 cc past 24 hours. 10. Hypokalemia, acute - given potassium repletion. VTE prophylaxis: Bilateral leg wraps, anticoagulated on warfarin. Diet: Advanced to heart Vir-Sec diet Code status: FULL CODE. Quality VTE Deep Vein Thrombosis/Pulmonary Embolism Present on Admission: Yes
[2019-07-04 12:00] VITALS: BP 108/62; PULSE 66; RESP 18; TEMP 37.1; O2SAT 99
--- NOTE | 2019-07-04 12:06 | OT.IP.TRT ---
Current Diagnoses Sepsis, unspecified organism (07/02/19) Occupational Therapy Treatment Note M2 OT-IP Current Condition Start: 07/03/19 12:56 Freq: Status: Active Protocol: Document 07/03/19 12:57 CGR (Rec: 07/03/19 13:19 CGR [id number]) Occupational Therapy Current Condition Current Condition Evaluation Date 07/03/19 Treatment Diagnosis Sepsis Diagnosis Onset Date 07/02/19 M3 OT- IP Subjective and Pain Start: 07/03/19 12:56 Freq: Status: Active Protocol: Document 07/04/19 12:03 CGR (Rec: 07/04/19 12:06 CGR [id number]) OT- Subjective Occupational Therapy Visit Type Type Administrative Note Notes Attempted to see pt for OT services. Pt declined any out of bed activity. Pt would like to shower at next available time. Discussed with who approved shower despite small wounds on legs. Will continue to follow.
--- NOTE | 2019-07-04 13:09 | CM.DPC ---
DCP Cont: Dr. Chacko stated that according to heart association guidelines, patient may need to be on 2gm [place] every 4 hours. Stated that he would follow up with [facility] guidelines, but would not know until Saturday. group home could be another option, as well. Spoke to patient briefly from the door of his room. Asked him if he would be willing to go to a assisted facility temporarily, for IV ABO. He stated, I guess, I don't really have a preference, but if that's needed, would be ok. Asked him if this correctional casework specialist could contact his partner, Jaida, regarding his information, and he stated, it would be ok, she keeps track of all of my doctors and medical things. Spoke to Jaida. Stated that there is a possibility that patient may need every 4 hours of ABO. She mentioned that he has had home infusions before, and either her, or neighbors should be able to help him. She also mentioned, he is not reliable about taking his medications like he is supposed to, and needs frequent remindes. Discussed home health as well, and she stated that he had home health when he came home from [place], but couldn't remember the name of the agency. Mentioned some assisted facilities. Asked Jaida is she was his POA, and she stated, she has paperwork and is working on this. He has no other immediate family, has a sister that he does not keep in contact with. Stated, she doesn't want him to go to [facility], because of the Allen Virus. Called [facility], and spoke to Camila. She stated that they are not contracted with [facility], and would need a one time contract. She stated that they can't do this unless a couple of other facilities refuse him. Called [facility] and spoke to Keisha. She stated that they are contracted with his insurance, but no availabilities now. Stated that there could potentially be openings next week. Let her know that this correctional casework specialist would go ahead and send referral so she can review. Called [facility] as well and left a message. Went ahead and faxed information over to them to review as well. P: DCP to continue to follow. Patient will either go home with home health and [facility] for IV antibiotics, or assisted, if there is an accepting facility. So far, referrals are out at [facility] and [facility]. [facility] can review if both facilities can't accept. Fiordaliza Tee RN/Shipping And Receiving Associate
[2019-07-04] MEDS: VANCOMYCIN 1,250 MG in SODIUM CHLORIDE 0.9% 250 ML IV (13:51)
[2019-07-04 15:27] VITALS: BP 105/60; PULSE 70; RESP 16; TEMP 37.7; O2SAT 98
[2019-07-04] MEDS: NAFCILLIN 2 GM in SODIUM CHLORIDE 0.9% 100 ML 200 ML IV ×2 (17:05→21:00)
[2019-07-04] MEDS: WARFARIN 2.5 MG TABLET 3.75 MG PO (17:06)
[2019-07-04 19:13] VITALS: BP 103/67; PULSE 74; RESP 16; TEMP 37.6; O2SAT 95
[2019-07-04] MEDS: FUROSEMIDE 20 MG/2 ML VIAL 60 MG IV (20:29)
[2019-07-04 23:35] VITALS: BP 95/60; PULSE 66; RESP 20; TEMP 36.8; O2SAT 94
[2019-07-05] MEDS: NAFCILLIN 2 GM in SODIUM CHLORIDE 0.9% 100 ML 200 ML IV ×6 (01:35→21:36)
[2019-07-05 04:00] VITALS: BP 92/52; PULSE 66; RESP 15; TEMP 37.1; O2SAT 96
[2019-07-05] MEDS: PIPERACILLIN-TAZO 4.5 GM/100 ML FROZ.PIGGY IV ×4 (04:46→23:32)
[2019-07-05 04:54] LABS: INR 1.6 (0.9-1.3); Prothrombin Time 18.9 SECONDS (10.1-12.7)
[2019-07-05 04:59] LABS: Alanine Aminotransferase 15 IU/L (<50); Albumin 2.8 g/dL (3.5-5.0); Albumin Globulin Ratio 0.7 (1.0-2.8); Alkaline Phosphatase 81 U/L (38-126); Aspartate Aminotransferase 49 IU/L (17-59); BUN Creatinine Ratio 13.7 (6-22); Bilirubin Conjugated 0.3 md/dL (0.0-0.3); Bilirubin Total 3.6 mg/dL (0.2-1.3); Bilirubin Unconjugated 2.1 mg/dL (0.0-1.1); Blood Urea Nitrogen 13 mg/dL (9-20); Calcium 7.7 mg/dL (8.4-10.2); Carbon Dioxide 32 mmol/L (22-32); Chloride 104 mmol/L (98-107); Estimated Glomerular Filt Rate > 60.0 mL/min (>60); Globulin 3.9 g/dL (1.7-4.1); Glucose 95 mg/dL (80-110); HEMOLYSIS 27 (0-50); Potassium 2.9 mmol/L (3.4-5.1); Sodium 141 mmol/L (137-145); Total Protein 6.7 g/dL (6.3-8.2)
[2019-07-05 05:00] LABS: Hemoglobin 11.5 g/dL (13.5-17.5); Mean Corpuscular HGB Conc 34.9 % (30-36); Mean Corpuscular Hemoglobin 36.4 PG (26-34); Mean Corpuscular Volume 104.5 fL (80-100); Platelet Count 68 X10^3/uL (150-400); Red Blood Cell Count 3.15 X10^6/uL (4.5-5.9); Red Cell Distribution Width 18.2 % (11.6-14.8); White Blood Cell Count 4.5 X10^3/uL (4.5-11.0)
[2019-07-05 05:03] LABS: Add Manual Diff / Slide Review YES
[2019-07-05 05:46] LABS: Neutrophils Absolute Manual 3240 /uL (3000-5900); Total Cells Counted 100
[2019-07-05 05:47] LABS: Anisocytosis 2+; Macrocytosis 1+; Platelet Estimate Decreased on smear
[2019-07-05 08:00] VITALS: BP 99/54; PULSE 68; RESP 22; TEMP 36.9; O2SAT 95
--- NOTE | 2019-07-05 09:08 | PT.IPTN ---
Current Diagnoses Sepsis, unspecified organism (07/02/19) Physical Therapy Treatment Note M2 PT-IP Current Condition Start: 07/03/19 09:27 Freq: NEEDED Status: Active Protocol: Document 07/04/19 08:30 MB (Rec: 07/04/19 09:14 MB [id number]) Physical Therapy Current Condition Precautions Other Precautions Contact precautions, multiple lines, pt with loose stool M3 PT-IP Subjective Start: 07/03/19 09:27 Freq: NEEDED Status: Active Protocol: Document 07/05/19 08:15 MB (Rec: 07/05/19 09:08 MB [id number]) Subjective Physical Therapy Visit Type Type Treatment Note Visit Start Time 08:15 Visit Stop Time 08:39 Total Visit Minutes 24 Number of NUTRITION INSTRUCTOR Visits 0 Physical Therapy Visit Comments Patient Comments PT is able to treat pt before breakfast so that he might sit up for breakfast and avoid incontinence in the bed. He is agreeable to PT. He reports his right knee is hurting, 5/ 10. Patient Goals To get better, go home. He is receptive to recommendation for SNF today Therapy Pain Assessment Pain When Pain Assessed At Rest Location R knee Intensity 5 Pain Management Techniques Elevation M4 PT-IP Mobility and Gait Start: 07/03/19 09:27 Freq: NEEDED Status: Active Protocol: Document 07/05/19 08:15 MB (Rec: 07/05/19 09:08 MB [id number]) PT-Bed Mobility Assessment Rolling Type of Rolling Roll to Left Level of Assist Independent Supine to Sit Supine to Sit Independent,Head of Bed Elevated,Bedrails Scooting Scooting to Edge of Bed Standby Assistance PT-Transfer Assessment Sit to and From Stand Sit to and from Stand Standby Assistance Equipment Transfer Assistive Device Gait Belt,Front Wheeled Walker Transfers Transfer Destination Chair,Toilet Transfer Ability Level of Assist Standby Assistance,1 Person Assistance,Use of Upper Extremities Comments Mobility Comments Pt moves better in the bed as far as supine to sit. He does require max asst to doff socks and don new ones (edema and decreased willingness to perfom himself), max asst to move pillows from under his legs and he cannot lift legs well to remove. Gait Assessment Gait Gait Assistance Required: Standby Assistance Assistive Devices Assistive Device Gait Belt,Front Wheeled Walker Gait Deviations General Gait Pattern Decreased Stride Length, Decreased Feet Clearance, Flexed Trunk,Wide Based Gait Factors Limiting Gait Function Factors Limiting Gait Function Decreased Activity Tolerance, Decreased Strength,Poor Balance,Poor Safety Awareness Comments Gait Comments 15'x1 and 10'x1. Pt reports he needs to go to toilet immediately upon sitting. He is impulsive in need to get to commode. He requires WAGON DRIVER asst for all hygiene activities. Cues and PT manages lines as PT gaits with forward, flexed posture, decreased step-length and foot clearance with RW. BP before gait 99/56. He denies dizziness and SOB. Like yesterday, O2 reader does not work well on finger and PT lets WAGON DRIVER know this. PT-Balance Assessment Sitting Balance and Reactions Static Sitting Balance Ability Fair Dynamic Sitting Balance Ability Fair Standing Balance and Reactions Static Standing Balance Ability Fair Dynamic Standing Balance Ability Fair Comments Other Balance Tests/Deviations/Treatment UE support from bed for : sitting and walker with standing M5 PT-IP Objective Assessments Start: 07/03/19 09:27 Freq: NEEDED Status: Active Protocol: Document 07/03/19 12:57 AW (Rec: 07/03/19 13:38 AW [id number]) Orientation Orientation/Cognition Level of Alertness Alert Orientation Name,Month,Year,Place Language Function Ability No Deficits Noted Safety Awareness Decreased Safety Awareness Memory Description Short Term Impaired Comments Pt had difficulty relating how he arrived at the hospital and was oriented to month/year , but stated today was the . Gross Range of Motion Upper Extremity ROM Assessment Within Functional Limits Lower Extremity ROM Assessment Within Functional Limits Strength Upper Extremity Strength Assessment Bilaterally Impaired Lower Extremity Strength Assessment Bilaterally Impaired Comments Strength Comments BUE and BLE grossly 4/5 except right ankle 3+/5 Coordination Assessment Gross Coordination Gross Coordination WNL Muscle Tone Muscle Tone WNL Yes M6 PT-IP Treatment Start: 07/03/19 09:27 Freq: NEEDED Status: Active Protocol: Document 07/05/19 08:15 MB (Rec: 07/05/19 09:08 MB [id number]) Physical Therapy Treatment Exercises Exercises Ankle Pumps Education Education Provided Safety Other Treatments Other Treatment Performed Education benefits of participating with all therapies to help with mobility, to agree to bath today to help skin integrity and ongoing LE elevation and APs. M7 PT-IP Assessment and Plan Start: 07/03/19 09:27 Freq: NEEDED Status: Active Protocol: Document 07/05/19 08:15 MB (Rec: 07/05/19 09:08 [id number]) PT Summary Assessment and Plan Potential Rehabilitation Potential Fair Status of Condition at Evaluation Evolving Summary Impairments Pain,ROM,Strength,Balance, Cognition,Bed Mobility, Transfers,Gait,Activity Tolerance Assessment Summary A&O to person, place and month and year. Ongoing decreased safety awareness. He is unable to walk out of room d/t need to use restroom and then get up to chair for breakfast. His right LE is very edematous compared to the left and he has right knee pain today. PT recommends SNF at d/c given unable to perform gait and mobility with I with AD and increased impulsivity and safety, increased fall risk. He is to d/c with IV antibiotics and PT does not feel that pt can manage this and per SW note, his significant other reports pt has not done well with care in the past. He has had poor self-care awareness in the hospital with incontinence and refusal of bath which would help his integumetary integrity. Pt requires SBA for mobility with RW and PT manages lines. Goals Bed Mobility Goal Independent Transfer Goal Independent,Cane,Front Wheeled Walker Gait Goal Independent,Cane,Front Wheel Walker Gait Distance 200 Other Goals - up/down 4 steps with bilateral rails SBA Days to Meet Goals 5 Frequency of Treatment Frequency Of Treatment Once a Day Treatment Plan Physical Therapy Treatment Plan Bed Mobility Training,Transfer Training,Gait Training, Therapeutic Exercise,Balance Retraining,Discharge Planning, Neuromuscular Re-ed Other Recommendations and Next Treatment Rollator not availale. Con't Focus gait training as tolerates Recommendations To Nursing Amount of Assist Needed Standby Assistance,1 Person Assist Discharge Recommendations PT Discharge Recommendations SNF Rehab Equipment Needed for Home Before Defer to facility d/c Discharge Transportation Needs at Discharge Private Vehicle
[2019-07-05] MEDS: POTASSIUM CHLORIDE 20 MEQ TAB 40 MEQ PO ×3 (09:16→16:53)
[2019-07-05] MEDS: FUROSEMIDE 20 MG/2 ML VIAL 60 MG IV (09:18)
[2019-07-05] MEDS: METOPROLOL IR 25 MG TABLET 50 MG PO ×2 (09:21→20:09)
[2019-07-05] MEDS: LACTULOSE 20 GM/30 ML SOLUTION 30 GM PO (09:24)
[2019-07-05] MEDS: SODIUM CHLORIDE 0.9% FLUSH 10 ML IV ×2 (09:26→20:09)
--- NOTE | 2019-07-05 09:56 | CM.DPC ---
Addendum entered by Fiordaliza Tee R.N. 07/05/19 12:38: Went ahead and completed a PASSR in case patient is able to go to [facility] facility. Face to face was also completed if he goes home with home health, and was signed. Addendum entered by Fiordaliza Tee R.N. 07/05/19 12:23: Called [facility] in [place] to see if they had beds, and if they took patient's insurance, and there was no one in admissions today. Called [facility] in [place]. Called Ирина in admissions. Her phone number is: [phone], which is her direct number. Her fax number is: [phone]. Confirmed with her that they do have male beds available. Confirmed that they do accept patient's insurance. Page asked for labs showing COVID negative, which this window caser will send. Sent her over P.T. notes, med sheet showing what IV antibiotic that patient is currently on, face sheet, latest prog note, and H&P. She will review. She mentioned that she may be able to start auth today. Spoke to nurse, Edward, and Dr. Chacko, and gave them update. Edward stated that PICC line may be placed tomorrow. Left a message at [facility] for potential swing bed. Their number is: [phone]. Did not send any detailed information regarding patient's name, but just inquired if they have any beds available and if they accept this insurance. At this time, [facility] has call out, referral sent, [facility] has referral, have a message out to [facility] for swing bed, and referral was sent to [facility]. Original Note: DCP Cont: Received a message from Keisha in admissions at [facility]. She mentioned that they can't accept patient due to complex medical needs. She also mentioned in message that insurance would pay minimal. Discussed in team rounds. Still waiting to hear back from [facility]. Left another message with Margie at [facility]. Dr. Chacko stated that he would still attempt to call [facility] and see if another antibiotic can be recommended if he needs to go home with infusions. Have also faxed over information to [facility]. If [facility] does not accept patient, [facility] may be able to obtain a one time contract with [employer]. P: DCP to continue to follow. Will follow up with [facility], [facility], as well as [facility]. Will see if patient can be on another antibiotic that is not as frequent. Patient will also need PICC line for longer term ABO use. Fiordaliza Tee RN/Physician Surgeon
--- NOTE | 2019-07-05 10:31 | PM.PN.1 ---
Subjective Subjective Date Patient Seen: 07/05/19 Time Patient Seen: 10:32 Interval history: This is a 63-year-old male patient with past medical history of end-stage liver disease, paroxysmal atrial flutter on anticoagulation, diastolic heart failure, and previous endocarditis with valve replacement who presented with toxic metabolic encephalopathy and is admitted with sepsis secondary to Staph bacteremia. He is seen for follow-up today. His sepsis has largely resolved at this time. His swelling is slightly improved and his pain is less. He complains of R knee pain after sleeping on it but denies other complaints. His COVID-19 testing was negative. His bilirubin is steadily improving as are his lab values. He had a bowel movement this morning and was recommended for SNF by PT today. Attempting to contact his cardiologists at today regarding possible treatment of endocarditis given his history and positive blood cultures as he will need follow up with them after discharge. Also complicated by q4 hr antibiotic requirement for 6 weeks which will be difficult to administer at home and he has already been rejected by a few of the nursing homes near here. Exam Vital Signs (past 8 hours): - 07/05/19 04:00 07/05/19 08:00 Temperature 98.7 F 98.4 F Pulse Rate 66 68 Respiratory Rate 15 22 Blood Pressure 92/52 L 99/54 L Pulse Oximetry 96 95 Oxygen Delivery Method Room Air Oxygen Flow Rate 0 Narrative Exam Narrative: GENERAL APPEARANCE: Well developed, well nourished, in no acute distress. SKIN: Inspection of the skin reveals no rashes, ulcerations or petechiae. Jaundice markedly improved. HEENT: Normocephalic atraumatic, extraocular muscles are intact, oropharynx is clear and mucous membranes are moist, neck is supple without adenopathy NECK: Supple and symmetric. There was no thyroid enlargement, and no tenderness, or masses were felt. CHEST: Normal AP diameter and normal contour without any kyphoscoliosis. LUNGS: Auscultation of the lungs revealed diminished breath sounds at bilateral lung bases, no wheezes or rhonchi were appreciated. CARDIOVASCULAR: There was a regular rate and rhythm with a soft systolic murmur 2/6 noted. Peripheral pulses were 2+ and symmetric. ABDOMEN: Soft and nontender with normal bowel sounds. No ascites was noted. MUSCULOSKELETAL: No tenderness. Muscle strength and tone are normal. EXTREMITIES: No cyanosis or clubbing. There is bilateral lower extremity edema with right greater than left. Erythema and tenderness resolved today. Chronic venous stasis skin changes. Weeping slightly LLE. NEUROLOGIC: Alert and oriented x 3. Improved lethargy, weaker in bilateral lower extremities secondary to edema and positioning. Objective Labs Result Diagrams: 07/05/19 04:35 07/05/19 04:35 Labs: Laboratory Results - last 24 hr 07/05/19 07/05/19 07/05/19 04:35 04:35 04:35 WBC 4.5 RBC 3.15 L Hgb 11.5 L Hct 33.0 L MCV 104.5 H MCH 36.4 H MCHC 34.9 RDW 18.2 H Plt Count 68 L Neut % (Auto) Not Reportable Lymph % (Auto) Not Reportable Waldo % (Auto) Not Reportable Eos % (Auto) Not Reportable Baso % (Auto) Not Reportable Lymph # (Auto) Not Reportable Waldo # (Auto) Not Reportable Baso # (Auto) Not Reportable Total Counted 100 Seg Neutrophils % 66.0 Band Neutrophils % 6.0 Lymphocytes % (Manual) 16.0 L Monocytes % (Manual) 6.0 Eosinophils % (Manual) 6.0 H Neutrophils # (Manual) 3240 Platelet Estimate Decreased on smear RBC Morphology See below Anisocytosis 2+ H Macrocytosis 1+ H PT 18.9 H INR 1.6 H Sodium 141 Potassium 2.9 L Chloride 104 Carbon Dioxide 32 BUN 13 Creatinine 0.95 Estimated GFR > 60.0 BUN/Creatinine Ratio 13.7 Glucose 95 Calcium 7.7 L Total Bilirubin 3.6 H Conjugated Bilirubin 0.3 Unconjugated Bilirubin 2.1 H AST 49 ALT 15 Alkaline Phosphatase 81 Total Protein 6.7 Albumin 2.8 L Globulin 3.9 Albumin/Globulin Ratio 0.7 L Assessment & Plan Assessment & Plan narrative: This is a 63-year-old male patient with past medical history of end-stage liver disease, paroxysmal atrial flutter on anticoagulation, diastolic heart failure, and previous endocarditis with valve replacement who presented with toxic metabolic encephalopathy and is admitted with sepsis secondary to Staph bacteremia. 1. Sepsis, with organ dysfunction, without shock, present on admission, acute, resolved -the patient patient began complaining of back pain and hip pain. Presented with a temperature of 103.1? and altered mentation -positive procalcitonin at 1.74 and a normal white count at 11.6 however 41% bandemia on admission. WBC count improving on antibiotics. Blood cultures pending sensitivities but currently with staph aureus. -SOFA score is 8 based on a PF ratio of 376, lactic acid on presentation of 5.2 scoring is also qualified by cirrhosis and an elevated total bili of 7.0 -differential diagnosis of source for bacteremia: -Pneumonia, chest x-ray demonstrates diffuse bilateral opacities with moderate opacity right lower lobe on chest x-ray and redemonstrated on CT and read as atelectasis versus pneumonia, prominent cardiac silhouette, no cough. 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 Will likely need treatment as prosthetic valve endocarditis but will need follow up with [facility]. Will attempt to contact them for further recommendations given need for follow up as an outpatient as well as possible phone ID consultation given nafcillin currently as first line for endocarditis but with difficult placement issues may need to consider alternative, less freqeuntly dosed antibiotic. -skin / soft tissue infection, thought to be less likely. -Blood cultures growing MSSA. Repeat cultures NGTD. -Narrowed after blood cultures to nafcillin 2g q4 hours for treatment of possible prostethic valve endocarditis as noted above. Initially on zosyn and vanc. -GI panel negative, respiratory panel negative. COVID 19 negative. 2. Pneumonia, right lower lobe, present on admission, acute -no reports of shortness of breath though the patient has complained of back pain. -scattered crackles with breath sounds diminished in the bases right greater than left, no cough. It is possible radiographic findings are more consistent with volume overload from cirrhosis. -chest x-ray reveals moderate diffuse bilateral opacities, moderate opacity right lower lobe, CT similar finds atelectasis versus pneumonia right lower lobe. -continue zosyn and vancomycin as noted above. -PCR panel negative. COVID 19 negative. 3. Liver cirrhosis, present on admission, chronic, active. -history of hepatitis C and has completed sofosbuvir/velpatasvir therapy, has had hepatitis B vaccination. -patient jaundiced without complaints of abdominal pain -total bilirubin is 7.0, AST is 48, ALT is 22 and alkaline phosphatase is 82, albumin is 3.5, platelets are 64 on admission, now improved to 3.6. -CT of the chest abdomen and pelvis reveals shrunken liver with nodular contour, new 28 mm low-density mass in the right hepatic lobe, also cholelithiasis with stones in the common duct which with mild ductal dilatation may be in part responsible for elevated bilirubin. -patient taking lactulose twice daily with associated loose stool, ammonia on admission is less than 9. -continue home regimen of 30 g of lactulose twice daily. -consider MRCP however this is felt less likely to be the source of infection. 4. Toxic metabolic encephalopathy, acute, present on admission, resolved -patient with altered mental status upon arrival minimally improved with IV hydration this has improved with treatment of underlying sepsis. He remains slightly lethargic today. 5. Liver mass right hepatic lobe, new finding probable acute, present on admission, active. -patient with history of hepatitis C and liver cirrhosis. -CT scan finds a 28 mm low-density mass in the right hepatic lobe posteriorly, from review of his outside records over the phone discussing cardiac issues he has known HCC. -ordered alpha-fetoprotein. 6. Paroxysmal Atrial flutter, not present on admission, chronic. -patient has not complained of chest pain or shortness of breath. -12 lead EKG demonstrates sinus tachycardia rate 122 with PVC, no ST changes but inferior lateral inverted T-waves on admission. Troponin 0.021, BNP is 3140 on admission. -increased home regimen of metoprolol tartrate 25 mg twice daily to 50 mg given cardiology recommendations below. -continue lasix IV BID, increased to 80 mg BID for inadequate diuresis past 24 hours. 7. Chronic Congestive heart failure diastolic with peripheral edema, present on admission, chronic. -echocardiogram completed 12/05/2017 demonstrates an EF 65-70% with well-seated mitral valve. Also acknowledges elevated right-sided filling pressures. Repeat TTE noted below. -patient with 4+ bilateral pedal edema on Lasix 40 mg twice daily as an outpatient with potassium supplementation 20 mEq once daily -chest x-ray on admission shows cardiomegaly and bilateral patchy infiltrates which is likely due to his iatrogenic ASD with L to R shunt as discussed below. -Lasix 40 mg given in the ER, increased to 60 mg BID with inadequate diuresis, will increase again to 80 mg BID today. -will closely monitor her electrolytes and renal function. 8. Long-term anticoagulation, present on admission, chronic -subtherapeutic INR at 1.7 on admission, today remains subtherapeutic. -patient is taking warfarin 2.5 mg every other day. Will give 3.75 mg again today (2nd dose) 9. History of mitral valve replacement- - complex history of two mitral valve replacements last in 02/2019 at [facility], - TTE showing EF 70-75% with now mitral stenosis with a peak gradient of 12 mm Hg and and iatrogenic ASD with L to R shunting. See below: NSR with HR 90-95 bpm. Normal LV size and wall thickness; normal wall motion and LV systolic function. LV is hyperdynamic with EF 70-75%. Severe biatrial enlargement and severe RV enlargement with mild-moderately reduced RV function. There is D shaped LV in systole and diastole c/w RV pressure overload. Estimated PA systolic pressure is 65 mm Hg assuming RA pressure of 10 mm Hg. There is atrial septal defect with left to right shunting. Mitral valve is replaced by history with a stented bioprosthesis. There is severe mitral stenosis with mean gradient of 12 mm Hg and peak velocity of 2.9 m/sec. There is severe TR. Compared to prior study 12/05/2017 mitral stenosis has progressed. mean gradient across mitral valve ja from 9 to 12 mm Hg. PA systolic pressure ja from 33 to 65 mm Hg. Atrial septal defect is new. -increased beta holly from 25 mg BID to 50 mg BID based on cardiology (carbide grinder who read his TTE) recommendations -goal net negative 1-2 L daily for diuresis given above TTE. Will increase from 40 mg to 60 mg IV BID given net negative 500 cc past 24 hours. 10. Hypokalemia, acute - given potassium repletion. Continue to follow and replete as necessary. VTE prophylaxis: Bilateral leg wraps, anticoagulated on warfarin. Diet: Advanced to [employer] diet Code status: FULL CODE. Quality VTE Deep Vein Thrombosis/Pulmonary Embolism Present on Admission: Yes
[2019-07-05 12:00] VITALS: BP 105/61; PULSE 67; RESP 18; TEMP 37.1; O2SAT 98
[2019-07-05 15:25] VITALS: BP 121/65; PULSE 72; RESP 20; TEMP 37.6; O2SAT 98
[2019-07-05] MEDS: WARFARIN 2.5 MG TABLET 3.75 MG PO (16:53)
--- NOTE | 2019-07-05 18:08 | PC.NURSE ---
Addendum entered by Perla Balderrama R.N. 07/05/19 22:56: Pt has reported iv infusion of nafcillin comfortable when rate decreased and run concurrently with normal saline. Pt then c/o pain shortly thereafter. IV rate of antibiotic decreased to 50 cc/hr with saline concurrently @ 25 cc/hr. Left forearm is soft without erythema. Able to draw blood and flushes easily. Redressed. Offered to restart iv in different site and pt refuses. Ice to site and tylenol administered. Addendum entered by Perla Balderrama R.N. 07/05/19 20:13: Pt refuses hs lactulose. Declines offer for tylenol stating experiencing no pain. Dyspnea noted @ rest. R.t. called for prn treatment. Addendum entered by Perla Balderrama R.N. 07/05/19 19:04: Pt reports discomfort with iv antibiotic nafcillin. Rate decreased and run concurrently with normal saline. Ice to left forearm iv site as per pt request. Able to draw blood easily from this iv site and flush without difficulty. No signs of infiltration at site. Removed ice as pt reports no relief and applied warm blanket to left forearm/upper arm. Pt does report some relief. Original Note: Pt mostly sleeping but rouses to verbal and tactile stimuli. Denies pain. Able to take meds whole with water. Discussed with Dr. Chacko, who is in house, pt's platelet count of 68 and order to given warfarin this evening. Per Dr. Chacko, give med and this was done. Pt set up for evening meal, poor appetite. Taking oral fluids at bedside. Up to commode with staff assistance for stool and void. Returned to bed. Edematous RLE elevated on pillow. RLE Post tib pulse located with doppler. Pedal pulse present left foot with doppler. Bed alarm set and call light available. Appropriate mentation and conversation.
[2019-07-05 19:00] VITALS: BP 112/63; PULSE 74; RESP 19; TEMP 37.4; O2SAT 99
[2019-07-05] MEDS: FUROSEMIDE 20 MG/2 ML VIAL 80 MG IV (20:08)
[2019-07-05] MEDS: ALBUTEROL HFA 60 PUFF/8 GM INH INH (20:16)
[2019-07-05] MEDS: ACETAMINOPHEN 325 MG TABLET 650 MG PO (22:52)
[2019-07-05 23:25] VITALS: BP 108/66; PULSE 70; RESP 16; TEMP 37.1; O2SAT 94
[2019-07-05] MEDS: HYDROMORPHONE 1 MG INJ 0.5 MG IV (23:37)
--- NOTE | 2019-07-05 23:54 | PC.NURSE ---
Patient verbalizes upset with not being able to sleep due to discomfort in IV site from IV antibiotics. Has been offered to restart IV but patient refuses. IV is patent with good blood return. Site appears bruised but no redness noted. Has ice pack to arm and is being elevated on pillows. Had Tylenol earlier so now medicated with Dilaudid and will discuss with GELATIN PLANT SUPERVISOR; plan reported to be that patient will be getting PICC in a.m. Patient is oriented to self, birthdate, age, year and place only. Breath sounds diminished at bases; RA sat 94%. HRR; on telemetry with last reading recorded being SR. Denies nausea. BT present and abdomen is soft. Voiding per urinal but also incontinent with urinary frequency related to use of diuretic. Able to turn self in bed. Gait not assessed at this time as not out of bed; evening RN reports he needs to use walker and 1 assist. Edema in bilateral LE toe to groin with right > left. Skin on bilateral legs is brown with some light redness around medial ankle on right foot. Scabbed abrasions noted on bilateral LE. Fall risk score is high and bed alarm is activated.
[2019-07-06 01:19] LABS: Vancomycin Trough < 5.0 ug/mL (10-20)
[2019-07-06] MEDS: NAFCILLIN 2 GM in SODIUM CHLORIDE 0.9% 100 ML 200 ML IV ×3 (01:26→08:31)
[2019-07-06] MEDS: SODIUM CHLORIDE 0.9% 500 ML 21 ML IV (02:33)
[2019-07-06] MEDS: PIPERACILLIN-TAZO 4.5 GM/100 ML FROZ.PIGGY IV (04:23)
[2019-07-06 04:48] VITALS: BP 98/58; PULSE 64; RESP 12; TEMP 36.9; O2SAT 98
[2019-07-06 04:58] LABS: Add Manual Diff / Slide Review NO; Basophils Absolute Auto 0 /uL (0-100); Basophils Percent Auto 0.8 % (0-2); Eosinophils Absolute Auto 400 /uL (0-450); Hematocrit 32.3 % (41-53); Hemoglobin 11.4 g/dL (13.5-17.5); Lymphocytes Absolute Auto 700 /uL (1100-4500); Mean Corpuscular HGB Conc 35.2 % (30-36); Mean Corpuscular Hemoglobin 36.6 PG (26-34); Mean Corpuscular Volume 103.8 fL (80-100); Monocytes Absolute Auto 600 /uL (0-900); Monocytes Percent Auto 12.8 % (3-14); Neutrophils Absolute Auto 3000 /uL (1500-7000); Neutrophils Percent Auto 63.4 % (50-75); Platelet Count 79 X10^3/uL (150-400); Red Blood Cell Count 3.12 X10^6/uL (4.5-5.9); Red Cell Distribution Width 18.3 % (11.6-14.8); White Blood Cell Count 4.8 X10^3/uL (4.5-11.0)
[2019-07-06 05:11] LABS: Alanine Aminotransferase 13 IU/L (<50); Albumin 2.8 g/dL (3.5-5.0); Albumin Globulin Ratio 0.7 (1.0-2.8); Alkaline Phosphatase 62 U/L (38-126); Aspartate Aminotransferase 37 IU/L (17-59); BUN Creatinine Ratio 15.1 (6-22); Bilirubin Conjugated 0.4 md/dL (0.0-0.3); Bilirubin Total 3.4 mg/dL (0.2-1.3); Bilirubin Unconjugated 1.6 mg/dL (0.0-1.1); Blood Urea Nitrogen 13 mg/dL (9-20); Calcium 7.7 mg/dL (8.4-10.2); Carbon Dioxide 33 mmol/L (22-32); Chloride 101 mmol/L (98-107); Estimated Glomerular Filt Rate > 60.0 mL/min (>60); Globulin 3.8 g/dL (1.7-4.1); Glucose 107 mg/dL (80-110); HEMOLYSIS < 15 (0-50); Magnesium 1.6 mg/dL (1.6-2.3); Potassium 3.3 mmol/L (3.4-5.1); Sodium 137 mmol/L (137-145); Total Protein 6.6 g/dL (6.3-8.2)
[2019-07-06 07:57] VITALS: BP 94/57; PULSE 66; RESP 27; TEMP 36.7; O2SAT 97
[2019-07-06] MEDS: POTASSIUM CHLORIDE 20 MEQ TAB 40 MEQ PO ×2 (08:25→14:03)
[2019-07-06] MEDS: FUROSEMIDE 100 MG/10 ML VIAL 80 MG IV (08:26)
[2019-07-06] MEDS: LACTULOSE 20 GM/30 ML SOLUTION 30 GM PO (08:29)
[2019-07-06] MEDS: MAGNESIUM CHLORIDE 64 MG TABLET 128 MG PO (09:58)
--- NOTE | 2019-07-06 11:28 | DI.RAD.S_ITS ---
PROCEDURE: XR CHEST FOR PICC 1V INDICATIONS: Placement check COMPARISON: [facility], CR, XR CHEST 1V, 07/01/2019, 19:50. FINDINGS: PICC was placed by the intravenous therapy team from the distal SVC side. Fluoroscopic spot film demonstrates the tip of PICC projecting to the area of right . IMPRESSION: Tip of PICC projects to the area of distal SVC. Dictated by: Tami Cruz MD, PhD on 07/06/2019 at 12:20 Approved by: Tami Cruz MD, PhD on 07/06/2019 at 12:21
[2019-07-06 11:30] VITALS: BP 97/60; PULSE 99; RESP 13; TEMP 36.8; O2SAT 99
--- NOTE | 2019-07-06 11:41 | OT.IPNOTE ---
PT able to call pt's significant other and she states has no questions or concerns to be able to assist pt at home for all mobility and Adl needs. Pt currently getting PICC line placed and not able to see for OT today.
--- NOTE | 2019-07-06 11:42 | PT-IP ANOTE ---
The patient is being DC today home with a pic line. I called and spoke to his technical healthcare consultant Maryse to offer any caregiver training she may need. She reports feeling comfortable assisting with transfers and mobility for Mr Kim at home. She reports she is currently installing a grab bar into the bathroom and is making sure all pathways are cleared in the home. Pt will be discharging home after pic line is placed this afternoon
[2019-07-06] MEDS: CEFTRIAXONE 2 GM/50 ML FROZ.PIGGY IV (12:14)
--- NOTE | 2019-07-06 12:20 | CM.DPC ---
DCP Discharge Home with Infusion Per MD, pt to have PICC placed today for fdc IV-Abx need and MD was able to consult pt's Roll Out Manager and confirmed switch to Rocephin Q24 2g for discharge. Return call from [facility] stating they could accept pt but he would need a COVID 19 test prior to acceptance. Return call from [facility] in [place] and they could accept pt also but updated that plan is likely home. Per PT/OT, pt seems to be mobilizing well and recommending home with girlfriend assist. HH could be beneficial. PT called life partner Jaida and confirmed that she did not have concerns with pt d/c home and did not feel that caregiver training needed. SW called [facility] and updated on change of IV-Abx and they confirm that pt is 100% covered by insurance for home infusion and if pt receives his Rocephin dose here at the hospital then they will open pt to service in the home tomorrow for his next dose. Nacho from [facility] will call pt in the room with update. SW met bedside with pt after PICC was placed and explained role and discussed options for IV-Abx (home infusion, outpt infusion, SNF). Pt states that he and sig other Tory do not drive and therefore outpt infusion not a feasible option. Pt states he has a hx of [facility] in the past after heart surgery and IV-Abx needs and his preference would be home with [facility] and not SNF. Pt confirms that his PCP is at the [facility] in [place] but cannot remember his PCP name. SW called PCP office at [facility] and confirmed that pt is established with [facility]. MERVIN called pt's life partner Jaida and updated on above and she is agreeable with plan of pt to d/c home with home infusion and HH and confirms that she has a friend who can provide transport for the pt home today. MERVIN faxed PICC insertion note, d/c summary with dose, frequency and duration and PCP contact info to follow pt after discharge. MERVIN faxed new referral to [facility] for RN for PICC maintenance, PT/OT/LIVESTOCK HANDLER along with orders and F2F. Plan: Patient to d/c home today after dose of IV-Abx via friend POV and [facility] and [facility] to follow. MAY Justice
--- NOTE | 2019-07-06 13:03 | P.DS_ITS ---
History of Present Illness History of Present Illness Date Patient Seen: 07/02/19 Chief complaint: Back & Hip Pain. Narrative: Written by Nathaniel BARKER: Mr. Alex Kim is a 62-year-old male with a medical history significant for liver cirrhosis, right lobe liver mass, hepatitis C, mitral valve replacement post endocarditis, congestive heart failure with preserved EF, history of atrial flutter and gallstones who presents to the emergency department via EMS who was called the patient with back and hip pain. Upon arrival to the ER the patient is febrile and essentially nonverbal. Patient was evaluated in the emergency department with the patient's significant other, Maryse, who provides patient history. The patient complained of back and hip pain on yesterday with a history of osteoarthritis and had a planned surgery however was a canceled related to current pandemic. She further adds that later that night Maryse ports the patient was not acting himself and she questioned him whether he was taking his lactulose which she has failed to 2 previously. At the time the patient states he has been taking his med occasions routinely. He has a history of prior sepsis treated at [facility] for 3 days and [facility] for 8 days approximately 2 years ago. He has a history of advanced liver cirrhosis and has received hepatitis-B vaccination last year and has completed treatment of hepatitis C with sofosuvir-velpastasivr. He has a history of congestive heart failure with his last documented echocardiogram of 12/05/2017 demonstrating an EF of 65-75% with normal LV function and moderate dilation of the right ventricle with normal structure and function. He has bilateral edema that is reported as the right usually greater than the left. The patient himself is stuporous and unable to provide subjective analysis but has had no reports of r ecent fevers or chills, cold or flu symptoms, shortness of breath or cough. The patient has been self isolating. He has reported no chest pain or palpitations, no abdominal pain. He has diarrhea related to lactulose and on last admission to [facility] was positive for Campylobacter. He has reported no urinary symptoms. Upon arrival to the ER the patient's temperature 103.1?, is tachycardic at 125, blood pressure 127/61, respirations are 16 saturating 95% on room air. Face and minimally responsive and head CT is obtained which finds no acute intracranial processes. Chest x-ray feels moderate diffuse bilateral opacities and moderate opacity the right lower lobe. A CT of the chest abdomen and pelvis is obtained with CT findings of moderate right and mild left bibasilar atelectasis versus pneumonia enlarged heart with perivascular adenopathy and paratracheal adenopathy previously noticed on prior exams; there are multiple enlarged subclavicular lymph nodes and thyroid demonstrates a calcified mass in the left lobe measuring 20 mm; liver sunken with nodular contour there is a new low- density mass in the right hepatic lobe measuring 28 mm; gallbladder with multiple calculi and biliary system mildly distended with multiple calculi within the common duct; spleen is enlarged; increased retroperitoneal adenopathy knee right inguinal adenopathy differential includes reactive lymphadenopathy versus lymphoma versus metastatic disease. On laboratory analysis the patient has white count of 11.6 with 41% bands, hemoglobin of 12.1, hematocrit of 34.8 and platelets 64. PTT is 20.1, INR is 1.7 and PTT is 33. Electrolytes are within normal limits with BUN of 20 and creatinine 1.2 to. He has elevated bilirubin is 7.0, AST of 48, ALT of 22 and alkaline phosphatase of 82. He has an ammonia level of less than 9 and albumin of 3.5. He has lipase of 209. He has a total CK of 91, troponin at 0.021 and proBNP of 3140. On arrival he had a lactic acid of 5.2 with fluids is down to 2.8. He has a procalcitonin of 1.74. Urine for urinalysis is obtained following a difficult catheterization with urine positive for blood but negative for infection markers. ER provider consulted GI service regarding the patient who did not feel transfer was medially indicated in the current setting of sepsis and COVID-19, obtain MRCP which will inform treatment plan. The patient is admitted to the medicine service for sepsis, bilateral pneumonia, toxic encephalopathy secondary to liver cirrhosis from hepatitis C and new liver lesion. Discharge Providers Provider Date of admission: 07/02/19 00:15 Discharge Date: 07/06/19 Primary care physician: Moose Huff MD Consults: 07/02/19 00:31 Consult to Discharge Planning Routine Comment: 07/02/19 00:32 Consult to Occupational Therapy Evaluate & Treat Comment: Physician Instructions: Evaluate and treat Consult to Physical Therapy Evaluate & Treat Comment: Physician Instructions: Evaluate and Treat 07/02/19 00:33 Consult to Respiratory Therapy Evaluate & Treat Comment: Bilateral pneumonia Physician Instructions: Evaluate and treat 07/03/19 15:56 Consult to Orthopedic Surgery Routine Comment: Consulting Provider: Angela Pereira Reason for consultation: Possible R foot abscess Has provider been notified: Yes Discharge provider: Myriam Ricketts DO Summary Hospital Course Discharge Diagnosis: 1. Acute sepsis, present on admission. Resolved. 2. 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 Active. 3. Probable RLL bacterial pneumonia versus hypervolemia due to cirrhosis, present on admission. Resolved. 4. End-stage liver disease, chronic, present on admission. Stable. 5. Acute metabolic encephalopathy, present on admission. Resolved. 6. Right hepatic lobe mass, new finding probable acute, present on admission. Active. 7. Paroxysmal atrial fibrillation, chronic, present on admission. Stable. 8. Diastolic congestive heart failure with lymphedema, chronic, present on admission. Stable. 9. Acute hypokalemia, secondary to diuretics, not present on admission. Resolved. Hospital Course: Alex Kim is a 63-year-old male with a past medical history significant for end-stage liver disease secondary to hepatitis-C and alcohol use, live mass, paroxysmal atrial flutter not on anticoagulation, diastolic congestive heart failure, and previous mitral valve endocarditis status post mitral valve replacement x2 who presented with sepsis, MSSA bacteremia and confusion. 1. Acute sepsis, present on admission. Resolved. -Patient presented confused, nonverbal, and febrile with temperature of 103.1?F with end organ dysfunction of altered mentation and infection MSSA bacteremia with unclear primary source. SOFA score 8 based on a PF ratio of 376, lactic acid 5.2 and cirrhosis with an elevated total bili of 7.0. -Early goal-directed therapy met including: IV fluid resuscitation and broad- spectrum antibiotics. 2. 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 Active. -Unclear primary source of infection but possibly hepatic (cholelithiasis with choledocholithiasis) versus pulmonary versus less likely skin and soft tissue right lower extremity. -Patient is followed by [facility] cardiology Dr. Mcclure. The patient has a complex past medical history of previous mitral valve endocarditis with mitral valve replacement x2 with last 02/2019 at [facility] by Dr. Woody Tate. -Initial WBC 11.6 with 41% bandemia and procalcitonin 1.74. WBC and procalcitonin normalized with IV antibiotics. -Blood cultures grew MSSA resistant to erythromycin in 2:4 bottles. Repeat blood cultures have no growth to date. -GI panel negative. Respiratory viral PCR negative. COVID 19 negative. -Echocardiogram demonstrated EF 70-75%, severe mitral stenosis with a peak gradient of 12 mm Hg and and iatrogenic ASD with L to R shunting. See below: NSR with HR 90-95 bpm. Normal LV size and wall thickness; normal wall motion and LV systolic function. LV is hyperdynamic with EF 70-75%. Severe biatrial enlargement and severe RV enlargement with mild-moderately reduced RV function. There is D shaped LV in systole and diastole c/w RV pressure overload. Estimated PA systolic pressure is 65 mm Hg assuming RA pressure of 10 mm Hg. There is atrial septal defect with left to right shunting. Mitral valve is replaced by history with a stented bioprosthesis. There is severe mitral stenosis with mean gradient of 12 mm Hg and peak velocity of 2.9 m/sec. There is severe TR. Compared to prior study 12/05/2017 mitral stenosis has progressed meangradient across mitral valve ja from 9 to 12 mm Hg. PA systolic pressure ja from 33 to 65 mm Hg. Atrial septal defect is new. -Continued metoprolol tartrate increased from 25 mg to 50 mg twice daily per [facility] cardiology. -Discussed case with the on-call flame hardening machine operator for the patient's cardiology group at [facility], Dr. 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 Mcclure on 07/15 or sooner with probable need for open mitral valve replacement. -Received vancomycin, Zosyn, and nafcillin during hospitalization. Discharged on ceftriaxone 2 g IV daily for 6 weeks total. 3. Probable RLL bacterial pneumonia versus hypervolemia due to cirrhosis, present on admission. Resolved. -Patient denies shortness of breath and has had no cough. Patient had scattered crackles with diminished breath sounds right greater than left on admission. -Chest x-ray demonstrated moderate bilateral pneumonia. -CT chest demonstrated small right greater than left pleural effusions and moderate right and mild left bibasilar atelectasis versus pneumonia. -Continued IV antibiotics as above. -Received furosemide 40 mg IV x 1 in ED. Continued furosemide 80 mg IV twice daily and discharged on home regimen of furosemide 80 mg daily in the morning and 40 mg daily in the afternoon per cardiology recommendations. 4. End-stage liver disease, chronic, present on admission. Stable. -Patient presented jaundiced without complaints of abdominal pain. -Initial meld score 22 with 19% mortality risk. Child Montano class B. -Initial LFTs: Total bilirubin is 7.0, AST is 48, ALT is 22 and alkaline phosphatase is 82, albumin is 3.5, platelets are 64 on admission. LFTs mproved with treatment of bacteremia: Total bilirubin 3.4, AST 37, ALT 13, alk-phos 62. -CT of the chest, abdomen and pelvis demonstrated shrunken liver with nodular contour, new 28 mm low-density mass in the right hepatic lobe, cholelithiasis with choledocholithiasis and mild ductal dilatation likely responsible for elevated bilirubin and possibly source of bacteremia. May need to consider MRCP in future. -Patient has history of hepatitis C and has completed sofosbuvir/velpatasvir therapy. Previously received hepatitis B vaccination. Hep C antibody and RNA quantification pending. -Continued home lactulose 30 g twice daily, furosemide as above, and spironolactone 25 mg daily. -Recommend close outpatient follow-up with forestry consultant Sea Epstein at [facility]. 5. Acute metabolic encephalopathy, present on admission. Resolved. -Patient with altered mental status upon arrival which improved with treatment of underlying sepsis. -Ammonia level less than 9. 6. Right hepatic lobe mass, new finding probable acute, present on admission. Active. -Patient with history of hepatitis C and liver cirrhosis. -CT scan finds a 28 mm low-density mass in the right hepatic lobe posteriorly, from review of his outside records over the phone discussing cardiac issues he has known HCC. -Alpha-fetoprotein normal 2.1. -Recommend close outpatient follow-up with forestry consultant Sea Epstein at [facility]. 7. Paroxysmal atrial fibrillation, chronic, present on admission. Stable. -Patient denies chest pain or shortness of breath. -EKG demonstrated sinus tachycardia rate 122 with PVC, no ST changes but inferior lateral inverted T-waves on admission. -Troponin within normal limits at 0.021. -BNP is 3140. -Continued home metoprolol tartrate increased from 25 mg to 50 mg twice daily per cardiology recommendations as above. -Received furosemide 40 mg IV x 1 in ED. Continued furosemide 80 mg IV twice daily and discharged on home regimen of furosemide 80 mg daily in the morning and 40 mg daily in the afternoon per cardiology recommendations. -Patient was previously taken off of warfarin per his flame hardening machine operator and warfarin has been discontinued here. 8. Diastolic congestive heart failure with lymphedema, chronic, present on admission. Stable. -Does not represent CHF exacerbation. -Patient presented with 4+ bilateral pedal edema on furosemide 80 mg daily in the morning and 40 mg daily in the afternoon as an outpatient with potassium supplementation 20 mEq once daily. Continued to elevate lower extremities as often and high as tolerated. -Chest x-ray demonstrated cardiomegaly and bilateral patchy infiltrates which is likely due to his iatrogenic ASD with L to R shunt as discussed above. -Repeat echocardiogram as above. -Received furosemide 40 mg IV x 1 in ED. Continued furosemide 80 mg IV twice daily and discharged on home regimen of furosemide 80 mg daily in the morning and 40 mg daily in the afternoon per cardiology recommendations. -Continued strict I&Os and daily weights. -Continued to monitor electrolytes closely and replete as necessary. Goal K > 4.0 and Mg > 2.0. 9. Acute hypokalemia, secondary to diuretics, not present on admission. Resolved. -Potassium level decreased to 2.8 due to diuresis. Received potassium chloride 320 mEq total throughout hospitalization. -Continued to monitor potassium and magnesium level closely replete as necessary. Discharged on home potassium chloride increased from 20 to 40 mEq daily. Continued magnesium oxide 500 mg daily. Exam Vital Signs (past 8 hours): - 07/06/19 07:57 Temperature 98.1 F Pulse Rate 66 Respiratory Rate 27 H Blood Pressure 94/57 L Pulse Oximetry 97 Oxygen Delivery Method Room Air Oxygen Flow Rate 0 Narrative Exam Narrative: General: Middle-aged gentleman sitting in bed and in no acute distress, appears older than stated age in chronically ill, well-developed, appropriately interactive. HEENT: Normocephalic, atraumatic. External ears without defect. Pupils equal, round, and reactive to light. Anicteric sclerae, moist conjunctivae, and no lid lag. Neck: Supple with full range of motion. No jugular venous distension. Cardiovascular: Regular rate and rhythm soft systolic murmur grade 2/6. No rubs or gallops appreciated. Pulmonary: Clear to auscultation bilaterally with diminished bibasilar lung sounds and scattered crackles. No wheezes or rhonchi. Normal respiratory effort with no use of accessory muscles. Abdomen: Soft, obese, nontender, nondistended. Extremities: No clubbing or cyanosis. Moderate to severe bilateral pitting edema R> L. Skin: Normal temperature, turgor, and texture; no rash, ulcers, or subcutaneous nodules appreciated. Neurological: Cranial nerves grossly intact. Psychiatric: Depressed mood and flat affect. Appears to be alert and oriented to person, place, and time. Objective Labs Result Diagrams: 07/06/19 04:45 07/06/19 04:45 Labs: Laboratory Results - last 24 hr 07/06/19 07/06/19 07/06/19 00:35 04:45 04:45 WBC 4.8 RBC 3.12 L Hgb 11.4 L Hct 32.3 L MCV 103.8 H MCH 36.6 H MCHC 35.2 RDW 18.3 H Plt Count 79 L Neut % (Auto) 63.4 Lymph % (Auto) 14.0 L Dickson % (Auto) 12.8 Eos % (Auto) 9.0 H Baso % (Auto) 0.8 Neut # (Auto) 3000 Lymph # (Auto) 700 L Dickson # (Auto) 600 Eos # (Auto) 400 Baso # (Auto) 0 Sodium 137 Potassium 3.3 L Chloride 101 Carbon Dioxide 33 H BUN 13 Creatinine 0.86 Estimated GFR > 60.0 BUN/Creatinine Ratio 15.1 Glucose 107 Calcium 7.7 L Magnesium 1.6 Total Bilirubin 3.4 H Conjugated Bilirubin 0.4 H Unconjugated Bilirubin 1.6 H AST 37 ALT 13 Alkaline Phosphatase 62 Total Protein 6.6 Albumin 2.8 L Globulin 3.8 Albumin/Globulin Ratio 0.7 L Vancomycin Trough < 5.0 L Discharge Plan Discharge Plan Patient Disposition: Home Health Service Discharge comment: You're being discharged home with home health for physical therapy, occupational therapy, nursing for CHF, antibiotic and PICC line management and social work. You have methicillin sensitive Staph aureus (MSSA) bacteremia or a blood infection. You have been prescribed ceftriaxone 2 g IV daily for 6 weeks to treat bacteremia and will continue to be managed through [facility] at your home. Please follow-up with Dr. Mcclure at your scheduled appointment on 07/15 or sooner if their office calls you to schedule you an earlier appointment. You will likely need your mitral valve replaced again and Dr. Mcclure will need to refer you back to the [facility]. Your metoprolol tartrate dose has been increased to 50 mg twice daily and your potassium chloride increased to 40 mEq daily. Continue your magnesium oxide 500 mg daily, furosemide 80 mg in the morning and 40 mg in the afternoon and spironolactone 25 mg daily. Please elevate your legs above the level of your heart especially for the 1st 1-2 hours after taking your furosemide. Discharge orders & Medications Prescriptions: New furosemide 40 mg tablet 40 mg PO 1700 Qty: 30 RF: 0 ceftriaxone in dextrose,iso-os 2 gram/50 mL Piggyback 2 gram IV Q24H Qty: 38 RF: 0 Continued lactulose 10 gram/15 mL solution 30 ml PO BID RF: 0 magnesium oxide 500 mg Tablet 500 mg PO DAILY RF: 0 spironolactone 25 mg tablet 25 mg PO DAILY Qty: 30 RF: 0 Changed furosemide 40 mg tablet 80 mg PO DAILY Qty: 0 RF: 0 metoprolol tartrate 25 mg tablet 50 mg PO BID Qty: 120 RF: 0 potassium chloride 20 MEQ tablet,ER particles/crystals 40 meq PO DAILY Qty: 0 RF: 0 Discontinued warfarin 2.5 mg Tablet 2.5 mg PO Q OTHER DAY RF: 0 sofosbuvir-velpatasvir 400-100 mg Tablet 400 mg PO DAILY RF: 0 Follow up/Referrals: Moose Huff MD [Primary Care Provider] - 3-5 Days Lorne Mcclure MD [Non-Staff] - 07/16/19 Diet/Activity/Treatments Diet: Low-fat, Low-sodium and Low-cholesterol Diet comment: Low sodium less than 2 g a day, Fluid restriction 1.5 L all fluids Activity: Activity as tolerated with cane Visit Report/Discharge Packet Instructions: DI for Heart Failure, How To Perform RICE (Rest, Ice, Compress, Elevate), Fluid Restricted Diet, Low-Sodium Diet, DI for Bacteremia--Child Discharge Data Primary Care Provider: Moose Huff Quality VTE Deep Vein Thrombosis/Pulmonary Embolism Present on Admission: Yes
--- NOTE | 2019-07-06 14:07 | PC.NURSE ---
Day shift note: Patient awake, alert, and cooperative. Home [facility] with [facility], PT/OT arranged as outpatient by Case Management, Carlos. Spoke with Jaida, (significant other) and will mixing picker tender patient for discharge at 1600. PICC line placed by Aura CONNORS from to [facility]. Flushing well, no s/sx of leakage. Received Rocephin IVPB and Potassium supplement prior to discharging home. Calls appropriately for staff assistance.
[2019-07-06 14:35] LABS: Procalcitonin 0.32 ng/mL (<0.5)
[2019-07-06 14:41] LABS: Hep C Virus Ab w/Reflex Quant REACTIVE s/c (NEGATIVE)
--- NOTE | 2019-07-06 15:10 | PT.IPTN ---
Current Diagnoses Sepsis, unspecified organism (07/02/19) Physical Therapy Treatment Note M2 PT-IP Current Condition Start: 07/03/19 09:27 Freq: NEEDED Status: Active Protocol: Document 07/04/19 08:30 MB (Rec: 07/04/19 09:14 MB [id number]) Physical Therapy Current Condition Precautions Other Precautions Contact precautions, multiple lines, pt with loose stool M3 PT-IP Subjective Start: 07/03/19 09:27 Freq: NEEDED Status: Active Protocol: Document 07/06/19 15:01 [facility] (Rec: 07/06/19 15:08 [facility] [email or web address]) Subjective Physical Therapy Visit Type Type Treatment Note Visit Start Time 14:20 Visit Stop Time 14:45 Total Visit Minutes 25 Number of INVESTOR RELATIONS SPECIALIST Visits 0 Physical Therapy Visit Comments Patient Comments pt is discharging home today he would like to shower first with OT and agrees to PT prior to showering Patient Goals The patient's goals are to discharge home with pic line put in place Therapy Pain Assessment Pain When Pain Assessed At Rest Pain Present Pain Present Pain Reported M4 PT-IP Mobility and Gait Start: 07/03/19 09:27 Freq: NEEDED Status: Active Protocol: Document 07/06/19 15:01 [facility] (Rec: 07/06/19 15:08 [facility] [id number]) PT-Bed Mobility Assessment Rolling Type of Rolling Roll to Left Level of Assist Independent Supine to Sit Supine to Sit Independent,Head of Bed Elevated,Bedrails Scooting Scooting to Edge of Bed Standby Assistance PT-Transfer Assessment Sit to and From Stand Sit to and from Stand Standby Assistance Equipment Transfer Assistive Device Gait Belt,Front Wheeled Walker Transfers Transfer Destination Bed,Toilet Transfer Ability Level of Assist Standby Assistance,1 Person Assistance Comments Mobility Comments pt demonstrated independent bed mobility and SBA for all ambulation in room to the bathroom. OT took over once in the bathroom as she was planning on helping him shower Gait Assessment Gait Gait Assistance Required: Standby Assistance Assistive Devices Assistive Device Gait Belt,Front Wheeled Walker Gait Deviations General Gait Pattern Decreased Stride Length, Decreased Feet Clearance, Flexed Trunk,Wide Based Gait Factors Limiting Gait Function Factors Limiting Gait Function Decreased Activity Tolerance, Decreased Strength,Poor Balance,Poor Safety Awareness Comments Gait Comments pt ambulated well to the bathroom today with SBA and no loss of balance. PT-Balance Assessment Comments Other Balance Tests/Deviations/Treatment No upper extremity support : needed today M5 PT-IP Objective Assessments Start: 07/03/19 09:27 Freq: NEEDED Status: Active Protocol: Document 07/03/19 12:57 AW (Rec: 07/03/19 13:38 AW [id number]) Orientation Orientation/Cognition Level of Alertness Alert Orientation Name,Month,Year,Place Language Function Ability No Deficits Noted Safety Awareness Decreased Safety Awareness Memory Description Short Term Impaired Comments Pt had difficulty relating how he arrived at the hospital and was oriented to month/ , but stated today was the . Gross Range of Motion Upper Extremity ROM Assessment Within Functional Limits Lower Extremity ROM Assessment Within Functional Limits Strength Upper Extremity Strength Assessment Bilaterally Impaired Lower Extremity Strength Assessment Bilaterally Impaired Comments Strength Comments BUE and BLE grossly 4/5 except right ankle 3+/5 Coordination Assessment Gross Coordination Gross Coordination WNL Muscle Tone Muscle Tone WNL Yes M6 PT-IP Treatment Start: 07/03/19 09:27 Freq: NEEDED Status: Active Protocol: Document 07/06/19 15:01 [facility] (Rec: 07/06/19 15:08 [facility] [id number]) Physical Therapy Treatment Exercises Exercises Ankle Pumps,Heel Slides Education Education Provided Safety Other Treatments Other Treatment Performed Education benefits of participating with all therapies to help with mobility, to agree to bath today to help skin integrity and ongoing LE elevation and APs. M7 PT-IP Assessment and Plan Start: 07/03/19 09:27 Freq: NEEDED Status: Active Protocol: Document 07/06/19 15:08 [facility] (Rec: 07/06/19 15:10 [facility] [id number]) PT Summary Assessment and Plan Potential Rehabilitation Potential Fair Status of Condition at Evaluation Evolving Summary Impairments Pain,ROM,Strength,Balance, Cognition,Bed Mobility, Transfers,Gait,Activity Tolerance Assessment Summary A&O to person, place and month and year. Ongoing decreased safety awareness. He is unable to walk out of room d/t need to use restroom and then get up to chair for breakfast. His right LE is very edematous compared to the left and he has right knee pain today. PT recommends SNF at d/c given unable to perform gait and mobility with I with AD and increased impulsivity and safety, increased fall risk. He is to d/c with IV antibiotics and PT does not feel that pt can manage this and per SW note, his significant other reports pt has not done well with HH care in the past. He has had poor self-care awareness in the hospital with incontinence and refusal of bath which would help his integumetary integrity. Pt requires SBA for mobility with RW and PT manages lines. Goals Bed Mobility Goal Independent Transfer Goal Independent,Cane,Front Wheeled Walker Gait Goal Independent,Cane,Front Wheel Walker Gait Distance 200 Other Goals - up/down 4 steps with bilateral rails SBA Days to Meet Goals 5 Frequency of Treatment Frequency Of Treatment Once a Day Recommendations To Nursing Amount of Assist Needed Standby Assistance Discharge Recommendations PT Discharge Recommendations Home with Assistance Equipment Needed for Home Before pt had a pic line put in place Discharge today and will be DC home this afternoon with his Transportation Needs at Discharge Private Vehicle
--- NOTE | 2019-07-06 15:34 | OT.IP.TRT ---
Current Diagnoses Sepsis, unspecified organism (07/02/19) Occupational Therapy Treatment Note M2 OT-IP Current Condition Start: 07/03/19 12:56 Freq: Status: Active Protocol: Document 07/03/19 12:57 CGR (Rec: 07/03/19 13:19 [facility] [id number]) Occupational Therapy Current Condition Current Condition Evaluation Date 07/03/19 Treatment Diagnosis Sepsis Diagnosis Onset Date 07/02/19 M3 OT- IP Subjective and Pain Start: 07/03/19 12:56 Freq: Status: Active Protocol: Document 07/06/19 15:19 [facility] (Rec: 07/06/19 15:29 [facility] [id number]) OT- Subjective Occupational Therapy Visit Type Type Treatment Note Visit Start Time 14:39 Visit Stop Time 15:15 Total Visit Minutes 36 Occupational Therapy Visit Comments Patient Comments Pt agreeable to shower. Patient/Caregiver Goals To go home today. OT Pain Assessment Pain When Pain Assessed At Rest Pain Present Pain Present Pain Reported Location Left Arm Intensity 7 Scale Used Numeric (1 - 10) M4 OT- IP ADL's Start: 07/03/19 12:56 Freq: Status: Active Protocol: Document 07/06/19 15:19 [facility] (Rec: 07/06/19 15:29 [facility] [id number]) OT ADL-Grooming General Evaluation Grooming Ability Standby Assistance Comments OT Grooming Comments Able to brush his hair while sitting in the recliner. OT ADL-Dressing General Eval Lower Body Dressing Ability Maximum Assistance Areas Needing Assistance Retrieving/Set-up of Clothing, Underpants/Brief,Socks Comments OT Dressing Comments Assist to help ronald items over his feet and pt able to pull up over his hips. OT ADL-Toileting General Evaluation Toileting Ability Total Assistance Areas Needing Assistance Perform Perineal Hygiene Comments OT Toileting Comments Assist to reach for bowel movement hygiene needs. OT ADL-Bathing Bathing Type Bathing Type Shower General Evaluation Bathing Ability Minimal Assistance,Moderate Assistance Comments OT Bathing Comments Assist to help wash/dry his back and for pericare needs M5 OT- IP IADL's Start: 07/03/19 12:56 Freq: Status: Active Protocol: Document 07/03/19 12:57 [facility] (Rec: 07/03/19 13:19 [facility] [email or web address]) OT-Instrumental Activities of Daily Living Deficits IADL Deficits Identified Deficits Home Safety Awareness Awareness of Need for Assistance at Home Decreased Awareness Ability to Problem Solve Emergency Unable to Problem Solve Situations Medication Management Medication Management Caregiver Administers Money Management Money Management Comments Pt states he performed money management. Meal Preparation Meal Preparation Caregiver Provides Assist Juice Packaging Machines Setter Juice Packaging Machines Setter Caregiver Provides Assist Driving Driving Caregiver Provides Assist M6 OT- IP Functional Cognition Start: 07/03/19 12:56 Freq: Status: Active Protocol: Document 07/06/19 15:19 [facility] (Rec: 07/06/19 15:29 [facility] [id number]) Cognitive Factors Limiting Selfcare Function Cognitive Comments Cognitive Assessment Comments Pt has issued with short term memory. M7 OT- IP Mobility and Balance Start: 07/03/19 12:56 Freq: Status: Active Protocol: Document 07/06/19 15:19 [facility] (Rec: 07/06/19 15:29 [facility] [id number]) OT-Transfer Assessment Sit to and From Stand Sit to and from Stand Standby Assistance Transfers Transfer Ability Standby Assistance,Contact Guard Assistance Technique Transfer Destination Chair,Toilet Transfer Technique Stand Step Pivot Devices Transfer Assistive Devices Gait Belt,Front Wheeled Walker Comments Mobility Comments CGA while stepping over the threshold of the shower. Otherwise walking with FWW and SBA. OT- Balance Assessment Sitting Balance and Reactions Static Sitting Balance Ability Normal Dynamic Sitting Balance Ability Good Standing Balance and Reactions Static Standing Balance Ability Good M8 OT- IP Objective Assessments Start: 07/03/19 12:56 Freq: Status: Active Protocol: Document 07/03/19 12:57 [facility] (Rec: 07/03/19 13:19 [facility] [id number]) OT Gross Range of Motion Upper Extremity Range of Motion Assessment Within Functional Limits OT Strength Upper Extremity Strength Assessment Within Functional Limits Comments Strength Comments grossly 4/5 OT- Coordination Assessment Upper Extremity Finger to Nose Test Within Functional Limits Finger Tapping Test Within Functional Limits OT-Muscle Tone Assessment Muscle Tone WNL Yes OT Sensation Assessment Edema Edema Present Edema Comments RUE swelling M9 OT- IP Assessment and Plan Start: 07/03/19 12:56 Freq: Status: Active Protocol: Document 07/06/19 15:19 [facility] (Rec: 07/06/19 15:29 [facility] [id number]) OT Summary Assessment and Plan Potential Rehabilitation Potential Good Analytic Complexity at Evaluation Low Summary OT Impairments Balance,Functional Cognition, Functional Mobility,Grooming, Dressing,Toileting,Bathing, Toilet Transfers,Shower Transfers,Activity Tolerance Progress Towards Goals Progressing Toward Goals Assessment Summary Pt able to tolerate showering today and overall much improved for ADl's, functinal mobilty and endurance. Goals Grooming Goal Independent Dressing Goal Independent,Detasseling Crew Supervisor,Sock Aid Toileting Goal Independent Bathing Goal Independent Toilet Transfer Goal Independent Shower Transfer Goal Independent Days to Meet Goals 5 Frequency of Treatment Frequency Of Treatment Once a Day Treatment Plan OT Treatment Plan ADL Training,Functional Cognition Training,Functional Mobility,Patient/Family Education,Discharge Planning Discharge Recommendations OT Discharge Recommendations Home with Assistance Transportation Needs at Discharge Private Vehicle
--- NOTE | 2019-07-06 18:22 | PC.NURSE ---
Discharge Note Patient A&O, no complaints of pain or discomfort. Discharge instructions and packet given to patient without questions or concerns. All belonging packed and given to patient along with discharge packet. Patient taken down to personal vehicle by [employer].
== END 2019-07-06 18:15 | disposition home health service (06) | DRG 720 ==
LOC: ED 20:01 → AC 07-02 00:21 → ICU 07-02 08:51 → AC 07-02 11:34
PROVIDERS: Internal Medicine; Nurse Practitioner; Admitting Provider Nurse Practitioner Adult Health; Emergency Provider Emergency Medicine; Family Provider Family Medicine; PCP Family Medicine; Referring Provider Emergency Medicine; Visit Provider Nurse Practitioner Adult Health
DX: A41.01 Sepsis due to Methicillin susceptible Staphylococcus aureus (principal); G93.41 Metabolic encephalopathy; I33.0 Acute and subacute infective endocarditis; R40.2222 Coma scale, best verbal response, incomprehensible words, at arrival to emergency department; J15.9 Unspecified bacterial pneumonia; T82.6XXA Infection and inflammatory reaction due to cardiac valve prosthesis, initial encounter; I48.92 Unspecified atrial flutter; J90 Pleural effusion, not elsewhere classified; I50.32 Chronic diastolic (congestive) heart failure; R65.20 Severe sepsis without septic shock; K72.90 Hepatic failure, unspecified without coma; K74.60 Unspecified cirrhosis of liver; R40.2352 Coma scale, best motor response, localizes pain, at arrival to emergency department; R40.2132 Coma scale, eyes open, to sound, at arrival to emergency department; I48.0 Paroxysmal atrial fibrillation; I89.0 Lymphedema, not elsewhere classified; E87.6 Hypokalemia; Z03.818 Encounter for observation for suspected exposure to other biological agents ruled out; Z95.2 Presence of prosthetic heart valve; Z87.891 Personal history of nicotine dependence; Z79.01 Long term (current) use of anticoagulants
CPT/HCPCS: 36415; 36569; 51701; 70450; 71045; 71260; 73620; 73701; 74177; 76882; 80048; 80053; 80076; 80202; 81001; 82105; 82140; 82550; 83605; 83690; 83735; 83880; 84100; 84145; 84484; 85025; 85610; 85730; 86803; 87040; 87077; 87147; 87150; 87186; 87205; 87502; 87507; 87522; 87635; 87797; 93005; 93306; 94640; 94760; 94762; 96361; 96365; 96375; 97116; 97161; 97165; 97530; 97535; 99285; 99291; J0696; J1170; J1940; J2543; J3480; Q9967

== ENCOUNTER 2019-07-27 17:18 | Emergency (ER) | payer OTHER, MEDICAID, SELFPAY ==
[2019-07-02 03:25] VITALS: BMI 33.6
[2019-07-27 17:23] VITALS: BP 114/51; PULSE 71; RESP 18; TEMP 36.9; O2SAT 99
--- NOTE | 2019-07-27 18:08 | ED_ITS ---
HPI - Recheck/Abnormal Lab/Rx General Chief Complaint: Recheck/Abnormal Lab/Rx Stated Complaint: LABS CAME BACK NEEDS TRANSFUSION Time Seen by Provider: 07/27/19 18:00 Source: patient Mode of arrival: Wheelchair Limitations: no limitations History of Present Illness HPI narrative: 63M former smoker with history of hepatitis C, CHF, and chronic thrombocytopenia presents at the request of his PCP due to a low platelet value noted on labs about 10 days ago. He was just contacted today and encouraged to come in for a transfusion. He denies any symptoms whatsoever, and states he feels completely fine and is only here because his doctor wanted him to come in. He denies dizziness, lightheadedness, fever, chills, SOB, cough, or other. He denies any bleeding gums, blood in stool, dark stool, or blood in urine. complaint: abnormal lab Initial visit (ago): day(s) Initial visit for: other Returns today for: called because of abnormal lab/test Symptoms since prior visit: no new symptoms Context: called for abnormal lab result Associated symptoms: none Related Data Home Medications Medication Instructions Recorded Confirmed lactulose 30 ml PO BID 04/10/18 07/04/19 magnesium oxide 500 mg PO DAILY 04/10/18 07/02/19 Previous Rx's Medication Instructions Recorded ceftriaxone in dextrose,iso-os 2 gram IV Q24H #38 each 07/06/19 furosemide 40 mg PO 1700 #30 tab 07/06/19 furosemide 80 mg PO DAILY #0 tab 07/06/19 metoprolol tartrate 50 mg PO BID #120 tab 07/06/19 potassium chloride 40 meq PO DAILY #0 tab 07/06/19 Allergies Allergy/AdvReac Type Severity Reaction Status Date / Time spironolactone AdvReac Mild muscle Verified 07/07/19 14:01 spasms torsemide AdvReac Mild muscle Verified 07/07/19 14:01 spasms Review of Systems Constitutional Constitutional: Denies chills, Denies fatigue, Denies fever(s), Denies frequent falls, Denies lethargy and Denies weakness Eyes Eyes: Denies change in vision, Denies eye discharge, Denies irritation and Denies loss of vision ENT Ears, Nose, Mouth, and Throat: Denies change in voice, Denies dizziness, Denies neck pain, Denies sore throat and Denies throat swelling Cardiovascular Cardiovascular: Denies chest pain, Denies irregular heart rhythm, Denies lightheadedness, Denies palpitations, Denies dyspnea, Denies dyspnea on exertion and Denies orthopnea Respiratory Respiratory: Denies cough, Denies dyspnea, Denies dyspnea on exertion and Denies wheezing Gastrointestinal Gastrointestinal: Denies abdominal pain, Denies change in bowel habits, Denies diarrhea, Denies nausea and Denies vomiting Genitourinary Genitourinary: Denies hematuria, Denies flank pain, Denies urinary incontinence and Denies urinary urgency Musculoskeletal Musculoskeletal: Denies back pain, Denies muscle weakness, Denies neck pain, Denies numbness and Denies tingling Integumentary/Breasts Skin/Breast: Denies pruritus, Denies erythema, Denies rash and Denies wounds Neurologic Neurologic: Denies behavioral changes, Denies confusion, Denies dizziness, Denies frequent falls, Denies loss of vision, Denies numbness, Denies tingling and Denies weakness Psychiatric Psychiatric: Denies anxiety, Denies behavioral changes, Denies confusion, Denies depression, Denies homicidal ideation and Denies suicidal ideation Endocrine Endocrine: Denies fatigue, Denies flushing and Denies palpitations Hematologic/Lymphatic Hematologic/Lymphatic: Denies easy bruising Allergic/Immunologic Allergic/Immunologic: Denies urticaria, Denies throat swelling and Denies wheezing 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 Well- nourished, well-developed patient, in no obvious distress EYES: Pupils equal round and reactive. Extraocular motions intact. No scleral icterus. No injection or drainage. ENT: Nose without bleeding, purulent drainage. Throat without erythema, tonsillar hypertrophy or exudate. Airway patent. NECK: Trachea midline. Non tender CARDIOVASCULAR: Regular rate and rhythm without murmurs, gallops, or rubs. RESPIRATORY: Clear to auscultation. Breath sounds equal bilaterally. No wheezes, rales, or rhonchi. GASTROINTESTINAL: Abdomen soft, non-tender, nondistended. EXTREMITIES: No edema or joint tenderness. BACK: Nontender without deformity or crepitance. No flank tenderness. NEURO: AOx3. SKIN: No rash or erythema of visible areas Initial Vital Signs Initial Vital Signs: Vital Signs Temperature 98.4 F 07/27/19 17:23 Pulse Rate 71 07/27/19 17:23 Respiratory Rate 18 07/27/19 17:23 Blood Pressure 114/51 L 07/27/19 17:23 Pulse Oximetry 99 07/27/19 17:23 Course Course Course Narrative: labs reviewed and are largely at his baseline. Platelets have been 59-80s for over a year. H/H is at his stable level. No indications for transfusion currently . Patient and family reassured. Return precautions given, and questions answered to their apparent satisfaction. Orders Ordered: ED Orders 07/27/19 18:28 CMP [Comprehensive Metabolic Panel] Stat Complete Blood Count AUTO DIFF Stat Vital Signs Vital signs: Vital Signs - 8 hr 07/27/19 17:23 07/27/19 18:32 Temperature 98.4 F Pulse Rate 71 62 Respiratory Rate 18 12 Blood Pressure 114/51 L Blood Pressure [Left Arm] 112/69 Pulse Oximetry 99 100 MDM - Recheck/Abnormal Lab/Rx Lab Data Result diagrams: 07/27/19 18:28 07/27/19 18:28 Labs: Lab Results 07/27/19 07/27/19 Range/Units 18:28 18:28 WBC 2.5 L (4.5-11.0) X10^3/uL RBC 2.69 L (4.5-5.9) X10^6/uL Hgb 10.3 L (13.5-17.5) g/dL Hct 29.2 L (41-53) % MCV 108.7 H (80-100) fL MCH 38.2 H (26-34) PG MCHC 35.2 (30-36) % RDW 19.0 H (11.6-14.8) % Plt Count 68 L (150-400) X10^3/uL Neut % (Auto) 49.9 L (50-75) % Lymph % (Auto) 19.3 L (25-40) % [place] % (Auto) 20.6 H (3-14) % Eos % (Auto) 8.6 H (2-4) % Baso % (Auto) 1.6 (0-2) % Neut # (Auto) 1300 L (5058-8351) /uL Lymph # (Auto) 500 L (0344-4559) /uL [place] # (Auto) 500 (0-900) /uL Eos # (Auto) 200 (0-450) /uL Baso # (Auto) 0 (0-100) /uL Sodium 139 (137-145) mmol/L Potassium 3.5 (3.4-5.1) mmol/L Chloride 104 (98-107) mmol/L Carbon Dioxide 30 (22-32) mmol/L BUN 13 (9-20) mg/dL Creatinine 0.83 (0.66-1.25) mg/dL Estimated GFR > 60.0 (>60) mL/min BUN/Creatinine Ratio 15.7 (6-22) Glucose 147 H (80-110) mg/dL Calcium 8.8 (8.4-10.2) mg/dL Total Bilirubin 2.2 H (0.2-1.3) mg/dL AST 38 (17-59) IU/L ALT 12 (<50) IU/L Alkaline Phosphatase 78 (38-126) U/L Total Protein 7.6 (6.3-8.2) g/dL Albumin 3.1 L (3.5-5.0) g/dL Globulin 4.5 H (1.7-4.1) g/dL Albumin/Globulin Ratio 0.7 L (1.0-2.8) Discharge Plan Departure Patient Disposition: Home Clinical Impression: Thrombocytopenia, Feared complaint without diagnosis Discharge Date/Time: 07/27/19 19:07 Activity Restrictions/Additional Instructions: *You have been diagnosed with [chronic thrombocytopenia] *What to do: *Take medications as directed *Follow up with your primary care provider in 2-3 days, call for an appointment. Let them know you were seen in the Emergency Department and that we ask that you be seen in follow up *Return to ER if you should have any new, worsening or concerning symptoms, such as [abnormal bleeding, weakness, unexplained fatigue, other bothersome symptoms] Prescriptions: No Action lactulose 10 gram/15 mL solution 30 ml PO BID RF: 0 magnesium oxide 500 mg Tablet 500 mg PO DAILY RF: 0 furosemide 40 mg tablet 40 mg PO 1700 Qty: 30 RF: 0 ceftriaxone in dextrose,iso-os 2 gram/50 mL Piggyback 2 gram IV Q24H Qty: 38 RF: 0 furosemide 40 mg tablet 80 mg PO DAILY Qty: 0 RF: 0 metoprolol tartrate 25 mg tablet 50 mg PO BID Qty: 120 RF: 0 potassium chloride 20 MEQ tablet,ER particles/crystals 40 meq PO DAILY Qty: 0 RF: 0 Referrals: Moose Huff MD [Primary Care Provider] -
[2019-07-27 18:32] VITALS: BP 112/69; PULSE 62; RESP 12; O2SAT 100
[2019-07-27 18:39] LABS: Add Manual Diff / Slide Review NO; Basophils Absolute Auto 0 /uL (0-100); Basophils Percent Auto 1.6 % (0-2); Eosinophils Absolute Auto 200 /uL (0-450); Eosinophils Percent Auto 8.6 % (2-4); Hematocrit 29.2 % (41-53); Hemoglobin 10.3 g/dL (13.5-17.5); Lymphocytes Absolute Auto 500 /uL (1100-4500); Lymphocytes Percent Auto 19.3 % (25-40); Mean Corpuscular HGB Conc 35.2 % (30-36); Mean Corpuscular Hemoglobin 38.2 PG (26-34); Mean Corpuscular Volume 108.7 fL (80-100); Monocytes Absolute Auto 500 /uL (0-900); Monocytes Percent Auto 20.6 % (3-14); Neutrophils Absolute Auto 1300 /uL (1500-7000); Neutrophils Percent Auto 49.9 % (50-75); Platelet Count 68 X10^3/uL (150-400); Red Blood Cell Count 2.69 X10^6/uL (4.5-5.9); White Blood Cell Count 2.5 X10^3/uL (4.5-11.0)
[2019-07-27 18:49] LABS: Alanine Aminotransferase 12 IU/L (<50); Albumin 3.1 g/dL (3.5-5.0); Albumin Globulin Ratio 0.7 (1.0-2.8); Alkaline Phosphatase 78 U/L (38-126); Aspartate Aminotransferase 38 IU/L (17-59); BUN Creatinine Ratio 15.7 (6-22); Bilirubin Total 2.2 mg/dL (0.2-1.3); Blood Urea Nitrogen 13 mg/dL (9-20); Calcium 8.8 mg/dL (8.4-10.2); Carbon Dioxide 30 mmol/L (22-32); Chloride 104 mmol/L (98-107); Estimated Glomerular Filt Rate > 60.0 mL/min (>60); Globulin 4.5 g/dL (1.7-4.1); Glucose 147 mg/dL (80-110); HEMOLYSIS < 15 (0-50); Potassium 3.5 mmol/L (3.4-5.1); Sodium 139 mmol/L (137-145); Total Protein 7.6 g/dL (6.3-8.2)
== END 2019-07-27 19:07 | disposition home or self-care (01) ==
PROVIDERS: Emergency Medicine; Emergency Provider Emergency Medicine; Family Provider Family Medicine; PCP Family Medicine
DX: D69.6 Thrombocytopenia, unspecified (principal)
CPT/HCPCS: 80053; 85025; 99282; 99283

== ENCOUNTER 2019-08-08 17:50 | Emergency (ER) | payer OTHER, MEDICAID, SELFPAY ==
[2019-07-02 03:25] VITALS: BMI 33.6
[2019-08-08 18:03] VITALS: BP 109/61; PULSE 89; RESP 16; TEMP 36.5; O2SAT 97; BMI 32.5
--- NOTE | 2019-08-08 18:09 | ED.SKABFB ---
HPI - Skin/Abscess/Foreign Bdy General Chief complaint: Skin/Abscess/Foreign Body Stated complaint: PICC line issues Time Seen by Provider: 08/08/19 18:08 Source: patient and family Mode of arrival: Wheelchair Limitations: no limitations History of Present Illness HPI narrative: 63-year-old male former smoker with history of hepatitis-C, CHF, and chronic thrombocytopenia presents at the suggestion of his PICC line nurse and specialist at the [facility] due to suspicion that his PICC line has migrated. The patient has 1 more week of IV Rocephin scheduled and has continued to administer it. He has had no injury and reports no pain or difficulty infusing Rocephin. He was recently down at the [facility] and there was some suspicion on imaging that the PICC line had migrated and he was sent here for further evaluation. He denies any chest pain or shortness of breath. He has had no fever or chills. Denies runny nose, sore throat or cough. He is completely asymptomatic. MD complaint: other Tetanus up to date: yes Related Data Home Medications Medication Instructions Recorded Confirmed lactulose 30 ml PO BID 04/10/18 08/08/19 magnesium oxide 500 mg PO DAILY 04/10/18 08/08/19 Previous Rx's Medication Instructions Recorded ceftriaxone in dextrose,iso-os 2 gram IV Q24H #38 each 07/06/19 furosemide 40 mg PO 1700 #30 tab 07/06/19 furosemide 80 mg PO DAILY #0 tab 07/06/19 metoprolol tartrate 50 mg PO BID #120 tab 07/06/19 potassium chloride 40 meq PO DAILY #0 tab 07/06/19 azithromycin See Rx Instructions .ROUTE 08/08/19 .COMPLEX #6 tab Allergies Allergy/AdvReac Type Severity Reaction Status Date / Time spironolactone AdvReac Mild muscle Verified 08/08/19 18:18 spasms torsemide AdvReac Mild muscle Verified 08/08/19 18:18 spasms Review of Systems Constitutional Constitutional: Denies chills, Denies fatigue, Denies fever(s), Denies frequent falls, Denies lethargy and Denies weakness Eyes Eyes: Denies change in vision, Denies eye discharge, Denies irritation and Denies loss of vision ENT Ears, Nose, Mouth, and Throat: Denies change in voice, Denies dizziness, Denies neck pain, Denies sore throat and Denies throat swelling Cardiovascular Cardiovascular: Denies chest pain, Denies irregular heart rhythm, Denies lightheadedness, Denies palpitations, Denies dyspnea, Denies dyspnea on exertion and Denies orthopnea Respiratory Respiratory: Denies cough, Denies dyspnea, Denies dyspnea on exertion and Denies wheezing Gastrointestinal Gastrointestinal: Denies abdominal pain, Denies change in bowel habits, Denies diarrhea, Denies nausea and Denies vomiting Genitourinary Genitourinary: Denies hematuria, Denies flank pain, Denies urinary incontinence and Denies urinary urgency Musculoskeletal Musculoskeletal: Denies back pain, Denies muscle weakness, Denies neck pain, Denies numbness and Denies tingling Integumentary/Breasts Skin/Breast: Denies pruritus, Denies erythema, Denies rash and Denies wounds Neurologic Neurologic: Denies behavioral changes, Denies confusion, Denies dizziness, Denies frequent falls, Denies loss of vision, Denies numbness, Denies tingling and Denies weakness Psychiatric Psychiatric: Denies anxiety, Denies behavioral changes, Denies confusion, Denies depression, Denies homicidal ideation and Denies suicidal ideation Endocrine Endocrine: Denies fatigue, Denies flushing and Denies palpitations Hematologic/Lymphatic Hematologic/Lymphatic: Denies easy bruising Allergic/Immunologic Allergic/Immunologic: Denies urticaria, Denies throat swelling and Denies wheezing 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 Extraoccular muscles are intact bilaterally. There is no subconjunctival hemorrhage or exudate. CHEST: Lungs are clear to auscultation bilaterally and free of wheezes, rales, or rhonchi. Heart rate is regular rhythm, there are no murmurs, clicks, rubs, or gallops. There is no chest wall tenderness. ABD: Abdomen is soft and nontender. There is no guarding or rebound. Bowel sounds are normal in all 4 quadrants. There is no mass or organomegaly. EXT: Full painless ROM of all extremities with no loss of sensation or strength. PICC line externally appears normal with appropriate dressings in place, months old. No tenderness to palpation, swelling or other suggestion of infiltrate or abnormality SKIN: Warm, pink, and dry. No erythema or rash Initial Vital Signs Initial Vital Signs: Vital Signs Temperature 97.7 F 08/08/19 18:03 Pulse Rate 89 08/08/19 18:03 Respiratory Rate 16 08/08/19 18:03 Blood Pressure 109/61 08/08/19 18:03 Pulse Oximetry 97 08/08/19 18:03 Course Orders Ordered: ED Orders 08/08/19 18:15 XR chest 1V Stat Vital Signs Vital signs: Vital Signs - 8 hr 08/08/19 18:03 08/08/19 19:45 Temperature 97.7 F 98.4 F Pulse Rate 89 82 Respiratory Rate 16 20 Blood Pressure 109/61 106/70 Pulse Oximetry 97 94 MDM - Skin/Abscess/Foreign Bdy Imaging Data Chest x-ray: Attestation: I personally reviewed and interpreted this imaging study as follows: My Impression: PICC has migrated distally and appears coiled near axilla Radiologist's Impression: Chart Viewer Diagnostics DATE TYPE STATUS AUTHOR Hx 08/08/19 18:15 Jose Luis Ceja 07/06/19 11:28 Tami Cruz 07/03/19 15:49 Jose Luis Ceja 07/03/19 15:47 Fernando Arevalo 07/03/19 09:49 Dago Herzog 07/02/19 15:03 Shagufta Campbell 07/02/19 00:15 07/01/19 21:34 Fernandez Choi 07/01/19 20:04 Candido Choir 07/01/19 19:15 Alcides Choimemotashia 07/12/18 19:21 07/12/18 17:22 Danny Pack 07/12/18 16:21 Danny Pack 04/10/18 17:18 Prasanth Lange 12/06/17 00:00 Dago Herzog 12/05/17 06:31 12/05/17 02:22 CynAlis talamantesnicole 12/05/17 00:00 VaibhavTonja 12/05/17 00:00 BeckyNicolasa perez 12/04/17 20:03 Yudy Crow Neil 63, M0 1955 [facility] ER, Main ED 175.26cm 100kg BMI: 32.6kg/m? Skin/Abscess/Foreign Body Search Chart No Data to Display muscle spasms muscle spasms ONSET 08/08/19 19:45 JulioAlex 63 M 1955 [place] [address] XRay Report Signed Patient: Alex KimMR#: [id number] : 8Acct:[id number] Age/Sex: 63 / MDate of Service: 08/08/19 Loc: ED Accession Number: [id number] Procedure: XR chest 1V Ordering Provider: Bentley Munoz D.O. PROCEDURE: XR CHEST 1V INDICATIONS: PICC Placement (per [facility] request) TECHNIQUE: One view of the chest was acquired. COMPARISON: [facility], MARIKA, XR CHEST FOR PICC 1V, 07/06/2019, 11:31. [facility], CR, XR CHEST 1V, 07/01/2019, 19:50. FINDINGS: Surgical changes and devices: A PICC line from right sided approach extends cephalad past the coracoid process of the right scapula medially, and then coils, without extending into the subclavian area. Prior sternotomy. Lungs and pleura: Lungs are unchanged with patchy alveolar infiltration in small subpulmonic bilateral pleural effusions slightly greater on the right than the left. Mediastinum: Mediastinal contours appear normal. Heart size is normal. Bones and chest wall: No suspicious bony lesions. Overlying soft tissues appear unremarkable. IMPRESSION: PICC line from right sided approach coils abnormally prior to reaching the subclavian area of the upper right hemithorax. Reduced inspiratory volume, small subpulmonic bilateral pleural effusions, patchy alveolar infiltration pattern consistent with atypical/viral pneumonia. Dictated by: Jose Luis Ceja M.D. on 08/08/2019 at 19:05 Approved by: Jose Luis Ceja M.D. on 08/08/2019 at 19:09 [facility] Narrative Medical decision making narrative: Patient x-ray confirms suspicion that PICC line has migrated. The patient reports no symptoms whatsoever, particularly fever, chills nor chest pain or shortness of breath his chest x-ray does show the possibility of a small patchy infiltrate. Given the complexity of his medical history and high risk I decided to add an antibiotic which in addition to his normal Rocephin should provide appropriate coverage. He has already been in touch with his PICC team and will contact his PCP tomorrow to decide if patient needs to have the PICC replaced or not. He has been given return precautions and has had questions answered to his apparent satisfaction. Discharge Plan Departure Patient Disposition: Home Clinical Impression: Occluded PICC line Qualifiers: Encounter type: initial encounter Qualified Code(s): T82.898A - Other specified complication of vascular prosthetic devices, implants and grafts, initial encounter Discharge Date/Time: 08/08/19 19:43 Instructions: Atypical Pneumonia Activity Restrictions/Additional Instructions: *You have been diagnosed with [PICC line problem, chest x-ray findings consistent with possible early atypical pneumonia] *What to do: * continue to take medications as directed *Follow up with your primary care provider as soon as possible. Call them to discuss possible replacement of PICC line. *Return to ER if you should have any new, worsening or concerning symptoms Prescriptions: New azithromycin 250 mg tablet See Rx Instructions .ROUTE .COMPLEX Qty: 6 RF: 0 No Action lactulose 10 gram/15 mL solution 30 ml PO BID RF: 0 magnesium oxide 500 mg Tablet 500 mg PO DAILY RF: 0 furosemide 40 mg tablet 40 mg PO 1700 Qty: 30 RF: 0 ceftriaxone in dextrose,iso-os 2 gram/50 mL Piggyback 2 gram IV Q24H Qty: 38 RF: 0 furosemide 40 mg tablet 80 mg PO DAILY Qty: 0 RF: 0 metoprolol tartrate 25 mg tablet 50 mg PO BID Qty: 120 RF: 0 potassium chloride 20 MEQ tablet,ER particles/crystals 40 meq PO DAILY Qty: 0 RF: 0 Referrals: Moose Huff MD [Primary Care Provider] -
--- NOTE | 2019-08-08 18:15 | DI.RAD.S_ITS ---
PROCEDURE: XR CHEST 1V INDICATIONS: PICC Placement (per [facility] request) TECHNIQUE: One view of the chest was acquired. COMPARISON: [facility], CR, XR CHEST FOR PICC 1V, 07/06/2019, 11:31. [facility], CR, XR CHEST 1V, 07/01/2019, 19:50. FINDINGS: Surgical changes and devices: A PICC line from right sided approach extends cephalad past the coracoid process of the right scapula medially, and then coils, without extending into the subclavian area. Prior sternotomy. Lungs and pleura: Lungs are unchanged with patchy alveolar infiltration in small subpulmonic bilateral pleural effusions slightly greater on the right than the left. Mediastinum: Mediastinal contours appear normal. Heart size is normal. Bones and chest wall: No suspicious bony lesions. Overlying soft tissues appear unremarkable. IMPRESSION: PICC line from right sided approach coils abnormally prior to reaching the subclavian area of the upper right hemithorax. Reduced inspiratory volume, small subpulmonic bilateral pleural effusions, patchy alveolar infiltration pattern consistent with atypical/viral pneumonia. Dictated by: Jose Luis Ceja M.D. on 08/08/2019 at 19:05 Approved by: Jose Luis Ceja M.D. on 08/08/2019 at 19:09
--- NOTE | 2019-08-08 18:41 | PC.NURSE ---
Assessment: PICC site externally shows no abnormalities. Skin intact and secure. profuse edema noted in right leg 3+ pitting.
[2019-08-08 19:45] VITALS: BP 106/70; PULSE 82; RESP 20; TEMP 36.9; O2SAT 94
== END 2019-08-08 19:43 | disposition home or self-care (01) ==
PROVIDERS: Emergency Provider Emergency Medicine; Family Provider Family Medicine; PCP Family Medicine
DX: T82.898A Other specified complication of vascular prosthetic devices, implants and grafts, initial encounter (principal)
CPT/HCPCS: 71045; 99283; 99284

== ENCOUNTER 2019-11-24 23:53 | Emergency (ER) | payer OTHER, MEDICAID, SELFPAY ==
[2019-07-02 03:25] VITALS: BMI 33.6
[2019-11-25 00:08] VITALS: BP 103/70; PULSE 127; RESP 20; TEMP 36.4; O2SAT 95
--- NOTE | 2019-11-25 00:17 | ED_ITS ---
HPI - Arrhythmia/Palpitations General Chief Complaint: Arrhythmia/Palpitations Stated Complaint: heart rate is high right hip pain Time Seen by Provider: 11/24/19 23:56 Source: patient Mode of arrival: Wheelchair Limitations: no limitations History of Present Illness HPI narrative: Patient is a 64-year-old male with multiple medical problems. Per his prior medical notes has a history of atrial fibrillation/flutter and tachycardia and also a history of CHF. Patient is here with family at bedside. Patient states that he has a history of tachycardia. He states that his heart rate is normally in the mid 120 range. One month ago he was seen by his account leader where they increased his metoprolol from 2 times a day to 3 times a day. He states that at that time his heart rate was in the mid 120s but would i ncrease to the 140s. He states that since then he has had less issues with the heart rate getting into the 140 range. He also has history of CHF. One month ago when they increased his metoprolol they also increased his Lasix. He reports continuing to have lower extremity edema. He has chronic right hip pain secondary to arthritis. Patient is here today not because of any new symptoms but because his family who is at bedside encouraged him to come in. This was secondary to the fact that approximately 1 week ago he was seen by a GI provider secondary to his known gallstones. At that visit he was found to be tachycardic and was told that he should go to the emergency department for evaluation. He never went to the emergency department at that time. He denies chest pain. Has his chronic right hip pain. Does have some shortness of breath with exertion but this is not new. States he is taking all of his medications as directed. Related Data Home Medications Medication Instructions Recorded Confirmed lactulose 30 ml PO BID 04/10/18 08/08/19 magnesium oxide 500 mg PO DAILY 04/10/18 08/08/19 Previous Rx's Medication Instructions Recorded ceftriaxone in dextrose,iso-os 2 gram IV Q24H #38 each 07/06/19 furosemide 40 mg PO 1700 #30 tab 07/06/19 furosemide 80 mg PO DAILY #0 tab 07/06/19 metoprolol tartrate 50 mg PO BID #120 tab 07/06/19 potassium chloride 40 meq PO DAILY #0 tab 07/06/19 azithromycin See Rx Instructions .ROUTE 08/08/19 .COMPLEX #6 tab Allergies Allergy/AdvReac Type Severity Reaction Status Date / Time spironolactone AdvReac Mild muscle Verified 08/08/19 18:18 spasms torsemide AdvReac Mild muscle Verified 08/08/19 18:18 spasms Review of Systems Constitutional Constitutional: Denies fever(s) and Denies headache(s) ENT Ears, Nose, Mouth, and Throat: Denies headache(s) Cardiovascular Cardiovascular: Denies chest pain, Reports rapid heart rate and Reports dyspnea on exertion Respiratory Respiratory: Denies cough and Reports dyspnea on exertion Gastrointestinal Gastrointestinal: Denies abdominal pain, Denies nausea and Denies vomiting Genitourinary Genitourinary: Denies dysuria Genitourinary: Denies dysuria Musculoskeletal Musculoskeletal: Reports arthralgias (Right hip pain) Integumentary/Breasts Skin/Breast: Denies lesions and Denies rash Neurologic Neurologic: Denies behavioral changes and Denies headache(s) Psychiatric Psychiatric: Denies behavioral changes Hematologic/Lymphatic Hematologic/Lymphatic: Denies easy bleeding and Denies easy bruising Allergic/Immunologic Allergic/Immunologic: Denies urticaria 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) Surgical History Mitral valve replaced (Acute) Family History Father Stroke Myocardial infarction Mother Amyotrophic lateral sclerosis (ALS) Sister Hepatitis C Social History household members: significant other Smoking Status: Former smoker alcohol intake: former Smoking Status: Former smoker alcohol intake frequency: 0-2 drinks per day Substance Use Type: does not use Exam Initial Vital Signs Initial Vital Signs: Vital Signs Temperature 97.5 F L 11/25/19 00:08 Pulse Rate 127 H 11/25/19 00:08 Respiratory Rate 20 11/25/19 00:08 Blood Pressure 103/70 11/25/19 00:08 Pulse Oximetry 95 11/25/19 00:08 Const General: cooperative and ill appearing Limitations: mental status not altered [facility] Head: normal to inspection and normocephalic Resp Effort & Inspection: normal respiratory effort Auscultation: clear to auscultation bilaterally Cardio Rate: tachycardic Rhythm: regular rhythm Pulses: radial pulses present GI Inspection: non-distended Palpation: soft Skin Wounds: no wounds Neuro General: patient alert, patient awake and patient oriented x3 Cognition: normal cognition Extrem General: edema Psych Appearance: grossly normal and well kempt Course Orders Ordered: ED Orders 11/25/19 00:00 EKG-12 Lead Stat 11/25/19 01:10 Basic Metabolic Panel Stat Complete Blood Count AUTO DIFF Stat NT-proBNP (BNP-Adult 18+) Stat Vital Signs Vital signs: Vital Signs - 8 hr 11/25/19 00:08 11/25/19 01:22 Temperature 97.5 F L Pulse Rate 127 H 123 H Respiratory Rate 20 20 Blood Pressure 103/70 130/60 Pulse Oximetry 95 95 MDM - Arrhythmia/Palpitations Lab Data Attestation: I reviewed the patient's lab results. Result diagrams: 11/25/19 01:10 11/25/19 01:10 Labs: Lab Results 11/25/19 11/25/19 Range/Units 01:10 01:10 WBC 3.2 L (4.5-11.0) X10^3/uL RBC 3.38 L (4.5-5.9) X10^6/uL Hgb 12.0 L (13.5-17.5) g/dL Hct 34.4 L (41-53) % MCV 101.8 H (80-100) fL MCH 35.5 H (26-34) PG MCHC 34.8 (30-36) % RDW 18.8 H (11.6-14.8) % Plt Count 56 L (150-400) X10^3/uL Neut % (Auto) 54.4 (50-75) % Lymph % (Auto) 18.1 L (25-40) % Jessamine % (Auto) 19.0 H (3-14) % Eos % (Auto) 7.5 H (2-4) % Baso % (Auto) 1.0 (0-2) % Neut # (Auto) 1700 (8098-2379) /uL Lymph # (Auto) 600 L (8444-7851) /uL Jessamine # (Auto) 600 (0-900) /uL Eos # (Auto) 200 (0-450) /uL Baso # (Auto) 0 (0-100) /uL Sodium 137 (137-145) mmol/L Potassium 3.5 (3.4-5.1) mmol/L Chloride 99 (98-107) mmol/L Carbon Dioxide 36 H (22-32) mmol/L BUN 13 (9-20) mg/dL Creatinine 0.98 (0.66-1.25) mg/dL Estimated GFR > 60.0 (>60) mL/min BUN/Creatinine Ratio 13.3 (6-22) Glucose 154 H (80-110) mg/dL Calcium 8.5 (8.4-10.2) mg/dL NT-Pro-B Natriuret Pep 716 H (<125) pg/mL ECG Data Attestation: I personally reviewed and interpreted this ECG as follows: Prior ECG tracings: not available for review Interpretation: Sinus tachycardia Ventricular rate of 127 Normal axis Normal QRS Nonspecific ST T wave changes MDM Narrative Medical decision making narrative: Patient has right hip pain but this is not new. Also has right upper quadrant pain but he has known gallstones and he states that the pain is he is having has not changed from prior evaluations of this. Has bilateral lower extremity swelling which is not worse than normal. He is taking Lasix. Patient is also tachycardic into the mid 120s however this also appears that not be new. It is a sinus rhythm. He is not having chest pain. He is taking his metoprolol. I discussed the case with on-call Cardiology with the [facility] where his account leader is located. Plan will be is to have the patient contact his account leader tomorrow to discuss changing/adjusting his medications. Feel patient could be safely discharged home and follow-up with his account leader tomorrow. I do not feel he needs admitted the hospital for the symptoms and brought him in today as none of the symptoms that he is having today are new within the past couple weeks. We did discuss strict return precautions. He expressed understanding and agreement. Discharge Plan Departure Patient Disposition: Home Clinical Impression: Tachycardia, Bilateral lower extremity edema Discharge Date/Time: 11/25/19 02:04 Instructions: DI for Tachycardia Activity Restrictions/Additional Instructions: Continue to take all of your medications as directed. Tomorrow contact your account leader office for a follow-up. The account leader and I talked to this evening was going to discuss your visit this evening with your account leader. Return to the emergency department for any new or worsening symptoms Prescriptions: No Action lactulose 10 gram/15 mL solution 30 ml PO BID RF: 0 magnesium oxide 500 mg Tablet 500 mg PO DAILY RF: 0 furosemide 40 mg tablet 40 mg PO 1700 Qty: 30 RF: 0 ceftriaxone in dextrose,iso-os 2 gram/50 mL Piggyback 2 gram IV Q24H Qty: 38 RF: 0 furosemide 40 mg tablet 80 mg PO DAILY Qty: 0 RF: 0 metoprolol tartrate 25 mg tablet 50 mg PO BID Qty: 120 RF: 0 potassium chloride 20 MEQ tablet,ER particles/crystals 40 meq PO DAILY Qty: 0 RF: 0 azithromycin 250 mg tablet See Rx Instructions .ROUTE .COMPLEX Qty: 6 RF: 0 Referrals: Moose Huff MD [Primary Care Provider] -
[2019-11-25 01:22] VITALS: BP 130/60; PULSE 123; RESP 20; O2SAT 95
[2019-11-25 01:24] LABS: Add Manual Diff / Slide Review NO; Basophils Absolute Auto 0 /uL (0-100); Eosinophils Absolute Auto 200 /uL (0-450); Eosinophils Percent Auto 7.5 % (2-4); Hematocrit 34.4 % (41-53); Lymphocytes Absolute Auto 600 /uL (1100-4500); Lymphocytes Percent Auto 18.1 % (25-40); Mean Corpuscular HGB Conc 34.8 % (30-36); Mean Corpuscular Hemoglobin 35.5 PG (26-34); Mean Corpuscular Volume 101.8 fL (80-100); Monocytes Absolute Auto 600 /uL (0-900); Neutrophils Absolute Auto 1700 /uL (1500-7000); Neutrophils Percent Auto 54.4 % (50-75); Platelet Count 56 X10^3/uL (150-400); Red Blood Cell Count 3.38 X10^6/uL (4.5-5.9); Red Cell Distribution Width 18.8 % (11.6-14.8); White Blood Cell Count 3.2 X10^3/uL (4.5-11.0)
[2019-11-25 01:39] LABS: BUN Creatinine Ratio 13.3 (6-22); Blood Urea Nitrogen 13 mg/dL (9-20); Calcium 8.5 mg/dL (8.4-10.2); Carbon Dioxide 36 mmol/L (22-32); Chloride 99 mmol/L (98-107); Estimated Glomerular Filt Rate > 60.0 mL/min (>60); Glucose 154 mg/dL (80-110); Potassium 3.5 mmol/L (3.4-5.1); Sodium 137 mmol/L (137-145)
[2019-11-25 01:40] LABS: HEMOLYSIS < 15 (0-50)
[2019-11-25 01:43] LABS: NT-proBNP (BNP-Adult 18+) 716 pg/mL (<125)
== END 2019-11-25 02:04 | disposition home or self-care (01) ==
PROVIDERS: Emergency Provider Emergency Medicine; Family Provider Family Medicine; PCP Family Medicine
DX: R00.0 Tachycardia, unspecified (principal); R60.9 Edema, unspecified; R06.00 Dyspnea, unspecified; M25.551 Pain in right hip
CPT/HCPCS: 36415; 80048; 83880; 85025; 93005; 99283

== ENCOUNTER 2020-02-24 20:51 | Emergency (ER) | payer OTHER, MEDICAID, SELFPAY ==
[2019-07-02 03:25] VITALS: BMI 33.6
[2020-02-24] VITALS (18 sets, daily range): BP systolic 102–131; BP diastolic 54–65; PULSE 69–77; RESP 12–18; TEMP 36.9; O2SAT 94–100
--- NOTE | 2020-02-24 21:00 | DI.CT.S_ITS ---
PROCEDURE: CT HEAD/BRAIN WO CON INDICATIONS: Altered mental status TECHNIQUE: Noncontrast 4.5 mm thick angled axial sections acquired from the foramen magnum to the vertex, with coronal and sagittal reformats. For radiation dose reduction, the following was used: automated exposure control, adjustment of mA and/or kV according to patient size. COMPARISON: [facility], CT, CT HEAD/BRAIN WO CON, 07/01/2019, 21:39. FINDINGS: Image quality: Excellent. CSF spaces: Basal cisterns are patent. No extra-axial fluid collections. The ventricles are symmetric in size and shape. Brain: Findings are stable No intracranial bleeds or masses. There is cerebral volume loss for age, with resultant ventricular and sulcal prominence. There are periventricular and deep white matter chronic small vessel ischemic changes. Very probable small focal left centrum semiovale infarct. There is intracranial internal carotid artery atherosclerosis. Skull and face: Calvarium and visualized facial bones appear intact, without suspicious lesions. Sinuses: Visualized sinuses and mastoids are clear. IMPRESSION: Stable exam. No evidence acute stroke, hemorrhage, or mass. Age-related volume loss and small vessel ischemic change. 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 Comment: Final report is concordant with preliminary interpretation provided by [facility]. Dictated by: Patrick Barger M.D. on 02/25/2020 at 8:48 Approved by: Patrick Barger M.D. on 02/25/2020 at 8:51
--- NOTE | 2020-02-24 21:10 | ED_ITS ---
HPI - General Adult General Chief complaint: Altered Mental Status Stated complaint: Altered Mental Status Time Seen by Provider: 02/24/20 20:54 Source: family (Girlfriend) and EMS Mode of arrival: EMS Limitations: altered mental status History of Present Illness HPI narrative: Patient unable to provide any HPI. Initially history was provided by EMS as they report that they were called to the patient's home by hi s girlfriend for evaluation of altered mental status. Initially had no further information than this. Review of his records show that he does have a history of cirrhosis. 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 History of CHF. Patient's girlfriend eventually arrived to the emergency department she stated that for the past several days the patient has become more and more altered until this morning and throughout today the altered mental status seem to worsen. She reported that he has become incontinent of urine. She states that he has had elevations in his ammonia in the past. He has been on lactulose in the past but is currently on Xifaxan (rifamycin). She states that he has been taking all of his medications as directed. Upon arrival patient was minimally interactive. He was maintaining his own airway. He was spontaneously moving all 4 extremities. He would answer some questions as yes and no but would not answer other questions making me concerned that the yes and no answers he was providing were not accurate. Related Data Home Medications Medication Instructions Recorded Confirmed lactulose 30 ml PO BID 04/10/18 08/08/19 magnesium oxide 500 mg PO DAILY 04/10/18 08/08/19 Previous Rx's Medication Instructions Recorded ceftriaxone in dextrose,iso-os 2 gram IV Q24H #38 each 07/06/19 furosemide 40 mg PO 1700 #30 tab 07/06/19 furosemide 80 mg PO DAILY #0 tab 07/06/19 metoprolol tartrate 50 mg PO BID #120 tab 07/06/19 potassium chloride 40 meq PO DAILY #0 tab 07/06/19 azithromycin See Rx Instructions .ROUTE 08/08/19 .COMPLEX #6 tab Allergies Allergy/AdvReac Type Severity Reaction Status Date / Time spironolactone AdvReac Mild muscle Verified 08/08/19 18:18 spasms torsemide AdvReac Mild muscle Verified 08/08/19 18:18 spasms Review of Systems Review of Systems ROS Unobtainable: Unobtainable due to mental status/LOC Patient History Medical History (Updated 02/25/20 @ 01:34 by Moose Rush DO) Arrhythmia, atrial CHF (congestive heart failure) Cholelithiasis Cirrhosis of liver Hepatitis C Liver mass, 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 Surgical History Mitral valve replaced Family History Father Stroke Myocardial infarction Mother Amyotrophic lateral sclerosis (ALS) Sister Hepatitis C Social History household members: significant other Smoking Status: Former smoker alcohol intake: former Smoking Status: Former smoker alcohol intake frequency: 0-2 drinks per day Substance Use Type: does not use Exam Initial Vital Signs Initial Vital Signs: Vital Signs Pulse Rate 74 02/24/20 21:05 Respiratory Rate 16 02/24/20 21:05 Blood Pressure 131/61 02/24/20 21:05 Pulse Oximetry 94 02/24/20 21:05 Const General: disheveled Limitations: altered mental status HENMT Head: normal to inspection and normocephalic Ears: hearing grossly normal bilaterally Eyes Sclera: scleral abnormality bilaterally (Jaundice) Pupils: PERRL Resp Effort & Inspection: normal respiratory effort Auscultation: clear to auscultation bilaterally Cardio Rate: regular rate Rhythm: regular rhythm Heart Sounds: murmur GI Inspection: non-distended Palpation: soft Skin Lesions: no lesions Rashes: no rashes Neuro General: moves all extremities Extrem General: edema Psych Appearance: disheveled Scores GCS Sarah coma scale eye opening: To pressure [place] coma scale verbal response: Confused Sarah coma scale motor response: Localising Sarah coma scale total score: 11 Course Orders Ordered: ED Orders 02/24/20 20:19 Ammonia (NH3) Stat 02/24/20 20:25 Blood Culture Stat 02/24/20 21:00 CT head/brain wo con Stat Acetaminophen Stat Basic Metabolic Panel Stat Complete Blood Count AUTO DIFF Stat Ethanol (ETOH) Stat Hepatic (Liver) Panel Stat Lactate (Lactic Acid) Stat Lipase Stat PTT [Partial Thromboplastin Time] Stat Procalcitonin Stat Prothrombin Time INR Stat Troponin & CK Cardiac Panel Stat EKG-12 Lead Stat 02/24/20 21:05 Arterial Blood Gas Stat 12/02/20 21:15 COVID19 Stat 02/24/20 21:30 Urinalysis and Microscopic Stat Urine Culture Stat 02/24/20 21:46 XR chest 1V Stat 02/24/20 21:51 Basic Metabolic Panel Stat 02/24/20 22:58 CT angio chest PE protocol Stat 02/24/20 23:37 NT-proBNP (BNP-Adult 18+) Stat Sodium Chloride (Normal Saline 0.9%) 1,000 mls @ 125 mls/hr IV CONT GEO Last Admin: 02/24/20 22:38 Dose: 125 mls/hr Documented by: SEAN Potassium Chloride 40 meq/ (Sodium Chloride) 520 mls @ 130 mls/hr IV NOW ONE Stop: 02/25/20 02:21 Last Admin: 02/24/20 23:05 Dose: 130 mls/hr Documented by: SEAN Cosigned by: CARL Heparin Sodium/Dextrose (Heparin Drip) 25,000 unit in 500 mls @ 20 mls/hr IV CONT GEO; Protocol Last Admin: 02/24/20 22:39 Dose: 1,000 units/hr, 20 mls/hr Documented by: SEAN Discontinued Medications Heparin Sodium (Porcine) (Heparin 5,000 Unit/Ml Vial) 5,000 unit IV NOW ONE Stop: 02/24/20 22:26 Last Admin: 02/24/20 22:38 Dose: 5,000 unit Documented by: SEAN Lactulose (Lactulose 20 Gm/30 Ml Solution) 20 gm PO NOW ONE Stop: 02/24/20 23:53 Last Admin: 02/25/20 00:03 Dose: 20 gm Documented by: SEAN Vital Signs Vital signs: Vital Signs - 8 hr 02/24/20 21:05 02/24/20 21:11 02/24/20 21:38 Temperature 98.4 F Pulse Rate 74 72 71 Respiratory Rate 16 14 12 Blood Pressure 131/61 124/65 125/58 L Pulse Oximetry 94 100 100 02/24/20 21:55 02/24/20 22:00 02/24/20 22:10 Temperature Pulse Rate 71 72 71 Respiratory Rate 16 16 16 Blood Pressure 124/56 L 123/58 L Pulse Oximetry 100 100 100 02/24/20 22:20 02/24/20 22:30 02/24/20 22:40 Temperature Pulse Rate 69 72 69 Respiratory Rate 16 14 16 Blood Pressure 117/57 L 126/60 122/56 L Pulse Oximetry 100 100 100 02/24/20 23:00 02/24/20 23:05 02/24/20 23:12 Temperature Pulse Rate 77 74 73 Respiratory Rate 16 18 Blood Pressure 111/55 L 116/55 L Pulse Oximetry 100 100 100 02/24/20 23:20 02/24/20 23:28 02/24/20 23:38 Temperature Pulse Rate 75 71 72 Respiratory Rate 17 18 Blood Pressure 117/63 113/58 L Pulse Oximetry 100 100 100 02/24/20 23:39 02/24/20 23:40 02/24/20 23:50 Temperature Pulse Rate 73 72 69 Respiratory Rate 12 18 16 Blood Pressure 118/56 L 114/55 L 102/54 L Pulse Oximetry 99 99 100 02/25/20 00:00 02/25/20 00:10 02/25/20 00:20 Temperature Pulse Rate 72 72 72 Respiratory Rate 15 17 16 Blood Pressure 113/56 L 115/55 L 113/58 L Pulse Oximetry 100 95 93 02/25/20 00:30 02/25/20 00:40 02/25/20 00:50 Temperature Pulse Rate 73 72 73 Respiratory Rate 15 18 17 Blood Pressure 113/56 L 110/52 L 108/53 L Pulse Oximetry 95 91 93 02/25/20 01:00 02/25/20 01:01 02/25/20 01:10 Temperature Pulse Rate 73 73 74 Respiratory Rate 19 19 19 Blood Pressure 102/49 L 111/53 L Pulse Oximetry 96 95 98 02/25/20 01:20 02/25/20 01:30 02/25/20 01:31 Temperature Pulse Rate 74 76 75 Respiratory Rate 17 24 20 Blood Pressure 100/52 L 118/53 L Pulse Oximetry 95 98 97 02/25/20 01:43 02/25/20 01:49 02/25/20 01:50 Temperature Pulse Rate 76 77 Respiratory Rate 24 24 Blood Pressure 99/48 L 97/50 L Pulse Oximetry 97 98 Medical Decision Making Medical Records Medical records reviewed: Yes I reviewed the patient's medical records. Lab Data Lab results reviewed: Yes I reviewed the patient's lab results. Result diagrams: 02/24/20 21:00 02/24/20 21:51 Labs: Lab Results 02/24/20 02/24/2002/23/20 Range/Units 20:19 21:00 21:00 WBC 9.2 (4.5-11.0) X10^3/uL RBC 3.28 L (4.5-5.9) X10^6/uL Hgb 12.5 L (13.5-17.5) g/dL Hct 34.1 L (41-53) % MCV 104.1 H (80-100) fL MCH 38.0 H (26-34) PG MCHC 36.5 H (30-36) % RDW 17.5 H (11.6-14.8) % Plt Count 114 L (150-400) X10^3/uL Neut % (Auto) 75.5 H (50-75) % Lymph % (Auto) 6.9 L (25-40) % [place] % (Auto) 16.3 H (3-14) % Eos % (Auto) 1.0 L (2-4) % Baso % (Auto) 0.3 (0-2) % Neut # (Auto) 6900 (7760-9378) /uL Lymph # (Auto) 600 L (6717-6318) /uL [place] # (Auto) 1500 H (0-900) /uL Eos # (Auto) 100 (0-450) /uL Baso # (Auto) 0 (0-100) /uL PT (10.1-12.7) SECONDS INR (0.9-1.3) APTT (26.4-36.2) SECONDS ABG pH (7.35-7.45) ABG pCO2 (35-45) mmHg ABG pO2 (80-100) mmHg ABG HCO3 (22-26) mmol/L ABG Total CO2 (21-31) mmol/L ABG O2 Saturation (95-100) % ABG Base Excess (-2-2) mmol/L FiO2 Sodium 132 L (137-145) mmol/L Potassium 2.8 L (3.4-5.1) mmol/L Chloride 84 L (98-107) mmol/L Carbon Dioxide 44 H* (22-32) mmol/L BUN 33 H (9-20) mg/dL Creatinine 1.22 (0.66-1.25) mg/dL Estimated GFR > 60.0 (>60) mL/min BUN/Creatinine Ratio 27.0 H (6-22) Glucose 234 H (80-110) mg/dL Lactate (0.7-2.1) mmol/L Calcium 9.7 (8.4-10.2) mg/dL Total Bilirubin 11.4 H (0.2-1.3) mg/dL Conjugated Bilirubin 0.6 H (0.0-0.3) md/dL Unconjugated Bilirubin 9.0 H (0.0-1.1) mg/dL AST 69 H (17-59) IU/L ALT 23 (<50) IU/L Alkaline Phosphatase 112 (38-126) U/L Ammonia 86 H (9-30) umol/L Total Creatine Kinase (55-170) U/L CK-MB (CK-2) CK-MB (CK-2) Rel Index Troponin I (0.01-0.034) ng/mL NT-Pro-B Natriuret Pep (<125) pg/mL Total Protein 8.4 H (6.3-8.2) g/dL Albumin 3.8 (3.5-5.0) g/dL Globulin 4.6 H (1.7-4.1) g/dL Albumin/Globulin Ratio 0.8 L (1.0-2.8) Lipase 227 (23-300) U/L Procalcitonin (<0.5) ng/mL Urine Color Urine Appearance Urine pH (4.5-8.0) Ur Specific [place] (1.000-1.035) Urine Protein (Negative) Urine Glucose (UA) (Negative) g/dL Urine Ketones (NEGATIVE) Urine Occult Blood (Negative) Urine Nitrate (Negative) Urine Bilirubin (NEGATIVE) Urine Urobilinogen (0.2) E.U./dL Ur Leukocyte Esterase (NEGATIVE) Urine RBC (0-5/HPF) Urine WBC (0-5/HPF) Urine Bacteria (None) Ur Culture Indicated? Acetaminophen < 10 L (10-30) ug/mL Ethyl Alcohol < 10 ( - 10) mg/dL COVID-19 PCR (Negative) 02/24/20 02/24/20 02/24/20 Range/Units 21:00 21:00 21:00 WBC (4.5-11.0) X10^3/uL RBC (4.5-5.9) X10^6/uL Hgb (13.5-17.5) g/dL Hct (41-53) % MCV (80-100) fL MCH (26-34) PG MCHC (30-36) % RDW (11.6-14.8) % Plt Count (150-400) X10^3/uL Neut % (Auto) (50-75) % Lymph % (Auto) (25-40) % [place] % (Auto) (3-14) % Eos % (Auto) (2-4) % Baso % (Auto) (0-2) % Neut # (Auto) (4475-4053) /uL Lymph # (Auto) (0629-8324) /uL [place] # (Auto) (0-900) /uL Eos # (Auto) (0-450) /uL Baso # (Auto) (0-100) /uL PT (10.1-12.7) SECONDS INR (0.9-1.3) APTT (26.4-36.2) SECONDS ABG pH (7.35-7.45) ABG pCO2 (35-45) mmHg ABG pO2 (80-100) mmHg ABG HCO3 (22-26) mmol/L ABG Total CO2 (21-31) mmol/L ABG O2 Saturation (95-100) % ABG Base Excess (-2-2) mmol/L FiO2 Sodium (137-145) mmol/L Potassium (3.4-5.1) mmol/L Chloride (98-107) mmol/L Carbon Dioxide (22-32) mmol/L BUN (9-20) mg/dL Creatinine (0.66-1.25) mg/dL Estimated GFR (>60) mL/min BUN/Creatinine Ratio (6-22) Glucose (80-110) mg/dL Lactate 2.9 H (0.7-2.1) mmol/L Calcium (8.4-10.2) mg/dL Total Bilirubin (0.2-1.3) mg/dL Conjugated Bilirubin (0.0-0.3) md/dL Unconjugated Bilirubin (0.0-1.1) mg/dL AST (17-59) IU/L ALT (<50) IU/L Alkaline Phosphatase (38-126) U/L Ammonia (9-30) umol/L Total Creatine Kinase 47 L (55-170) U/L CK-MB (CK-2) TNP CK-MB (CK-2) Rel Index TNP Troponin I 0.058 H (0.01-0.034) ng/mL NT-Pro-B Natriuret Pep (<125) pg/mL Total Protein (6.3-8.2) g/dL Albumin (3.5-5.0) g/dL Globulin (1.7-4.1) g/dL Albumin/Globulin Ratio (1.0-2.8) Lipase (23-300) U/L Procalcitonin 0.11 (<0.5) ng/mL Urine Color Urine Appearance Urine pH (4.5-8.0) Ur Specific [place] (1.000-1.035) Urine Protein (Negative) Urine Glucose (UA) (Negative) g/dL Urine Ketones (NEGATIVE) Urine Occult Blood (Negative) Urine Nitrate (Negative) Urine Bilirubin (NEGATIVE) Urine Urobilinogen (0.2) E.U./dL Ur Leukocyte Esterase (NEGATIVE) Urine RBC (0-5/HPF) Urine WBC (0-5/HPF) Urine Bacteria (None) Ur Culture Indicated? Acetaminophen (10-30) ug/mL Ethyl Alcohol ( - 10) mg/dL COVID-19 PCR (Negative) 02/24/20 02/24/20 02/24/20 Range/Units 21:00 21:05 21:15 WBC (4.5-11.0) X10^3/uL RBC (4.5-5.9) X10^6/uL Hgb (13.5-17.5) g/dL Hct (41-53) % MCV (80-100) fL MCH (26-34) PG MCHC (30-36) % RDW (11.6-14.8) % Plt Count (150-400) X10^3/uL Neut % (Auto) (50-75) % Lymph % (Auto) (25-40) % [place] % (Auto) (3-14) % Eos % (Auto) (2-4) % Baso % (Auto) (0-2) % Neut # (Auto) (8351-9545) /uL Lymph # (Auto) (9329-2989) /uL [place] # (Auto) (0-900) /uL Eos # (Auto) (0-450) /uL Baso # (Auto) (0-100) /uL PT 16.8 H (10.1-12.7) SECONDS INR 1.5 H (0.9-1.3) APTT 33 (26.4-36.2) SECONDS ABG pH 7.58 H (7.35-7.45) ABG pCO2 46.5 H (35-45) mmHg ABG pO2 61 L (80-100) mmHg ABG HCO3 44 H (22-26) mmol/L ABG Total CO2 45 H (21-31) mmol/L ABG O2 Saturation 94 L (95-100) % ABG Base Excess 22.0 H (-2-2) mmol/L FiO2 21 Sodium (137-145) mmol/L Potassium (3.4-5.1) mmol/L Chloride (98-107) mmol/L Carbon Dioxide (22-32) mmol/L BUN (9-20) mg/dL Creatinine (0.66-1.25) mg/dL Estimated GFR (>60) mL/min BUN/Creatinine Ratio (6-22) Glucose (80-110) mg/dL Lactate (0.7-2.1) mmol/L Calcium (8.4-10.2) mg/dL Total Bilirubin (0.2-1.3) mg/dL Conjugated Bilirubin (0.0-0.3) md/dL Unconjugated Bilirubin (0.0-1.1) mg/dL AST (17-59) IU/L ALT (<50) IU/L Alkaline Phosphatase (38-126) U/L Ammonia (9-30) umol/L Total Creatine Kinase (55-170) U/L CK-MB (CK-2) CK-MB (CK-2) Rel Index Troponin I (0.01-0.034) ng/mL NT-Pro-B Natriuret Pep (<125) pg/mL Total Protein (6.3-8.2) g/dL Albumin (3.5-5.0) g/dL Globulin (1.7-4.1) g/dL Albumin/Globulin Ratio (1.0-2.8) Lipase (23-300) U/L Procalcitonin (<0.5) ng/mL Urine Color Urine Appearance Urine pH (4.5-8.0) Ur Specific [place] (1.000-1.035) Urine Protein (Negative) Urine Glucose (UA) (Negative) g/dL Urine Ketones (NEGATIVE) Urine Occult Blood (Negative) Urine Nitrate (Negative) Urine Bilirubin (NEGATIVE) Urine Urobilinogen (0.2) E.U./dL Ur Leukocyte Esterase (NEGATIVE) Urine RBC (0-5/HPF) Urine WBC (0-5/HPF) Urine Bacteria (None) Ur Culture Indicated? Acetaminophen (10-30) ug/mL Ethyl Alcohol ( - 10) mg/dL COVID-19 PCR Negative (Negative) 02/24/20 02/24/20 02/24/20 Range/Units 21:30 21:51 23:37 WBC (4.5-11.0) X10^3/uL RBC (4.5-5.9) X10^6/uL Hgb (13.5-17.5) g/dL Hct (41-53) % MCV (80-100) fL MCH (26-34) PG MCHC (30-36) % RDW (11.6-14.8) % Plt Count (150-400) X10^3/uL Neut % (Auto) (50-75) % Lymph % (Auto) (25-40) % [place] % (Auto) (3-14) % Eos % (Auto) (2-4) % Baso % (Auto) (0-2) % Neut # (Auto) (2119-6667) /uL Lymph # (Auto) (2989-4763) /uL [place] # (Auto) (0-900) /uL Eos # (Auto) (0-450) /uL Baso # (Auto) (0-100) /uL PT (10.1-12.7) SECONDS INR (0.9-1.3) APTT (26.4-36.2) SECONDS ABG pH (7.35-7.45) ABG pCO2 (35-45) mmHg ABG pO2 (80-100) mmHg ABG HCO3 (22-26) mmol/L ABG Total CO2 (21-31) mmol/L ABG O2 Saturation (95-100) % ABG Base Excess (-2-2) mmol/L FiO2 Sodium 131 L (137-145) mmol/L Potassium 2.9 L (3.4-5.1) mmol/L Chloride 84 L (98-107) mmol/L Carbon Dioxide 43 H* (22-32) mmol/L BUN 33 H (9-20) mg/dL Creatinine 1.13 (0.66-1.25) mg/dL Estimated GFR > 60.0 (>60) mL/min BUN/Creatinine Ratio 29.2 H (6-22) Glucose 211 H (80-110) mg/dL Lactate (0.7-2.1) mmol/L Calcium 9.5 (8.4-10.2) mg/dL Total Bilirubin (0.2-1.3) mg/dL Conjugated Bilirubin (0.0-0.3) md/dL Unconjugated Bilirubin (0.0-1.1) mg/dL AST (17-59) IU/L ALT (<50) IU/L Alkaline Phosphatase (38-126) U/L Ammonia (9-30) umol/L Total Creatine Kinase (55-170) U/L CK-MB (CK-2) CK-MB (CK-2) Rel Index Troponin I (0.01-0.034) ng/mL NT-Pro-B Natriuret Pep 1080 H (<125) pg/mL Total Protein (6.3-8.2) g/dL Albumin (3.5-5.0) g/dL Globulin (1.7-4.1) g/dL Albumin/Globulin Ratio (1.0-2.8) Lipase (23-300) U/L Procalcitonin (<0.5) ng/mL Urine Color Yellow Urine Appearance Slightly cloudy Urine pH 8.5 H (4.5-8.0) Ur Specific [place] 1.015 (1.000-1.035) Urine Protein Negative (Negative) Urine Glucose (UA) Negative (Negative) g/dL Urine Ketones Negative (NEGATIVE) Urine Occult Blood Negative (Negative) Urine Nitrate Positive (Negative) Urine Bilirubin Negative (NEGATIVE) Urine Urobilinogen 1.0 (0.2) E.U./dL Ur Leukocyte Esterase Trace H (NEGATIVE) Urine RBC 0-1/hpf (0-5/HPF) Urine WBC 0-1/hpf (0-5/HPF) Urine Bacteria Many (>30) H (None) Ur Culture Indicated? Specimen cultured Acetaminophen (10-30) ug/mL Ethyl Alcohol ( - 10) mg/dL COVID-19 PCR (Negative) Point of Care Testing Glucose POC 240 Point of care testing: Point of Care Testing Glucose POC [address] scan - head: Radiologist's Impression: No acute intracranial findings Chest x-ray: Radiologist's Impression: Small bilateral patchy infiltrates, most pronounced in the right lower lobe Small right pleural effusion CT scan - chest: Radiologist's Impression: No pulmonary emboli. Dilation of the central pulmonary artery at 3.6 cm may reflect underlying pulmonary arterial hypertension. Mild cardiomegaly with small right pleural effusion and bilateral atelectasis. No other acute parenchymal lung disease. Cirrhotic liver and partially visualized splenomegaly ECG Data Attestation: I personally reviewed and interpreted this ECG as follows: Prior ECG tracings: not available for review Interpretation: Sinus rhythm Ventricular rate is 71 First degree AV block with [place] will [address] depression V2 V3 V4 V5 V6 MDM Narrative Medical decision making narrative: Initially very difficult to obtain HPI secondary to patient's inability to cooperate with the exam. When his girlfriend arrived she did provide more history. He does have chronic liver disease. Sees a GI provider at [facility] and also the [facility]. 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 Has had issues with hepatic encephalopathy in the past. Has been taking his medications however today his ammonia level is elevated. He was able to take lactulose by mouth. During his stay in the ER he did become somewhat more responsive. He was able to state that he was not having chest pain or shortness of breath or abdominal pain. Other than that could not get any more information from him. He also has ST depressions laterally on his EKG. Has a troponin greater than the 99th percentile cutoff according to our lab so patient was started on heparin. His girlfriend confirm that he is not on anticoagulation. She states that his lower extremity swelling is better than what it was after changing his diuretic medicine. Is also hypokalemic most likely from his diuretic. Replacement was started as well. No fevers. No leukocytosis. No source of infection found. Blood cultures were obtained. No antibiotics administered. COVID-19 negative. Discussed the case with Dr. Shaw has [facility] who accepts the patient in transfer. Patient is stable for transfer. Discharge Plan Departure Patient Disposition: [facility] Clinical Impression: AMS (altered mental status), Non-ST elevation [place] (NSTEMI), Hyperbilirubinemia, Hepatic encephalopathy, Hypokalemia Prescriptions: No Action lactulose 10 gram/15 mL solution 30 ml PO BID RF: 0 magnesium oxide 500 mg Tablet 500 mg PO DAILY RF: 0 furosemide 40 mg tablet 40 mg PO 1700 Qty: 30 RF: 0 ceftriaxone in dextrose,iso-os 2 gram/50 mL Piggyback 2 gram IV Q24H Qty: 38 RF: 0 furosemide 40 mg tablet 80 mg PO DAILY Qty: 0 RF: 0 metoprolol tartrate 25 mg tablet 50 mg PO BID Qty: 120 RF: 0 potassium chloride 20 MEQ tablet,ER particles/crystals 40 meq PO DAILY Qty: 0 RF: 0 azithromycin 250 mg tablet See Rx Instructions .ROUTE .COMPLEX Qty: 6 RF: 0 Referrals: Moose Huff MD [Primary Care Provider] -
[2020-02-24 21:18] LABS: Add Manual Diff / Slide Review NO; Basophils Absolute Auto 0 /uL (0-100); Basophils Percent Auto 0.3 % (0-2); Eosinophils Absolute Auto 100 /uL (0-450); Hematocrit 34.1 % (41-53); Hemoglobin 12.5 g/dL (13.5-17.5); Lymphocytes Absolute Auto 600 /uL (1100-4500); Lymphocytes Percent Auto 6.9 % (25-40); Mean Corpuscular HGB Conc 36.5 % (30-36); Mean Corpuscular Volume 104.1 fL (80-100); Monocytes Absolute Auto 1500 /uL (0-900); Monocytes Percent Auto 16.3 % (3-14); Neutrophils Absolute Auto 6900 /uL (1500-7000); Neutrophils Percent Auto 75.5 % (50-75); Platelet Count 114 X10^3/uL (150-400); Red Blood Cell Count 3.28 X10^6/uL (4.5-5.9); Red Cell Distribution Width 17.5 % (11.6-14.8); White Blood Cell Count 9.2 X10^3/uL (4.5-11.0)
[2020-02-24 21:22] LABS: Lactate (Lactic Acid) 2.9 mmol/L (0.7-2.1)
[2020-02-24 21:26] LABS: Creatine Kinase 47 U/L (55-170)
[2020-02-24 21:27] LABS: Acetaminophen < 10 ug/mL (10-30); Alanine Aminotransferase 23 IU/L (<50); Albumin 3.8 g/dL (3.5-5.0); Albumin Globulin Ratio 0.8 (1.0-2.8); Alkaline Phosphatase 112 U/L (38-126); Aspartate Aminotransferase 69 IU/L (17-59); Bilirubin Conjugated 0.6 md/dL (0.0-0.3); Bilirubin Total 11.4 mg/dL (0.2-1.3); Blood Urea Nitrogen 33 mg/dL (9-20); Calcium 9.7 mg/dL (8.4-10.2); Chloride 84 mmol/L (98-107); Estimated Glomerular Filt Rate > 60.0 mL/min (>60); Ethanol (ETOH) < 10 mg/dL; Globulin 4.6 g/dL (1.7-4.1); Glucose 234 mg/dL (80-110); Lipase 227 U/L (23-300); Sodium 132 mmol/L (137-145); Total Protein 8.4 g/dL (6.3-8.2)
[2020-02-24 21:33] LABS: HCO3 ABG 44 mmol/L (22-26); PCO2 ABG 46.5 mmHg (35-45); PO2 ABG 61 mmHg (80-100); TCO2 ABG 45 mmol/L (21-31); pH ABG 7.58 (7.35-7.45)
[2020-02-24 21:34] LABS: Fractionated Inspired Oxygen 21; Oxygen Saturation ABG 94 % (95-100)
[2020-02-24 21:37] LABS: HEMOLYSIS 58 (0-50)
[2020-02-24 21:38] LABS: Carbon Dioxide 44 mmol/L (22-32)
[2020-02-24 21:39] LABS: Troponin I 0.058 ng/mL (0.01-0.034)
[2020-02-24 21:40] LABS: Potassium 2.8 mmol/L (3.4-5.1); Procalcitonin 0.11 ng/mL (<0.5)
[2020-02-24 21:42] LABS: Ammonia (NH3) 86 umol/L (9-30)
--- NOTE | 2020-02-24 21:46 | DI.RAD.S_ITS ---
PROCEDURE: XR CHEST 1V INDICATIONS: eval for PNA TECHNIQUE: One view of the chest was acquired. COMPARISON: [facility], CT, CT ANGIO CHEST PE PROTOCOL, 02/24/2020, 23:11. [facility], CR, XR CHEST FOR PICC 1V, 07/06/2019, 11:31. [facility], CR, XR CHEST 1V, 08/08/2019, 18:26. FINDINGS: There is rotation. Surgical changes and devices: Sternotomy and mitral valve prosthesis. Lungs and pleura: Bilateral interstitial and airspace infiltrates. Small right pleural effusion. No pneumothorax. Mediastinum: Mediastinal contours appear normal. Heart size is moderately increased. Bones and chest wall: No suspicious bony lesions. Overlying soft tissues appear unremarkable. IMPRESSION: 1. Bilateral interstitial and airspace infiltrates consistent with pulmonary edema or bilateral pneumonia. 2. Small right pleural effusion. 3. Moderate cardiomegaly. Dictated by: Aleisha Addison M.D. on 02/25/2020 at 9:09 Approved by: Aleisha Addison M.D. on 02/25/2020 at 9:11
[2020-02-24 21:49] LABS: Bilirubin Urine UA NEGATIVE (NEGATIVE); Color Urine UA YELLOW; Glucose Urine UA NEGATIVE (Negative); Ketones Urine UA NEGATIVE (NEGATIVE); Leukocyte Esterase Urine UA TRACE (NEGATIVE); Nitrite Urine UA POSITIVE (Negative); Occult Blood Urine UA NEGATIVE (Negative); Protein Urine UA NEGATIVE (Negative); Specific Gravity Urine UA 1.015 (1.000-1.035); pH Urine UA 8.5 (4.5-8.0)
[2020-02-24 22:08] LABS: Appearance Urine UA Slightly Cloudy; Bacteria Urine Many (>30); Culture Indicated Urine Specimen Cultured; RBC Urine 0-1/HPF (0-5/HPF); WBC Urine 0-1/HPF (0-5/HPF)
[2020-02-24 22:09] LABS: BUN Creatinine Ratio 29.2 (6-22); Blood Urea Nitrogen 33 mg/dL (9-20); Calcium 9.5 mg/dL (8.4-10.2); Chloride 84 mmol/L (98-107); Estimated Glomerular Filt Rate > 60.0 mL/min (>60); Glucose 211 mg/dL (80-110); Potassium 2.9 mmol/L (3.4-5.1); Sodium 131 mmol/L (137-145)
[2020-02-24 22:10] LABS: COVID19 -Nasal RAPID Negative (Negative)
[2020-02-24 22:18] LABS: HEMOLYSIS 99 (0-50)
[2020-02-24 22:19] LABS: Carbon Dioxide 43 mmol/L (22-32)
[2020-02-24] MEDS: SODIUM CHLORIDE 0.9% 1,000 ML 125 ML IV (22:38)
[2020-02-24] MEDS: HEPARIN 5,000 UNIT/ML VIAL 5000 UNIT IV (22:38)
[2020-02-24] MEDS: HEPARIN DRIP 25,000 UNIT/500 ML IV.SOLN 20 UNIT IV (22:39)
[2020-02-24 22:57] LABS: INR 1.5 (0.9-1.3); Prothrombin Time 16.8 SECONDS (10.1-12.7)
--- NOTE | 2020-02-24 22:58 | DI.CT.S_ITS ---
PROCEDURE: CT ANGIO CHEST PE PROTOCOL INDICATIONS: Chest pain, shortness of breath, tachycardia TECHNIQUE: After the administration of intravenous contrast, 2 mm thick sections acquired from the pulmonary apices to the posterior costophrenic angles. 3-dimensional maximum intensity projection (MIP) coronal and sagittal reformats were then acquired through the thorax. For radiation dose reduction, the following was used: automated exposure control, adjustment of mA and/or kV according to patient size. COMPARISON: [facility], CT, CT ABDOMEN HEPATIC/ADRENAL PROTOCOL, 12/04/2019, 15:48. [facility], CT, CT ANGIO CHEST PE PROTOCOL, 12/05/2017, 0:25. FINDINGS: Image quality: Excellent. Pulmonary arteries: Pulmonary arteries are normal in size, and demonstrate no intraluminal filling defects to suggest central pulmonary embolism. Lungs and pleura: Lungs are abnormal with alveolar consolidation at the right lung base and an associated moderate-sized pleural effusion on the right which appears to have a small degree of associated pleural thickening and enhancement, indicating exudative effusion.. No pleural effusions or pneumothorax. Central and peripheral airways are patent. Mediastinum: Heart size is normal, without pericardial effusion. No mediastinal or hilar adenopathy. Thoracic aorta is normal in caliber and enhancement. Esophagus is normal in caliber, without hiatal hernia. Bones and chest wall: No suspicious bony lesions. Ribs and thoracic spine appear intact throughout. Thyroid gland is unchanged from prior study, with a calcified left thyroid nodule partially visualized and this has been previously identified on chest CT scanning 12/05/17 and also was present on chest CT 02/18/11 with a lesser degree of dense calcification. No axillary or supraclavicular adenopathy. Abdomen: Visualized upper abdominal solid organs appear normal in the early arterial phase of enhancement except that the liver appears cirrhotic with large partially visualized portal veins and the spleen also appears enlarged.. IMPRESSION: No pulmonary embolus found. Pneumonia versus atelectasis appears present at the right lung base. There is a moderate-sized right pleural effusion, possibly exudative, similar to that present 12/04/19. Apparent hepatic cirrhosis and splenomegaly. Enlarged portal veins at the left liver, only partially visualized. Chronic calcified left thyroid nodule present over multiple prior studies. Dictated by: Jose Luis Ceja M.D. on 02/25/2020 at 8:23 Approved by: Jose Luis Ceja M.D. on 02/25/2020 at 8:30
[2020-02-24 23:00] LABS: PTT Partial Thromboplastin Tim 33 SECONDS (26.4-36.2)
[2020-02-24] MEDS: POTASSIUM CHLORIDE 40 MEQ in SODIUM CHLORIDE 0.9% 500 ML 130 ML IV (23:05)
[2020-02-24 23:08] LABS: Reflexed Lactate in 2 Hours Y
[2020-02-25] VITALS (16 sets, daily range): BP systolic 97–118; BP diastolic 48–58; PULSE 72–80; RESP 15–24; O2SAT 91–100
[2020-02-25] MEDS: LACTULOSE 20 GM/30 ML SOLUTION PO (00:03)
[2020-02-25 00:11] LABS: NT-proBNP (BNP-Adult 18+) 1080 pg/mL (<125)
== END 2020-02-25 02:20 | disposition short-term general hospital (02) ==
PROVIDERS: Emergency Provider Emergency Medicine; Family Provider Family Medicine; PCP Family Medicine
DX: I21.4 Non-ST elevation (NSTEMI) myocardial infarction (principal); E80.6 Other disorders of bilirubin metabolism; K72.90 Hepatic failure, unspecified without coma; E87.6 Hypokalemia; I95.9 Hypotension, unspecified; Z95.2 Presence of prosthetic heart valve; I48.92 Unspecified atrial flutter; K74.60 Unspecified cirrhosis of liver
CPT/HCPCS: 36415; 36600; 70450; 71045; 71275; 80048; 80076; 80320; 80329; 81001; 82140; 82550; 82805; 83605; 83690; 83880; 84145; 84484; 85025; 85610; 85730; 87040; 87077; 87086; 87186; 87635; 93005; 96365; 96366; 96368; 96375; 99285; G0480; J1644; J3480; Q9967